=== PATIENT | male | born 1965 | race Caucasian/White ===

== ENCOUNTER 2018-06-19 13:51 | Inpatient (IN) | payer OTHER ==
[2018-06-19 14:17] VITALS: BMI 31.9
--- NOTE | 2018-06-19 16:40 | HP ---
CIWA Score Nausea/Vomitin-No Nausea/No Vomiting Muscle Tremors: 4-Moderate,w/Arms Extend Anxiety: 1-Mildly Anxious Agitation: 4-Moderately Restless Paroxysmal Sweats: 3 (Increased facial moisture) Orientation: 1-Uncertain about Date Tacttile Disturbances: 0-None Auditory Disturbances: 0-None Visual Disturbances: 0-None Headache: 0-None Present CIWA-Ar Total Score: 13 - Admission Criteria OASAS Guidelines: Admission for Medically Managed Detox: Requires at least one of the followin. CIWA greater than 12 2. Seizures within the past 24 hours 3. Delirium tremens within the past 24 hours 4. Hallucinations within the past 24 hours 5. Acute intervention needed for co occurring medical disorder 6. Acute intervention needed for co occurring psychiatric disorder 7. Severe withdrawal that cannot be handled at a lower level of care (continued vomiting, continued diarrhea, abnormal vital signs) requiring intravenous medication and/or fluids 8. Patient presents the following: CIWA greater than 12 (CORAL was 0.281 and now 0.158) Admission Criteria Met: Admission criteria met Admission [facility] Chief Complaint: Here for alcohol withdrawal. Allergies/Adverse Reactions: Allergies Allergy/AdvReac Type Severity Reaction Status Date / Time diphenhydramine AdvReac Verified 06/19/18 16:12 [From Benadryl] hydroxyzine [From Atarax] AdvReac Verified 06/19/18 16:12 History of Present Illness: States here for detox. States last drink about 1 pm today. Continuous daily drinking since 04/2019 to present. Alcohol use began at age 6. Currently in 'After Care' @ [facility]. Continues to drink about 1/2 gall vodka daily. Marijuana use began at age 12. Nicotine use began at age 12. Patient prefers nicotine patch to gum. Heroin use from 31 - 35. Suboxone prescriptions from [facility] - Eliseo Vazquez MD - On Suboxone x 4 - 5 years. Denies opiate relapse. States seizures as a child. Recently only having Alcohol related seizure - last 5 years ago. No blackouts/overdoses. Longest length of sobriety from alcohol 2000 - 2005; Hx: Asthma - last exacerbation 06/18/18. HTN - on meds; Occ. Acid reflux. Urinary Hesitancy - on meds. Hx. Depression. Denies thoughts of harming self or others. States see a provider. Patient Name: Bryon Buck Date: 1965 Address: [address] [place] [id number] Sex: Male Rx Written Rx Dispensed Drug Quantity Days Supply Prescriber Name 06/15/2018 06/15/2018 suboxone 8 mg-2 mg sl film 60 30 Eliseo Vazquez MD 05/16/2018 05/16/2018 suboxone 8 mg-2 mg sl film 60 30 Eliseo Vazquez MD 04/21/2018 04/22/2018 suboxone 8 mg-2 mg sl film 30 15 Eliseo Vazquez MD 04/14/2018 04/14/2018 suboxone 8 mg-2 mg sl film 15 8 Eliseo Vazquez MD 03/17/2018 03/17/2018 suboxone 8 mg-2 mg sl film 60 30 TaylorEliseo MD 02/16/2018 02/16/2018 suboxone 8 mg-2 mg sl film 60 30 TaylorEliseo MD 01/13/2018 01/13/2018 suboxone 8 mg-2 mg sl film 60 30 TaylorEliseo MD 12/14/2017 12/14/2017 suboxone 8 mg-2 mg sl film 60 30 TaylorEliseo MD 10/12/2017 10/12/2017 suboxone 8 mg-2 mg sl film 60 30 Eliseo Vazquez MD 09/01/2017 09/06/2017 suboxone 8 mg-2 mg sl film 30 15 Eliseo Vazquez MD 08/09/2017 08/09/2017 suboxone 8 mg-2 mg sl film 30 30 Eliseo Vazquez MD Patient Name: Bryon Buck Date: 1965 Address: [address] [facility] [place] [address] Sex: Male Rx Written Rx Dispensed Drug Quantity Days Supply Prescriber Name 12/10/2017 12/11/2017 chlordiazepoxide 25 mg capsule 8 2 Stevie Hill ( CLARISSA) Exam Limitations: No Limitations - Ebola screening Have you traveled outside of the country in the last 21 days: No Have you had contact with anyone from an Ebola affected area: No Have you been sick,other than usual withdrawal symptoms: No Do you have a fever: No - Review of Systems Constitutional: Diaphoresis EENT: reports: Blurred Vision (Wears glasses) Respiratory: reports: SOB with Exertion Cardiac: reports: No Symptoms Reported GI: reports: Indigestion (Acid reflux - on meds) : reports: Other (Hx hesitentcy - on meds) Musculoskeletal: reports: Back Pain (Chronic achy neck and lower back x 16 years. Takes ibuprofen for relief. No pain at this time.) Integumentary: reports: No Symptoms Reported Neuro: reports: Numbness ((R) leg - states takes neurontin. States when doesn't take, legs kick.) Endocrine: reports: Increased Thirst Hematology: reports: No Symptoms Reported Psychiatric: reports: Judgement Intact, Agitated, Anxious, Depressed (Hx. Depression. Denies thoughts of harming self or others.), Disorientated (Unsure of date) Patient History - Patient Medical History Hx Asthma: Yes (Pt is on MDi.) Hx Chronic Obstructive Pulmonary Disease (COPD): No Hx Cardiac Disorders: No Hx Hypertension: Yes (on meds.) Hx Seizures: Yes (etoh related seizures last in 1999) Hx Diabetes: No Hx Gastrointestinal Disorders: No Hx Genitourinary Disorders: No Hx Sexually Transmitted Disorders: No Hx Renal Disease (ESRD): Yes Hx Depression: Yes Hx Schizophrenia: No - Patient Surgical History Past Surgical History: Yes Other Surgical History: L inguinal hernia - PPD History Previous Implant?: Yes Documented Results: Negative w/o proof Implanted On Prior [facility] Admission?: No PPD to be Administered?: Yes - Smoking Cessation Smoking history: Current every day smoker Have you smoked in the past 12 months: Yes Aproximately how many cigarettes per day: 5 Hx Chewing Tobacco Use: No Initiated information on smoking cessation: Yes 'Breaking Loose' booklet given: 06/19/18 - Substance & Tx. History Hx Alcohol Use: Yes Hx Substance Use: Yes Substance Use Type: Alcohol, Heroin Hx Substance Use Treatment: Yes (detox, rehab, Suboxone Program, after Care) - Substances Abused Alcohol Route: Oral Frequency: Daily Amount used: 1/2 GALLON VODKA Age of first use: 6 Date of Last Use: 06/19/18 Marijuana/Hashish Route: Smoking Frequency: Daily Amount used: 1 JOINT Age of first use: 12 Date of Last Use: 06/19/18 Admission Physical Exam BHS - Vital Signs Vital Signs: Vital Signs - 24 hr 06/19/18 14:14 Temperature 99.1 F Pulse Rate 101 H Respiratory 18 Rate Blood Pressure 121/78 - Physical General Appearance: Yes: Appropriately Dressed, Mild Distress, Alcohol on Breath , Tremorous, Irritable, Sweating (Increased facial moisture), Anxious HEENTM: Yes: EOMI (Jerking movements of eye upon (L) and (R) lateral gaze), Hearing grossly Normal, Normal Voice, KAY (Pupils = 1 mm), Pharynx Normal Respiratory: Yes: Lungs Clear, Normal Breath Sounds, No Respiratory Distress Neck: Yes: No masses,lesions,Nodules, Supple Breast: Yes: Breast Exam Deferred Cardiology: Yes: Regular Rhythm, S1, S2, Tachycardia Abdominal: Yes: Non Tender (Increased abdominal adiposity), Increased Bowel Sounds, Protuberent Genitourinary: Yes: Hesitency Back: Yes: Normal Inspection Musculoskeletal: Yes: full range of Motion, Gait Steady (Uses cane in case of leg weakness) Extremities: Yes: Normal Capillary Refill, Normal Inspection, Normal Range of Motion, Tremors Neurological: Yes: chief nursing executive II-XII NML intact (Jerking movements of eye upon (L) and (R) lateral gaze), Alert, Motor Strength 5/5 Integumentary: Yes: Normal Color, Dry (Except for facial area), Warm, Diaphoresis (Increased facial moisture) Lymphatic: Yes: Within Normal Limits - Diagnostic (1) Nicotine dependence, uncomplicated Current Visit: Yes Status: Chronic Qualifiers: Nicotine product type: cigarettes Qualified Code(s): F17.210 - Nicotine dependence, cigarettes, uncomplicated (2) Alcohol dependence with uncomplicated withdrawal Current Visit: Yes Status: Acute (3) Opioid dependence on agonist therapy Current Visit: Yes Status: Chronic (4) Essential (primary) hypertension Current Visit: Yes Status: Chronic (5) Nystagmus Current Visit: Yes Status: Acute (6) Chronic back pain Current Visit: Yes Status: Acute Qualifiers: Back pain location: back pain in unspecified location Back pain laterality : unspecified Qualified Code(s): M54.9 - Dorsalgia, unspecified; G89.29 - Other chronic pain Comment: Neck and low back pain (7) Neuropathy Current Visit: Yes Status: Chronic Comment: (R) leg (8) History of asthma Current Visit: Yes Status: Chronic (9) Cannabis dependence, uncomplicated Current Visit: Yes Status: Chronic (10) Urinary hesitancy Current Visit: Yes Status: Chronic Comment: On Tamsulosin Cleared for Admission [facility] - Detox or Rehab [facility] Level of Care: Medically Managed Detox Regimen/Protocol: Librium [facility] Breath Alcohol Content Breath Alcohol Content: 0.281 Urine Drug Screen - Results Drug Screen Negative: No Urine Drug Screen Results: THC-Marijuana, MET-Methamphetamine, BUP-Suboxone Inpatient Rehab Admission - Rehab Decision to Admit Inpatient rehab admission?: No
[2018-06-19] MEDS ORDERED: ALBUTEROL SO4 8 GM HFA INHALER IH PRN (17:44)
[2018-06-19] MEDS ORDERED: MENTHOL/PHENOL 1 EACH UD MM PRN (18:03)
[2018-06-19] MEDS ORDERED: chlordiazePOXIDE HCL 25 MG CAPSULE PO ONE (18:03)
[2018-06-19] MEDS ORDERED: MAGNESIUM CITRATE 300 ML BOTTLE PO PRN (18:03)
[2018-06-19] MEDS ORDERED: ACETAMINOPHEN 325 MG TABLET (FP) PO PRN (18:03)
[2018-06-19] MEDS ORDERED: LOPERAMIDE HCL 2 MG CAPSULE PO PRN (18:03)
[2018-06-19] MEDS ORDERED: MAGNESIUM HYDROX 2400MG/30ML ORAL SUSPENSION 30 ML CUP PO PRN (18:03)
[2018-06-19] MEDS ORDERED: guaiFENesin 200 MG/10 ML 10 ML UNIT-DOSE CUPS PO PRN (18:05)
[2018-06-19] MEDS: THIAMINE HCL 100 MG TABLET (FP) PO SCH (22:15)
[2018-06-19] MEDS: chlordiazePOXIDE HCL 25 MG CAPSULE PO SCH (22:15)
[2018-06-19] MEDS: GABAPENTIN 300 MG CAPSULE (FP) PO SCH (22:15)
[2018-06-19] MEDS: DOCUSATE SODIUM 100 MG CAPSULE (FP) PO SCH (22:16)
[2018-06-19] MEDS: MELATONIN 5 MG TABLETS PO PRN (22:17)
[2018-06-20] MEDS: GABAPENTIN 300 MG CAPSULE (FP) PO SCH ×3 (05:25→22:12)
[2018-06-20] MEDS: chlordiazePOXIDE HCL 25 MG CAPSULE PO SCH ×4 (05:25→22:12)
--- NOTE | 2018-06-20 09:46 | PN ---
S CIWA - CIWA Score Nausea/Vomitin-Mild Nausea/No Vomiting Muscle Tremors: 3 Anxiety: 2 Agitation: 3 Paroxysmal Sweats: 1-Minimal Palms Moist Orientation: 1-Uncertain about Date Tacttile Disturbances: 0-None Auditory Disturbances: 0-None Visual Disturbances: 0-None Headache: 2-Mild CIWA-Ar Total Score: 13 BHS Progress Note (SOAP) Subjective: tremor sweating slept through the night Objective: 06/20/18 09:46 Vital Signs Temperature 97.8 F 06/20/18 09:18 Pulse Rate 94 H 06/20/18 09:18 Respiratory Rate 18 06/20/18 09:18 Blood Pressure 127/78 06/20/18 09:18 O2 Sat by Pulse Oximetry (%) lab pending Assessment: 06/20/18 09:46 alcohol withdrawal sx Plan: continue alcohol detox
[2018-06-20] MEDS ORDERED: DOCUSATE SODIUM 100 MG CAPSULE (FP) PO SCH (10:00)
[2018-06-20] MEDS: NICOTINE 7 MG/24 HOURS TOPICAL PATCH TD SCH (10:17)
[2018-06-20] MEDS: BUPRENORPHINE/NALOXONE 8 MG/2 MG FILM PACKET SL SCH (10:17)
[2018-06-20] MEDS: TAMSULOSIN HCL 0.4 MG CAP PO SCH (10:18)
[2018-06-20] MEDS: LISINOPRIL 20 MG TABLET (FP) PO SCH (10:18)
[2018-06-20] MEDS: ASPIRIN 81 MG CHEWABLE TABLETS PO SCH (10:18)
[2018-06-20] MEDS: DOCUSATE SODIUM 100 MG CAPSULE (FP) PO SCH ×2 (10:18→22:13)
[2018-06-20] MEDS: PRENATAL VITAMINS W/ FOLIC ACID TABLET (FP) PO SCH (10:18)
--- NOTE | 2018-06-20 10:18 | CONSULT ---
[facility] Psychiatric Consult - Data Date of interview: 06/20/18 Admission source: [facility] Identifying data: Case of a 53 y/o male, initially treated on [address] [place] [address] for detoxification (alcohol, heroin, cannabis), transferred to [facility] for rehabilitation to consolidate sobriety and address co-morbidities (MDD and anxiety disorder). Re-interviewed at [facility]. Currently on suboxone maintenance. Patient is single (common-law spouse), a father of six, domiciled (lives with C/ L ), unemployed by reason of physical disabilities and supported by + unemployment benefits. Substance Abuse History: Confirmed by patient in this interview. See details in current [facility] report as follows : Smoking history: Current every day smoker. Have you smoked in the past 12 months: Yes. Aproximately how many cigarettes per day: 5. Hx Chewing Tobacco Use: No. Initiated information on smoking cessation: Yes. 'Breaking Loose' booklet given: 06/19/18. - Substance & Tx. History. Hx Alcohol Use: Yes. Hx Substance Use: Yes. Substance Use Type: Alcohol, Heroin. Hx Substance Use Treatment: Yes (detox, rehab, Suboxone Program, after Care). - Substances Abused. Alcohol. Route: Oral. Frequency: Daily. Amount used: 1/2 GALLON VODKA. Age of first use: 6. Date of Last Use: 06/19/18. Marijuana/Hashish. Route: Smoking. Frequency: Daily. Amount used: 1 JOINT. Age of first use: 12. Date of Last Use: 06/19/18 Medical History: Consistent with chronic lumbar pain, GERD, benign prostatic hyperplasia (BPH), antecedent of withdrawal-related seizures, bronchial asthma, hypertension, orthopedic issues (torn meniscus in both knees) and a remote history of left inguinal herniorraphy (1988). Ambulates with a cane. Psychiatric History: No reported history of psychiatric hospitalizations. Patient is receiving active psychiatric care, under the diagnoses of MDD/ Anxiety Disorder, at the [facility] clinic in the [place]. Medicated with sertraline + mirtazapine. Doses not recalled by the patient. Mr Buck denies history of suicide attempts. Physical/Sexual Abuse/Trauma History: No history of abuse. Stressors : current status of unemployment, physical disabilities and addictions. Additional Comment: Urine Drug Screen Results: THC-Marijuana, MET- Methamphetamine, BUP-Suboxone. Noted. Mental Status Exam - Mental Status Exam Alert and Oriented to: Time, Place, Person Cognitive Function: Good Patient Appearance: Well Groomed Mood: Nervous, Anxious Affect: Appropriate, Normal Range Patient Behavior: Fatigued, Appropriate (friendly), Cooperative Speech Pattern: Clear, Appropriate Voice Loudness: Normal Thought Process: Intact, Goal Oriented Thought Disorder: Not Present Hallucinations: Denies Suicidal Ideation: Denies Homicidal Ideation: Denies Insight/Judgement: Fair Sleep: Poorly, Difficulty falling asleep Appetite: Good Muscle strength/Tone: Normal Gait/Station: Other (walks with a cane) Psychiatric Findings - Problem List (Gobles 1, 2,3) (1) Alcohol dependence with uncomplicated withdrawal Status: Acute (2) Opioid dependence on agonist therapy Status: Chronic (3) Cannabis dependence, uncomplicated Status: Chronic (4) Nicotine dependence, uncomplicated Status: Chronic Qualifiers: Nicotine product type: cigarettes Qualified Code(s): F17.210 - Nicotine dependence, cigarettes, uncomplicated (5) Substance induced mood disorder Status: Chronic (6) Depressive disorder Status: Chronic Comment: According to history. Patient is on medications. Sees psychiatrist at [facility] at [address] [place] [address]. (7) Insomnia Status: Chronic Qualifiers: Insomnia type: unspecified Qualified Code(s): G47.00 - Insomnia, unspecified - Initial Treatment Plan Initial Treatment Plan: Psychoeducation. Sleep hygiene. Detoxification. AA/NA meetings. Support. Medications resumed as follows : zoloft 50 mg po daily + remeron 7.5 mg po hs. Side effects/benefits of both drugs are discussed with the patient. Mr Buck is in agreement with this plan of care. Falls precautions. Observation.
[2018-06-20 10:57] LABS: HEMATOCRIT 38.5 % (35.4-49); HEMOGLOBIN 13.5 GM/dL (11.7-16.9); MCH 35.2 pg (25.7-33.7); MCHC 35.1 g/dl (32.0-35.9); MEAN CELL VOLUME 100.3 fl (80-96); MEAN PLT VOLUME 8.8 fl (7.5-11.1); PLATELET COUNT 230 K/MM3 (134-434); RBC 3.84 M/mm3 (4.00-5.60); RDW 13.2 % (11.9-15.9); WHITE BLOOD COUNT 5.9 K/mm3 (4.0-10.0)
[2018-06-20 11:21] LABS: ALBUMIN 3.1 g/dl (3.4-5.0); ALK PHOS 172 U/L (45-117); ANION GAP 8 MMOL/L (8-16); BILIRUBIN,TOTAL 1.7 mg/dL (0.2-1); BLOOD UREA NITROGEN 8 mg/dL (7-18); CALCIUM 8.4 mg/dL (8.5-10.1); CHLORIDE 96 mmol/L (98-107); CO2 32 mmol/L (21-32); CREATININE 0.6 mg/dL (0.55-1.3); GLUCOSE,RANDOM 89 mg/dL (74-106); POTASSIUM 3.2 mmol/L (3.5-5.1); SGOT/AST 307 U/L (15-37); SGPT/ALT 108 U/L (13-61); SODIUM 136 mmol/L (136-145)
[2018-06-20] MEDS: IBUPROFEN 400 MG TABLET (FP) PO PRN (12:26)
[2018-06-20] MEDS: MAG HYDROX/AL HYDROX/SIMETH 30 ML UNIT-DOSE CUP PO PRN (21:11)
[2018-06-20] MEDS: MIRTAZAPINE 15 MG TABLET (FP) PO SCH (22:13)
[2018-06-20] MEDS: THIAMINE HCL 100 MG TABLET (FP) PO SCH (22:14)
[2018-06-21] MEDS: chlordiazePOXIDE HCL 25 MG CAPSULE PO PRN ×2 (00:36→07:20)
[2018-06-21] MEDS: MELATONIN 5 MG TABLETS PO PRN ×2 (00:38→22:12)
[2018-06-21] MEDS: GABAPENTIN 300 MG CAPSULE (FP) PO SCH ×3 (05:12→22:10)
[2018-06-21] MEDS: chlordiazePOXIDE HCL 25 MG CAPSULE PO SCH ×3 (05:12→18:02)
--- NOTE | 2018-06-21 10:24 | PN ---
[facility] CIWA - CIWA Score Nausea/Vomitin-No Nausea/No Vomiting Muscle Tremors: 2 Anxiety: 3 Agitation: 3 Paroxysmal Sweats: 1-Minimal Palms Moist Orientation: 1-Uncertain about Date Tacttile Disturbances: 0-None Auditory Disturbances: 0-None Visual Disturbances: 0-None Headache: 1-Very Mild CIWA-Ar Total Score: 11 S Progress Note (SOAP) Subjective: swelling ankles ankle edematous +1 no shortness of breath HCTZ 12.5 mg x 1 elevation of both legs as much as possible tremor sweating restlessness Objective: 06/21/18 10:25 Vital Signs Temperature 96.8 F L 06/21/18 09:36 Pulse Rate 109 H 06/21/18 09:36 Respiratory Rate 20 06/21/18 09:36 Blood Pressure 109/72 06/21/18 09:36 O2 Sat by Pulse Oximetry (%) Laboratory Last Values WBC 5.9 K/mm3 (4.0-10.0) 06/20/18 08:10 RBC 3.84 M/mm3 (4.00-5.60) L 06/20/18 08:10 Hgb 13.5 GM/dL (11.7-16.9) 06/20/18 08:10 Hct 38.5 % (35.4-49) 06/20/18 08:10 MCV 100.3 fl (80-96) H 06/20/18 08:10 MCH 35.2 pg (25.7-33.7) H 06/20/18 08:10 MCHC 35.1 g/dl (32.0-35.9) 06/20/18 08:10 RDW 13.2 % (11.9-15.9) 06/20/18 08:10 Plt Count 230 K/MM3 (134-434) 06/20/18 08:10 MPV 8.8 fl (7.5-11.1) 06/20/18 08:10 Sodium 136 mmol/L (136-145) 06/20/18 08:10 Potassium 3.2 mmol/L (3.5-5.1) L 06/20/18 08:10 Chloride 96 mmol/L (98-107) L 06/20/18 08:10 Carbon Dioxide 32 mmol/L (21-32) 06/20/18 08:10 Anion Gap 8 MMOL/L (8-16) 06/20/18 08:10 BUN 8 mg/dL (7-18) 06/20/18 08:10 Creatinine 0.6 mg/dL (0.55-1.3) 06/20/18 08:10 Creat Clearance w eGFR > 60 (>60) 06/20/18 08:10 Random Glucose 89 mg/dL (74-106) 06/20/18 08:10 Calcium 8.4 mg/dL (8.5-10.1) L 06/20/18 08:10 Total Bilirubin 1.7 mg/dL (0.2-1) H 06/20/18 08:10 AST 307 U/L (15-37) H 06/20/18 08:10 ALT 108 U/L (13-61) H 06/20/18 08:10 Alkaline Phosphatase 172 U/L (45-117) H 06/20/18 08:10 Total Protein 6.0 g/dl (6.4-8.2) L 06/20/18 08:10 Albumin 3.1 g/dl (3.4-5.0) L 06/20/18 08:10 RPR Titer Nonreactive (NONREACTIVE) 06/20/18 08:10 lab noted K+ low Assessment: 06/21/18 10:25 withdrawal sx Plan: continue detox potassium supplement repeat K+
[2018-06-21] MEDS: BUPRENORPHINE/NALOXONE 8 MG/2 MG FILM PACKET SL SCH (10:25)
[2018-06-21] MEDS: PRENATAL VITAMINS W/ FOLIC ACID TABLET (FP) PO SCH (10:26)
[2018-06-21] MEDS: SERTRALINE HCL 50 MG TABLET (FP) PO SCH (10:26)
[2018-06-21] MEDS: TAMSULOSIN HCL 0.4 MG CAP PO SCH (10:26)
[2018-06-21] MEDS: ASPIRIN 81 MG CHEWABLE TABLETS PO SCH (10:26)
[2018-06-21] MEDS: LISINOPRIL 20 MG TABLET (FP) PO SCH (10:26)
[2018-06-21] MEDS: DOCUSATE SODIUM 100 MG CAPSULE (FP) PO SCH ×2 (10:26→22:10)
[2018-06-21] MEDS: NICOTINE 7 MG/24 HOURS TOPICAL PATCH TD SCH (10:27)
[2018-06-21] MEDS ORDERED: HYDROCHLOROTHIAZIDE 12.5 MG CAPSULE (FP) PO ONE (10:45)
[2018-06-21] MEDS: POTASSIUM CHLORIDE TABS 20 MEQ TABLET.ER (FP) PO SCH ×2 (12:40→22:10)
[2018-06-21] MEDS: IBUPROFEN 400 MG TABLET (FP) PO PRN (12:40)
[2018-06-21] MEDS: chlordiazePOXIDE 5 MG CAPSULE PO SCH (22:10)
[2018-06-21] MEDS: THIAMINE HCL 100 MG TABLET (FP) PO SCH (22:10)
[2018-06-21] MEDS: MIRTAZAPINE 15 MG TABLET (FP) PO SCH (22:11)
[2018-06-21] MEDS ORDERED: BACLOFEN 10 MG TABLET (FP) PO ONE (22:22)
[2018-06-21] MEDS: NICOTINE POLACRILEX 2 MG GUM BUC PRN (22:47)
[2018-06-22] MEDS: chlordiazePOXIDE 5 MG CAPSULE PO SCH ×3 (05:07→17:54)
[2018-06-22] MEDS: GABAPENTIN 300 MG CAPSULE (FP) PO SCH ×3 (05:07→22:06)
[2018-06-22] MEDS: chlordiazePOXIDE HCL 25 MG CAPSULE PO PRN (07:03)
--- NOTE | 2018-06-22 09:24 | PN ---
S CIWA - CIWA Score Nausea/Vomitin-No Nausea/No Vomiting Muscle Tremors: 2 Anxiety: 1-Mildly Anxious Agitation: 1-Slight > Activity Paroxysmal Sweats: 1-Minimal Palms Moist Orientation: 0-Oriented Tacttile Disturbances: 0-None Auditory Disturbances: 0-None Visual Disturbances: 0-None Headache: 1-Very Mild CIWA-Ar Total Score: 6 BHS Progress Note (SOAP) Subjective: feeling better less tremor mild sweating patient received 30 days medication from primary care on 06/15/18 Objective: 06/22/18 09:26 Vital Signs Temperature 97.7 F 06/22/18 05:54 Pulse Rate 60 06/22/18 05:54 Respiratory Rate 18 06/22/18 05:54 Blood Pressure 103/67 06/22/18 05:54 O2 Sat by Pulse Oximetry (%) Laboratory Last Values WBC 5.9 K/mm3 (4.0-10.0) 06/20/18 08:10 RBC 3.84 M/mm3 (4.00-5.60) L 06/20/18 08:10 Hgb 13.5 GM/dL (11.7-16.9) 06/20/18 08:10 Hct 38.5 % (35.4-49) 06/20/18 08:10 MCV 100.3 fl (80-96) H 06/20/18 08:10 MCH 35.2 pg (25.7-33.7) H 06/20/18 08:10 MCHC 35.1 g/dl (32.0-35.9) 06/20/18 08:10 RDW 13.2 % (11.9-15.9) 06/20/18 08:10 Plt Count 230 K/MM3 (134-434) 06/20/18 08:10 MPV 8.8 fl (7.5-11.1) 06/20/18 08:10 Sodium 136 mmol/L (136-145) 06/20/18 08:10 Potassium 3.2 mmol/L (3.5-5.1) L 06/20/18 08:10 Chloride 96 mmol/L (98-107) L 06/20/18 08:10 Carbon Dioxide 32 mmol/L (21-32) 06/20/18 08:10 Anion Gap 8 MMOL/L (8-16) 06/20/18 08:10 BUN 8 mg/dL (7-18) 06/20/18 08:10 Creatinine 0.6 mg/dL (0.55-1.3) 06/20/18 08:10 Creat Clearance w eGFR > 60 (>60) 06/20/18 08:10 Random Glucose 89 mg/dL (74-106) 06/20/18 08:10 Calcium 8.4 mg/dL (8.5-10.1) L 06/20/18 08:10 Total Bilirubin 1.7 mg/dL (0.2-1) H 06/20/18 08:10 AST 307 U/L (15-37) H 06/20/18 08:10 ALT 108 U/L (13-61) H 06/20/18 08:10 Alkaline Phosphatase 172 U/L (45-117) H 06/20/18 08:10 Total Protein 6.0 g/dl (6.4-8.2) L 06/20/18 08:10 Albumin 3.1 g/dl (3.4-5.0) L 06/20/18 08:10 RPR Titer Nonreactive (NONREACTIVE) 06/20/18 08:10 lab noted repeat ast 06/22/18 09:29K+ repeat pending Assessment: 06/22/18 09:29 mild alcohol withdrawal sx Plan: continue detox
[2018-06-22] MEDS: LISINOPRIL 20 MG TABLET (FP) PO SCH (10:10)
[2018-06-22] MEDS: ASPIRIN 81 MG CHEWABLE TABLETS PO SCH (10:10)
[2018-06-22] MEDS: BUPRENORPHINE/NALOXONE 8 MG/2 MG FILM PACKET SL SCH (10:10)
[2018-06-22] MEDS: TAMSULOSIN HCL 0.4 MG CAP PO SCH (10:10)
[2018-06-22] MEDS: DOCUSATE SODIUM 100 MG CAPSULE (FP) PO SCH ×2 (10:10→22:06)
[2018-06-22] MEDS: SERTRALINE HCL 50 MG TABLET (FP) PO SCH (10:10)
[2018-06-22] MEDS: PRENATAL VITAMINS W/ FOLIC ACID TABLET (FP) PO SCH (10:10)
[2018-06-22] MEDS: POTASSIUM CHLORIDE TABS 20 MEQ TABLET.ER (FP) PO SCH (10:10)
[2018-06-22] MEDS: NICOTINE 7 MG/24 HOURS TOPICAL PATCH TD SCH (10:13)
[2018-06-22 10:46] LABS: POTASSIUM 3.9 mmol/L (3.5-5.1)
[2018-06-22] MEDS: IBUPROFEN 400 MG TABLET (FP) PO PRN (16:08)
[2018-06-22] MEDS: NICOTINE POLACRILEX 2 MG GUM BUC PRN (18:28)
[2018-06-22] MEDS: chlordiazePOXIDE HCL 10 MG CAPSULE PO SCH (22:06)
[2018-06-22] MEDS: MIRTAZAPINE 15 MG TABLET (FP) PO SCH (22:06)
[2018-06-22] MEDS: THIAMINE HCL 100 MG TABLET (FP) PO SCH (22:06)
[2018-06-22] MEDS: MELATONIN 5 MG TABLETS PO PRN (22:07)
[2018-06-23] MEDS: chlordiazePOXIDE HCL 10 MG CAPSULE PO SCH ×3 (05:37→17:45)
[2018-06-23] MEDS: GABAPENTIN 300 MG CAPSULE (FP) PO SCH ×2 (05:37→14:57)
[2018-06-23] MEDS: PRENATAL VITAMINS W/ FOLIC ACID TABLET (FP) PO SCH (10:33)
[2018-06-23] MEDS: SERTRALINE HCL 50 MG TABLET (FP) PO SCH (10:34)
[2018-06-23] MEDS: DOCUSATE SODIUM 100 MG CAPSULE (FP) PO SCH (10:34)
[2018-06-23] MEDS: LISINOPRIL 20 MG TABLET (FP) PO SCH (10:34)
[2018-06-23] MEDS: TAMSULOSIN HCL 0.4 MG CAP PO SCH (10:34)
[2018-06-23] MEDS: BUPRENORPHINE/NALOXONE 8 MG/2 MG FILM PACKET SL SCH (10:34)
[2018-06-23] MEDS: ASPIRIN 81 MG CHEWABLE TABLETS PO SCH (10:34)
[2018-06-23] MEDS: MAG HYDROX/AL HYDROX/SIMETH 30 ML UNIT-DOSE CUP PO PRN (10:37)
[2018-06-23] MEDS: NICOTINE 7 MG/24 HOURS TOPICAL PATCH TD SCH (10:40)
[2018-06-23] MEDS ORDERED: HYDROCHLOROTHIAZIDE 25 MG TABLET (FP) PO ONE (11:45)
--- NOTE | 2018-06-23 15:17 | DS ---
[facility] Detox Discharge Summary Admission Date: 06/19/18 Discharge Date: 06/23/18 - History Present History: Alcohol Dependence, Cannabis Dependence Additional Comments: PATIENT GOING ON TO [facility] ([place], [place]) FOR AFTERCARE. PATIENT TO BE GIVEN HCTZ, 12.5 MG PO DAILY X FIRST THREE DAYS WHILE ADMITTED FOR REHAB FOR RECENT DEVELOPMENT OF SWELLING IN BILATERAL ANKLES AND FEET. PATIENT WILL THEN BE RE-EVALUATED FOR SWELLING BY REHAB MEDICAL PROVIDER AT THAT TIME. PATIENT ADVISED TO FOLLOW-UP WITH [facility] DR[facility] JAVIER ([place], [place]) AFTER DISCHARGE FROM REHAB FOR GENERAL MEDICAL EVALUATION AND FOR HISTORY OF SWELLING IN BILATERAL ANKLES AND FEET, FOR HISTORY OF LIVER DISEASE (PATIENT UNCERTAIN ABOUT SPECIFIC TYPE), AND FOR ELEVATED LIVER ENZYMES VALUES NOTED WHILE ADMITTED FOR DETOX. PATIENT VERBALIZED UNDERSTANDING OF RECOMMENDATIONS. RESULT OF REPEAT AST NOTED. MODERATE REDUCTION IN LEVEL NOTED. COPIES OF ALL LABS DRAWN WHILE ADMITTED FOR DETOX WILL BE GIVEN TO PATIENT A TIME OF DISCHARGE FROM REHAB UNIT. PATIENT WAS DISCHARGE FROM DETOX UNIT IN STABLE MEDICAL CONDITION. Pertinent Past History: Asthma, Depression, HTN, Suboxone Maintenance Therapy, History of Seizures (ETOH -Related), History of Renal Disease, History of Urinary Hesitancy, Nystagmus, Nicotine Dependence, Chronic Back Pain, History of Neuropathy, Insomnia. - Physical Exam Results Vital Signs: Vital Signs Temperature 99.9 F H 06/23/18 13:33 Pulse Rate 93 H 06/23/18 13:33 Respiratory Rate 18 06/23/18 13:33 Blood Pressure 127/81 06/23/18 13:33 O2 Sat by Pulse Oximetry (%) Pertinent Admission Physical Exam Findings: WITHDRAWAL SYMPTOMS. Laboratory Tests 06/20/18 06/20/18 06/20/18 08:10 08:10 08:10 WBC 5.9 RBC 3.84 L Hgb 13.5 Hct 38.5 MCV 100.3 H MCH 35.2 H MCHC 35.1 RDW 13.2 Plt Count 230 MPV 8.8 Sodium 136 Potassium 3.2 L Chloride 96 L Carbon Dioxide 32 Anion Gap 8 BUN 8 Creatinine 0.6 Creat Clearance w eGFR > 60 Random Glucose 89 Calcium 8.4 L Total Bilirubin 1.7 H AST 307 H ALT 108 H Alkaline Phosphatase 172 H Total Protein 6.0 L Albumin 3.1 L RPR Titer Nonreactive 06/22/18 06/23/18 08:00 07:00 WBC RBC Hgb Hct MCV MCH MCHC RDW Plt Count MPV Sodium Potassium 3.9 Chloride Carbon Dioxide Anion Gap BUN Creatinine Creat Clearance w eGFR Random Glucose Calcium Total Bilirubin AST 231 H 181 H ALT Alkaline Phosphatase Total Protein Albumin RPR Titer LABS NOTED. - Treatment Hospital Course: Detox Protocol Followed, Detoxed Safely, Responded well, Discharged Condition Good, Rehab Referral Accepted Patient has Accepted a Rehab Referral to: [facility] ([place], [place]). - Medication Discharge Medications: Ambulatory Orders Albuterol Sulfate Inhaler - [Ventolin HFA Inhaler -] 2 inh PO Q4H PRN 06/19/18 Aspirin [ASA -] 81 mg PO DAILY 06/19/18 Buprenorphine/Naloxone [Suboxone 8Mg/2Mg Sl Film -] 2 each SL DAILY 06/19/18 Docusate Sodium [Dok] 100 mg PO BID 06/19/18 Folic Acid - 1 mg PO DAILY 06/19/18 Gabapentin [Neurontin] 600 mg PO TID 06/19/18 Ibuprofen 800 mg PO BID 06/19/18 Lisinopril 20 mg PO DAILY 06/19/18 Sertraline HCl [Zoloft -] 50 mg PO DAILY 06/19/18 Tamsulosin HCl [Flomax -] 0.4 mg PO DAILY 06/19/18 - Diagnosis (1) Alcohol dependence with uncomplicated withdrawal Current Visit: Yes Status: Acute (2) Chronic back pain Current Visit: Yes Status: Chronic Qualifiers: Back pain location: back pain in unspecified location Back pain laterality : unspecified Qualified Code(s): M54.9 - Dorsalgia, unspecified; G89.29 - Other chronic pain (3) Nystagmus Current Visit: Yes Status: Acute (4) Cannabis dependence, uncomplicated Current Visit: Yes Status: Chronic (5) Depressive disorder Current Visit: Yes Status: Chronic (6) Essential (primary) hypertension Current Visit: Yes Status: Chronic (7) History of asthma Current Visit: Yes Status: Chronic (8) Insomnia Current Visit: Yes Status: Chronic Qualifiers: Insomnia type: unspecified Qualified Code(s): G47.00 - Insomnia, unspecified (9) Neuropathy Current Visit: Yes Status: Chronic (10) Nicotine dependence, uncomplicated Current Visit: Yes Status: Chronic Qualifiers: Nicotine product type: cigarettes Qualified Code(s): F17.210 - Nicotine dependence, cigarettes, uncomplicated (11) Opioid dependence on agonist therapy Current Visit: Yes Status: Chronic (12) Substance induced mood disorder Current Visit: Yes Status: Chronic (13) Urinary hesitancy Current Visit: Yes Status: Chronic - AMA Did Patient Leave Against Medical Advice: No
[2018-06-23 17:19] VITALS: BP 100/65; PULSE 95; TEMP 97.1
--- NOTE | 2018-06-25 12:40 | EKG ---
Test Reason : Blood Pressure : / mmHG Vent. Rate : 080 BPM Atrial Rate : 080 BPM P-R Int : 120 ms QRS Dur : 074 ms QT Int : 384 ms P-R-T Axes : 020 006 018 degrees QTc Int : 442 ms NORMAL SINUS RHYTHM NORMAL ECG NO PREVIOUS ECGS AVAILABLE Confirmed by MELISSA GRECO MD ([id number]) on 06/25/2018 12:40:07 PM Referred By: Confirmed By:MELISSA GRECO MD
== END 2018-06-23 18:00 | disposition other institution (70) | DRG 773 ==
LOC: YASAS 13:51 → Y3N 18:09
PROVIDERS: ADMIT Surgery; ATTEND Surgery
PROC: HZ2ZZZZ Detoxification Services for Substance Abuse Treatment (ICD-10-PCS; principal; 2018-06-19)
DX: F10.230 Alcohol dependence with withdrawal, uncomplicated (principal); F11.20 Opioid dependence, uncomplicated; F12.20 Cannabis dependence, uncomplicated; F17.210 Nicotine dependence, cigarettes, uncomplicated; F19.24 Other psychoactive substance dependence with psychoactive substance-induced mood disorder; F32.9 Major depressive disorder, single episode, unspecified; G62.9 Polyneuropathy, unspecified; G47.00 Insomnia, unspecified; I10 Essential (primary) hypertension; M54.9 Dorsalgia, unspecified; G89.29 Other chronic pain; H55.00 Unspecified nystagmus; R39.11 Hesitancy of micturition; Z87.09 Personal history of other diseases of the respiratory system
CPT/HCPCS: 36415; 80053; 84132; 84450; 85027; 86593; 93005; 93010; J0475

== ENCOUNTER 2018-06-23 18:09 | Inpatient (IN) | payer OTHER ==
--- NOTE | 2018-06-23 15:31 | HP ---
LEATHA SIMON Rehab Assess/Revision - Admission History Admitted to Rehab from: [facility] Date of Admission to Rehab: 06/23/2018 - Vital signs Vital Signs: NOTED; STABLE. - Findings Detox History & Physical reviewed: Yes Concur with findings: Yes Comments/Additional Findings: PATIENT'S MEDICAL / MEDICATION HISTORY REVIEWED PRIOR TO DISCHARGE FROM DETOX UNIT. PATIENT TO BE GIVEN HCTZ, 12.5 MG PO DAILY X FIRST THREE DAYS WHILE ADMITTED FOR REHAB FOR RECENT DEVELOPMENT OF SWELLING IN BILATERAL ANKLES AND FEET. PATIENT WILL THEN BE RE-EVALUATED FOR SWELLING BY REHAB MEDICAL PROVIDER AT THAT TIME. PATIENT ADVISED TO FOLLOW-UP WITH [facility] DR. JAVIER ([place], [place]) AFTER DISCHARGE FROM REHAB FOR GENERAL MEDICAL EVALUATION AND FOR HISTORY OF SWELLING IN BILATERAL ANKLES AND FEET, FOR HISTORY OF LIVER DISEASE (PATIENT UNCERTAIN ABOUT SPECIFIC TYPE), AND FOR ELEVATED LIVER ENZYMES VALUES NOTED WHILE ADMITTED FOR DETOX. PATIENT VERBALIZED UNDERSTANDING OF RECOMMENDATIONS. RESULT OF REPEAT AST NOTED. MODERATE REDUCTION IN LEVEL NOTED. COPIES OF ALL LABS DRAWN WHILE ADMITTED FOR DETOX WILL BE GIVEN TO PATIENT A TIME OF DISCHARGE FROM REHAB UNIT. PATIENT WAS DISCHARGED FROM DETOX UNIT TO BE TAKEN OVER TO REHAB UNIT IN STABLE MEDICAL CONDITION. Inpatient Rehab Admission - Rehab Decision to Admit Inpatient rehab admission?: Yes - Initial Determination Are CD services needed?: Yes Free of communicable disease: Yes Not in need of hospitalization: Yes - Rehab Admission Criteria Previous failed treatment: Yes Poor recovery environment: Yes Comorbidities: Yes Lacks judgement: No Patient is meeting Inpatient Rehab admission criteria:: Yes
[~2018-06-23 18:09] MED LIST: ALBUTEROL SO4 8 GM HFA INHALER IH PRN; IBUPROFEN 400 MG TABLET (FP) PO PRN; LOPERAMIDE HCL 2 MG CAPSULE PO PRN; MENTHOL/PHENOL 1 EACH UD MM PRN; P-EPHED 60MG/TRIPROLIDI 2.5MG TABLET PO PRN
[2018-06-23] MEDS ORDERED: MAGNESIUM CITRATE 300 ML BOTTLE PO PRN (18:17)
[2018-06-23] MEDS ORDERED: MAGNESIUM HYDROX 2400MG/30ML ORAL SUSPENSION 30 ML CUP PO PRN (18:17)
[2018-06-23 18:44] VITALS: BMI 31.9
[2018-06-23] MEDS ORDERED: PNEUMOC 13-VAL CONJ-DIP CRM/PF 0.5 ML DISP.SYRIN IM ONE (18:44)
[2018-06-23] MEDS: MAG HYDROX/AL HYDROX/SIMETH 30 ML UNIT-DOSE CUP PO PRN (20:19)
[2018-06-23] MEDS: DOCUSATE SODIUM 100 MG CAPSULE (FP) PO SCH (21:23)
[2018-06-23] MEDS: GABAPENTIN 300 MG CAPSULE (FP) PO SCH (21:23)
[2018-06-23] MEDS: ACETAMINOPHEN 325 MG TABLET (FP) PO PRN (21:23)
[2018-06-23] MEDS: THIAMINE HCL 100 MG TABLET (FP) PO SCH (21:23)
[2018-06-23] MEDS: MELATONIN 5 MG TABLETS PO PRN (21:23)
[2018-06-23 23:27] LABS: URINE APPEARANCE CLEAR; URINE BILIRUBIN NEGATIVE (<2.0 mg/dL); URINE COLOR YELLOW; URINE GLUCOSE (UA) NEGATIVE (NEGATIVE); URINE KETONE NEGATIVE (NEGATIVE); URINE LEUK ESTERASE NEGATIVE (NEGATIVE); URINE NITRITE NEGATIVE (NEGATIVE); URINE PROTEIN NEGATIVE (NEGATIVE)
[2018-06-24] MEDS: GABAPENTIN 300 MG CAPSULE (FP) PO SCH ×3 (06:03→21:49)
[2018-06-24] MEDS: PRENATAL VITAMINS W/ FOLIC ACID TABLET (FP) PO SCH (10:30)
[2018-06-24] MEDS: DOCUSATE SODIUM 100 MG CAPSULE (FP) PO SCH ×2 (10:30→21:57)
[2018-06-24] MEDS: ASPIRIN 81 MG CHEWABLE TABLETS PO SCH (10:30)
[2018-06-24] MEDS: TAMSULOSIN HCL 0.4 MG CAP PO SCH (10:30)
[2018-06-24] MEDS: LISINOPRIL 20 MG TABLET (FP) PO SCH (10:30)
[2018-06-24] MEDS: HYDROCHLOROTHIAZIDE 12.5 MG CAPSULE (FP) PO SCH (10:30)
[2018-06-24] MEDS: NICOTINE 7 MG/24 HOURS TOPICAL PATCH TD SCH (10:30)
[2018-06-24] MEDS: NICOTINE POLACRILEX 2 MG GUM BUC PRN (10:31)
[2018-06-24] MEDS: BUPRENORPHINE/NALOXONE 8 MG/2 MG FILM PACKET SL SCH (10:31)
[2018-06-24] MEDS: guaiFENesin/D-METHORPHAN HB 10 ML UNIT-DOSE CUPS PO PRN (10:31)
[2018-06-24] MEDS ORDERED: PNEUMOCOCCAL 23 VACCINE 0.5 ML VIAL IM ONE (12:00)
--- NOTE | 2018-06-24 13:46 | CONSULT ---
[facility] Psychiatric Consult - Data Date of interview: 06/24/18 Admission source: Transfer from [address] [place] [address]. Identifying data: First admission to [facility] for this 53 y/o male self-referred for detoxification (alcohol, heroin, cannabis). Currently on suboxone maintenance. Examined at [address] [place] [address]. Patient is single (common-law spouse) , a father of six, domiciled (lives with C/L ), unemployed by reason of physical disabilities and supported by + unemployment benefits. Substance Abuse History: Patient admits to an extensive history of substance abuse. Consumes 1/2 gallon of vodka daily + smokes one joint of marihuana daily since age 12. Started drinking alcohol around 7-6 years of age. Details in current [facility] repport as follows : Medical History: Consistent with chronic lumbar pain, GERD, benign prostatic hyperplasia (BPH), antecedent of withdrawal-related seizures, bronchial asthma, hypertension, orthopedic issues (torn meniscus in both knees) and a remote history of left inguinal herniorraphy (1988). Ambulates with a cane. Psychiatric History: Patient denies history of psychiatric hospitalizations. Diagnosed with MDD/Anxiety Disorder. Currently followed at the [facility] in the [place]. Medicated with sertraline + mirtazapine. Mr Buck denies history of suicide attempts. Physical/Sexual Abuse/Trauma History: No reported history of abuse. Additional Comment: Urine Drug Screen Results: THC-Marijuana, MET- Methamphetamine, BUP-Suboxone. Noted. Mental Status Exam - Mental Status Exam Alert and Oriented to: Time, Place, Person Cognitive Function: Good Patient Appearance: Well Groomed (walking with a cane) Mood: Hopeful, Euthymic Affect: Appropriate, Normal Range Patient Behavior: Appropriate, Cooperative Speech Pattern: Clear Voice Loudness: Normal Thought Process: Intact, Goal Oriented Thought Disorder: Not Present Hallucinations: Denies Suicidal Ideation: Denies Homicidal Ideation: Denies Insight/Judgement: Good Sleep: Well Appetite: Good Muscle strength/Tone: Normal Gait/Station: Other (uses cane for ambulation) Psychiatric Findings - Problem List ([place] 1, 2,3) (1) Opioid dependence on agonist therapy Current Visit: Yes Status: Chronic (2) Alcohol dependence Current Visit: Yes Status: Chronic (3) Cannabis dependence, uncomplicated Current Visit: Yes Status: Chronic (4) Nicotine dependence, uncomplicated Current Visit: Yes Status: Chronic Qualifiers: Nicotine product type: cigarettes Qualified Code(s): F17.210 - Nicotine dependence, cigarettes, uncomplicated (5) Depressive disorder Current Visit: Yes Status: Chronic Comment: According to history. Patient is on medications. Sees psychiatrist at [facility] at [address] [place] [address]. (6) Substance induced mood disorder Current Visit: Yes Status: Chronic (7) Insomnia Current Visit: Yes Status: Chronic Qualifiers: Insomnia type: unspecified Qualified Code(s): G47.00 - Insomnia, unspecified - Initial Treatment Plan Initial Treatment Plan: Psychoeducation. Sleep hygiene. Support. AA meetings. Resume zoloft 50 mg po daily + remeron 7/5 mg po hs. Side effects/benefits of both drugs are discussed with the patient. Mr Buck is in agreement with this plan of care. Observation.
[2018-06-24] MEDS: SERTRALINE HCL 50 MG TABLET (FP) PO SCH (14:31)
[2018-06-24] MEDS ORDERED: PATIENT'S OWN MEDICATION (NON-FORMULARY) (Ibuprofen [Ibuprofen] 800 MG) PO PRN (17:57)
[2018-06-24] MEDS: THIAMINE HCL 100 MG TABLET (FP) PO SCH (21:47)
[2018-06-24] MEDS: IBUPROFEN 400 MG TABLET (FP) PO PRN (21:47)
[2018-06-24] MEDS: MIRTAZAPINE 15 MG TABLET (FP) PO SCH (21:48)
[2018-06-24] MEDS: MELATONIN 5 MG TABLETS PO PRN (21:50)
[2018-06-25] MEDS: GABAPENTIN 300 MG CAPSULE (FP) PO SCH ×3 (06:07→21:21)
[2018-06-25] MEDS: TAMSULOSIN HCL 0.4 MG CAP PO SCH (09:46)
[2018-06-25] MEDS: HYDROCHLOROTHIAZIDE 12.5 MG CAPSULE (FP) PO SCH (09:46)
[2018-06-25] MEDS: LISINOPRIL 20 MG TABLET (FP) PO SCH (09:46)
[2018-06-25] MEDS: SERTRALINE HCL 50 MG TABLET (FP) PO SCH (09:46)
[2018-06-25] MEDS: PRENATAL VITAMINS W/ FOLIC ACID TABLET (FP) PO SCH (09:46)
[2018-06-25] MEDS: DOCUSATE SODIUM 100 MG CAPSULE (FP) PO SCH ×2 (09:46→21:22)
[2018-06-25] MEDS: ASPIRIN 81 MG CHEWABLE TABLETS PO SCH (09:46)
[2018-06-25] MEDS: NICOTINE 7 MG/24 HOURS TOPICAL PATCH TD SCH (09:47)
[2018-06-25] MEDS: BUPRENORPHINE/NALOXONE 8 MG/2 MG FILM PACKET SL SCH (09:47)
[2018-06-25] MEDS: IBUPROFEN 400 MG TABLET (FP) PO PRN (09:48)
[2018-06-25] MEDS: MAG HYDROX/AL HYDROX/SIMETH 30 ML UNIT-DOSE CUP PO PRN ×2 (09:48→23:51)
[2018-06-25] MEDS: THIAMINE HCL 100 MG TABLET (FP) PO SCH (21:20)
[2018-06-25] MEDS: MIRTAZAPINE 15 MG TABLET (FP) PO SCH (21:21)
[2018-06-25] MEDS: MELATONIN 5 MG TABLETS PO PRN (21:22)
[2018-06-26] MEDS: GABAPENTIN 300 MG CAPSULE (FP) PO SCH ×3 (05:54→21:48)
[2018-06-26] MEDS: PRENATAL VITAMINS W/ FOLIC ACID TABLET (FP) PO SCH (09:51)
[2018-06-26] MEDS: ASPIRIN 81 MG CHEWABLE TABLETS PO SCH (09:51)
[2018-06-26] MEDS: DOCUSATE SODIUM 100 MG CAPSULE (FP) PO SCH ×2 (09:52→21:49)
[2018-06-26] MEDS: LISINOPRIL 20 MG TABLET (FP) PO SCH (09:52)
[2018-06-26] MEDS: TAMSULOSIN HCL 0.4 MG CAP PO SCH (09:52)
[2018-06-26] MEDS: NICOTINE 7 MG/24 HOURS TOPICAL PATCH TD SCH (09:52)
[2018-06-26] MEDS: BUPRENORPHINE/NALOXONE 8 MG/2 MG FILM PACKET SL SCH (09:52)
[2018-06-26] MEDS: SERTRALINE HCL 50 MG TABLET (FP) PO SCH (09:52)
[2018-06-26] MEDS: HYDROCHLOROTHIAZIDE 12.5 MG CAPSULE (FP) PO SCH (09:52)
[2018-06-26] MEDS: IBUPROFEN 400 MG TABLET (FP) PO PRN ×2 (09:53→21:49)
[2018-06-26] MEDS: guaiFENesin/D-METHORPHAN HB 10 ML UNIT-DOSE CUPS PO PRN (09:55)
[2018-06-26] MEDS: NICOTINE POLACRILEX 2 MG GUM BUC PRN (09:55)
--- NOTE | 2018-06-26 10:24 | PN ---
[facility] Progress Note (SOAP) Subjective: pt here for f/u leg edema- pt is on diuretics, is elevating feet, and with compression socks pt states redness better and swelling a bit better Vital Signs - 24 hr 06/26/18 06/26/18 06/26/18 03:30 06:39 09:30 Temperature 97.3 F L Pulse Rate 85 94 H Respiratory 20 20 18 Rate Blood Pressure 122/66 119/70 elevated liver enzymes at admission a/p: Wilfredo leg edema- improved, follow up as needed
[2018-06-26 11:18] LABS: HEMATOCRIT 39.1 % (35.4-49); HEMOGLOBIN 13.8 GM/dL (11.7-16.9); MCH 35.8 pg (25.7-33.7); MCHC 35.3 g/dl (32.0-35.9); MEAN CELL VOLUME 101.5 fl (80-96); MEAN PLT VOLUME 9.1 fl (7.5-11.1); PLATELET COUNT 261 K/MM3 (134-434); RBC 3.85 M/mm3 (4.00-5.60); RDW 13.4 % (11.9-15.9); WHITE BLOOD COUNT 7.7 K/mm3 (4.0-10.0)
[2018-06-26] MEDS: MIRTAZAPINE 15 MG TABLET (FP) PO SCH (21:48)
[2018-06-26] MEDS: THIAMINE HCL 100 MG TABLET (FP) PO SCH (21:48)
[2018-06-26] MEDS: MELATONIN 5 MG TABLETS PO PRN (21:49)
[2018-06-27] MEDS: GABAPENTIN 300 MG CAPSULE (FP) PO SCH ×3 (06:09→21:47)
[2018-06-27] MEDS: SERTRALINE HCL 50 MG TABLET (FP) PO SCH (10:22)
[2018-06-27] MEDS: TAMSULOSIN HCL 0.4 MG CAP PO SCH (10:22)
[2018-06-27] MEDS: DOCUSATE SODIUM 100 MG CAPSULE (FP) PO SCH ×2 (10:22→21:48)
[2018-06-27] MEDS: ASPIRIN 81 MG CHEWABLE TABLETS PO SCH (10:22)
[2018-06-27] MEDS: PRENATAL VITAMINS W/ FOLIC ACID TABLET (FP) PO SCH (10:22)
[2018-06-27] MEDS: BUPRENORPHINE/NALOXONE 8 MG/2 MG FILM PACKET SL SCH (10:22)
[2018-06-27] MEDS: NICOTINE 7 MG/24 HOURS TOPICAL PATCH TD SCH (10:22)
[2018-06-27] MEDS: LISINOPRIL 20 MG TABLET (FP) PO SCH (10:22)
[2018-06-27] MEDS: IBUPROFEN 400 MG TABLET (FP) PO PRN ×2 (10:23→23:25)
[2018-06-27] MEDS: MIRTAZAPINE 15 MG TABLET (FP) PO SCH (21:48)
[2018-06-27] MEDS: THIAMINE HCL 100 MG TABLET (FP) PO SCH (21:48)
[2018-06-27] MEDS: MELATONIN 5 MG TABLETS PO PRN (21:49)
[2018-06-27] MEDS: MAG HYDROX/AL HYDROX/SIMETH 30 ML UNIT-DOSE CUP PO PRN (23:28)
[2018-06-28] MEDS: GABAPENTIN 300 MG CAPSULE (FP) PO SCH ×3 (06:00→21:39)
--- NOTE | 2018-06-28 09:58 | PN ---
[facility] Progress Note Note: PATIENT SEEN FOR C/O REDNESS, SWELLING AND TENDERNESS TO BLE X 2 DAYS. PATIENT TREATED WITH DIURETIC FOR EDEMA. PATIENT STATES REDNESS AND SWELLING HAS WORSENED IN PAST 2 DAYS. DENIES HX OF DVT. NO COMPLAINTS OF CALF TENDERNESS REPORTED. PATIENT DOES STATE HE HAS H/O ASTHMA AND MARIJUANA USE WITH INTERMITTENT SOB. + HX OF PNA. Vital Signs Temperature 97.9 F 06/28/18 06:42 Pulse Rate 76 06/28/18 06:42 Respiratory Rate 18 06/28/18 06:42 Blood Pressure 119/77 06/28/18 06:42 O2 Sat by Pulse Oximetry (%) Laboratory Tests 06/23/18 06/26/18 22:40 07:50 WBC 7.7 RBC 3.85 L Hgb 13.8 Hct 39.1 MCV 101.5 H MCH 35.8 H MCHC 35.3 RDW 13.4 Plt Count 261 MPV 9.1 Urine Color Yellow Urine Appearance Clear Urine pH 5.0 Ur Specific [place] 1.016 Urine Protein Negative Urine Glucose (UA) Negative Urine Ketones Negative Urine Blood Negative Urine Nitrite Negative Urine Bilirubin Negative Urine Urobilinogen 2.0 Ur Leukocyte Esterase Negative PE: ALERT AND ORIENTED X 3 SKIN WARM AND DRY CAR S1S2 RESP CTA BL, NO RHONCHI, CRACKLES OR WHEEZING EXT 2+ PITTING EDEMA WITH REDNESS TO BILATERAL LOWER LEGS, AMB WITHOUT DIFFICULTY A/P: CELLULITIS BLE INTERMITTENT SOB/LEI WILL START KEFLEX 500MG QID X 7 DAYS CXR ORDERED VENOUS DOPPLER BLE IN AM LEG ELEVATION PRN CONTINUE TO MONITOR CLINICALLY
[2018-06-28] MEDS ORDERED: PANTOPRAZOLE 40 MG TABLET (FP) PO SCH (10:00)
[2018-06-28] MEDS: PRENATAL VITAMINS W/ FOLIC ACID TABLET (FP) PO SCH (10:05)
[2018-06-28] MEDS: SERTRALINE HCL 50 MG TABLET (FP) PO SCH (10:05)
[2018-06-28] MEDS: TAMSULOSIN HCL 0.4 MG CAP PO SCH (10:05)
[2018-06-28] MEDS: ASPIRIN 81 MG CHEWABLE TABLETS PO SCH (10:05)
[2018-06-28] MEDS: BUPRENORPHINE/NALOXONE 8 MG/2 MG FILM PACKET SL SCH (10:05)
[2018-06-28] MEDS: NICOTINE 7 MG/24 HOURS TOPICAL PATCH TD SCH (10:05)
[2018-06-28] MEDS: DOCUSATE SODIUM 100 MG CAPSULE (FP) PO SCH ×2 (10:05→21:39)
[2018-06-28] MEDS: LISINOPRIL 20 MG TABLET (FP) PO SCH (10:05)
[2018-06-28] MEDS: CEPHALEXIN MONOHYDRATE 500 MG CAPSULE (UD) PO SCH ×3 (12:06→19:00)
[2018-06-28] MEDS: MOMETASONE FUROATE 110 MCG/IH INHALER IH SCH ×2 (12:12→21:39)
[2018-06-28] MEDS: THIAMINE HCL 100 MG TABLET (FP) PO SCH (21:39)
[2018-06-28] MEDS: MELATONIN 5 MG TABLETS PO PRN (21:39)
[2018-06-28] MEDS: MIRTAZAPINE 15 MG TABLET (FP) PO SCH (21:39)
[2018-06-28] MEDS: ACETAMINOPHEN 325 MG TABLET (FP) PO PRN (21:40)
[2018-06-29] MEDS: GABAPENTIN 300 MG CAPSULE (FP) PO SCH ×3 (06:02→21:24)
[2018-06-29] MEDS: CEPHALEXIN MONOHYDRATE 500 MG CAPSULE (UD) PO SCH ×4 (06:02→23:07)
[2018-06-29] MEDS: PRENATAL VITAMINS W/ FOLIC ACID TABLET (FP) PO SCH (10:31)
[2018-06-29] MEDS: LISINOPRIL 20 MG TABLET (FP) PO SCH (10:31)
[2018-06-29] MEDS: BUPRENORPHINE/NALOXONE 8 MG/2 MG FILM PACKET SL SCH (10:31)
[2018-06-29] MEDS: DOCUSATE SODIUM 100 MG CAPSULE (FP) PO SCH ×2 (10:32→21:24)
[2018-06-29] MEDS: SERTRALINE HCL 50 MG TABLET (FP) PO SCH (10:32)
[2018-06-29] MEDS: TAMSULOSIN HCL 0.4 MG CAP PO SCH (10:32)
[2018-06-29] MEDS: guaiFENesin/D-METHORPHAN HB 10 ML UNIT-DOSE CUPS PO PRN (10:33)
[2018-06-29] MEDS: ACETAMINOPHEN 325 MG TABLET (FP) PO PRN (10:35)
[2018-06-29] MEDS: ASPIRIN 81 MG CHEWABLE TABLETS PO SCH (10:35)
[2018-06-29] MEDS: MOMETASONE FUROATE 110 MCG/IH INHALER IH SCH ×2 (10:38→21:26)
[2018-06-29] MEDS: NICOTINE 7 MG/24 HOURS TOPICAL PATCH TD SCH (10:38)
--- NOTE | 2018-06-29 11:20 | PN ---
[facility] Progress Note Note: CXR REPORT APPRECIATED AND RESULTS NEGATIVE FOR ABNORMALITIES. VASCULAR DOPPLER STUDY OF BLE NEGATIVE FOR DVT. CONTINUE CURRENT TREATMENT WITH KEFLEX FOR ANTIBIOTICS. Vital Signs Temperature 97.3 F L 06/29/18 06:41 Pulse Rate 95 H 06/29/18 09:30 Respiratory Rate 18 06/29/18 09:30 Blood Pressure 129/66 06/29/18 09:30 O2 Sat by Pulse Oximetry (%)
[2018-06-29] MEDS ORDERED: PANTOPRAZOLE 40 MG TABLET (FP) PO SCH (18:00)
[2018-06-29] MEDS: THIAMINE HCL 100 MG TABLET (FP) PO SCH (21:24)
[2018-06-29] MEDS: MELATONIN 5 MG TABLETS PO PRN (21:25)
[2018-06-29] MEDS: MONTELUKAST NA 10 MG TABLET PO SCH (21:25)
[2018-06-29] MEDS: MIRTAZAPINE 15 MG TABLET (FP) PO SCH (21:25)
[2018-06-30] MEDS: PANTOPRAZOLE 40 MG TABLET (FP) PO SCH (06:02)
[2018-06-30] MEDS: CEPHALEXIN MONOHYDRATE 500 MG CAPSULE (UD) PO SCH ×4 (06:02→23:28)
[2018-06-30] MEDS: GABAPENTIN 300 MG CAPSULE (FP) PO SCH ×3 (06:02→21:32)
--- NOTE | 2018-06-30 09:24 | PN ---
[facility] Progress Note Note: PATIENT SEEN FOR FOLLOW UP CELLULITIS. PATEINT STATES REDNESS MILDLY IMPROVED BUT SWELLING CONTINUES. PATIENT DENIES FEVER, CHEST PAIN, CALF PAIN AND SOB. Vital Signs Temperature 97.9 F 06/30/18 06:38 Pulse Rate 78 06/30/18 06:38 Respiratory Rate 06/30/18 06:38 Blood Pressure 133/90 06/30/18 06:38 O2 Sat by Pulse Oximetry (%) Laboratory Tests 06/23/18 06/26/18 22:40 07:50 WBC 7.7 RBC 3.85 L Hgb 13.8 Hct 39.1 MCV 101.5 H MCH 35.8 H MCHC 35.3 RDW 13.4 Plt Count 261 MPV 9.1 Urine Color Yellow Urine Appearance Clear Urine pH 5.0 Ur Specific [place] 1.016 Urine Protein Negative Urine Glucose (UA) Negative Urine Ketones Negative Urine Blood Negative Urine Nitrite Negative Urine Bilirubin Negative Urine Urobilinogen 2.0 Ur Leukocyte Esterase Negative PE: ALERT AND ORIENTED X 3 SKIN WARM AND DRY EXT BILATERAL LOWER LEGS REDDENED WITH 2+ EDEMA, REDNESS DOES NOT EXTEND TO CALVES, LOCALIZED TO LOWER LEG/ANKLE AREA AMB AD VELMA A/P: BLE CELLULITIS VENOUS DOPPLER NEGATIVE CXR NEGATIVE CONTINUE KEFLEX ADD CLINDAMYCIN 150MG EVERY 6 HR X 7 DAYS HCTZ 25MG DAILY FOR EDEMA REPEAT CMP ON 07/03/18
[2018-06-30] MEDS: PRENATAL VITAMINS W/ FOLIC ACID TABLET (FP) PO SCH (10:05)
[2018-06-30] MEDS: DOCUSATE SODIUM 100 MG CAPSULE (FP) PO SCH ×2 (10:05→21:32)
[2018-06-30] MEDS: LISINOPRIL 20 MG TABLET (FP) PO SCH (10:05)
[2018-06-30] MEDS: SERTRALINE HCL 50 MG TABLET (FP) PO SCH (10:05)
[2018-06-30] MEDS: ACETAMINOPHEN 325 MG TABLET (FP) PO PRN (10:06)
[2018-06-30] MEDS: ASPIRIN 81 MG CHEWABLE TABLETS PO SCH (10:06)
[2018-06-30] MEDS: TAMSULOSIN HCL 0.4 MG CAP PO SCH (10:06)
[2018-06-30] MEDS: NICOTINE 7 MG/24 HOURS TOPICAL PATCH TD SCH (10:07)
[2018-06-30] MEDS: BUPRENORPHINE/NALOXONE 8 MG/2 MG FILM PACKET SL SCH (10:07)
[2018-06-30] MEDS: HYDROCHLOROTHIAZIDE 25 MG TABLET (FP) PO SCH (10:09)
[2018-06-30] MEDS: MOMETASONE FUROATE 110 MCG/IH INHALER IH SCH ×2 (10:16→21:32)
[2018-06-30] MEDS: CLINDAMYCIN HCL 150 MG CAPSULE (FP) PO SCH ×3 (13:19→23:28)
[2018-06-30] MEDS: THIAMINE HCL 100 MG TABLET (FP) PO SCH (21:31)
[2018-06-30] MEDS: MONTELUKAST NA 10 MG TABLET PO SCH (21:32)
[2018-06-30] MEDS: MIRTAZAPINE 15 MG TABLET (FP) PO SCH (21:32)
[2018-07-01] MEDS: CEPHALEXIN MONOHYDRATE 500 MG CAPSULE (UD) PO SCH ×4 (06:14→23:12)
[2018-07-01] MEDS: PANTOPRAZOLE 40 MG TABLET (FP) PO SCH (06:14)
[2018-07-01] MEDS: CLINDAMYCIN HCL 150 MG CAPSULE (FP) PO SCH ×4 (06:14→23:12)
[2018-07-01] MEDS: GABAPENTIN 300 MG CAPSULE (FP) PO SCH ×3 (06:14→21:43)
[2018-07-01] MEDS: LISINOPRIL 20 MG TABLET (FP) PO SCH (10:19)
[2018-07-01] MEDS: ACETAMINOPHEN 325 MG TABLET (FP) PO PRN ×2 (10:19→17:43)
[2018-07-01] MEDS: MOMETASONE FUROATE 110 MCG/IH INHALER IH SCH ×2 (10:19→21:42)
[2018-07-01] MEDS: HYDROCHLOROTHIAZIDE 25 MG TABLET (FP) PO SCH (10:19)
[2018-07-01] MEDS: PRENATAL VITAMINS W/ FOLIC ACID TABLET (FP) PO SCH (10:19)
[2018-07-01] MEDS: ASPIRIN 81 MG CHEWABLE TABLETS PO SCH (10:19)
[2018-07-01] MEDS: NICOTINE 7 MG/24 HOURS TOPICAL PATCH TD SCH (10:19)
[2018-07-01] MEDS: BUPRENORPHINE/NALOXONE 8 MG/2 MG FILM PACKET SL SCH (10:19)
[2018-07-01] MEDS: SERTRALINE HCL 50 MG TABLET (FP) PO SCH (10:19)
[2018-07-01] MEDS: DOCUSATE SODIUM 100 MG CAPSULE (FP) PO SCH ×2 (10:19→21:43)
[2018-07-01] MEDS: TAMSULOSIN HCL 0.4 MG CAP PO SCH (10:22)
[2018-07-01] MEDS: LIDOCAINE 5% TOPICAL PATCH TP SCH (21:42)
[2018-07-01] MEDS: THIAMINE HCL 100 MG TABLET (FP) PO SCH (21:43)
[2018-07-01] MEDS: MIRTAZAPINE 15 MG TABLET (FP) PO SCH (21:43)
[2018-07-01] MEDS: LIDOCAINE PATCH REMOVAL MC SCH (21:43)
[2018-07-01] MEDS: MONTELUKAST NA 10 MG TABLET PO SCH (21:43)
[2018-07-01] MEDS: MELATONIN 5 MG TABLETS PO PRN (21:45)
[2018-07-02] MEDS: CLINDAMYCIN HCL 150 MG CAPSULE (FP) PO SCH ×4 (06:19→23:08)
[2018-07-02] MEDS: PANTOPRAZOLE 40 MG TABLET (FP) PO SCH (06:19)
[2018-07-02] MEDS: CEPHALEXIN MONOHYDRATE 500 MG CAPSULE (UD) PO SCH ×4 (06:19→23:08)
[2018-07-02] MEDS: GABAPENTIN 300 MG CAPSULE (FP) PO SCH ×3 (06:19→21:41)
[2018-07-02] MEDS: MOMETASONE FUROATE 110 MCG/IH INHALER IH SCH ×2 (09:30→21:41)
[2018-07-02] MEDS: SERTRALINE HCL 50 MG TABLET (FP) PO SCH (09:31)
[2018-07-02] MEDS: PRENATAL VITAMINS W/ FOLIC ACID TABLET (FP) PO SCH (09:31)
[2018-07-02] MEDS: TAMSULOSIN HCL 0.4 MG CAP PO SCH (09:31)
[2018-07-02] MEDS: BUPRENORPHINE/NALOXONE 8 MG/2 MG FILM PACKET SL SCH (09:31)
[2018-07-02] MEDS: LIDOCAINE 5% TOPICAL PATCH TP SCH (09:31)
[2018-07-02] MEDS: NICOTINE 7 MG/24 HOURS TOPICAL PATCH TD SCH (09:31)
[2018-07-02] MEDS: DOCUSATE SODIUM 100 MG CAPSULE (FP) PO SCH ×2 (09:31→21:41)
[2018-07-02] MEDS: LISINOPRIL 20 MG TABLET (FP) PO SCH (09:31)
[2018-07-02] MEDS: ASPIRIN 81 MG CHEWABLE TABLETS PO SCH (09:31)
[2018-07-02] MEDS: HYDROCHLOROTHIAZIDE 25 MG TABLET (FP) PO SCH (09:31)
[2018-07-02] MEDS: THIAMINE HCL 100 MG TABLET (FP) PO SCH (21:41)
[2018-07-02] MEDS: LIDOCAINE PATCH REMOVAL MC SCH (21:42)
[2018-07-02] MEDS: MONTELUKAST NA 10 MG TABLET PO SCH (21:42)
[2018-07-02] MEDS: MIRTAZAPINE 15 MG TABLET (FP) PO SCH (21:42)
[2018-07-02] MEDS: MELATONIN 5 MG TABLETS PO PRN (21:43)
[2018-07-03] MEDS: ACETAMINOPHEN 325 MG TABLET (FP) PO PRN ×2 (04:10→23:11)
[2018-07-03] MEDS: CEPHALEXIN MONOHYDRATE 500 MG CAPSULE (UD) PO SCH ×4 (06:04→23:12)
[2018-07-03] MEDS: CLINDAMYCIN HCL 150 MG CAPSULE (FP) PO SCH ×4 (06:04→23:12)
[2018-07-03] MEDS: PANTOPRAZOLE 40 MG TABLET (FP) PO SCH (06:04)
[2018-07-03] MEDS: GABAPENTIN 300 MG CAPSULE (FP) PO SCH ×3 (06:04→21:33)
[2018-07-03] MEDS: guaiFENesin/D-METHORPHAN HB 10 ML UNIT-DOSE CUPS PO PRN (06:06)
[2018-07-03] MEDS: NICOTINE 7 MG/24 HOURS TOPICAL PATCH TD SCH (09:55)
[2018-07-03] MEDS: MOMETASONE FUROATE 110 MCG/IH INHALER IH SCH ×2 (09:55→22:31)
[2018-07-03] MEDS: LIDOCAINE 5% TOPICAL PATCH TP SCH (09:55)
[2018-07-03] MEDS: DOCUSATE SODIUM 100 MG CAPSULE (FP) PO SCH ×2 (09:56→21:33)
[2018-07-03] MEDS: BUPRENORPHINE/NALOXONE 8 MG/2 MG FILM PACKET SL SCH (09:56)
[2018-07-03] MEDS: TAMSULOSIN HCL 0.4 MG CAP PO SCH (09:56)
[2018-07-03] MEDS: PRENATAL VITAMINS W/ FOLIC ACID TABLET (FP) PO SCH (09:56)
[2018-07-03] MEDS: LISINOPRIL 20 MG TABLET (FP) PO SCH (09:57)
[2018-07-03] MEDS: SERTRALINE HCL 50 MG TABLET (FP) PO SCH (09:57)
[2018-07-03] MEDS: ASPIRIN 81 MG CHEWABLE TABLETS PO SCH (09:57)
[2018-07-03] MEDS: HYDROCHLOROTHIAZIDE 25 MG TABLET (FP) PO SCH (09:57)
[2018-07-03 10:53] LABS: ALBUMIN 3.3 g/dl (3.4-5.0); ALK PHOS 137 U/L (45-117); ANION GAP 9 MMOL/L (8-16); BILIRUBIN,TOTAL 0.9 mg/dL (0.2-1); BLOOD UREA NITROGEN 11 mg/dL (7-18); CALCIUM 8.9 mg/dL (8.5-10.1); CHLORIDE 100 mmol/L (98-107); CO2 26 mmol/L (21-32); CREATININE 0.6 mg/dL (0.55-1.3); GLUCOSE,RANDOM 90 mg/dL (74-106); POTASSIUM 4.1 mmol/L (3.5-5.1); SGOT/AST 92 U/L (15-37); SGPT/ALT 45 U/L (13-61); SODIUM 135 mmol/L (136-145); TOT PROT 6.2 g/dl (6.4-8.2)
[2018-07-03] MEDS ORDERED: PT OWN MED DRAWER 7, Y5N ONE ×2 (11:07→20:15)
[2018-07-03] MEDS: MELATONIN 5 MG TABLETS PO PRN (21:33)
[2018-07-03] MEDS: MONTELUKAST NA 10 MG TABLET PO SCH (21:33)
[2018-07-03] MEDS: THIAMINE HCL 100 MG TABLET (FP) PO SCH (21:33)
[2018-07-03] MEDS: MIRTAZAPINE 15 MG TABLET (FP) PO SCH (21:34)
[2018-07-03] MEDS: LIDOCAINE PATCH REMOVAL MC SCH (21:34)
[2018-07-04] MEDS: GABAPENTIN 300 MG CAPSULE (FP) PO SCH ×3 (05:57→21:16)
[2018-07-04] MEDS: CLINDAMYCIN HCL 150 MG CAPSULE (FP) PO SCH ×4 (05:57→23:12)
[2018-07-04] MEDS: CEPHALEXIN MONOHYDRATE 500 MG CAPSULE (UD) PO SCH ×4 (05:57→23:12)
[2018-07-04] MEDS: PANTOPRAZOLE 40 MG TABLET (FP) PO SCH (05:57)
[2018-07-04] MEDS ORDERED: PT OWN MED DRAWER 7, Y5N ONE ×2 (08:50→13:10)
[2018-07-04] MEDS: ASPIRIN 81 MG CHEWABLE TABLETS PO SCH (10:05)
[2018-07-04] MEDS: NICOTINE 7 MG/24 HOURS TOPICAL PATCH TD SCH (10:05)
[2018-07-04] MEDS: BUPRENORPHINE/NALOXONE 8 MG/2 MG FILM PACKET SL SCH (10:05)
[2018-07-04] MEDS: TAMSULOSIN HCL 0.4 MG CAP PO SCH (10:06)
[2018-07-04] MEDS: LIDOCAINE 5% TOPICAL PATCH TP SCH (10:06)
[2018-07-04] MEDS: SERTRALINE HCL 50 MG TABLET (FP) PO SCH (10:06)
[2018-07-04] MEDS: PRENATAL VITAMINS W/ FOLIC ACID TABLET (FP) PO SCH (10:06)
[2018-07-04] MEDS: DOCUSATE SODIUM 100 MG CAPSULE (FP) PO SCH ×2 (10:06→21:17)
[2018-07-04] MEDS: HYDROCHLOROTHIAZIDE 25 MG TABLET (FP) PO SCH (10:06)
[2018-07-04] MEDS: LISINOPRIL 20 MG TABLET (FP) PO SCH (10:08)
[2018-07-04] MEDS: MOMETASONE FUROATE 110 MCG/IH INHALER IH SCH ×2 (10:10→21:17)
[2018-07-04] MEDS: THIAMINE HCL 100 MG TABLET (FP) PO SCH (21:15)
[2018-07-04] MEDS: MIRTAZAPINE 15 MG TABLET (FP) PO SCH (21:16)
[2018-07-04] MEDS: LIDOCAINE PATCH REMOVAL MC SCH (21:17)
[2018-07-04] MEDS: MONTELUKAST NA 10 MG TABLET PO SCH (21:17)
[2018-07-04] MEDS: MELATONIN 5 MG TABLETS PO PRN (21:17)
[2018-07-04] MEDS: ACETAMINOPHEN 325 MG TABLET (FP) PO PRN (23:12)
[2018-07-05] MEDS: CLINDAMYCIN HCL 150 MG CAPSULE (FP) PO SCH ×4 (05:57→23:12)
[2018-07-05] MEDS: PANTOPRAZOLE 40 MG TABLET (FP) PO SCH (05:57)
[2018-07-05] MEDS: GABAPENTIN 300 MG CAPSULE (FP) PO SCH ×3 (05:57→21:38)
[2018-07-05] MEDS: CEPHALEXIN MONOHYDRATE 500 MG CAPSULE (UD) PO SCH ×3 (05:57→23:12)
[2018-07-05] MEDS ORDERED: PT OWN MED DRAWER 7, Y5N ONE ×2 (08:43→12:20)
--- NOTE | 2018-07-05 10:13 | PN ---
[facility] Progress Note Note: PATIENT SEEN FOR REVIEW OF LABS/ FOLLOW UP CELLULITIS AND ARTHRITIS OF KNEES. Vital Signs Temperature 97.7 F 07/05/18 06:41 Pulse Rate 62 07/05/18 06:41 Respiratory Rate 18 07/05/18 06:41 Blood Pressure 123/71 07/05/18 06:41 O2 Sat by Pulse Oximetry (%) Laboratory Tests 06/23/18 06/26/18 07/03/18 22:40 07:50 07:40 WBC 7.7 RBC 3.85 L Hgb 13.8 Hct 39.1 MCV 101.5 H MCH 35.8 H MCHC 35.3 RDW 13.4 Plt Count 261 MPV 9.1 Sodium 135 L Potassium 4.1 Chloride 100 Carbon Dioxide 26 Anion Gap 9 BUN 11 Creatinine 0.6 Creat Clearance w eGFR > 60 Random Glucose 90 Calcium 8.9 Total Bilirubin 0.9 AST 92 H ALT 45 Alkaline Phosphatase 137 H Total Protein 6.2 L Albumin 3.3 L Urine Color Yellow Urine Appearance Clear Urine pH 5.0 Ur Specific [place] 1.016 Urine Protein Negative Urine Glucose (UA) Negative Urine Ketones Negative Urine Blood Negative Urine Nitrite Negative Urine Bilirubin Negative Urine Urobilinogen 2.0 Ur Leukocyte Esterase Negative PE: ALERT AND ORIENTED X 3 SKIN WARM AND DRY EXT B/L KNEES MILD TENDERNESS, NO REDNESS OR SWELLING. BLE WITH +1 EDEMA, REDNESS RESOLVING AMB AD EVLMA A/P: OA ELEVATED LFTS (IMPROVING) CELLULITIS ADD LIDOCAINE PATCH TO KNEES CONTINUE KEFLEX X 3 MORE DAYS LEG ELEVATION PRN ENCOURAGE ORAL FLUIDS CONTINUE TO MONITOR
[2018-07-05] MEDS: PRENATAL VITAMINS W/ FOLIC ACID TABLET (FP) PO SCH (10:47)
[2018-07-05] MEDS: SERTRALINE HCL 50 MG TABLET (FP) PO SCH (10:47)
[2018-07-05] MEDS: DOCUSATE SODIUM 100 MG CAPSULE (FP) PO SCH ×2 (10:47→21:37)
[2018-07-05] MEDS: MOMETASONE FUROATE 110 MCG/IH INHALER IH SCH ×2 (10:47→21:38)
[2018-07-05] MEDS: BUPRENORPHINE/NALOXONE 8 MG/2 MG FILM PACKET SL SCH (10:47)
[2018-07-05] MEDS: ASPIRIN 81 MG CHEWABLE TABLETS PO SCH (10:47)
[2018-07-05] MEDS: HYDROCHLOROTHIAZIDE 25 MG TABLET (FP) PO SCH (10:47)
[2018-07-05] MEDS: LISINOPRIL 20 MG TABLET (FP) PO SCH (10:48)
[2018-07-05] MEDS: LIDOCAINE 5% TOPICAL PATCH TP SCH ×2 (10:48)
[2018-07-05] MEDS: NICOTINE 7 MG/24 HOURS TOPICAL PATCH TD SCH (10:48)
[2018-07-05] MEDS: TAMSULOSIN HCL 0.4 MG CAP PO SCH (11:37)
[2018-07-05] MEDS: THIAMINE HCL 100 MG TABLET (FP) PO SCH (21:37)
[2018-07-05] MEDS: MIRTAZAPINE 15 MG TABLET (FP) PO SCH (21:37)
[2018-07-05] MEDS: LIDOCAINE PATCH REMOVAL MC SCH ×2 (21:38)
[2018-07-05] MEDS: MONTELUKAST NA 10 MG TABLET PO SCH (21:38)
[2018-07-06] MEDS: PANTOPRAZOLE 40 MG TABLET (FP) PO SCH (06:08)
[2018-07-06] MEDS: GABAPENTIN 300 MG CAPSULE (FP) PO SCH ×3 (06:08→21:44)
[2018-07-06] MEDS: CEPHALEXIN MONOHYDRATE 500 MG CAPSULE (UD) PO SCH ×4 (06:08→23:27)
[2018-07-06] MEDS: CLINDAMYCIN HCL 150 MG CAPSULE (FP) PO SCH ×4 (06:08→23:26)
[2018-07-06] MEDS: HYDROCHLOROTHIAZIDE 25 MG TABLET (FP) PO SCH (10:39)
[2018-07-06] MEDS: PRENATAL VITAMINS W/ FOLIC ACID TABLET (FP) PO SCH (10:39)
[2018-07-06] MEDS: TAMSULOSIN HCL 0.4 MG CAP PO SCH (10:39)
[2018-07-06] MEDS: DOCUSATE SODIUM 100 MG CAPSULE (FP) PO SCH ×2 (10:39→21:44)
[2018-07-06] MEDS: ASPIRIN 81 MG CHEWABLE TABLETS PO SCH (10:39)
[2018-07-06] MEDS: NICOTINE 7 MG/24 HOURS TOPICAL PATCH TD SCH (10:39)
[2018-07-06] MEDS: BUPRENORPHINE/NALOXONE 8 MG/2 MG FILM PACKET SL SCH (10:40)
[2018-07-06] MEDS: LISINOPRIL 20 MG TABLET (FP) PO SCH (10:40)
[2018-07-06] MEDS: MOMETASONE FUROATE 110 MCG/IH INHALER IH SCH ×2 (10:40→21:45)
[2018-07-06] MEDS: SERTRALINE HCL 50 MG TABLET (FP) PO SCH (10:40)
[2018-07-06] MEDS: LIDOCAINE 5% TOPICAL PATCH TP SCH ×2 (10:40)
--- NOTE | 2018-07-06 15:56 | PN ---
[facility] Progress Note Note: Rehab Discharge note: Patient is scheduled for discharge from rehab tomorrow, 07/07/18. Patient states he accomplished all rehab goals and was pleased with rehab program. Patient is medically stable and this time and denies suicidal and homicidal ideation. Patient [facility] and has medication at home. Patient also to attend group meetings at and encouraged compliance to prevent relapse. Patient also to follow up with PCP within one week of discharge. Patient's medications (medical) sent to preferred pharmacy. Vital Signs Temperature 97 F L 07/06/18 06:41 Pulse Rate 87 07/06/18 10:00 Respiratory Rate 18 07/06/18 06:41 Blood Pressure 132/80 07/06/18 10:00 O2 Sat by Pulse Oximetry (%)
[2018-07-06] MEDS: MIRTAZAPINE 15 MG TABLET (FP) PO SCH (21:43)
[2018-07-06] MEDS: THIAMINE HCL 100 MG TABLET (FP) PO SCH (21:43)
[2018-07-06] MEDS: MONTELUKAST NA 10 MG TABLET PO SCH (21:44)
[2018-07-06] MEDS: MELATONIN 5 MG TABLETS PO PRN (21:44)
[2018-07-06] MEDS: LIDOCAINE PATCH REMOVAL MC SCH ×2 (21:45)
[2018-07-07] MEDS: CEPHALEXIN MONOHYDRATE 500 MG CAPSULE (UD) PO SCH (06:16)
[2018-07-07] MEDS: GABAPENTIN 300 MG CAPSULE (FP) PO SCH (06:16)
[2018-07-07] MEDS: CLINDAMYCIN HCL 150 MG CAPSULE (FP) PO SCH (06:16)
[2018-07-07] MEDS: PANTOPRAZOLE 40 MG TABLET (FP) PO SCH (06:16)
[2018-07-07 07:00] VITALS: BP 112/68; PULSE 62; TEMP 97.9
[2018-07-07] MEDS: LISINOPRIL 20 MG TABLET (FP) PO SCH (10:01)
[2018-07-07] MEDS: DOCUSATE SODIUM 100 MG CAPSULE (FP) PO SCH (10:01)
[2018-07-07] MEDS: BUPRENORPHINE/NALOXONE 8 MG/2 MG FILM PACKET SL SCH (10:01)
[2018-07-07] MEDS: ASPIRIN 81 MG CHEWABLE TABLETS PO SCH (10:01)
[2018-07-07] MEDS: PRENATAL VITAMINS W/ FOLIC ACID TABLET (FP) PO SCH (10:01)
[2018-07-07] MEDS: SERTRALINE HCL 50 MG TABLET (FP) PO SCH (10:01)
[2018-07-07] MEDS: LIDOCAINE 5% TOPICAL PATCH TP SCH ×2 (10:01→10:02)
[2018-07-07] MEDS: MOMETASONE FUROATE 110 MCG/IH INHALER IH SCH (10:01)
[2018-07-07] MEDS: HYDROCHLOROTHIAZIDE 25 MG TABLET (FP) PO SCH (10:01)
[2018-07-07] MEDS: TAMSULOSIN HCL 0.4 MG CAP PO SCH (10:01)
[2018-07-07] MEDS: NICOTINE 7 MG/24 HOURS TOPICAL PATCH TD SCH (10:02)
== END 2018-07-07 10:15 | disposition home or self-care (01) | DRG 772 ==
LOC: YASAS 18:09 → Y3W 18:10
PROVIDERS: ADMIT Neuromusculoskeletal Medicine & OMM; ATTEND Neuromusculoskeletal Medicine & OMM
PROC: HZ42ZZZ Group Counseling for Substance Abuse Treatment, Cognitive-Behavioral (ICD-10-PCS; principal; 2018-06-23)
DX: F10.20 Alcohol dependence, uncomplicated (principal); F11.20 Opioid dependence, uncomplicated; F12.20 Cannabis dependence, uncomplicated; F17.210 Nicotine dependence, cigarettes, uncomplicated; F19.24 Other psychoactive substance dependence with psychoactive substance-induced mood disorder; F32.9 Major depressive disorder, single episode, unspecified; G47.00 Insomnia, unspecified; I10 Essential (primary) hypertension; K21.9 Gastro-esophageal reflux disease without esophagitis; R60.0 Localized edema; L03.115 Cellulitis of right lower limb; L03.116 Cellulitis of left lower limb; R26.89 Other abnormalities of gait and mobility; Z99.89 Dependence on other enabling machines and devices
CPT/HCPCS: 36415; 71046-TC-FY; 80053; 81003; 85027; 93970-TC

== ENCOUNTER 2018-10-10 15:05 | Inpatient (IN) | payer OTHER ==
[2018-10-10 18:28] VITALS: BMI 30.5
--- NOTE | 2018-10-10 18:52 | HP ---
CIWA Score Nausea/Vomitin Muscle Tremors: 3 Anxiety: 3 Agitation: 2 Paroxysmal Sweats: 2 Orientation: 0-Oriented Tacttile Disturbances: 0-None Auditory Disturbances: 0-None Visual Disturbances: 0-None Headache: 2-Mild CIWA-Ar Total Score: 17 - Admission Criteria OASAS Guidelines: Admission for Medically Managed Detox: Requires at least one of the followin. CIWA greater than 12 2. Seizures within the past 24 hours 3. Delirium tremens within the past 24 hours 4. Hallucinations within the past 24 hours 5. Acute intervention needed for co occurring medical disorder 6. Acute intervention needed for co occurring psychiatric disorder 7. Severe withdrawal that cannot be handled at a lower level of care (continued vomiting, continued diarrhea, abnormal vital signs) requiring intravenous medication and/or fluids 8. Patient presents the following: CIWA greater than 12 Admission Criteria Met: Admission criteria met Admission ROS [facility] Chief Complaint: withdrawal symptoms Allergies/Adverse Reactions: Allergies Allergy/AdvReac Type Severity Reaction Status Date / Time diphenhydramine Allergy Mild Verified 10/10/18 18:02 [From Benadryl] hydroxyzine [From Atarax] AdvReac Mild Verified 10/10/18 18:02 History of Present Illness: Patient is a 53 yo male with hx of alcohol dependence is here seeking inpatient detox d/t withdrawal symptoms. Patient on Suboxone maintenance x 4 - 5 years. Denies opiate relapse. Hx of seizure as child, one episode of alcohol related seizure five years ago No blackouts/overdoses. Longest length of sobriety from alcohol 2000 - 2005 PMHx: Asthma, HTN, GERD Psych: depression, anxiety No SI/HI Others' Prescriptions Patient Name: Bryon Buck Date: 1965 Address: [address] [place] [address] Sex: Male Rx Written Rx Dispensed Drug Quantity Days Supply Prescriber Name 09/25/2018 09/25/2018 suboxone 8 mg-2 mg sl film 60 30 Eliseo Vazquez MD 08/15/2018 08/24/2018 suboxone 8 mg-2 mg sl film 60 30 Eliseo Vazquez MD 07/27/2018 07/27/2018 suboxone 8 mg-2 mg sl film 60 30 Eliseo Vazquez MD 07/13/2018 07/13/2018 buprenorphine-naloxone 8-2 mg sl film 30 15 Eliseo Vazquez MD 06/15/2018 06/15/2018 suboxone 8 mg-2 mg sl film 60 30 Eliseo Vazquez MD 05/16/2018 05/16/2018 suboxone 8 mg-2 mg sl film 60 30 Eliseo Vazquez MD 04/21/2018 04/22/2018 suboxone 8 mg-2 mg sl film 30 15 Eliseo Vazquez MD 04/14/2018 04/14/2018 suboxone 8 mg-2 mg sl film 15 8 Eliseo Vazquez MD 03/17/2018 03/17/2018 suboxone 8 mg-2 mg sl film 60 30 Eliseo Vazquez MD 02/16/2018 02/16/2018 suboxone 8 mg-2 mg sl film 60 30 Eliseo Vazquez MD 01/13/2018 01/13/2018 suboxone 8 mg-2 mg sl film 60 30 Eliseo Vazquez MD 12/14/2017 12/14/2017 suboxone 8 mg-2 mg sl film 60 30 Eliseo Vazquez MD 10/12/2017 10/12/2017 suboxone 8 mg-2 mg sl film 60 30 Eliseo Vazquez MD Exam Limitations: No Limitations - Ebola screening Have you traveled outside of the country in the last 21 days: No (N) Have you had contact with anyone from an Ebola affected area: No Do you have a fever: No - Review of Systems Constitutional: Chills, Diaphoresis, Loss of Appetite (n food x 6 days), Changes in sleep, Weakness EENT: reports: No Symptoms Reported Respiratory: reports: No Symptoms reported Cardiac: reports: No Symptoms Reported GI: reports: Nausea, Poor Appetite, Poor Fluid Intake, Vomiting, Abdominal cramping : reports: No Symptoms Reported Musculoskeletal: reports: Back Pain, Joint Pain Integumentary: reports: No Symptoms Reported Neuro: reports: Headache, Tremors Endocrine: reports: Increased Thirst Hematology: reports: No Symptoms Reported Psychiatric: reports: Orientated x3, Anxious Other Systems: Reviewed and Negative Patient History - Patient Medical History Hx Anemia: No Hx Asthma: Yes Hx Chronic Obstructive Pulmonary Disease (COPD): No Hx Cancer: No Hx Cardiac Disorders: No Hx Congestive Heart Failure: No Hx Hypertension: Yes Hx Hypercholesterolemia: No Hx Pacemaker: No HX Cerebrovascular Accident: No Hx Seizures: Yes (withdrawal five years ago) Hx Dementia: No Hx Diabetes: No Hx Gastrointestinal Disorders: Yes (CHRONIC ACID REFLUX) Hx Liver Disease: No Hx Genitourinary Disorders: No Hx Sexually Transmitted Disorders: No Hx Renal Disease (ESRD): No Hx Thyroid Disease: No Hx Human Immunodeficiency Virus (HIV): No Hx Hepatitis C: No Hx Depression: Yes Hx Suicide Attempt: No Hx Bipolar Disorder: No Hx Schizophrenia: No - Patient Surgical History Past Surgical History: Yes Hx Neurologic Surgery: No Hx Cataract Extraction: No Hx Cardiac Surgery: No Hx Lung Surgery: No Hx Breast Surgery: No Hx Breast Biopsy: No Hx Abdominal Surgery: Yes (HERNIAL REPAIR) Hx Appendectomy: No Hx Cholecystectomy: No Hx Genitourinary Surgery: No Hx Section: No Hx Orthopedic Surgery: No Other Surgical History: L inguinal hernia - PPD History Date: 06/21/18 Results: 0MM - Smoking Cessation Smoking history: Current every day smoker Have you smoked in the past 12 months: Yes Aproximately how many cigarettes per day: 5 Hx Chewing Tobacco Use: No Initiated information on smoking cessation: Yes 'Breaking Loose' booklet given: 10/10/18 - Substance & Tx. History Hx Alcohol Use: Yes Hx Substance Use: Yes Substance Use Type: Alcohol Hx Substance Use Treatment: Yes ([facility] Jun 2018) - Substances abused Alcohol Substance route: Oral Frequency: Daily Amount used: 1 gallon of vodka Age of first use: 14 Date of last use: 10/10/18 Other Other (specify): wine Substance route: Oral Frequency: No use in 30 days Amount used: 2 to 3 cups Age of first use: 6 Date of last use: 09/24/70 Marijuana/Hashish Substance route: Smoking Frequency: Daily Amount used: 4 joints Age of first use: 14 Date of last use: 10/07/18 Family Disease History - Family Disease History Family History: Denies Admission Physical Exam S - Vital Signs Vital Signs: Vital Signs - 24 hr 10/10/18 18:19 Temperature 97.9 F Pulse Rate 91 H Respiratory 20 Rate Blood Pressure 149/87 - Physical General Appearance: Yes: Nourished, Moderate Distress, Sweating, Anxious, Other (vomitting x2 during assessment) HEENTM: Yes: EOMI, Hearing grossly Normal, Normal ENT Inspection, Normocephalic , Normal Voice, KAY, Pharynx Normal, Tm's normal, Other (cheilitis) Respiratory: Yes: Chest Non-Tender, Lungs Clear, Normal Breath Sounds, No Respiratory Distress, No Accessory Muscle Use Neck: Yes: Within Normal Limits Breast: Yes: Breast Exam Deferred Cardiology: Yes: Regular Rhythm, Regular Rate Abdominal: Yes: Normal Bowel Sounds, Non Tender, Soft, Protuberent Genitourinary: Yes: Within Normal Limits Back: Yes: Normal Inspection Musculoskeletal: Yes: full range of Motion, Gait Steady, Pelvis Stable, Other ( cane for ambulation) Extremities: Yes: Normal Capillary Refill, Normal Inspection, Normal Range of Motion, Non-Tender Neurological: Yes: canoe maker II-XII NML intact, Fully Oriented, Alert, Motor Strength 5/5, Depressed Affect Integumentary: Yes: Normal Color, Warm, Diaphoresis Lymphatic: Yes: Within Normal Limits - Diagnostic (1) GERD (gastroesophageal reflux disease) Current Visit: Yes Status: Chronic (2) Alcohol dependence with uncomplicated withdrawal Current Visit: Yes Status: Acute (3) Essential (primary) hypertension Current Visit: Yes Status: Chronic (4) Nicotine dependence, uncomplicated Current Visit: Yes Status: Chronic Qualifiers: Nicotine product type: cigarettes Qualified Code(s): F17.210 - Nicotine dependence, cigarettes, uncomplicated (5) Opioid dependence on agonist therapy Current Visit: Yes Status: Chronic (6) Nausea & vomiting Current Visit: Yes Status: Acute Qualifiers: Vomiting Intractability: unspecified Cleared for Admission S - Detox or Rehab [facility] Level of Care: Medically Managed Detox Regimen/Protocol: Librium Inpatient Rehab Admission - Rehab Decision to Admit Inpatient rehab admission?: No
[2018-10-10] MEDS ORDERED: IBUPROFEN 400 MG TABLET (FP) PO PRN (18:55)
[2018-10-10] MEDS ORDERED: MENTHOL/PHENOL 1 EACH UD MM PRN (18:55)
[2018-10-10] MEDS ORDERED: chlordiazePOXIDE HCL 25 MG CAPSULE PO ONE (18:55)
[2018-10-10] MEDS ORDERED: MAG HYDROX/AL HYDROX/SIMETH 30 ML UNIT-DOSE CUP PO PRN (18:55)
[2018-10-10] MEDS ORDERED: MAGNESIUM CITRATE 300 ML BOTTLE PO PRN (18:55)
[2018-10-10] MEDS ORDERED: NICOTINE POLACRILEX 2 MG GUM BUC PRN (18:55)
[2018-10-10] MEDS ORDERED: BISMUTH SUBSALICYLATE 524 MG/30 ML UD PO PRN (18:55)
[2018-10-10] MEDS ORDERED: ACETAMINOPHEN 325 MG TABLET (FP) PO PRN ×2 (18:55)
[2018-10-10] MEDS ORDERED: MAGNESIUM HYDROX 2400MG/30ML ORAL SUSPENSION 30 ML CUP PO PRN (18:55)
[2018-10-10] MEDS ORDERED: ALBUTEROL SO4 8 GM HFA INHALER IH PRN (19:25)
[2018-10-10] MEDS: ONDANSETRON *ODT* 4 MG TABLET SL PRN (19:51)
[2018-10-10] MEDS: THIAMINE HCL 100 MG TABLET (FP) PO SCH (21:47)
[2018-10-10] MEDS: DOCUSATE SODIUM 100 MG CAPSULE (FP) PO SCH (21:48)
[2018-10-10] MEDS: MELATONIN 5 MG TABLETS PO PRN (21:48)
[2018-10-10] MEDS ORDERED: MIRTAZAPINE 15 MG TABLET (FP) PO ONE (22:00)
[2018-10-10] MEDS: chlordiazePOXIDE HCL 25 MG CAPSULE PO SCH (22:01)
[2018-10-10] MEDS: MOMETASONE FUROATE 110 MCG/IH INHALER IH SCH (22:02)
[2018-10-11] MEDS: METHOCARBAMOL 500 MG TABLET PO PRN ×2 (02:40→13:44)
[2018-10-11] MEDS: chlordiazePOXIDE HCL 25 MG CAPSULE PO PRN (02:40)
[2018-10-11] MEDS: chlordiazePOXIDE HCL 25 MG CAPSULE PO SCH ×4 (05:23→22:05)
[2018-10-11] MEDS: MOMETASONE FUROATE 110 MCG/IH INHALER IH SCH ×2 (10:11→21:39)
[2018-10-11] MEDS: ASPIRIN 81 MG CHEWABLE TABLETS PO SCH (10:11)
[2018-10-11] MEDS: PRENATAL VITAMINS W/ FOLIC ACID TABLET (FP) PO SCH (10:11)
[2018-10-11] MEDS: LISINOPRIL 20 MG TABLET (FP) PO SCH (10:11)
[2018-10-11] MEDS: NICOTINE 14 MG/24 HOURS TOPICAL PATCH TD SCH (10:11)
[2018-10-11] MEDS: TAMSULOSIN HCL 0.4 MG CAP PO SCH (10:11)
[2018-10-11] MEDS: BUPRENORPHINE/NALOXONE 8 MG/2 MG FILM PACKET SL SCH (10:11)
[2018-10-11] MEDS: PANTOPRAZOLE 40 MG TABLET (FP) PO SCH (10:11)
[2018-10-11] MEDS: DOCUSATE SODIUM 100 MG CAPSULE (FP) PO SCH ×2 (10:11→21:38)
[2018-10-11 10:59] LABS: HEMATOCRIT 45.1 % (35.4-49); HEMOGLOBIN 15.3 GM/dL (11.7-16.9); MCH 33.5 pg (25.7-33.7); MCHC 33.9 g/dl (32.0-35.9); MEAN CELL VOLUME 98.6 fl (80-96); MEAN PLT VOLUME 8.8 fl (7.5-11.1); PLATELET COUNT 245 K/MM3 (134-434); RBC 4.58 M/mm3 (4.00-5.60); RDW 13.7 % (11.9-15.9); WHITE BLOOD COUNT 11.6 K/mm3 (4.0-10.0)
[2018-10-11 11:08] LABS: ALBUMIN 4.4 g/dl (3.4-5.0); CALCIUM 9.9 mg/dL (8.5-10.1); CREATININE 1.5 mg/dL (0.55-1.3); POTASSIUM 3.6 mmol/L (3.5-5.1); TOT PROT 8.1 g/dl (6.4-8.2)
--- NOTE | 2018-10-11 11:28 | PN ---
[facility] CIWA - CIWA Score Nausea/Vomitin-Mild Nausea/No Vomiting Muscle Tremors: 2 Anxiety: 3 Agitation: 2 Paroxysmal Sweats: 1-Minimal Palms Moist Orientation: 0-Oriented Tacttile Disturbances: 1-Very Mild Itch/Numbness Auditory Disturbances: 0-None Visual Disturbances: 0-None Headache: 2-Mild CIWA-Ar Total Score: 12 S Progress Note (SOAP) Subjective: had librium and suboxone today feeling better ambulating on hallway tolerate food and fluid well Objective: 10/11/18 11:26 Vital Signs Temperature 97.1 F L 10/11/18 09:41 Pulse Rate 95 H 10/11/18 09:41 Respiratory Rate 20 10/11/18 09:41 Blood Pressure 114/75 10/11/18 09:41 O2 Sat by Pulse Oximetry (%) Laboratory Last Values WBC 11.6 K/mm3 (4.0-10.0) H 10/11/18 07:00 RBC 4.58 M/mm3 (4.00-5.60) 10/11/18 07:00 Hgb 15.3 GM/dL (11.7-16.9) 10/11/18 07:00 Hct 45.1 % (35.4-49) D 10/11/18 07:00 MCV 98.6 fl (80-96) H 10/11/18 07:00 MCH 33.5 pg (25.7-33.7) 10/11/18 07:00 MCHC 33.9 g/dl (32.0-35.9) 10/11/18 07:00 RDW 13.7 % (11.9-15.9) 10/11/18 07:00 Plt Count 245 K/MM3 (134-434) 10/11/18 07:00 MPV 8.8 fl (7.5-11.1) 10/11/18 07:00 Sodium 129 mmol/L (136-145) L 10/11/18 07:00 Potassium 3.6 mmol/L (3.5-5.1) 10/11/18 07:00 Chloride 88 mmol/L (98-107) L 10/11/18 07:00 Carbon Dioxide 29 mmol/L (21-32) 10/11/18 07:00 Anion Gap 11 MMOL/L (8-16) 10/11/18 07:00 BUN 22 mg/dL (7-18) H 10/11/18 07:00 Creatinine 1.5 mg/dL (0.55-1.3) H 10/11/18 07:00 Est GFR (CKD-EPI)AfAm 59.88 10/11/18 07:00 Est GFR (CKD-EPI)NonAf 51.67 10/11/18 07:00 Random Glucose 89 mg/dL (74-106) 10/11/18 07:00 Calcium 9.9 mg/dL (8.5-10.1) 10/11/18 07:00 Total Bilirubin 3.0 mg/dL (0.2-1) H 10/11/18 07:00 AST 238 U/L (15-37) H 10/11/18 07:00 ALT 120 U/L (13-61) H 10/11/18 07:00 Alkaline Phosphatase 163 U/L (45-117) H 10/11/18 07:00 Total Protein 8.1 g/dl (6.4-8.2) 10/11/18 07:00 Albumin 4.4 g/dl (3.4-5.0) 10/11/18 07:00 lab noted Assessment: 10/11/18 11:51 alcohol withdrawal sx Plan: continue detox
--- NOTE | 2018-10-11 12:14 | CONSULT ---
[facility] Psychiatric Consult - Data Date of interview: 10/11/18 Admission source: [facility] Identifying data: Readmission to [facility] for this 53 y/o male self- referred for detoxification (alcohol, heroin, cannabis). Currently on suboxone maintenance. Examined at [address] [place] [address]. Patient is single (common-law spouse), a father of six, domiciled (lives with C/L ), unemployed by reason of physical disabilities and supported by + unemployment benefits. Substance Abuse History: Confirmed by the patient in this interview. Details in current [facility] report : Smoking history: Current every day smoker. Have you smoked in the past 12 months: Yes. Aproximately how many cigarettes per day: 5. Hx Chewing Tobacco Use: No. Initiated information on smoking cessation: Yes. 'Breaking Loose' booklet given: 10/10/18. - Substance & Tx. History. Hx Alcohol Use: Yes. Hx Substance Use: Yes. Substance Use Type: Alcohol. Hx Substance Use Treatment: Yes ([facility] Jun 2018). - Substances abused. Alcohol. Substance route: Oral. Frequency: Daily. Amount used: 1 gallon of vodka. Age of first use: 14. Date of last use: 10/10/18. Other. Other ( specify): wine. Substance route: Oral. Frequency: No use in 30 days. Amount used: 2 to 3 cups. Age of first use: 6. Date of last use: 09/24/70. Marijuana/Hashish. Substance route: Smoking. Frequency: Daily. Amount used: 4 joints. Age of first use: 14. Date of last use: 10/07/18 Medical History: Consistent with chronic lumbar pain, GERD, benign prostatic hyperplasia (BPH), antecedent of withdrawal-related seizures, bronchial asthma, hypertension, orthopedic issues (torn meniscus in both knees) and a remote history of left inguinal herniorraphy (1988). Psychiatric History: Patient denies history of psychiatric hospitalizations. Diagnosed with MDD/Anxiety Disorder. Currently followed at the [facility] clinic in the [place]. Medicated with sertraline + mirtazapine + buspirone. Mr Buck denies history of suicide attempts. Physical/Sexual Abuse/Trauma History: Trauma history : distressed by memories of wars (served in conflict zones such as the [place] + invasion of [place]). Served eight years in the [employer]. Honorably discharged. Additional Comment: Toxicology not available. Mental Status Exam - Mental Status Exam Alert and Oriented to: Time, Place, Person Cognitive Function: Good Patient Appearance: Well Groomed Mood: Hopeful Affect: Appropriate, Normal Range Patient Behavior: Fatigued, Appropriate, Cooperative Speech Pattern: Clear, Appropriate Voice Loudness: Normal Thought Process: Intact, Goal Oriented Thought Disorder: Not Present Hallucinations: Denies Suicidal Ideation: Denies Homicidal Ideation: Denies Insight/Judgement: Fair Sleep: Poorly, Difficulty falling asleep (wants a low dose of seroquel) Appetite: Good Muscle strength/Tone: Normal Gait/Station: Other (walks with a limp) Psychiatric Findings - Problem List (Salol 1, 2,3) (1) Opioid dependence on agonist therapy Current Visit: Yes Status: Chronic (2) Alcohol dependence with uncomplicated withdrawal Current Visit: Yes Status: Acute (3) Cannabis dependence, uncomplicated Current Visit: Yes Status: Chronic (4) Nicotine dependence, uncomplicated Current Visit: Yes Status: Chronic Qualifiers: Nicotine product type: cigarettes Qualified Code(s): F17.210 - Nicotine dependence, cigarettes, uncomplicated (5) Depressive disorder Current Visit: Yes Status: Chronic Comment: According to history. Patient is on medications. Sees psychiatrist at [facility] at [address] [place] [address]. (6) Substance induced mood disorder Current Visit: Yes Status: Chronic (7) Insomnia Current Visit: Yes Status: Chronic Qualifiers: Insomnia type: unspecified Qualified Code(s): G47.00 - Insomnia, unspecified - Initial Treatment Plan Initial Treatment Plan: Psychoeducation. Sleep hygiene. Detoxification. Medications : zoloft 100 mg po daily + buspar is raised to 10 mg po tid (patient 's request) + seroquel 50 mg po hs (patient's request). Side effects/benefits of each drug are discussed with patient. Mr Heber expresses his agreement with this plan of care. Observation.
[2018-10-11] MEDS: busPIRone HCL 10 MG TABLET (FP) PO SCH ×2 (13:44→21:38)
[2018-10-11] MEDS: GABAPENTIN 300 MG CAPSULE (FP) PO SCH ×2 (14:53→21:38)
[2018-10-11] MEDS: BENZOCAINE 28 GM HEMORRHOIDAL OINTMENT PR SCH ×2 (14:54→21:38)
[2018-10-11] MEDS: THIAMINE HCL 100 MG TABLET (FP) PO SCH (21:38)
[2018-10-11] MEDS: QUEtiapine FUMARATE 50 MG TABLET PO SCH (21:38)
[2018-10-12] MEDS: chlordiazePOXIDE HCL 25 MG CAPSULE PO SCH (05:04)
[2018-10-12] MEDS: busPIRone HCL 10 MG TABLET (FP) PO SCH ×3 (05:04→22:25)
[2018-10-12] MEDS: GABAPENTIN 300 MG CAPSULE (FP) PO SCH ×3 (05:05→22:25)
[2018-10-12] MEDS: IBUPROFEN 400 MG TABLET (FP) PO PRN ×3 (05:06→13:33)
[2018-10-12 10:31] LABS: SGOT/AST 158 U/L (15-37); SGPT/ALT 93 U/L (13-61)
[2018-10-12] MEDS: ASPIRIN 81 MG CHEWABLE TABLETS PO SCH (10:47)
[2018-10-12] MEDS: SERTRALINE HCL 50 MG TABLET (FP) PO SCH (10:48)
[2018-10-12] MEDS: DOCUSATE SODIUM 100 MG CAPSULE (FP) PO SCH ×2 (10:49→22:25)
[2018-10-12] MEDS: TAMSULOSIN HCL 0.4 MG CAP PO SCH (10:49)
[2018-10-12] MEDS: PRENATAL VITAMINS W/ FOLIC ACID TABLET (FP) PO SCH (10:49)
[2018-10-12] MEDS: BUPRENORPHINE/NALOXONE 8 MG/2 MG FILM PACKET SL SCH (10:50)
[2018-10-12] MEDS: LISINOPRIL 20 MG TABLET (FP) PO SCH (10:50)
[2018-10-12] MEDS: BENZOCAINE 28 GM HEMORRHOIDAL OINTMENT PR SCH ×2 (10:51→22:26)
[2018-10-12] MEDS: MOMETASONE FUROATE 110 MCG/IH INHALER IH SCH ×2 (10:52→22:25)
[2018-10-12] MEDS: LIDOCAINE 5% TOPICAL PATCH TP SCH (10:53)
[2018-10-12] MEDS ORDERED: ALBUTEROL SO4 2.5/IPRATROPIUM 0.5 INH SOL 3 ML VIAL.NEB. NEB PRN (10:58)
[2018-10-12] MEDS ORDERED: guaiFENesin 200 MG/10 ML 10 ML UNIT-DOSE CUPS PO PRN (10:58)
[2018-10-12] MEDS: PANTOPRAZOLE 40 MG TABLET (FP) PO SCH (10:59)
[2018-10-12] MEDS: NICOTINE 14 MG/24 HOURS TOPICAL PATCH TD SCH (13:24)
[2018-10-12] MEDS: METHYL SALICYLATE/MENTHOL OINT 30 GM TUBE TP SCH ×2 (13:26→22:26)
[2018-10-12] MEDS ORDERED: ONDANSETRON *ODT* 4 MG TABLET SL PRN (13:50)
--- NOTE | 2018-10-12 14:32 | PN ---
[facility] CIWA - CIWA Score Nausea/Vomitin-No Nausea/No Vomiting Muscle Tremors: None Anxiety: 4-Mod. Anxious/Guarded Agitation: 3 Paroxysmal Sweats: No Perspiration Orientation: 0-Oriented Tacttile Disturbances: 2-Mild Itch/Numbness/Burn Auditory Disturbances: 0-None Visual Disturbances: 2-Mild Sensitivity Headache: 0-None Present CIWA-Ar Total Score: 11 S Progress Note (SOAP) Subjective: Body Aches, Anxious, Fatigue. Objective: PATIENT A & O X 3, OBSERVED AMBULATING ON UNIT UNASSISTED. IN NO ACUTE DISTRESS. PATIENT IS AFEBRILE. 10/12/18 14:29 Vital Signs Temperature 96.1 F L 10/12/18 14:04 Pulse Rate 91 H 10/12/18 14:04 Respiratory Rate 18 10/12/18 14:04 Blood Pressure 98/57 L 10/12/18 14:04 O2 Sat by Pulse Oximetry (%) Laboratory Tests 10/11/18 10/11/18 10/11/18 07:00 07:00 07:00 WBC 11.6 H RBC 4.58 Hgb 15.3 Hct 45.1 D MCV 98.6 H MCH 33.5 MCHC 33.9 RDW 13.7 Plt Count 245 MPV 8.8 Sodium 129 L Potassium 3.6 Chloride 88 L Carbon Dioxide 29 Anion Gap 11 BUN 22 H Creatinine 1.5 H Est GFR (CKD-EPI)AfAm 59.88 Est GFR (CKD-EPI)NonAf 51.67 Random Glucose 89 Calcium 9.9 Total Bilirubin 3.0 H AST 238 H ALT 120 H Alkaline Phosphatase 163 H Total Protein 8.1 Albumin 4.4 RPR Titer Nonreactive 10/12/18 07:30 WBC RBC Hgb Hct MCV MCH MCHC RDW Plt Count MPV Sodium Potassium Chloride Carbon Dioxide Anion Gap BUN Creatinine Est GFR (CKD-EPI)AfAm Est GFR (CKD-EPI)NonAf Random Glucose Calcium Total Bilirubin AST 158 H ALT 93 H Alkaline Phosphatase Total Protein Albumin RPR Titer LABS NOTED. RESULTS OF REPEAT AST AND ALT NOTED. MODERATE REDUCTION IN BOTH LEVELS NOTED. PATIENT REPORTS THAT HE PREFERS LIBRIUM OVER ATIVAN DETOX MEDICATION; WILL MAINTAIN LIBRIUM DETOX REGIMEN. 10/12/18 14:32 Assessment: 10/12/18 14:31 WITHDRAWAL SYMPTOMS. ELEVATED LIVER ENZYMES (AST, ALT). LEUKOCYTOSIS. HYPERBILIRUBINEMIA. HYPOTENSION. 10/12/18 14:33 Plan: CONTINUE DETOX. INCREASE DAILY PO FLUID INTAKE. REPEAT CBC FOR TOMORROW AM FOR ELEVATED WBC LEVEL NOTED ON DETOX ADMISSION LABORATORY ASSESSMENT. LIDODERM PATCH FOR LOWER BACK PAIN. PATIENT REPORTS THAT HE HAS FELT SOMEWHAT "LIGHTHEADED" TODAY. PATIENT NOTED TO HAVE LOW BP ON LAST SEVERAL READINGS PATIENT DENEIS KNOWN HISTORY OF LOW BP. PATIENT DENIES HISTORY OF HEAD TRAUMA. AFTERNOON BP NOTED TO DESIRAE SLIGHTLY HIGHER THAN AM BP'S. LATE AM DOSE OF LIBRIUM HELD DUE TO LOW BP. SUBSEQUENT LIBRIUM DOSES FOR REMAINDER OF DAY TODAY MODIFIED TO SLIGHTLY LOWER DOSES. PATIENT ADVISED TO INCREASE PO WATER INTAKE AND TO GET UP OUT OF BED SLOWLY AND GET UP FROM LYING DOWN / SITTING POSITIONS SLOWLY ADN CAUTIOUSLY FOR TIME BEING. PATIENT ALSO ADVISED TO IMMEDIATELY NOTIFY NURSING / MEDICAL STAFF SHOULD SENSATION OF LIGHTHEADEDNESS BECOME MORE SEVERE AT ANY TIME. PATIENT VERBALIZED UNDERSTANDING OF ALL RECOMMENDATIONS. WILL CONTINUE TO MONITOR BP.
[2018-10-12] MEDS: ONDANSETRON *ODT* 4 MG TABLET SL PRN (15:13)
[2018-10-12] MEDS: chlordiazePOXIDE HCL 10 MG CAPSULE PO SCH ×2 (18:20→22:31)
[2018-10-12] MEDS: chlordiazePOXIDE HCL 25 MG CAPSULE PO PRN (18:24)
[2018-10-12] MEDS ORDERED: LIDOCAINE PATCH REMOVAL MC SCH (22:00)
[2018-10-12] MEDS: ONDANSETRON *ODT* 4 MG TABLET SL SCH (22:25)
[2018-10-12] MEDS: THIAMINE HCL 100 MG TABLET (FP) PO SCH (22:25)
[2018-10-12] MEDS: QUEtiapine FUMARATE 50 MG TABLET PO SCH (22:25)
[2018-10-12] MEDS: MELATONIN 5 MG TABLETS PO PRN (22:28)
[2018-10-12] MEDS ORDERED: chlordiazePOXIDE HCL 10 MG CAPSULE PO SCH (23:00)
[2018-10-12] MEDS ORDERED: chlordiazePOXIDE HCL 10 MG CAPSULE PO PRN (23:00)
[2018-10-13 04:32] VITALS: PULSE 88; TEMP 96.9
--- NOTE | 2018-10-13 04:36 | PN ---
[facility] Progress Note Note: Called to see patient who fell out of bed at approx 4:15 am. Patient w/ a hx alcohol use disorder- here for detox. Opiate use disorder - on Suboxone maintenance Cannabis use disorder. PMHx: GERD, Asthma, HTN, MHHx: Depression, anxiety, insomnia: On meds Patient states rolled leo and fell onto floor. Denies headache/pain. O/A: Patient is alert and oriented. Superficial laceration (R) eyebrow area. Lungs CTA. Diaphoretic/pale. O2 Sat =95% BGM: 151 Vital Signs - 24 hr 10/12/18 10/12/18 10/12/18 06:09 09:13 14:04 Temperature 97.1 F L 98.1 F 96.1 F L Pulse Rate 89 95 H 91 H Respiratory 18 18 18 Rate Blood Pressure 92/55 L 87/56 L 98/57 L 10/12/18 10/12/18 10/13/18 17:37 22:32 04:15 Temperature 97 F L 97.7 F 96.9 F L Pulse Rate 97 H 108 H 88 Respiratory 17 16 20 Rate Blood Pressure 94/60 87/53 L 94/57 L Lab Results WBC 11.6 K/mm3 (4.0-10.0) H 10/11/18 07:00 RBC 4.58 M/mm3 (4.00-5.60) 10/11/18 07:00 Hgb 15.3 GM/dL (11.7-16.9) 10/11/18 07:00 Hct 45.1 % (35.4-49) D 10/11/18 07:00 MCV 98.6 fl (80-96) H 10/11/18 07:00 MCHC 33.9 g/dl (32.0-35.9) 10/11/18 07:00 RDW 13.7 % (11.9-15.9) 10/11/18 07:00 Plt Count 245 K/MM3 (134-434) 10/11/18 07:00 Sodium 129 mmol/L (136-145) L 10/11/18 07:00 Potassium 3.6 mmol/L (3.5-5.1) 10/11/18 07:00 Chloride 88 mmol/L (98-107) L 10/11/18 07:00 Carbon Dioxide 29 mmol/L (21-32) 10/11/18 07:00 Anion Gap 11 MMOL/L (8-16) 10/11/18 07:00 BUN 22 mg/dL (7-18) H 10/11/18 07:00 Creatinine 1.5 mg/dL (0.55-1.3) H 10/11/18 07:00 Random Glucose 89 mg/dL (74-106) 10/11/18 07:00 Calcium 9.9 mg/dL (8.5-10.1) 10/11/18 07:00 Labs reviewed. Plan: Fall Protocol 1 Elevate side rails Report given to Dr. Shepherd at [facility] ED. Patient to be transported via ambulance.
[2018-10-13 04:47] VITALS: BP 94/57
[2018-10-13] MEDS ORDERED: PANTOPRAZOLE 40 MG TABLET (FP) PO SCH (06:00)
[2018-10-13] MEDS: chlordiazePOXIDE HCL 10 MG CAPSULE PO SCH ×2 (07:08→11:20)
[2018-10-13] MEDS: busPIRone HCL 10 MG TABLET (FP) PO SCH (07:08)
[2018-10-13] MEDS: GABAPENTIN 300 MG CAPSULE (FP) PO SCH (07:08)
[2018-10-13] MEDS: TAMSULOSIN HCL 0.4 MG CAP PO SCH (09:06)
[2018-10-13] MEDS: DOCUSATE SODIUM 100 MG CAPSULE (FP) PO SCH (11:18)
[2018-10-13] MEDS: BENZOCAINE 28 GM HEMORRHOIDAL OINTMENT PR SCH (11:18)
[2018-10-13] MEDS: MOMETASONE FUROATE 110 MCG/IH INHALER IH SCH (11:18)
[2018-10-13] MEDS: ASPIRIN 81 MG CHEWABLE TABLETS PO SCH (11:18)
[2018-10-13] MEDS: METHYL SALICYLATE/MENTHOL OINT 30 GM TUBE TP SCH (11:18)
[2018-10-13] MEDS: LIDOCAINE 5% TOPICAL PATCH TP SCH (11:19)
[2018-10-13] MEDS: NICOTINE 14 MG/24 HOURS TOPICAL PATCH TD SCH (11:19)
[2018-10-13] MEDS: ONDANSETRON *ODT* 4 MG TABLET SL SCH (11:20)
[2018-10-13] MEDS: SERTRALINE HCL 50 MG TABLET (FP) PO SCH (11:20)
[2018-10-13] MEDS: PRENATAL VITAMINS W/ FOLIC ACID TABLET (FP) PO SCH (11:20)
[2018-10-13] MEDS: BUPRENORPHINE/NALOXONE 8 MG/2 MG FILM PACKET SL SCH (11:20)
[2018-10-13] MEDS: LISINOPRIL 20 MG TABLET (FP) PO SCH (11:20)
[2018-10-13] MEDS ORDERED: chlordiazePOXIDE HCL 10 MG CAPSULE PO SCH (23:00)
== END 2018-10-13 08:30 | disposition short-term general hospital (02) | DRG 773 ==
LOC: YASAS 15:05 → Y3N 18:57
PROVIDERS: ADMIT Surgery; ATTEND Surgery
PROC: HZ2ZZZZ Detoxification Services for Substance Abuse Treatment (ICD-10-PCS; principal; 2018-10-10)
DX: F10.230 Alcohol dependence with withdrawal, uncomplicated (principal); F11.20 Opioid dependence, uncomplicated; F12.20 Cannabis dependence, uncomplicated; F17.210 Nicotine dependence, cigarettes, uncomplicated; F19.24 Other psychoactive substance dependence with psychoactive substance-induced mood disorder; F41.9 Anxiety disorder, unspecified; F32.9 Major depressive disorder, single episode, unspecified; G47.00 Insomnia, unspecified; I10 Essential (primary) hypertension; K21.9 Gastro-esophageal reflux disease without esophagitis; R11.2 Nausea with vomiting, unspecified; J45.909 Unspecified asthma, uncomplicated; I95.9 Hypotension, unspecified; E80.6 Other disorders of bilirubin metabolism; D72.829 Elevated white blood cell count, unspecified; R94.5 Abnormal results of liver function studies
CPT/HCPCS: 36415; 80053; 82962; 84450; 84460; 85027; 86593; Q0162

== ENCOUNTER 2018-10-13 05:53 | Inpatient (IN) | payer OTHER ==
[2018-10-13] MEDS ORDERED: SODIUM CHLORIDE 1,000 ML IV STA ×2 (06:16→10:06)
--- NOTE | 2018-10-13 06:21 | PDOC ---
History of Present Illness - General Chief Complaint: Injury Stated Complaint: FALL Time Seen by Provider: 10/13/18 06:00 History Source: Patient - History of Present Illness Initial Comments: 10/13/18 06:15 53m with pmh of etoh and opiate addiction on his second day of detox at [facility] on subopxone maintenance sent to our ED after falling out of bed. Subsequently found to have small laceration above right eyebrow. Denies loss of consciousness, headache or any other pain. He was found to be hypotensive and hyponatremic all day for the past couple days , dose of librium was held. Past History - Past Medical History Allergies/Adverse Reactions: Allergies Allergy/AdvReac Type Severity Reaction Status Date / Time diphenhydramine Allergy Mild Verified 10/13/18 05:57 [From Benadryl] hydroxyzine [From Atarax] AdvReac Mild Verified 10/13/18 05:57 Home Medications: Ambulatory Orders Albuterol Sulfate Inhaler - [Ventolin HFA Inhaler -] 2 inh PO Q4H PRN 06/19/18 Aspirin [ASA -] 81 mg PO DAILY 06/19/18 Buprenorphine/Naloxone [Suboxone 8Mg/2Mg Sl Film -] 2 each SL DAILY 06/19/18 Docusate Sodium [Dok] 100 mg PO BID 06/19/18 Folic Acid - 1 mg PO DAILY 06/19/18 Gabapentin [Neurontin] 600 mg PO TID 06/19/18 Ibuprofen 800 mg PO BID 06/19/18 Lisinopril 20 mg PO DAILY 06/19/18 Sertraline HCl [Zoloft -] 50 mg PO TID 06/19/18 Tamsulosin HCl [Flomax -] 0.4 mg PO DAILY 06/19/18 Meloxicam 15 mg PO DAILY 06/28/18 Pantoprazole Sodium [Protonix -] 40 mg PO DAILY 06/28/18 Lidocaine 5% Patch [Lidoderm -] 2 patch TP DAILY 14 Days #30 patch 07/06/18 Mometasone Furoate [Asmanex 110Mcg -] 1 puff IH BID 30 Days #1 inhaler 07/06/18 Buspirone HCl [Buspar -] 7.5 mg PO BID 10/10/18 Hydrochlorothiazide [Hctz -] 25 mg PO DAILY #30 tablet 10/10/18 Mirtazapine [Remeron -] 7.5 mg PO HS 10/10/18 Buspirone HCl [Buspar -] 10 mg PO BID #60 tablet 10/11/18 Sertraline HCl [Zoloft] 100 mg PO DAILY #30 tablet 10/11/18 Anemia: No Asthma: Yes Cancer: No Cardiac Disorders: No CVA: No COPD: No CHF: No Dementia: No Diabetes: No GI Disorders: Yes (CHRONIC ACID REFLUX) Disorders: No HTN: Yes Hypercholesterolemia: No Kidney Stones: No Liver Disease: No Seizures: Yes (withdrawal five years ago) Thyroid Disease: No - Surgical History Abdominal Surgery: Yes (HERNIAL REPAIR) Appendectomy: No Cardiac Surgery: No Cholecystectomy: No Lung Surgery: No Neurologic Surgery: No Orthopedic Surgery: No - Reproductive History Testicular Surgery: No - Suicide/Smoking/Psychosocial Hx Smoking History: Unknown if ever smoked Have you smoked in the past 12 months: No Number of Cigarettes Smoked Daily: 5 Information on smoking cessation initiated: No 'Breaking Loose' booklet given: 10/10/18 Hx Alcohol Use: Yes Drug/Substance Use Hx: No Substance Use Type: Alcohol Hx Substance Use Treatment: Yes ([facility] Jun 2018) Trauma Specific PMHX - Complaint Specific PMHX Arthritis: No Review of Systems - Review of Systems Able to Perform ROS?: Yes Is the patient limited Sri [place]ankan proficient: No Constitutional: No: Symptoms Reported HEENTM: Yes: See HPI Respiratory: No: Symptoms reported Cardiac (ROS): No: Symptoms Reported ABD/GI: No: Symptoms Reported : No: Symptoms Reported Musculoskeletal: No: Symptoms Reported Integumentary: No: Symptoms Reported Neurological: No: Symptoms reported *Physical Exam - Vital Signs Last Vital Signs Temp Pulse Resp BP Pulse Ox 97.2 F L 78 18 99/61 100 10/13/18 05:57 10/13/18 05:57 10/13/18 05:57 10/13/18 05:57 10/13/18 05:57 - Physical Exam General Appearance: Yes: Disheveled HEENT: positive: Other (2cm closed lac over right eyebrow. ) Respiratory/Chest: positive: Lungs Clear, Normal Breath Sounds. negative: Chest Tender, Respiratory Distress Cardiovascular: positive: Regular Rhythm, Regular Rate, S1, S2 Gastrointestinal/Abdominal: positive: Normal Bowel Sounds, Tender (mildly generalized. ), Flat, Soft Musculoskeletal: positive: Normal Inspection. negative: CVA Tenderness Extremity: positive: Normal Capillary Refill, Normal Inspection, Normal Range of Motion Integumentary: positive: Normal Color, Dry, Warm Neurologic: positive: Fully Oriented, Alert, Normal Mood/Affect, Normal Response , Motor Strength /5 ED Treatment Course - LABORATORY CBC & Chemistry Diagram: 10/13/18 06:17 10/13/18 06:17 - RADIOLOGY Radiology Studies Ordered: Category Date Time Status HEAD CT WITHOUT CONTRAST [CT] Stat CT Scan 10/13/18 06:00 Ordered CXRPORT [CHEST X-RAY PORTABLE*] [RAD] Stat Radiology 10/13/18 06:05 Ordered Medical Decision Making - Medical Decision Making 10/13/18 07:19 53m with repeated falls today while in detox at [facility]. Will check basic labs and ct head. Patient severely hyponatremic, apparently due to renal failure. Creatinine at 4 from 1.5 over 2 dyas. Will order hypertonic saline and infuse 100mL over 10min. Consulting ICU who will come down to see the patient. As patient is also tender over the abdomen we will get Ct abd/pelv. Elevated white from unknown source of infection at this time. Possible aspiration vs UTi. Will get Ct chest as well. EKG: Normal sinus rhythm, Normal EKG. . CXR: Atelectasis over both lung bases. Laceration of the forehead closed, no need to for sutures. 10/13/18 07:57 Patient signed out to Dr. Branham 10/13/18 07:57 *DC/Admit/Observation/Transfer Diagnosis at time of Disposition: Hyponatremia - Discharge Dispostion Decision to Admit order: Yes - Referrals - Patient Instructions - Post Discharge Activity
[2018-10-13 06:24] LABS: BASO % 0.3 % (0-2.0); EOS % 0.5 % (0-4.5); HEMATOCRIT 34.8 % (35.4-49); HEMOGLOBIN 12.3 GM/dL (11.7-16.9); LYMPH % 10.6 % (8-40); MCH 34.3 pg (25.7-33.7); MCHC 35.3 g/dl (32.0-35.9); MEAN CELL VOLUME 97.1 fl (80-96); MEAN PLT VOLUME 10.4 fl (7.5-11.1); NEUT % 85.6 % (42.8-82.8); PLATELET COUNT 124 K/MM3 (134-434); RBC 3.58 M/mm3 (4.00-5.60); WHITE BLOOD COUNT 16.1 K/mm3 (4.0-10.0)
--- NOTE | 2018-10-13 06:35 | PDOC ---
Attending Attestation - Resident Resident Name: Andrews Durham - ED Attending Attestation I have performed the following: I have examined & evaluated the patient, The case was reviewed & discussed with the resident, I agree w/resident's findings & plan, Exceptions are as noted - HPI HPI: 10/13/18 07:29 53M PMH etoh/opioid abuse sent from [facility] for evaluation of head trauma 2/2 falling out of his bed. It is day 2 of detox care. Per paperwork that came with patient he has exhibited persistent hypotension and progressive hyponatremia, worsening kidney function. - Physicial Exam PE: 10/13/18 07:33 Agree with exam as documented by resident Somnolent but easily rousable, oriented to person, place, time No jaundice No tongue fasciculation, no asterixsis Wound over R eyelid, no open wound Normal wob - Medical Decision Making 10/13/18 07:36 53m sent from [facility] for fall with visible head trauma found to be severely hyponatremic and with cr 4.0 from normal 2 days ago ICU eval hypertonic saline CT b, cap Admit for treatment and further evaluation
[2018-10-13 06:51] LABS: ALBUMIN 3.4 g/dl (3.4-5.0); BILIRUBIN,TOTAL 1.3 mg/dL (0.2-1); CALCIUM 8.2 mg/dL (8.5-10.1); TOT PROT 6.4 g/dl (6.4-8.2)
[2018-10-13] MEDS ORDERED: SODIUM CHLORIDE 3% 500 ML/500 ML INFUS.BAG IV SCH (07:15)
--- NOTE | 2018-10-13 07:32 | PDOC ---
*Physical Exam - Vital Signs Last Vital Signs Temp Pulse Resp BP Pulse Ox 97.2 F L 73 20 98/52 L 98 10/13/18 05:57 10/13/18 06:43 10/13/18 06:43 10/13/18 06:43 10/13/18 06:43 ED Treatment Course - LABORATORY CBC & Chemistry Diagram: 10/13/18 06:17 10/13/18 16:15 - ADDITIONAL ORDERS Additional order review: Laboratory Results 10/13/18 06:17 Sodium 121 L Potassium 4.0 Chloride 86 L Carbon Dioxide 23 Anion Gap 12 BUN 47 H Creatinine 4.0 H Est GFR (CKD-EPI)AfAm 18.29 Est GFR (CKD-EPI)NonAf 15.78 Random Glucose 123 H Calcium 8.2 L Total Bilirubin 1.3 H AST 161 H ALT 83 H Alkaline Phosphatase 127 H Total Protein 6.4 Albumin 3.4 10/13/18 06:17 RBC 3.58 L MCV 97.1 H MCHC 35.3 RDW 13.0 MPV 10.4 D Neutrophils % 85.6 H Lymphocytes % 10.6 Monocytes % 3.0 L Eosinophils % 0.5 Basophils % 0.3 - Medications Given in the ED: ED Medications Discontinued Medications Generic Name Dose Route Start Last Admin Trade Name Freq PRN Reason Stop Dose Admin Sodium Chloride 1,000 mls @ 1,000 mls/hr 10/13/18 06:16 10/13/18 06:33 Normal Saline - IV 10/13/18 07:15 1,000 mls/hr ASDIR STA Administration Medical Decision Making - Medical Decision Making 10/13/18 07:27 Sign out received from Dr Durham. Bryon Buck is a 53yo man with a PMH of polysubstance abuse (alcohol, opiates on suboxone, marijuana), childhood and 1x alcohol withdrawal seizures, asthma, HTN, GERD, depression/anxiety who presented from [facility] detox following a fall. ED course so far notable for: - Significant hyponatremia to 121 from 129 on 10/11. 100mL hypertonic saline 3% ordered - BUN/Cr now 47/4.0 from 22/1.5 - Ca decreased to 8.2 from 99 - New leukocytosis to 16.1 from 11.6 - Had fall, small lac that does not require repair. CT pending - Diffuse abd pain on exam. CT chest/abd/pelvis pending - UA, UCx, urine lytes ordered - ICU called for evaluation, spoke to Dr Durham 10/13/18 08:20 - Spoke to Dr Lunsford. Recommending additional NS with repeat labs following, renal US. Hypertonic saline cancelled. - CT notes fatty infiltrate in liver, b/l atelectasis. No acute pathology - CT head negative - To be admitted to ICU Discussed with Dr Zofia Branham PGY1 *DC/Admit/Observation/Transfer Diagnosis at time of Disposition: Hyponatremia, TOO (acute kidney injury) Hypotension Qualifiers: Hypotension type: unspecified hypotension type Qualified Code(s): I95.9 - Hypotension, unspecified Leukocytosis Qualifiers: Leukocytosis type: unspecified Qualified Code(s): D72.829 - Elevated white blood cell count, unspecified - Discharge Dispostion Decision to Admit order: Yes - Referrals - Patient Instructions - Post Discharge Activity
[2018-10-13] MEDS ORDERED: SODIUM CHLORIDE 3% 100 ML IV ONE (08:15)
[2018-10-13] MEDS ORDERED: SODIUM CHLORIDE 0.9% 500 ML INFUS.BAG IV ONE (08:18)
--- NOTE | 2018-10-13 08:39 | HP ---
CHIEF COMPLAINT: fall , hyponatremia PCP:[facility] HISTORY OF PRESENT ILLNESS: 53 year old male alcohol/heroin/nicotine dependence presented from [facility] after he fall down from bed was found to have hyponatremia 121 admitted to ICU for further evaluation. pt is asymptomatic denies any headache light headedness , sob , denies any chest pain , abdominal apin , he feels hungry asking for food no leg swelling , no orthopena or dyspnea on exertion he drink vodka daily last use 3 days ago. reports some nausea today , had sever vomiting last 3 days but not today reports constipation ER course was notable for: (1)cbc, cmp NA 121 , BUN /Cr 47 /4 (2)CT head no acute pathology (3)cxr Bibasilar atelectasis Recent Travel: denies PAST MEDICAL HISTORY: Asthma , HTN , Seizure from alcoholic withdrawal, GERD, Depression /Anxiety , BPH, Back pain , Meniscal mutear B/L ,insomnia , mood disorder PAST SURGICAL HISTORY: Left hernia repair Social History: Smokin/2-1 ppd since age of 13 Alcohol:heavy drink Vodka , gallon Drugs: Hashish marijuana , last use 5 days ago Family History:non contributory Allergies diphenhydramine [From Benadryl] Allergy (Mild, Verified 10/13/18 05:57) hydroxyzine [From Atarax] Adverse Reaction (Mild, Verified 10/13/18 05:57) HOME MEDICATIONS: Home Medications Medication Instructions Recorded Albuterol Sulfate Inhaler - 2 inh PO Q4H PRN 06/19/18 [Ventolin HFA Inhaler -] Aspirin [ASA -] 81 mg PO DAILY 06/19/18 Buprenorphine/Naloxone [Suboxone 2 each SL DAILY 06/19/18 8Mg/2Mg Sl Film -] Docusate Sodium [Dok] 100 mg PO BID 06/19/18 Folic Acid - 1 mg PO DAILY 06/19/18 Gabapentin [Neurontin] 600 mg PO TID 06/19/18 Ibuprofen 800 mg PO BID 06/19/18 Lisinopril 20 mg PO DAILY 06/19/18 Sertraline HCl [Zoloft -] 50 mg PO TID 06/19/18 Tamsulosin HCl [Flomax -] 0.4 mg PO DAILY 06/19/18 Meloxicam 15 mg PO DAILY 06/28/18 Pantoprazole Sodium [Protonix -] 40 mg PO DAILY 06/28/18 Lidocaine 5% Patch [Lidoderm -] 2 patch TP DAILY 14 Days #30 patch 07/06/18 Mometasone Furoate [Asmanex 110Mcg 1 puff IH BID 30 Days #1 inhaler 07/06/18 -] Buspirone HCl [Buspar -] 7.5 mg PO BID 10/10/18 Hydrochlorothiazide [Hctz -] 25 mg PO DAILY #30 tablet 10/10/18 Mirtazapine [Remeron -] 7.5 mg PO HS 10/10/18 Buspirone HCl [Buspar -] 10 mg PO BID #60 tablet 10/11/18 Sertraline HCl [Zoloft] 100 mg PO DAILY #30 tablet 10/11/18 REVIEW OF SYSTEMS CONSTITUTIONAL: Absent: fever, chills, diaphoresis, generalized weakness, malaise, loss of appetite, weight change HEENT: Absent: rhinorrhea, nasal congestion, throat pain, throat swelling, difficulty swallowing, mouth swelling, ear pain, eye pain, visual changes CARDIOVASCULAR: Absent: chest pain, syncope, palpitations, irregular heart rate, lightheadedness , peripheral edema RESPIRATORY: Absent: cough, shortness of breath, dyspnea with exertion, orthopnea, wheezing, stridor, hemoptysis GASTROINTESTINAL: Absent: abdominal pain, abdominal distension, nausea, vomiting, diarrhea, constipation, melena, hematochezia GENITOURINARY: Absent: dysuria, frequency, urgency, hesitancy, hematuria, flank pain, genital pain MUSCULOSKELETAL: Absent: myalgia, arthralgia, joint swelling, back pain, neck pain SKIN: Absent: rash, itching, pallor HEMATOLOGIC/IMMUNOLOGIC: Absent: easy bleeding, easy bruising, lymphadenopathy, frequent infections ENDOCRINE: Absent: unexplained weight gain, unexplained weight loss, heat intolerance, cold intolerance NEUROLOGIC: Absent: headache, focal weakness or paresthesias, dizziness, unsteady gait, seizure, mental status changes, bladder or bowel incontinence PSYCHIATRIC: Absent: anxiety, depression, suicidal or homicidal ideation, hallucinations. PHYSICAL EXAMINATION Vital Signs - 24 hr 10/13/18 10/13/18 05:57 06:43 Temperature 97.2 F L Pulse Rate 78 Pulse Rate [ 73 Apical] Respiratory 18 20 Rate Blood Pressure 99/61 Blood Pressure 98/52 L [Left Arm] O2 Sat by Pulse 100 98 Oximetry (%) GENERAL: Awake, alert, and fully oriented, in no acute distress. HEAD: left eye brow laceration EYES: Pupils equal, round and reactive to light, extraocular movements intact, nystagmus ENT: Ears normal, nares patent, oropharynx clear without exudates. dry mucous membranes. NECK: Normal range of motion, supple , tender to palpation LUNGS: diffuse rhonchi HEART: Regular rate and rhythm, normal S1 and S2 without murmur, rub or gallop. ABDOMEN: Obese, Soft, nontender, not distended, normoactive bowel sounds, no guarding, no rebound, UPPER EXTREMITIES: 2+ pulses, warm, well-perfused. No cyanosis. No clubbing. No peripheral edema.finger tremor on extension LOWER EXTREMITIES: 2+ pulses, warm, well-perfused. No calf tenderness. No peripheral edema. NEUROLOGICAL: no focal deficit . Normal speech. nystagmus , no dysmetria , strenth 5/5 upper and lower ext , sensation intact PSYCHIATRIC: Cooperative. SKIN: Warm, dry, normal turgor, Laboratory Results - last 24 hr 10/13/18 10/13/18 06:17 06:17 WBC 16.1 H RBC 3.58 L Hgb 12.3 Hct 34.8 L D MCV 97.1 H MCH 34.3 H MCHC 35.3 RDW 13.0 Plt Count 124 L D MPV 10.4 D Absolute Neuts (auto) 13.8 H Neutrophils % 85.6 H Lymphocytes % 10.6 Monocytes % 3.0 L Eosinophils % 0.5 Basophils % 0.3 Nucleated RBC % 0 Sodium 121 L Potassium 4.0 Chloride 86 L Carbon Dioxide 23 Anion Gap 12 BUN 47 H Creatinine 4.0 H Est GFR (CKD-EPI)AfAm 18.29 Est GFR (CKD-EPI)NonAf 15.78 Random Glucose 123 H Calcium 8.2 L Total Bilirubin 1.3 H AST 161 H ALT 83 H Alkaline Phosphatase 127 H Total Protein 6.4 Albumin 3.4 CBC, BMP 10/13/18 06:17 10/13/18 06:17 EKG normal Sinus rhythm , no ST, T wave changes ASSESSMENT/PLAN: 53 year old male alcohol/heroin/nicotine dependence presented from [facility] after he fall dowwn from bed was found to have hyponatremia 121 admitted to ICU for further evaluation. # Acute hypovolemic Hyponatremia likely pre renal R.O SIADH R.O sepsis * NA 121 withn 48 hours was 129 on October 11 , repat NA 120 , * 2 L NS Bolus started in ED , cont with NS @ 100 CC/hr and one mor L bolus of NS * monitor Na hourly * BMP Q 4 hr * no more than 6-8 NA correction in first 24 hours * Avoids meds that can cause hyponatremia * osmolality serum and urine * FENA 0.3 % pre renal * started on seraquel at [facility] yesterday will dc for now * decrease zoloft to 75 daily # Leuckocytosis R.O sepsis , r.p PNA * wbc 16 , hypothermia , hypotension * IV fluids * CXR with bibasilar atelectasis * UA , Urine cx , sputum cx * urine legionella ag * start abx ceftriaxone and azithromycin #TOO * BUN/Cr 47/4 was cr 1.5 on October 11 * pre renal from dehydration vs obstruction post renal * Repeat lab after hydration * kidney/bladder scan * avoid nephrotoxic agents * nephrology consult Dr Lunsford * Urine NA 18 and FENA 0.3 more likely pre renal # S/P fall * fell down from bed while was sleeping * CT head no acute pathology * wound care for left eye brow * Neck Xray pending # HTN # Hypotension today due to dehydration vs sepsis * hold meds in term of hypotension * monitor BP in ICU * IV fluids NS 1 L bolus and 100 CC/hr maintenance # Transaminities AST > ALt 2: 1 goes with alcohol abuse * monitor lab * CT A/P with fatty liver * encourage weight loss * alcohol cessation # Macrocytic anemia jorge due to alcohol * send b12 , folci acid , ferritin and iron studies * stable no active bleeding # GERD * PPI 40 IV daily # ASthma , stable no exacerbation * Duoneb as needed # H/O seizure * due to alcohol withdrawal 5 years ago , no active seizure currently , * Neuro check for any withdrawal symptoms or seizure activity # Depression/Anxiety /mood disorder * reports seeing college talking to him , no homicidal or suicidal ideation * resume home meds * no QTC prolonation so far * # Meniscal tear B/L * follow up out pt # alcohol dependence/withdrawal * gallon of Vodka last use 3 days ago * still shaking and nystagmus * Librium protocol * ciwa protocol * thiamin and folic acid and multivitamins # Nicotine dependence * 1/2- 1 PPD since age of 13 * nocotine patch * educated about cessation # Marijuana use last use was Tuesday 5 days ago , educated about cessation # FEN * NS@ 100 CC/hr * Monitor lytes * Regular diet # Proph * GI: PPI 40 IV daily * DVTS: SCDS, Lovenox 40 sq daily # Dispo * ICU # Full code Visit type - Emergency Visit Emergency Visit: Yes ED Registration Date: 10/13/18 Care time: The patient presented to the Emergency Department on the above date and was hospitalized for further evaluation of their emergent condition. - New Patient This patient is new to me today: Yes Date on this admission: 10/13/18 - Critical Care Critical Care patient: Yes Total Critical Care Time (in minutes): 45 Critical Care Statement: The care of this patient involved high complexity decision making to prevent further life threatening deterioration of the patient 's condition and/or to evaluate & treat vital organ system(s) failure or risk of failure.
[2018-10-13] MEDS ORDERED: SODIUM CHLORIDE 1,000 ML IV SCH ×2 (08:45→13:21)
--- NOTE | 2018-10-13 08:48 | PN ---
Teaching Attending Note Name of Resident: Bhavin Chong ATTENDING PHYSICIAN STATEMENT I saw and evaluated the patient. I reviewed the resident's note and discussed the case with the resident. I agree with the resident's findings and plan as documented. SUBJECTIVE: Patient is a 53 year old male with PMHx of alcohol/heroin/nicotine dependency, Asthma , HTN , Seizure from alcoholic withdrawal, GERD, Depression /Anxiety , BPH, Back pain , Meniscal tear B/L ,insomnia , mood disorder presented from [facility] after he fell down from his bed and was send to ED. and was found to have hyponatremia of 121 and Acute renal injury , admitted to ICU for further evaluation. As per patient, he drinks around a gallon per day of Vodka, since has a chronic back and knee pain. OBJECTIVE: Vital Signs Temperature 97.2 F L 10/13/18 05:57 Pulse Rate 73 10/13/18 06:43 Respiratory Rate 20 10/13/18 06:43 Blood Pressure 98/52 L 10/13/18 06:43 O2 Sat by Pulse Oximetry (%) 98 10/13/18 06:43 Initial Vital Signs Temp Pulse Resp BP Pulse Ox 97.2 F L 78 18 99/61 100 10/13/18 05:57 10/13/18 05:57 10/13/18 05:57 10/13/18 05:57 10/13/18 05:57 GENERAL: The patient is awake, alert, and oriented, in no acute distress. HEAD: Normal with no signs of trauma. EYES: PERRL, extraocular movements intact, sclera anicteric, conjunctiva clear. nyastagmus positive ENT: Ears normal, oropharynx clear without exudates, moist mucous membranes. NECK: Trachea midline, full range of motion, supple. LUNGS: Breath sounds equal, clear to auscultation bilaterally, no wheezes, no crackles, no accessory muscle use. HEART: Regular rate and rhythm, S1, S2 positive, No murmur, rub or gallop. ABDOMEN: Soft, NT, large abdomen , normoactive bowel sounds, no guarding, no rebound, no hepatosplenomegaly, no masses. EXTREMITIES: 2+ pulses, warm, well-perfused, NEUROLOGICAL: Cranial nerves II through XII grossly intact. Normal speech, gait not observed. PSYCH: Normal mood, normal affect. SKIN: Warm, dry, normal turgor, no rashes or lesions noted CBCD WBC 16.1 K/mm3 (4.0-10.0) H 10/13/18 06:17 RBC 3.58 M/mm3 (4.00-5.60) L 10/13/18 06:17 Hgb 12.3 GM/dL (11.7-16.9) 10/13/18 06:17 Hct 34.8 % (35.4-49) L D 10/13/18 06:17 MCV 97.1 fl (80-96) H 10/13/18 06:17 MCHC 35.3 g/dl (32.0-35.9) 10/13/18 06:17 RDW 13.0 % (11.9-15.9) 10/13/18 06:17 Plt Count 124 K/MM3 (134-434) L D 10/13/18 06:17 MPV 10.4 fl (7.5-11.1) D 10/13/18 06:17 CMP Sodium 121 mmol/L (136-145) L 10/13/18 06:17 Potassium 4.0 mmol/L (3.5-5.1) 10/13/18 06:17 Chloride 86 mmol/L (98-107) L 10/13/18 06:17 Carbon Dioxide 23 mmol/L (21-32) 10/13/18 06:17 Anion Gap 12 MMOL/L (8-16) 10/13/18 06:17 BUN 47 mg/dL (7-18) H 10/13/18 06:17 Creatinine 4.0 mg/dL (0.55-1.3) H 10/13/18 06:17 Random Glucose 123 mg/dL (74-106) H 10/13/18 06:17 Calcium 8.2 mg/dL (8.5-10.1) L 10/13/18 06:17 Total Bilirubin 1.3 mg/dL (0.2-1) H 10/13/18 06:17 AST 161 U/L (15-37) H 10/13/18 06:17 ALT 83 U/L (13-61) H 10/13/18 06:17 Alkaline Phosphatase 127 U/L (45-117) H 10/13/18 06:17 Total Protein 6.4 g/dl (6.4-8.2) 10/13/18 06:17 Albumin 3.4 g/dl (3.4-5.0) 10/13/18 06:17 Home Medications Medication Instructions Recorded Albuterol Sulfate Inhaler - 2 inh PO Q4H PRN 06/19/18 [Ventolin HFA Inhaler -] Aspirin [ASA -] 81 mg PO DAILY 06/19/18 Buprenorphine/Naloxone [Suboxone 2 each SL DAILY 06/19/18 8Mg/2Mg Sl Film -] Docusate Sodium [Dok] 100 mg PO BID 06/19/18 Folic Acid - 1 mg PO DAILY 06/19/18 Gabapentin [Neurontin] 600 mg PO TID 06/19/18 Ibuprofen 800 mg PO BID 06/19/18 Lisinopril 20 mg PO DAILY 06/19/18 Sertraline HCl [Zoloft -] 50 mg PO TID 06/19/18 Tamsulosin HCl [Flomax -] 0.4 mg PO DAILY 06/19/18 Meloxicam 15 mg PO DAILY 06/28/18 Pantoprazole Sodium [Protonix -] 40 mg PO DAILY 06/28/18 Lidocaine 5% Patch [Lidoderm -] 2 patch TP DAILY 14 Days #30 patch 07/06/18 Mometasone Furoate [Asmanex 110Mcg 1 puff IH BID 30 Days #1 inhaler 07/06/18 -] Buspirone HCl [Buspar -] 7.5 mg PO BID 10/10/18 Hydrochlorothiazide [Hctz -] 25 mg PO DAILY #30 tablet 10/10/18 Mirtazapine [Remeron -] 7.5 mg PO HS 10/10/18 Buspirone HCl [Buspar -] 10 mg PO BID #60 tablet 10/11/18 Sertraline HCl [Zoloft] 100 mg PO DAILY #30 tablet 10/11/18 ASSESSMENT AND PLAN: Patient is a 53 year old male with PMHx of alcohol/heroin/nicotine dependency, Asthma , HTN , Seizure from alcoholic withdrawal, GERD, Depression /Anxiety , BPH, Back pain , Meniscal tear B/L ,insomnia , mood disorder presented from [facility] after he fell down from his bed and was send to ED. and was found to have hyponatremia of 121 and Acute renal injury , admitted to ICU for further evaluation. As per patient, he drinks around a gallon per day of Vodka, since has a chronic back and knee pain. # Acute hyponatremia s/p fall x2 cannot r/o SIADH/ alcohol intoxication, hold zoloft or reduce the dose now, urine sodium and urine and serum osmolality ordered. Bmp q4h, will discontinue Hctz since can cause low sodium. # ARF most likely due to urinary obstruction,alcohol intoxication , patient has a hx of BPH on Flomax at home, bladder scan. urinary sodium .urine and plasma osm. # Alcohol intoxication with withdrawel hx of seizure; drinks a gallon of Vodka per day , librium protocol to continue # Acute chest congestion cannot r/o pneumonia with leukocytosis r/o legionella , urine antigen for legionella and strept pneumo, echo ordered, ce x2 , ekg. septic w/u ordered DVT Px: SCds
[2018-10-13] MEDS ORDERED: chlordiazePOXIDE HCL 10 MG CAPSULE PO PRN (08:51)
[2018-10-13 08:58] LABS: PLATELET ESTIMATE DECREASED
[2018-10-13 09:00] LABS: EPI CELLS 0.5 /HPF (0-5/HPF); HYALINE CASTS 11 /lpf (0-8); URINE APPEARANCE CLEAR; URINE BACTERIA 0.3 /hpf (NEGATIVE); URINE BILIRUBIN NEGATIVE (NEGATIVE); URINE COLOR DK YELLOW; URINE GLUCOSE (UA) NEGATIVE (NEGATIVE); URINE KETONE NEGATIVE (NEGATIVE); URINE LEUK ESTERASE TRACE (NEGATIVE); URINE NITRITE NEGATIVE (NEGATIVE); URINE PROTEIN TRACE (NEGATIVE); URINE RBC 3 /hpf (0-4); URINE WBC 2 /hpf (0-5)
[2018-10-13] MEDS ORDERED: chlordiazePOXIDE 5 MG CAPSULE PO PRN (09:03)
[2018-10-13 09:39] VITALS: BMI 12.2
[2018-10-13] MEDS ORDERED: PNEUMOC 13-VAL CONJ-DIP CRM/PF 0.5 ML DISP.SYRIN IM ONE (09:39)
[2018-10-13 09:45] LABS: CALCIUM 8.4 mg/dL (8.5-10.1); CREATININE 3.6 mg/dL (0.55-1.3); POTASSIUM 3.8 mmol/L (3.5-5.1)
[2018-10-13] MEDS ORDERED: SODIUM CHLORIDE 3% 500 ML/500 ML INFUS.BAG IV ONE ×3 (09:50→10:03)
[2018-10-13] MEDS ORDERED: PANTOPRAZOLE 40 MG TABLET (FP) PO SCH (10:00)
[2018-10-13] MEDS ORDERED: BUPRENORPHINE/NALOXONE 8 MG/2 MG FILM PACKET SL SCH (10:00)
[2018-10-13] MEDS ORDERED: ALBUTEROL SO4 8 GM HFA INHALER IH PRN (10:28)
[2018-10-13] MEDS ORDERED: guaiFENesin 200 MG/10 ML 10 ML UNIT-DOSE CUPS PO PRN (10:33)
[2018-10-13] MEDS ORDERED: DEXTROSE 5%-WATER 100 ML IVPB ONE (10:35)
[2018-10-13] MEDS ORDERED: cefTRIAXone SODIUM 1 GM VIAL ONE (10:35)
[2018-10-13] MEDS: AZITHROMYCIN IVPB 500 MG/250 ML BAG IVPB SCH (10:58)
[2018-10-13] MEDS: ENOXAPARIN NA (PORCINE) 40 MG/0.4 ML DISP.SYRIN SQ SCH (10:58)
[2018-10-13] MEDS: CEFTRIAXONE 1 GM in DEXTROSE 5%-WATER 100 ML IVPB SCH (10:58)
[2018-10-13] MEDS: FOLIC ACID 1 MG TABLET (FP) PO SCH (11:04)
[2018-10-13] MEDS: chlordiazePOXIDE HCL 25 MG CAPSULE PO SCH ×2 (11:04→17:46)
[2018-10-13] MEDS: MUPIROCIN 2% TOPICAL OINTMENT FOR DECOLONIZATION NS SCH ×2 (11:04→22:10)
--- NOTE | 2018-10-13 11:23 | PN ---
Teaching Attending Note Name of Resident: Antonio Hwang ATTENDING PHYSICIAN STATEMENT I saw and evaluated the patient. I reviewed the resident's note and discussed the case with the resident. I agree with the resident's findings and plan as documented. SUBJECTIVE: Patient seen and examined in the ICU. Awake and alert. Exam is non-focal. Slightly tremulous. Repeat Na: 120. Intake & Output 10/10/18 10/11/18 10/12/18 10/13/18 23:59 23:59 23:59 23:59 Intake Total 1000 Output Total 1000 Balance 0 Weight 90 lb 11.2 oz Last Vital Signs Temp Pulse Resp BP Pulse Ox 98.3 F 83 18 103/66 99 10/13/18 09:17 10/13/18 09:17 10/13/18 09:17 10/13/18 09:17 10/13/18 08:00 Active Medications Albuterol Sulfate (Ventolin Hfa Inhaler -) 2 puff IH Q4H PRN PRN Reason: ASTHMA Aspirin (Ecotrin -) 81 mg PO DAILY [facility] Buprenorphine/Naloxone (Suboxone 8mg/2mg Sl Film -) 2 each SL DAILY [facility] Chlordiazepoxide HCl (Librium -) 10 mg PO Q12H PRN PRN Reason: Signs/symptoms of Withdrawal Stop: 10/16/18 05:00 Chlordiazepoxide HCl (Librium -) 25 mg PO Q8H [facility] Stop: 10/14/18 01:16 Last Admin: 10/13/18 11:04 Dose: 25 mg Chlordiazepoxide HCl (Librium -) 15 mg PO Q8H [facility] Stop: 10/15/18 01:01 Chlordiazepoxide HCl (Librium -) 10 mg PO Q8H [facility] Stop: 10/16/18 09:01 Chlordiazepoxide HCl (Librium -) 10 mg PO Q8H PRN PRN Reason: Signs/symptoms of Withdrawal Stop: 10/15/18 05:00 Chlorhexidine Gluconate (Hibiclens For Decolonization -) 1 applic TP HS [facility] Docusate Sodium (Colace -) 100 mg PO BID [facility] Enoxaparin Sodium (Lovenox -) 40 mg SQ DAILY [facility] Last Admin: 10/13/18 10:58 Dose: 40 mg Folic Acid (Folic Acid -) 1 mg PO DAILY [facility] Last Admin: 10/13/18 11:04 Dose: 1 mg Gabapentin (Neurontin -) 600 mg PO TID [facility] Guaifenesin (Robitussin -) 10 ml PO Q6H PRN PRN Reason: COUGH Sodium Chloride (Normal Saline -) 1,000 mls @ 100 mls/hr IV Q10H [facility] Last Admin: 10/13/18 10:58 Dose: 100 mls/hr Ceftriaxone Sodium 1 gm/ (Dextrose) 100 mls @ 200 mls/hr IVPB DAILY [facility]; Protocol Last Admin: 10/13/18 10:58 Dose: 200 mls/hr Azithromycin (Zithromax 500mg Ivpb (Pre-Docked)) 500 mg in 250 mls @ 250 mls/ hr IVPB DAILY [facility] Last Admin: 10/13/18 10:58 Dose: 250 mls/hr Lidocaine (Lidoderm Patch -) 2 patch TP DAILY [facility] Mometasone Furoate (Asmanex 110mcg -) 1 puff IH BID [facility] Mupirocin (Bactroban Ointment (For Decolonization) -) 1 applic NS BID [facility] Stop: 10/18/18 09:59 Last Admin: 10/13/18 11:04 Dose: 1 applic Non-Formulary Medication (Sertraline Hcl [Zoloft]) 100 mg PO DAILY [facility] Pneumococcal Polyvalent Vaccine (Pneumovax -) 0.5 ml IM .ONCE ONE Stop: 10/13/18 12:01 Quetiapine Fumarate (Seroquel -) 50 mg PO HS [facility] Thiamine HCl (Vitamin B1 Injection -) 200 mg IVPB DAILY [facility] GENERAL: The patient is awake, alert, and fully oriented, in no acute distress. HEAD: Normal with no signs of trauma. EYES: PERRL, sclera anicteric, conjunctiva clear. ENT: Dry mucous membranes NECK: Trachea midline, full range of motion, supple. LUNGS: Breath sounds equal, clear to auscultation bilaterally, no wheezes, no crackles, no accessory muscle use. HEART: Regular rate and rhythm, S1, S2 without murmur, rub or gallop. ABDOMEN: Soft, nontender, nondistended, normoactive bowel sounds, no guarding, no rebound, no hepatosplenomegaly, no masses. EXTREMITIES: 2+ pulses, warm, well-perfused, no edema. NEUROLOGICAL: Non-focal, slightly tremulous PSYCH: Normal mood, normal affect. SKIN: dry, poor turgor, no rashes or lesions noted CBCD WBC 16.1 K/mm3 (4.0-10.0) H 10/13/18 06:17 RBC 3.58 M/mm3 (4.00-5.60) L 10/13/18 06:17 Hgb 12.3 GM/dL (11.7-16.9) 10/13/18 06:17 Hct 34.8 % (35.4-49) L D 10/13/18 06:17 MCV 97.1 fl (80-96) H 10/13/18 06:17 MCHC 35.3 g/dl (32.0-35.9) 10/13/18 06:17 RDW 13.0 % (11.9-15.9) 10/13/18 06:17 Plt Count 124 K/MM3 (134-434) L D 10/13/18 06:17 MPV 10.4 fl (7.5-11.1) D 10/13/18 06:17 CMP Sodium 121 mmol/L (136-145) L 10/13/18 06:17 Potassium 4.0 mmol/L (3.5-5.1) 10/13/18 06:17 Chloride 86 mmol/L (98-107) L 10/13/18 06:17 Carbon Dioxide 23 mmol/L (21-32) 10/13/18 06:17 Anion Gap 12 MMOL/L (8-16) 10/13/18 06:17 BUN 47 mg/dL (7-18) H 10/13/18 06:17 Creatinine 4.0 mg/dL (0.55-1.3) H 10/13/18 06:17 Random Glucose 123 mg/dL (74-106) H 10/13/18 06:17 Calcium 8.2 mg/dL (8.5-10.1) L 10/13/18 06:17 Total Bilirubin 1.3 mg/dL (0.2-1) H 10/13/18 06:17 AST 161 U/L (15-37) H 10/13/18 06:17 ALT 83 U/L (13-61) H 10/13/18 06:17 Alkaline Phosphatase 127 U/L (45-117) H 10/13/18 06:17 Total Protein 6.4 g/dl (6.4-8.2) 10/13/18 06:17 Albumin 3.4 g/dl (3.4-5.0) 10/13/18 06:17 ASSESSMENT AND PLAN: Acute hyponatremia History of recent initiation of ETOH detoxification R/O acute detox symptoms ARF S/P mechanical fall Apparent history of withdrawal seizure ETOH abuse Do not suspect acute PNA Atelectasis Leukocytosis IVF: Trial of NS, appears clinically dry, ARF, and low urinary Na Strict I & O Perez-culture O2 as needed Noted ID and Renal evaluation has been called Monitor for withdrawal symptoms Dr Meier Critical care time spent in reviewing chart, evaluating patient and formulating plan - 36 minutes.
--- NOTE | 2018-10-13 11:59 | CONSULT ---
Consult Consult Specialty:: Nephrology Reason for Consultation:: hyponatremia - History of Present Illness Chief Complaint: s/p fall History of Present Illness: Pt is a 53 year old male with pmhx of depression and etoh abuse who was sent in from [facility] after a fall. He was found to be in too and hyponatremic. I was called to evaluate him. He says he was drinking about a gallon of alcohol per day before going to [facility]. He has not eaten solid food in about a week and says he does drink water. He denies shortness of breath. He denies headache. He was found to be hypotensive as well in the ER. He denies dysuria or hematura. He was taking nsaids. - History Source History Provided By: Patient, Medical Record - Past Medical History Cardio/Vascular: Yes: HTN Psych: Yes: Depression - Alcohol/Substance Use Hx Alcohol Use: Yes - Smoking History Smoking history: Unknown if ever smoked Have you smoked in the past 12 months: No Aproximately how many cigarettes per day: 5 Home Medications - Allergies Allergies/Adverse Reactions: Allergies Allergy/AdvReac Type Severity Reaction Status Date / Time diphenhydramine Allergy Mild Verified 10/13/18 05:57 [From Benadryl] hydroxyzine [From Atarax] AdvReac Mild Verified 10/13/18 05:57 - Home Medications Home Medications: Ambulatory Orders Albuterol Sulfate Inhaler - [Ventolin HFA Inhaler -] 2 inh PO Q4H PRN 06/19/18 Aspirin [ASA -] 81 mg PO DAILY 06/19/18 Buprenorphine/Naloxone [Suboxone 8Mg/2Mg Sl Film -] 2 each SL DAILY 06/19/18 Docusate Sodium [Dok] 100 mg PO BID 06/19/18 Folic Acid - 1 mg PO DAILY 06/19/18 Gabapentin [Neurontin] 600 mg PO TID 06/19/18 Ibuprofen 800 mg PO BID 06/19/18 Lisinopril 20 mg PO DAILY 06/19/18 Tamsulosin HCl [Flomax -] 0.4 mg PO DAILY 06/19/18 Meloxicam 15 mg PO DAILY 06/28/18 Pantoprazole Sodium [Protonix -] 40 mg PO DAILY 06/28/18 Lidocaine 5% Patch [Lidoderm -] 2 patch TP DAILY 14 Days #30 patch 07/06/18 Mometasone Furoate [Asmanex 110Mcg -] 1 puff IH BID 30 Days #1 inhaler 07/06/18 Mirtazapine [Remeron -] 7.5 mg PO HS 10/10/18 Buspirone HCl [Buspar -] 10 mg PO BID #60 tablet 10/11/18 Sertraline HCl [Zoloft] 100 mg PO DAILY #30 tablet 10/11/18 Family Disease History - Family Disease History Family History: Denies Review of Systems - Review of Systems Constitutional: reports: Malaise Eyes: reports: No Symptoms HENT: reports: No Symptoms Neck: reports: No Symptoms Cardiovascular: reports: No Symptoms Respiratory: reports: No Symptoms Gastrointestinal: reports: No Symptoms Genitourinary: reports: No Symptoms Musculoskeletal: reports: Joint Pain Integumentary: reports: No Symptoms Neurological: reports: No Symptoms Endocrine: reports: No Symptoms Hematology/Lymphatic: reports: No Symptoms Psychiatric: reports: No Symptoms Physical Exam Vital Signs: Vital Signs Temperature 98.3 F 10/13/18 09:17 Pulse Rate 83 10/13/18 09:17 Respiratory Rate 18 10/13/18 09:17 Blood Pressure 103/66 10/13/18 09:17 O2 Sat by Pulse Oximetry (%) 99 10/13/18 08:00 Constitutional: Yes: Calm Eyes: Yes: Conjunctiva Clear Neck: Yes: Supple Cardiovascular: Yes: S1, S2 Respiratory: Yes: CTA Bilaterally Gastrointestinal: Yes: Soft ...Rectal Exam: Yes: Deferred Musculoskeletal: Yes: WNL Edema: No Neurological: Yes: Oriented Psychiatric: Yes: Oriented Labs: CBC, BMP 10/13/18 06:17 10/13/18 08:39 Imaging - Results Cat Scan: Report Reviewed Problem List - Problems (1) TOO (acute kidney injury) Code(s): N17.9 - ACUTE KIDNEY FAILURE, UNSPECIFIED (2) TOO (acute kidney injury) Code(s): N17.9 - ACUTE KIDNEY FAILURE, UNSPECIFIED (3) Alcohol dependence with uncomplicated withdrawal Code(s): F10.230 - ALCOHOL DEPENDENCE WITH WITHDRAWAL, UNCOMPLICATED (4) Elevated liver enzymes Code(s): R74.8 - ABNORMAL LEVELS OF OTHER SERUM ENZYMES (5) Hyponatremia Code(s): E87.1 - HYPO-OSMOLALITY AND HYPONATREMIA (6) Cannabis dependence, uncomplicated Code(s): F12.20 - CANNABIS DEPENDENCE, UNCOMPLICATED (7) Depressive disorder Code(s): F32.9 - MAJOR DEPRESSIVE DISORDER, SINGLE EPISODE, UNSPECIFIED (8) Essential (primary) hypertension Code(s): I10 - ESSENTIAL (PRIMARY) HYPERTENSION (9) GERD (gastroesophageal reflux disease) Code(s): K21.9 - GASTRO-ESOPHAGEAL REFLUX DISEASE WITHOUT ESOPHAGITIS Assessment/Plan Current Medications Generic Name Dose Route Start Last Admin Trade Name Freq PRN Reason Stop Dose Admin Albuterol Sulfate 2 puff 10/13/18 10:28 Ventolin Hfa Inhaler - IH Q4H PRN ASTHMA Aspirin 81 mg 10/14/18 10:00 Ecotrin - PO DAILY LEFTY Buprenorphine/Naloxone 2 each 10/13/18 10:30 Suboxone 8mg/2mg Sl Film - SL DAILY LEFTY Buspirone HCl 10 mg 10/13/18 22:00 Buspar - PO BID LEFTY Chlordiazepoxide HCl 10 mg 10/15/18 05:00 Librium - PO 10/16/18 05:00 Q12H PRN Signs/symptoms of Withdrawal Chlordiazepoxide HCl 25 mg 10/13/18 09:15 10/13/18 11:04 Librium - PO 10/14/18 01:16 25 mg Q8H LEFTY Administration Chlordiazepoxide HCl 15 mg 10/14/18 09:00 Librium - PO 10/15/18 01:01 Q8H LEFTY Chlordiazepoxide HCl 10 mg 10/15/18 09:00 Librium - PO 10/16/18 09:01 Q8H LEFTY Chlordiazepoxide HCl 10 mg 10/13/18 09:03 Librium - PO 10/15/18 05:00 Q8H PRN Signs/symptoms of Withdrawal Chlorhexidine Gluconate 1 applic 10/13/18 22:00 Hibiclens For Decolonization - TP HS LEFTY Docusate Sodium 100 mg 10/13/18 22:00 Colace - PO BID LEFTY Enoxaparin Sodium 40 mg 10/13/18 10:00 10/13/18 10:58 Lovenox - SQ 40 mg DAILY LEFTY Administration Folic Acid 1 mg 10/13/18 10:00 10/13/18 11:04 Folic Acid - PO 1 mg DAILY LEFTY Administration Gabapentin 600 mg 10/13/18 14:00 Neurontin - PO TID LEFTY Guaifenesin 10 ml 10/13/18 10:33 Robitussin - PO Q6H PRN COUGH Sodium Chloride 1,000 mls @ 100 mls/hr 10/13/18 08:45 10/13/18 10:58 Normal Saline - IV 100 mls/hr Q10H LEFTY Administration Ceftriaxone Sodium 1 gm/ 100 mls @ 200 mls/hr 10/13/18 10:15 10/13/18 10:58 Dextrose IVPB 200 mls/hr DAILY LEFTY Administration Protocol Azithromycin 500 mg in 250 mls @ 250 mls/hr 10/13/18 10:15 10/13/18 10:58 Zithromax 500mg Ivpb (Pre-Docked) IVPB 250 mls/hr DAILY LEFTY Administration Lidocaine 2 patch 10/14/18 10:00 Lidoderm Patch - TP DAILY [facility] Mometasone Furoate 1 puff 10/13/18 22:00 Asmanex 110mcg - IH BID [facility] Mupirocin 1 applic 10/13/18 10:00 10/13/18 11:04 Bactroban Ointment (For Decolonization) - NS 10/18/18 09:59 1 applic BID [facility] Administration Pneumococcal Polyvalent Vaccine 0.5 ml 10/13/18 12:00 Pneumovax - IM 10/13/18 12:01 .ONCE ONE Quetiapine Fumarate 50 mg 10/13/18 22:00 Seroquel - PO HS LEFTY Sertraline HCl 100 mg 10/14/18 10:00 Zoloft - PO DAILY [facility] Thiamine HCl 200 mg 10/13/18 10:00 Vitamin B1 Injection - IVPB DAILY [facility] Laboratory Tests 10/13/18 10/13/18 08:29 08:39 Serum Osmolality 267 L Ur Random Sodium < 18 L Impression 1. TOO 2. hyponatremia 3. etoh abuse 4. s/p fall 5. depression 6. htn Plan - cont with saline - monitor bp - renal function starting to improve - admit to ICU - serial bmp - urine sodium is low which is consistent with prerenal disease - check renal ultrasound - restrict free water intake - discussed with ICU team - discussed with ER team - monitor bp - hold lisinoprol - hold zoloft for now - consider psych eval to adjust meds in light of hyponatremia
[2018-10-13] MEDS ORDERED: PNEUMOCOCCAL 23 VACCINE 0.5 ML VIAL IM ONE (12:00)
--- NOTE | 2018-10-13 12:02 | CON.ID ---
Consult Consult Specialty:: infectious disease Referred by:: hospitalist Reason for Consultation:: leukocytosis - History of Present Illness Chief Complaint: sent from detox s/p fall History of Present Illness: 53 yo man with longstanding history of ETOH use, recent admission for detox in June- 06/19 to 06/23 foolwed by rehad- discharged 07/07. He relapsed and was readmitted 10/10 to detox with leukocytosis 11.9 and hyponatremia 129- he has been noted to be weak with low bp in detox on librium detox- sent from 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- has bad knees - History Source History Provided By: Patient, Medical Record Limitations to Obtaining History: Clinical Condition - Past Medical History Cardio/Vascular: Yes: HTN Pulmonary: Yes: Asthma Psych: Yes: Depression - Past Surgical History Past Surgical History: Yes: Hernia Repair (left inguinalhernia repair) - Alcohol/Substance Use Hx Alcohol Use: Yes - Smoking History Smoking history: Unknown if ever smoked Have you smoked in the past 12 months: No Aproximately how many cigarettes per day: 5 - Social History Usual Living Arrangement: With Spouse ADL: Independent Occupation: unemployed Place of : Other ([facility]) Home Medications - Allergies Allergies/Adverse Reactions: Allergies Allergy/AdvReac Type Severity Reaction Status Date / Time diphenhydramine Allergy Mild Verified 10/13/18 05:57 [From Benadryl] hydroxyzine [From Atarax] AdvReac Mild Verified 10/13/18 05:57 - Home Medications Home Medications: Ambulatory Orders Albuterol Sulfate Inhaler - [Ventolin HFA Inhaler -] 2 inh PO Q4H PRN 06/19/18 Aspirin [ASA -] 81 mg PO DAILY 06/19/18 Buprenorphine/Naloxone [Suboxone 8Mg/2Mg Sl Film -] 2 each SL DAILY 06/19/18 Docusate Sodium [Dok] 100 mg PO BID 06/19/18 Folic Acid - 1 mg PO DAILY 06/19/18 Gabapentin [Neurontin] 600 mg PO TID 06/19/18 Ibuprofen 800 mg PO BID 06/19/18 Lisinopril 20 mg PO DAILY 06/19/18 Tamsulosin HCl [Flomax -] 0.4 mg PO DAILY 06/19/18 Meloxicam 15 mg PO DAILY 06/28/18 Pantoprazole Sodium [Protonix -] 40 mg PO DAILY 06/28/18 Lidocaine 5% Patch [Lidoderm -] 2 patch TP DAILY 14 Days #30 patch 07/06/18 Mometasone Furoate [Asmanex 110Mcg -] 1 puff IH BID 30 Days #1 inhaler 07/06/18 Mirtazapine [Remeron -] 7.5 mg PO HS 10/10/18 Buspirone HCl [Buspar -] 10 mg PO BID #60 tablet 10/11/18 Sertraline HCl [Zoloft] 100 mg PO DAILY #30 tablet 10/11/18 Family Disease History - Family Disease History Family History: Unable to Obtain Review of Systems - Review of Systems Constitutional: denies: Chills, Fever Eyes: reports: No Symptoms HENT: reports: No Symptoms Neck: reports: No Symptoms Cardiovascular: reports: No Symptoms Respiratory: reports: No Symptoms Gastrointestinal: reports: Abdominal Pain Genitourinary: reports: No Symptoms Neurological: reports: Other (sleepy, just got librium) Physical Exam Vital Signs: Vital Signs Temperature 98.3 F 10/13/18 09:17 Pulse Rate 83 10/13/18 09:17 Respiratory Rate 18 10/13/18 09:17 Blood Pressure 103/66 10/13/18 09:17 O2 Sat by Pulse Oximetry (%) 99 10/13/18 08:00 Constitutional: Yes: Well Nourished, No Distress, Calm Eyes: Yes: Conjunctiva Clear HENT: Yes: Atraumatic, Normocephalic, Other (sutures right eyebrow) Neck: Yes: Supple, Trachea Midline Cardiovascular: Yes: Regular Rate and Rhythm Respiratory: Yes: Regular, CTA Bilaterally Gastrointestinal: Yes: Normal Bowel Sounds, Soft, Abdomen, Obese, Tenderness. No: Tenderness, Rebound ...Rectal Exam: Yes: Deferred Extremities: Yes: WNL Edema: No Neurological: Yes: Lethargy Labs: CBC, BMP 10/13/18 06:17 10/13/18 08:39 Imaging - Results Chest X-ray: Report Reviewed, Image Reviewed Cat Scan: Report Reviewed Problem List - Problems (1) Leukocytosis Code(s): D72.829 - ELEVATED WHITE BLOOD CELL COUNT, UNSPECIFIED Qualifiers: Leukocytosis type: unspecified Qualified Code(s): D72.829 - Elevated white blood cell count, unspecified (2) Hyponatremia Code(s): E87.1 - HYPO-OSMOLALITY AND HYPONATREMIA (3) TOO (acute kidney injury) Code(s): N17.9 - ACUTE KIDNEY FAILURE, UNSPECIFIED (4) Elevated liver enzymes Code(s): R74.8 - ABNORMAL LEVELS OF OTHER SERUM ENZYMES (5) Alcohol dependence Code(s): F10.20 - ALCOHOL DEPENDENCE, UNCOMPLICATED Assessment/Plan unclear source of leukocytosis-increasing imaging not helpful urinalysis benign for infection would get blood cultures continue ceftriaxone for now f/u cultures results check HIV- he is agreeable lfts improving off etoh, denies history of hepatitis can check hep serology if not previously done
--- NOTE | 2018-10-13 12:28 | EKG ---
Test Reason : Blood Pressure : / mmHG Vent. Rate : 071 BPM Atrial Rate : 071 BPM P-R Int : 128 ms QRS Dur : 088 ms QT Int : 404 ms P-R-T Axes : 018 007 007 degrees QTc Int : 439 ms NORMAL SINUS RHYTHM NORMAL ECG WHEN COMPARED WITH ECG OF 22-JUN-2018 19:01, NO SIGNIFICANT CHANGE WAS FOUND Confirmed by MELISSA GRECO MD ([id number]) on 10/13/2018 12:28:27 PM Referred By: Confirmed By:MELISSA GRECO MD
[2018-10-13] MEDS: BUPRENORPHINE/NALOXONE 8 MG/2 MG FILM PACKET SL SCH (12:34)
[2018-10-13 13:11] LABS: CALCIUM 7.7 mg/dL (8.5-10.1); CREATININE 2.8 mg/dL (0.55-1.3)
[2018-10-13] MEDS: GABAPENTIN 300 MG CAPSULE (FP) PO SCH ×2 (13:45→22:11)
--- NOTE | 2018-10-13 13:48 | PN ---
Physical Exam: SUBJECTIVE: Patient seen and examined at bedside. Patient endorses nonproductive cough. He denies subjective fevers, chills, shortness of breath, chest pain, palpitations, abdominal pain, nausea, vomiting. OBJECTIVE: Vital Signs Period Temp Pulse Resp BP Sys/Vega Pulse Ox Last 24 Hr 97.2 F-98.3 F 73-84 18-20 98-110/46-68 98-100 GENERAL: The patient is awake, alert, and fully oriented, in no acute distress. HEAD: Normocephalic, atraumatic. EYES: PERRL, extraocular movements intact, sclera anicteric, conjunctiva clear. ENT: Oropharynx clear without exudates, moist mucous membranes. NECK: Supple, without lymphadenopathy LUNGS: Good inspiratory effort. Breath sounds equal, clear to auscultation bilaterally, no wheezes, no crackles, no accessory muscle use. HEART: Regular rate and rhythm, S1, S2 without murmur, rub or gallop. ABDOMEN: Soft, nontender, nondistended, normoactive bowel sounds, no guarding, no rebound, no hepatosplenomegaly, no masses. EXTREMITIES: 2+ radial, dorsalis pedis pulses, warm, well-perfused, no edema. NEUROLOGICAL: Cranial nerves II through XII grossly intact. Normal speech. PSYCH: Normal mood, normal affect upon my encounter. SKIN: Warm, dry. Laboratory Results - last 24 hr 10/13/18 10/13/18 10/13/18 06:17 06:17 08:29 WBC 16.1 H RBC 3.58 L Hgb 12.3 Hct 34.8 L D MCV 97.1 H MCH 34.3 H MCHC 35.3 RDW 13.0 Plt Count 124 L D MPV 10.4 D Absolute Neuts (auto) 13.8 H Neutrophils % 85.6 H Lymphocytes % 10.6 Monocytes % 3.0 L Eosinophils % 0.5 Basophils % 0.3 Nucleated RBC % 0 Platelet Estimate Decreased Platelet Comment Present Sodium 121 L Potassium 4.0 Chloride 86 L Carbon Dioxide 23 Anion Gap 12 BUN 47 H Creatinine 4.0 H Est GFR (CKD-EPI)AfAm 18.29 Est GFR (CKD-EPI)NonAf 15.78 Random Glucose 123 H Serum Osmolality Lactic Acid Calcium 8.2 L Ferritin 1076.3 H Total Bilirubin 1.3 H AST 161 H ALT 83 H Alkaline Phosphatase 127 H Total Protein 6.4 Albumin 3.4 Vitamin B12 958 Serum Folate 21 H Urine Color Dk yellow Urine Appearance Clear Urine pH 5.0 Ur Specific [place] 1.013 Urine Protein Trace Urine Glucose (UA) Negative Urine Ketones Negative Urine Blood 1+ H Urine Nitrite Negative Urine Bilirubin Negative Urine Urobilinogen 1.0 Ur Leukocyte Esterase Trace Urine WBC (Auto) 2 Urine RBC (Auto) 3 Urine Casts (Auto) 11 U Epithel Cells (Auto) 0.5 Urine Bacteria (Auto) 0.3 Ur Random Creatinine U Random Total Protein Ur Random Sodium 10/13/18 10/13/18 10/13/18 08:29 08:39 10:40 WBC RBC Hgb Hct MCV MCH MCHC RDW Plt Count MPV Absolute Neuts (auto) Neutrophils % Lymphocytes % Monocytes % Eosinophils % Basophils % Nucleated RBC % Platelet Estimate Platelet Comment Sodium 120 L Potassium 3.8 Chloride 90 L Carbon Dioxide 23 Anion Gap 7 L BUN 44 H Creatinine 3.6 H Est GFR (CKD-EPI)AfAm 20.78 Est GFR (CKD-EPI)NonAf 17.93 Random Glucose 101 Serum Osmolality 267 L Lactic Acid 1.0 Calcium 8.4 L Ferritin Total Bilirubin AST ALT Alkaline Phosphatase Total Protein Albumin Vitamin B12 Serum Folate Urine Color Urine Appearance Urine pH Ur Specific [place] Urine Protein Urine Glucose (UA) Urine Ketones Urine Blood Urine Nitrite Urine Bilirubin Urine Urobilinogen Ur Leukocyte Esterase Urine WBC (Auto) Urine RBC (Auto) Urine Casts (Auto) U Epithel Cells (Auto) Urine Bacteria (Auto) Ur Random Creatinine 173.0 H U Random Total Protein 47.1 H Ur Random Sodium < 18 L 10/13/18 12:25 WBC RBC Hgb Hct MCV MCH MCHC RDW Plt Count MPV Absolute Neuts (auto) Neutrophils % Lymphocytes % Monocytes % Eosinophils % Basophils % Nucleated RBC % Platelet Estimate Platelet Comment Sodium 125 L Potassium 3.0 L Chloride 92 L Carbon Dioxide 21 Anion Gap 12 BUN 42 H Creatinine 2.8 H Est GFR (CKD-EPI)AfAm 28.16 Est GFR (CKD-EPI)NonAf 24.29 Random Glucose 164 H Serum Osmolality Lactic Acid Calcium 7.7 L Ferritin Total Bilirubin AST ALT Alkaline Phosphatase Total Protein Albumin Vitamin B12 Serum Folate Urine Color Urine Appearance Urine pH Ur Specific [place] Urine Protein Urine Glucose (UA) Urine Ketones Urine Blood Urine Nitrite Urine Bilirubin Urine Urobilinogen Ur Leukocyte Esterase Urine WBC (Auto) Urine RBC (Auto) Urine Casts (Auto) U Epithel Cells (Auto) Urine Bacteria (Auto) Ur Random Creatinine U Random Total Protein Ur Random Sodium Active Medications Generic Name Dose Route Start Last Admin Trade Name Freq PRN Reason Stop Dose Admin Albuterol Sulfate 2 puff 10/13/18 10:28 Ventolin Hfa Inhaler - IH Q4H PRN ASTHMA Aspirin 81 mg 10/14/18 10:00 Ecotrin - PO DAILY [facility] Buprenorphine/Naloxone 2 each 10/13/18 10:30 10/13/18 12:34 Suboxone 8mg/2mg Sl Film - SL Not Given DAILY [facility] Buspirone HCl 10 mg 10/13/18 22:00 Buspar - PO BID [facility] Chlordiazepoxide HCl 10 mg 10/15/18 05:00 Librium - PO 10/16/18 05:00 Q12H PRN Signs/symptoms of Withdrawal Chlordiazepoxide HCl 25 mg 10/13/18 09:15 10/13/18 11:04 Librium - PO 10/14/18 01:16 25 mg Q8H [facility] Administration Chlordiazepoxide HCl 15 mg 10/14/18 09:00 Librium - PO 10/15/18 01:01 Q8H LEFTY Chlordiazepoxide HCl 10 mg 10/15/18 09:00 Librium - PO 10/16/18 09:01 Q8H LEFTY Chlordiazepoxide HCl 10 mg 10/13/18 09:03 Librium - PO 10/15/18 05:00 Q8H PRN Signs/symptoms of Withdrawal Chlorhexidine Gluconate 1 applic 10/13/18 22:00 Hibiclens For Decolonization - TP HS [facility] Docusate Sodium 100 mg 10/13/18 22:00 Colace - PO BID [facility] Enoxaparin Sodium 40 mg 10/13/18 10:00 10/13/18 10:58 Lovenox - SQ 40 mg DAILY [facility] Administration Folic Acid 1 mg 10/13/18 10:00 10/13/18 11:04 Folic Acid - PO 1 mg DAILY [facility] Administration Gabapentin 600 mg 10/13/18 14:00 Neurontin - PO TID [facility] Ceftriaxone Sodium 1 gm/ 100 mls @ 200 mls/hr 10/13/18 10:15 10/13/18 10:58 Dextrose IVPB 200 mls/hr DAILY [facility] Administration Protocol Azithromycin 500 mg in 250 mls @ 250 mls/hr 10/13/18 10:15 10/13/18 10:58 Zithromax 500mg Ivpb (Pre-Docked) IVPB 250 mls/hr DAILY [facility] Administration Potassium Chloride 10 meq in 100 mls @ 100 mls/hr 10/13/18 13:30 Potassium Chloride 10 Meq Premix Ivpb - IVPB 10/13/18 15:29 Q60M LEFTY Sodium Chloride 1,000 mls @ 50 mls/hr 10/13/18 13:21 Normal Saline - IV Q10H [facility] Lidocaine 2 patch 10/14/18 10:00 Lidoderm Patch - TP DAILY [facility] Mometasone Furoate 1 puff 10/13/18 22:00 Asmanex 110mcg - IH BID [facility] Mupirocin 1 applic 10/13/18 10:00 10/13/18 11:04 Bactroban Ointment (For Decolonization) - NS 10/18/18 09:59 1 applic BID [facility] Administration Quetiapine Fumarate 50 mg 10/13/18 22:00 Seroquel - PO HS [facility] Sertraline HCl 100 mg 10/14/18 10:00 Zoloft - PO DAILY [facility] Thiamine HCl 200 mg 10/13/18 10:00 Vitamin B1 Injection - IVPB DAILY [facility] ASSESSMENT/PLAN: Patient is a 53 year old male with history of hypertension, alcohol use disorder , GERD, benign prostatic prostatic hyperplasia presents from [facility] after a fall. Admitted to ICU for hyponatremia. Neurologic Alcohol use disorder Anxiety, depression S/P fall -CT head shows no acute intracranial hemorrhage, or pathology. -Follow neck radiograph -Librium protocol. CIWA currently 8 upon my encounter. -Thiamine -Folate -Sertaline 75mg Po daily -Holding Seroquel due to hyponatremia Pulmonary -Patient is saturating well on room air -Chest radiograph shows bilateral congestive changes, without clear infiltration -Maintain oxygen saturation greater than 90%. Cardiac Hypotension -Patient recieving IV fluid bolus for hypotension and hyponatremia -Cardiac monitoring -Maintain MAP greater than 65 Gastrointestinal Transaminitis -trending down -AST 161, Alt 183, Alkaline phosphatase 127. Total bilirubin 1.3 -Transaminases likely secondary to excessive alcohol consumption. -Follow transaminases -Protonix 40mg IV daily Nephrologic Hyponatremia TOO -IV normal saline bolus -Follow BMP Q4 hours -FeNa 0.3m likely pre-renal etiology -Follow renal US -Nephrology recommendations (Dr. Lunsford) appreciated. Infectious disease -Follow blood cultures, urine cultures. -Sputum cultures -Urine for legionella antibodies -Ceftriaxone -Rocephin Genitourinary Benign prostatic hyperplasia -Tamsulosin 0.4mg PO daily FEN -IV normal saline bolus -Hyponatremia. Follow BMP -Regular diet Prophylaxis -Lovenox 40mg subq daily -Protonix 40mg IV daily Disposition -We will continue to follow this patient. Thank you for this consultive opportunity.
[2018-10-13] MEDS ORDERED: PATIENT'S OWN MEDICATION (NON-FORMULARY) (Gabapentin [Neurontin] 600 MG) PO SCH (14:00)
[2018-10-13] MEDS: KCL 10 MEQ IVPB 10 MEQ/100 ML INFUS.BAG IVPB SCH ×2 (14:46→17:06)
--- NOTE | 2018-10-13 15:33 | ECHO ---
Name: MAULIK ADAMSON Exam:Adult Echocardiogram Study Date: 10/13/2018 01:58 PM Age: 53 yrs Reason For Study: r/o LV dysfunction Height: 72 in Weight: 200 lb BSA: 2.1 m2 MMode/2D Measurements & Calculations IVSd: 0.97 cm Ao root diam: 3.9 cm LVIDd: 4.6 cm LA dimension: 3.5 cm LVIDs: 3.1 cm ACS: 2.2 cm LVPWd: 0.92 cm IVSs: 1.3 cm LVPWs: 1.2 cm EDV(Teich): 97.4 ml ESV(Teich): 39.0 ml Doppler Measurements & Calculations MV E max antonio: 42.2 cm/sec Ao V2 max: 84.7 cm/sec MV A max antonio: 49.9 cm/sec Ao max P.9 mmHg MV E/A: 0.85 Ao V2 mean: 63.1 cm/sec Ao mean P.8 mmHg Ao V2 VTI: 18.7 cm TR max antonio: 227.1 cm/sec Med Peak E' Antonio: 5.7 cm/sec TR max P.7 mmHg Med E/e': 7.5 Lat Peak E' Antonio: 8.7 cm/sec Lat E/e': 4.9 Left Ventricle Left ventricular systolic function is normal. Ejection Fraction = 55-60%. The transmitral spectral Do ppler flow pattern is suggestive of impaired LV relaxation. Right Ventricle The right ventricle is grossly normal size. A moderator band is seen in the right ventricle. The righ t ventricular systolic function is grossly normal. Atria Normal left and right atrial size and function. A prominent eustachian valve is noted. Mitral Valve The mitral valve is normal in structure and function. There is no mitral valve stenosis. There is no mitral regurgitation noted. Tricuspid Valve The tricuspid valve is normal in structure and function. There is mild tricuspid regurgitation. Right ventricular systolic pressure is normal. Aortic Valve The aortic valve opens well. No hemodynamically significant valvular aortic stenosis. No aortic regur gitation is present. Pulmonic Valve The pulmonic valve is not well seen, but is grossly normal. There is no pulmonic valvular stenosis. T here is no pulmonic valvular regurgitation. Great Vessels Mild aortic root dilatation. Interpretation Summary Left ventricular systolic function is normal. Ejection Fraction = 55-60%. The transmitral spectral Doppler flow pattern is suggestive of impaired LV relaxation. There is mild tricuspid regurgitation. Right ventricular systolic pressure is normal. Mild aortic root dilatation. MD Clay *Ahsan 10/13/2018 03:33 PM
--- NOTE | 2018-10-13 16:26 | CONSULT ---
Consultation: REQUESTING PROVIDER: CONSULT REQUEST: We have been asked to medically evaluate this patient for hyponatremia. HISTORY OF PRESENT ILLNESS: Patient is a 53 year old male with history of hypertension, alcohol use disorder , GERD, benign prostatic prostatic hyperplasia presents from [facility] after a fall (day#2 of detox program). Patient endorses he was drinking a gallon of Vodka daily prior to detox. He admits to poor diet, however unable to endorse what he eats. He was noted to be hypotensive, with acute kidney injury, and hyponatremia. Currently, patient endorses non-productive cough, headache, and upper extremity tremors. He denies subjective fevers, chills, shortness of breath, chest pain, palpitations, abdominal pain, nausea, vomiting. REVIEW OF SYSTEMS: CONSTITUTIONAL: Admits: generalized weakness, malasie. Absent: fever, chills, diaphoresis, loss of appetite, weight change HEENT: Absent: rhinorrhea, nasal congestion, throat pain, throat swelling, difficulty swallowing, mouth swelling, ear pain, eye pain, visual changes CARDIOVASCULAR: Absent: chest pain, syncope, palpitations, irregular heart rate, lightheadedness , peripheral edema RESPIRATORY: Admits: cough. Absent: shortness of breath, dyspnea with exertion, orthopnea, wheezing, stridor, hemoptysis GASTROINTESTINAL: Absent: abdominal pain, abdominal distension, nausea, vomiting, diarrhea, constipation, melena, hematochezia GENITOURINARY: Absent: dysuria, frequency, urgency, hesitancy, hematuria, flank pain, genital pain MUSCULOSKELETAL: Absent: myalgia, arthralgia, joint swelling, back pain, neck pain SKIN: Absent: rash, itching, pallor HEMATOLOGIC/IMMUNOLOGIC: Absent: easy bleeding, easy bruising, lymphadenopathy, frequent infections ENDOCRINE: Absent: unexplained weight gain, unexplained weight loss, heat intolerance, cold intolerance NEUROLOGIC: Admits: tremors, headache. Absent: focal weakness or paresthesias, dizziness, unsteady gait, seizure, bladder or bowel incontinence PSYCHIATRIC: Admits: anxiety, depression. Denies suicidal or homicidal ideation, hallucinations. PHYSICAL EXAMINATION Vital Signs - 24 hr 10/13/18 10/13/18 10/13/18 05:57 06:43 08:00 Temperature 97.2 F L Pulse Rate 78 Pulse Rate [ 73 76 Apical] Respiratory 18 20 18 Rate Blood Pressure 99/61 Blood Pressure 98/52 L 110/68 [Left Arm] O2 Sat by Pulse 100 98 99 Oximetry (%) 10/13/18 10/13/18 10/13/18 09:17 11:10 12:41 Temperature 98.3 F Pulse Rate 83 84 84 Pulse Rate [ Apical] Respiratory 18 18 18 Rate Blood Pressure 103/66 104/46 L Blood Pressure [Left Arm] O2 Sat by Pulse 99 Oximetry (%) GENERAL: The patient is awake, alert, and fully oriented, in no acute distress. HEAD: Normocephalic, atraumatic. EYES: PERRL, extraocular movements intact, sclera anicteric, conjunctiva clear. ENT: Oropharynx clear without exudates, moist mucous membranes. NECK: Supple, without lymphadenopathy LUNGS: Good inspiratory effort. Breath sounds equal, clear to auscultation bilaterally, no wheezes, no crackles, no accessory muscle use. HEART: Regular rate and rhythm, S1, S2 without murmur, rub or gallop. ABDOMEN: Soft, nontender, nondistended, normoactive bowel sounds, no guarding, no rebound, no hepatosplenomegaly, no masses. MUSCULOSKELETAL: Strength 4/5 bilateral upper and lower extremities. Sensation grossly intact bilateral upper and lower extremities. EXTREMITIES: 2+ radial, dorsalis pedis pulses, warm, well-perfused, no edema. Tremulous outstretched upper extremities. NEUROLOGICAL: Cranial nerves II through XII grossly intact. Normal speech. PSYCH: Normal mood, normal affect upon my encounter. SKIN: Warm, dry. 3cm laceration over right sided eyebrow. Laboratory Results - last 24 hr 10/13/18 10/13/18 10/13/18 06:17 06:17 08:29 WBC 16.1 H RBC 3.58 L Hgb 12.3 Hct 34.8 L D MCV 97.1 H MCH 34.3 H MCHC 35.3 RDW 13.0 Plt Count 124 L D MPV 10.4 D Absolute Neuts (auto) 13.8 H Neutrophils % 85.6 H Lymphocytes % 10.6 Monocytes % 3.0 L Eosinophils % 0.5 Basophils % 0.3 Nucleated RBC % 0 Platelet Estimate Decreased Platelet Comment Present Sodium 121 L Potassium 4.0 Chloride 86 L Carbon Dioxide 23 Anion Gap 12 BUN 47 H Creatinine 4.0 H Est GFR (CKD-EPI)AfAm 18.29 Est GFR (CKD-EPI)NonAf 15.78 Random Glucose 123 H Serum Osmolality Lactic Acid Calcium 8.2 L Ferritin 1076.3 H Total Bilirubin 1.3 H AST 161 H ALT 83 H Alkaline Phosphatase 127 H Total Protein 6.4 Albumin 3.4 Vitamin B12 958 Serum Folate 21 H Urine Color Dk yellow Urine Appearance Clear Urine pH 5.0 Ur Specific Veteran 1.013 Urine Protein Trace Urine Glucose (UA) Negative Urine Ketones Negative Urine Blood 1+ H Urine Nitrite Negative Urine Bilirubin Negative Urine Urobilinogen 1.0 Ur Leukocyte Esterase Trace Urine WBC (Auto) 2 Urine RBC (Auto) 3 Urine Casts (Auto) 11 U Epithel Cells (Auto) 0.5 Urine Bacteria (Auto) 0.3 Ur Random Creatinine U Random Total Protein Ur Random Sodium 10/13/18 10/13/18 10/13/18 08:29 08:39 10:40 WBC RBC Hgb Hct MCV MCH MCHC RDW Plt Count MPV Absolute Neuts (auto) Neutrophils % Lymphocytes % Monocytes % Eosinophils % Basophils % Nucleated RBC % Platelet Estimate Platelet Comment Sodium 120 L Potassium 3.8 Chloride 90 L Carbon Dioxide 23 Anion Gap 7 L BUN 44 H Creatinine 3.6 H Est GFR (CKD-EPI)AfAm 20.78 Est GFR (CKD-EPI)NonAf 17.93 Random Glucose 101 Serum Osmolality 267 L Lactic Acid 1.0 Calcium 8.4 L Ferritin Total Bilirubin AST ALT Alkaline Phosphatase Total Protein Albumin Vitamin B12 Serum Folate Urine Color Urine Appearance Urine pH Ur Specific Veteran Urine Protein Urine Glucose (UA) Urine Ketones Urine Blood Urine Nitrite Urine Bilirubin Urine Urobilinogen Ur Leukocyte Esterase Urine WBC (Auto) Urine RBC (Auto) Urine Casts (Auto) U Epithel Cells (Auto) Urine Bacteria (Auto) Ur Random Creatinine 173.0 H U Random Total Protein 47.1 H Ur Random Sodium < 18 L 10/13/18 12:25 WBC RBC Hgb Hct MCV MCH MCHC RDW Plt Count MPV Absolute Neuts (auto) Neutrophils % Lymphocytes % Monocytes % Eosinophils % Basophils % Nucleated RBC % Platelet Estimate Platelet Comment Sodium 125 L Potassium 3.0 L Chloride 92 L Carbon Dioxide 21 Anion Gap 12 BUN 42 H Creatinine 2.8 H Est GFR (CKD-EPI)AfAm 28.16 Est GFR (CKD-EPI)NonAf 24.29 Random Glucose 164 H Serum Osmolality Lactic Acid Calcium 7.7 L Ferritin Total Bilirubin AST ALT Alkaline Phosphatase Total Protein Albumin Vitamin B12 Serum Folate Urine Color Urine Appearance Urine pH Ur Specific Veteran Urine Protein Urine Glucose (UA) Urine Ketones Urine Blood Urine Nitrite Urine Bilirubin Urine Urobilinogen Ur Leukocyte Esterase Urine WBC (Auto) Urine RBC (Auto) Urine Casts (Auto) U Epithel Cells (Auto) Urine Bacteria (Auto) Ur Random Creatinine U Random Total Protein Ur Random Sodium Active Medications Generic Name Dose Route Start Last Admin Trade Name Freq PRN Reason Stop Dose Admin Albuterol Sulfate 2 puff 10/13/18 10:28 Ventolin Hfa Inhaler - IH Q4H PRN ASTHMA Aspirin 81 mg 10/14/18 10:00 Ecotrin - PO DAILY [facility] Buprenorphine/Naloxone 2 each 10/13/18 10:30 10/13/18 12:34 Suboxone 8mg/2mg Sl Film - SL Not Given DAILY [facility] Buspirone HCl 10 mg 10/13/18 22:00 Buspar - PO BID [facility] Chlordiazepoxide HCl 10 mg 10/15/18 05:00 Librium - PO 10/16/18 05:00 Q12H PRN Signs/symptoms of Withdrawal Chlordiazepoxide HCl 25 mg 10/13/18 09:15 10/13/18 11:04 Librium - PO 10/14/18 01:16 25 mg Q8H [facility] Administration Chlordiazepoxide HCl 15 mg 10/14/18 09:00 Librium - PO 10/15/18 01:01 Q8H [facility] Chlordiazepoxide HCl 10 mg 10/15/18 09:00 Librium - PO 10/16/18 09:01 Q8H [facility] Chlordiazepoxide HCl 10 mg 10/13/18 09:03 Librium - PO 10/15/18 05:00 Q8H PRN Signs/symptoms of Withdrawal Chlorhexidine Gluconate 1 applic 10/13/18 22:00 Hibiclens For Decolonization - TP HS [facility] Docusate Sodium 100 mg 10/13/18 22:00 Colace - PO BID [facility] Enoxaparin Sodium 40 mg 10/13/18 10:00 10/13/18 10:58 Lovenox - SQ 40 mg DAILY [facility] Administration Folic Acid 1 mg 10/13/18 10:00 10/13/18 11:04 Folic Acid - PO 1 mg DAILY [facility] Administration Gabapentin 600 mg 10/13/18 14:00 10/13/18 13:45 Neurontin - PO 600 mg TID [facility] Administration Ceftriaxone Sodium 1 gm/ 100 mls @ 200 mls/hr 10/13/18 10:15 10/13/18 10:58 Dextrose IVPB 200 mls/hr DAILY [facility] Administration Protocol Azithromycin 500 mg in 250 mls @ 250 mls/hr 10/13/18 10:15 10/13/18 10:58 Zithromax 500mg Ivpb (Pre-Docked) IVPB 250 mls/hr DAILY [facility] Administration Sodium Chloride 1,000 mls @ 50 mls/hr 10/13/18 13:21 10/13/18 13:00 Normal Saline - IV 50 mls/hr Q10H [facility] Administration Lidocaine 2 patch 10/14/18 10:00 Lidoderm Patch - TP DAILY [facility] Mometasone Furoate 1 puff 10/13/18 22:00 Asmanex 110mcg - IH BID [facility] Mupirocin 1 applic 10/13/18 10:00 10/13/18 11:04 Bactroban Ointment (For Decolonization) - NS 10/18/18 09:59 1 applic BID [facility] Administration Quetiapine Fumarate 50 mg 10/13/18 22:00 Seroquel - PO HS [facility] Sertraline HCl 100 mg 10/14/18 10:00 Zoloft - PO DAILY [facility] Thiamine HCl 200 mg 10/13/18 10:00 Vitamin B1 Injection - IVPB DAILY [facility] ASSESSMENT/PLAN: Patient is a 53 year old male with history of hypertension, alcohol use disorder , GERD, benign prostatic prostatic hyperplasia presents from [facility] after a fall. Admitted to ICU for hyponatremia. Neurologic Alcohol use disorder Anxiety, depression S/P fall -CT head shows no acute intracranial hemorrhage, or pathology. -Follow neck radiograph -Librium protocol. CIWA currently 8 upon my encounter. -Thiamine 200mg IV daily -Folate 1mg PO daily -Holding Seroquel, Sertaline due to hyponatremia -Psychiatry consult (Dr. Garces) appreciated. Will initiate Bupropion 75mg PO daily -Fall precautions Pulmonary -Patient is saturating well on room air -Chest radiograph shows bilateral congestive changes and atelectasis, without clear infiltration -Maintain oxygen saturation greater than 90%. Cardiac Hypotension -Patient recieving IV fluid bolus for hypotension and hyponatremia -Cardiac monitoring -Maintain MAP greater than 65 Gastrointestinal Transaminitis -trending down -AST 161, Alt 183, Alkaline phosphatase 127. Total bilirubin 1.3 -Transaminases likely secondary to excessive alcohol consumption. -Follow transaminases -Protonix 40mg IV daily Nephrologic Hyponatremia TOO -IV normal saline bolus. No indication for hypertnonic saline. -Follow BMP Q4 hours. -FeNa 0.3%; TOO likely pre-renal in etiology -Follow renal, bladder US -Nephrology recommendations (Dr. Lunsford) appreciated. Infectious disease -Follow blood cultures, urine cultures. -Sputum cultures -Urine for legionella antibodies -HIV antibody and antigen screening -Hepatitis A, B, C serology -Ceftriaxone 1gram IV daily -Azithromycin 500mg IV daily Genitourinary Benign prostatic hyperplasia -Tamsulosin 0.4mg PO daily FEN -IV normal saline bolus -Hyponatremia. Follow BMP -Regular diet Prophylaxis -Lovenox 40mg subq daily -Protonix 40mg IV daily Disposition -We will continue to follow the patient. Thank you for this consultative opportunity. Visit type - Emergency Visit Emergency Visit: Yes ED Registration Date: 10/13/18 Care time: The patient presented to the Emergency Department on the above date and was hospitalized for further evaluation of their emergent condition. - New Patient This patient is new to me today: Yes Date on this admission: 10/13/18 - Critical Care Critical Care patient: Yes Total Critical Care Time (in minutes): 35 Critical Care Statement: The care of this patient involved high complexity decision making to prevent further life threatening deterioration of the patient 's condition and/or to evaluate & treat vital organ system(s) failure or risk of failure.
--- NOTE | 2018-10-13 16:49 | CON.PSY ---
Psychiatry Consult Chief Complaint: 53 mya old male admitted from [facility] , apparntly discovered to have Hyponatremia probably from ZOloft. Patient also is on BUspar , Seroquel He reports that he fell yesterday. on librium Detox. Symptoms: reports: Anxiety - Previous Psychiatric Treatment Outpatient: Less than 6 mos ago Inpatient: None - Previous Substance Abuse Treatment Outpatient: More than 6 mos ago Inpatient: Within the last 12 months - Reason for Previous Treatment Reason for Previous Treatment: Major Depression, Alcohol Abuse - Current Medications Current Medications: Active Medications Albuterol Sulfate (Ventolin Hfa Inhaler -) 2 puff IH Q4H PRN PRN Reason: ASTHMA Aspirin (Ecotrin -) 81 mg PO DAILY [facility] Buprenorphine/Naloxone (Suboxone 8mg/2mg Sl Film -) 2 each SL DAILY [facility] Last Admin: 10/13/18 12:34 Dose: Not Given Bupropion HCl (Wellbutrin -) 75 mg PO DAILY [facility] Chlordiazepoxide HCl (Librium -) 10 mg PO Q12H PRN PRN Reason: Signs/symptoms of Withdrawal Stop: 10/16/18 05:00 Chlordiazepoxide HCl (Librium -) 25 mg PO Q8H [facility] Stop: 10/14/18 01:16 Last Admin: 10/13/18 11:04 Dose: 25 mg Chlordiazepoxide HCl (Librium -) 15 mg PO Q8H [facility] Stop: 10/15/18 01:01 Chlordiazepoxide HCl (Librium -) 10 mg PO Q8H [facility] Stop: 10/16/18 09:01 Chlordiazepoxide HCl (Librium -) 10 mg PO Q8H PRN PRN Reason: Signs/symptoms of Withdrawal Stop: 10/15/18 05:00 Chlorhexidine Gluconate (Hibiclens For Decolonization -) 1 applic TP HS [facility] Docusate Sodium (Colace -) 100 mg PO BID [facility] Enoxaparin Sodium (Lovenox -) 40 mg SQ DAILY [facility] Last Admin: 10/13/18 10:58 Dose: 40 mg Folic Acid (Folic Acid -) 1 mg PO DAILY [facility] Last Admin: 10/13/18 11:04 Dose: 1 mg Gabapentin (Neurontin -) 600 mg PO TID [facility] Last Admin: 10/13/18 13:45 Dose: 600 mg Ceftriaxone Sodium 1 gm/ (Dextrose) 100 mls @ 200 mls/hr IVPB DAILY [facility]; Protocol Last Admin: 10/13/18 10:58 Dose: 200 mls/hr Azithromycin (Zithromax 500mg Ivpb (Pre-Docked)) 500 mg in 250 mls @ 250 mls/ hr IVPB DAILY [facility] Last Admin: 10/13/18 10:58 Dose: 250 mls/hr Sodium Chloride (Normal Saline -) 1,000 mls @ 50 mls/hr IV Q10H [facility] Last Admin: 10/13/18 13:00 Dose: 50 mls/hr Lidocaine (Lidoderm Patch -) 2 patch TP DAILY [facility] Mometasone Furoate (Asmanex 110mcg -) 1 puff IH BID [facility] Mupirocin (Bactroban Ointment (For Decolonization) -) 1 applic NS BID [facility] Stop: 10/18/18 09:59 Last Admin: 10/13/18 11:04 Dose: 1 applic Thiamine HCl (Vitamin B1 Injection -) 200 mg IVPB DAILY [facility] - Allergies Allergies: Allergies Allergy/AdvReac Type Severity Reaction Status Date / Time diphenhydramine Allergy Mild Verified 10/13/18 05:57 [From Benadryl] hydroxyzine [From Atarax] AdvReac Mild Verified 10/13/18 05:57 - Current Living Status Usual Living Arrangement: With Spouse - Current Mental Status Evaluation Appearance: Well Groomed Attitude: Cooperative - Affect Affect: Constrictive Appropriateness: Appropriate to Content - Mood Mood: Angry - Speech/Language Expressive: Coherent - Psychomotor Activity Psychomotor Activity: Normal - Thought Process Thought Process: Intact - Thought Content Hallucinations: Absent Delusions: Absent - Self Perception Self Perception: No Impairment - Cognition Attention: Alert Orientation: Time Memory, Immediate Recall: Intact Memory, Short Term: 3/3 Memory, Remote with Promptin/3 - Concentration Serial Sevens Intact: Yes Simple Calculations Intact: No - Abstraction Proverb Interpretation: Intact Judgement: Intact - Insight Insight: Intact - Impulse Control Impulse Control: Good Control - Suicidal Ideation Suicidal Ideation: No - Homicidal Ideation Homicidal Ideation: No Assessment/Plan 1) d/c zoloft. buspar, seroquel. 2) start Wellbutrin 75mg [po od. for depression.
[2018-10-13] MEDS ORDERED: BUPRENORPHINE/NALOXONE 8 MG/2 MG FILM PACKET SL ONE ×2 (17:06)
[2018-10-13 17:08] LABS: BLOOD UREA NITROGEN 41.2 mg/dL (7-18); CALCIUM 7.8 mg/dL (8.5-10.1); CREATININE 2.6 mg/dL (0.55-1.3); POTASSIUM 3.5 mmol/L (3.5-5.1)
[2018-10-13] MEDS ORDERED: PT OWN MED DRAWER 7, Y5N ONE ×3 (17:25→22:07)
[2018-10-13] MEDS: THIAMINE HCL 200 MG/2 ML VIAL IVPB SCH (19:40)
[2018-10-13 21:02] LABS: BLOOD UREA NITROGEN 38.2 mg/dL (7-18); CALCIUM 7.8 mg/dL (8.5-10.1); CREATININE 2.2 mg/dL (0.55-1.3); POTASSIUM 3.7 mmol/L (3.5-5.1)
[2018-10-13] MEDS ORDERED: IBUPROFEN 400 MG TABLET (FP) PO PRN (21:47)
[2018-10-13] MEDS ORDERED: busPIRone HCL 10 MG TABLET (FP) PO SCH (22:00)
[2018-10-13] MEDS ORDERED: QUEtiapine FUMARATE 50 MG TABLET PO SCH (22:00)
[2018-10-13] MEDS ORDERED: CHLORHEXIDINE GLUCONATE 4% CLEANSER FOR DECOLONIZATION TP SCH (22:00)
[2018-10-13] MEDS: DOCUSATE SODIUM 100 MG CAPSULE (FP) PO SCH (22:10)
[2018-10-13] MEDS: MOMETASONE FUROATE 110 MCG/IH INHALER IH SCH (22:10)
[2018-10-13] MEDS ORDERED: POTASSIUM CHLORIDE 10 MEQ in DEXTROSE 5%-WATER - 1,000 ML IVPB SCH (22:15)
[2018-10-13] MEDS: NICOTINE 7 MG/24 HOURS TOPICAL PATCH TD SCH (22:27)
[2018-10-14] MEDS: chlordiazePOXIDE HCL 25 MG CAPSULE PO SCH (01:05)
[2018-10-14] MEDS ORDERED: PT OWN MED DRAWER 7, Y5N ONE ×2 (01:13→09:04)
[2018-10-14 01:19] LABS: BLOOD UREA NITROGEN 36.1 mg/dL (7-18); CALCIUM 8.1 mg/dL (8.5-10.1); CREATININE 1.8 mg/dL (0.55-1.3)
[2018-10-14 04:11] LABS: SERUM IRON SATURATION 21 % (15-55); TOTAL IRON BINDING CAPACITY 161 ug/dL (250-450); UIBC 127 ug/dL (111-343)
[2018-10-14] MEDS: GABAPENTIN 300 MG CAPSULE (FP) PO SCH ×4 (05:56→22:36)
[2018-10-14 06:42] LABS: BASO % 0.4 % (0-2.0); EOS % 2.5 % (0-4.5); HEMATOCRIT 32.9 % (35.4-49); HEMOGLOBIN 11.6 GM/dL (11.7-16.9); LYMPH % 22.1 % (8-40); MCH 34.5 pg (25.7-33.7); MCHC 35.2 g/dl (32.0-35.9); MEAN PLT VOLUME 9.6 fl (7.5-11.1); RBC 3.36 M/mm3 (4.00-5.60); RDW 13.3 % (11.9-15.9); WHITE BLOOD COUNT 7.8 K/mm3 (4.0-10.0)
[2018-10-14 06:50] LABS: INR 1.02 (0.83-1.09)
[2018-10-14 07:04] LABS: ALBUMIN 3.1 g/dl (3.4-5.0); BILIRUBIN,TOTAL 0.7 mg/dL (0.2-1); BLOOD UREA NITROGEN 34.4 mg/dL (7-18); CALCIUM 8.2 mg/dL (8.5-10.1); CREATININE 1.6 mg/dL (0.55-1.3); MAGNESIUM 1.3 mg/dL (1.8-2.4); PHOSPHOROUS 2.2 mg/dL (2.5-4.9); POTASSIUM 3.8 mmol/L (3.5-5.1); TOT PROT 5.9 g/dl (6.4-8.2)
[2018-10-14] MEDS: chlordiazePOXIDE 5 MG CAPSULE PO SCH ×2 (08:03→17:32)
[2018-10-14] MEDS ORDERED: MAGNESIUM SULF 50% (8.12 MEQ/2 ML-1 GM VIAL) IVPB ONE (08:06)
[2018-10-14] MEDS ORDERED: DEXTROSE 5%-WATER 100 ML IVPB ONE (09:04)
[2018-10-14] MEDS ORDERED: cefTRIAXone SODIUM 1 GM VIAL ONE (09:04)
[2018-10-14] MEDS: ENOXAPARIN NA (PORCINE) 40 MG/0.4 ML DISP.SYRIN SQ SCH (09:08)
[2018-10-14] MEDS: CEFTRIAXONE 1 GM in DEXTROSE 5%-WATER 100 ML IVPB SCH (09:08)
[2018-10-14] MEDS: AZITHROMYCIN IVPB 500 MG/250 ML BAG IVPB SCH (09:09)
[2018-10-14] MEDS: BUPRENORPHINE/NALOXONE 8 MG/2 MG FILM PACKET SL SCH (09:14)
[2018-10-14] MEDS: DOCUSATE SODIUM 100 MG CAPSULE (FP) PO SCH ×2 (09:15→22:36)
[2018-10-14] MEDS: FOLIC ACID 1 MG TABLET (FP) PO SCH (09:15)
[2018-10-14] MEDS: MOMETASONE FUROATE 110 MCG/IH INHALER IH SCH (09:25)
[2018-10-14] MEDS: MUPIROCIN 2% TOPICAL OINTMENT FOR DECOLONIZATION NS SCH (09:25)
[2018-10-14] MEDS ORDERED: PANTOPRAZOLE 40 MG TABLET (FP) PO SCH (10:00)
[2018-10-14] MEDS ORDERED: ASPIRIN COATED 81 MG TABLET.EC PO SCH (10:00)
[2018-10-14] MEDS ORDERED: SERTRALINE HCL 50 MG TABLET (FP) PO SCH (10:00)
[2018-10-14] MEDS ORDERED: buPROPion HCL 75 MG TABLET PO SCH (10:00)
[2018-10-14] MEDS ORDERED: LIDOCAINE 5% TOPICAL PATCH TP SCH (10:00)
[2018-10-14 10:06] LABS: PLATELET COUNT 347 K/MM3 (134-434)
[2018-10-14 10:32] LABS: COCAINE, UR NEGATIVE ng/ml (CUTOFF=300); METHADONE, UR NEGATIVE ng/ml (CUTOFF=300); OPIATES, URI NEGATIVE ng/ml (CUTOFF=300); PHENCYCLIDINE,URINE NEGATIVE ng/ml (CUTOFF=25); URINE AMPHETAMINES NEGATIVE ng/ml (CUTOFF=500); URINE BARBITURATES NEGATIVE ng/ml (CUTOFF=200)
--- NOTE | 2018-10-14 10:35 | PN ---
Teaching Attending Note Name of Resident: Romulo Yusuf ATTENDING PHYSICIAN STATEMENT I saw and evaluated the patient. I reviewed the resident's note and discussed the case with the resident. I agree with the resident's findings and plan as documented. SUBJECTIVE: Pt seen and examined in the ICU. Still feels intermittently shaky. Some nausea this AM. Sodium level rising appropriately. OBJECTIVE: Vital Signs Period Temp Pulse Resp BP Sys/Vega Pulse Ox Last 24 Hr 98 F-98.3 F 76-93 12-20 95-121/46-69 99-99 Intake & Output 10/11/18 10/12/18 10/13/18 10/14/18 23:59 23:59 23:59 23:59 Intake Total 1700 850 Output Total 1700 1200 Balance 0 -350 Weight 41.141 kg 107.955 kg Gen: NAD at rest Heart: RRR Lung: decreased breath sounds at the bases Abd: soft, nontender Ext: no edema CBC, BMP 10/14/18 05:25 10/14/18 05:25 Active Medications Albuterol Sulfate (Ventolin Hfa Inhaler -) 2 puff IH Q4H PRN PRN Reason: ASTHMA Aspirin (Ecotrin -) 81 mg PO DAILY [facility] Last Admin: 10/14/18 09:15 Dose: 81 mg Buprenorphine/Naloxone (Suboxone 8mg/2mg Sl Film -) 2 each SL DAILY [facility] Last Admin: 10/14/18 09:14 Dose: 2 each Bupropion HCl (Wellbutrin -) 75 mg PO DAILY [facility] Chlordiazepoxide HCl (Librium -) 10 mg PO Q12H PRN PRN Reason: Signs/symptoms of Withdrawal Stop: 10/16/18 05:00 Chlordiazepoxide HCl (Librium -) 15 mg PO Q8H [facility] Stop: 10/15/18 01:01 Last Admin: 10/14/18 08:03 Dose: 15 mg Chlordiazepoxide HCl (Librium -) 10 mg PO Q8H [facility] Stop: 10/16/18 09:01 Chlordiazepoxide HCl (Librium -) 10 mg PO Q8H PRN PRN Reason: Signs/symptoms of Withdrawal Stop: 10/15/18 05:00 Last Admin: 10/14/18 07:46 Dose: 10 mg Chlorhexidine Gluconate (Hibiclens For Decolonization -) 1 applic TP HS [facility] Last Admin: 10/13/18 22:11 Dose: 1 applic Docusate Sodium (Colace -) 100 mg PO BID [facility] Last Admin: 10/14/18 09:15 Dose: 100 mg Enoxaparin Sodium (Lovenox -) 40 mg SQ DAILY [facility] Last Admin: 10/14/18 09:08 Dose: 40 mg Folic Acid (Folic Acid -) 1 mg PO DAILY [facility] Last Admin: 10/14/18 09:15 Dose: 1 mg Gabapentin (Neurontin -) 600 mg PO TID [facility] Last Admin: 10/14/18 07:48 Dose: 600 mg Ceftriaxone Sodium 1 gm/ (Dextrose) 100 mls @ 200 mls/hr IVPB DAILY [facility]; Protocol Last Admin: 10/14/18 09:08 Dose: 200 mls/hr Azithromycin (Zithromax 500mg Ivpb (Pre-Docked)) 500 mg in 250 mls @ 250 mls/ hr IVPB DAILY [facility] Last Admin: 10/14/18 09:09 Dose: 250 mls/hr Potassium Chloride 10 meq/ (Dextrose) 1,005 mls @ 50 mls/hr IVPB Q20H [facility] Last Admin: 10/13/18 22:52 Dose: 50 mls/hr Ibuprofen (Motrin -) 400 mg PO Q6H PRN PRN Reason: FEVER Last Admin: 10/13/18 22:10 Dose: 400 mg Lidocaine (Lidoderm Patch -) 2 patch TP DAILY [facility] Last Admin: 10/14/18 09:09 Dose: 2 patch Melatonin (Melatonin) 3 mg PO [facility] Mometasone Furoate (Asmanex 110mcg -) 1 puff IH BID [facility] Last Admin: 10/14/18 09:25 Dose: 1 puff Mupirocin (Bactroban Ointment (For Decolonization) -) 1 applic NS BID [facility] Stop: 10/18/18 09:59 Last Admin: 10/14/18 09:25 Dose: 1 applic Nicotine (Nicoderm Patch -) 7 mg TD DAILY [facility] Last Admin: 10/13/18 22:27 Dose: 7 mg Pantoprazole Sodium (Protonix -) 40 mg PO DAILY [facility] Last Admin: 10/14/18 09:11 Dose: 40 mg Thiamine HCl (Vitamin B1 Injection -) 200 mg IVPB DAILY [facility] Last Admin: 10/13/18 19:40 Dose: 200 mg ASSESSMENT AND PLAN: Hyponatremia - likely Hypovolemic Acute Kidney Injury Alcohol Abuse Atelectasis s/p Fall - IVF per renal - monitor sodium level - antiemetics - on empiric antibiotics - on librium protocol - PO as tolerated - DVT prophylaxis - can monitor on floor
--- NOTE | 2018-10-14 10:37 | PN ---
Progress Note, Physician History of Present Illness: Pt seen and examined at bedside. He is awake and alert. He is tolerating diet. - Current Medication List Current Medications: Active Medications Albuterol Sulfate (Ventolin Hfa Inhaler -) 2 puff IH Q4H PRN PRN Reason: ASTHMA Aspirin (Ecotrin -) 81 mg PO DAILY [facility] Last Admin: 10/14/18 09:15 Dose: 81 mg Buprenorphine/Naloxone (Suboxone 8mg/2mg Sl Film -) 2 each SL DAILY [facility] Last Admin: 10/14/18 09:14 Dose: 2 each Bupropion HCl (Wellbutrin -) 75 mg PO DAILY [facility] Chlordiazepoxide HCl (Librium -) 10 mg PO Q12H PRN PRN Reason: Signs/symptoms of Withdrawal Stop: 10/16/18 05:00 Chlordiazepoxide HCl (Librium -) 15 mg PO Q8H [facility] Stop: 10/15/18 01:01 Last Admin: 10/14/18 08:03 Dose: 15 mg Chlordiazepoxide HCl (Librium -) 10 mg PO Q8H [facility] Stop: 10/16/18 09:01 Chlordiazepoxide HCl (Librium -) 10 mg PO Q8H PRN PRN Reason: Signs/symptoms of Withdrawal Stop: 10/15/18 05:00 Last Admin: 10/14/18 07:46 Dose: 10 mg Chlorhexidine Gluconate (Hibiclens For Decolonization -) 1 applic TP HS [facility] Last Admin: 10/13/18 22:11 Dose: 1 applic Docusate Sodium (Colace -) 100 mg PO BID [facility] Last Admin: 10/14/18 09:15 Dose: 100 mg Enoxaparin Sodium (Lovenox -) 40 mg SQ DAILY [facility] Last Admin: 10/14/18 09:08 Dose: 40 mg Folic Acid (Folic Acid -) 1 mg PO DAILY [facility] Last Admin: 10/14/18 09:15 Dose: 1 mg Gabapentin (Neurontin -) 600 mg PO TID [facility] Last Admin: 10/14/18 07:48 Dose: 600 mg Ceftriaxone Sodium 1 gm/ (Dextrose) 100 mls @ 200 mls/hr IVPB DAILY [facility]; Protocol Last Admin: 10/14/18 09:08 Dose: 200 mls/hr Azithromycin (Zithromax 500mg Ivpb (Pre-Docked)) 500 mg in 250 mls @ 250 mls/ hr IVPB DAILY [facility] Last Admin: 10/14/18 09:09 Dose: 250 mls/hr Potassium Chloride 10 meq/ (Dextrose) 1,005 mls @ 50 mls/hr IVPB Q20H [facility] Last Admin: 10/13/18 22:52 Dose: 50 mls/hr Ibuprofen (Motrin -) 400 mg PO Q6H PRN PRN Reason: FEVER Last Admin: 10/13/18 22:10 Dose: 400 mg Lidocaine (Lidoderm Patch -) 2 patch TP DAILY [facility] Last Admin: 10/14/18 09:09 Dose: 2 patch Melatonin (Melatonin) 3 mg PO HS [facility] Mometasone Furoate (Asmanex 110mcg -) 1 puff IH BID [facility] Last Admin: 10/14/18 09:25 Dose: 1 puff Mupirocin (Bactroban Ointment (For Decolonization) -) 1 applic NS BID [facility] Stop: 10/18/18 09:59 Last Admin: 10/14/18 09:25 Dose: 1 applic Nicotine (Nicoderm Patch -) 7 mg TD DAILY [facility] Last Admin: 10/13/18 22:27 Dose: 7 mg Pantoprazole Sodium (Protonix -) 40 mg PO DAILY [facility] Last Admin: 10/14/18 09:11 Dose: 40 mg Thiamine HCl (Vitamin B1 Injection -) 200 mg IVPB DAILY [facility] Last Admin: 10/13/18 19:40 Dose: 200 mg - Objective Vital Signs: Vital Signs Temperature 98.3 F 10/14/18 06:00 Pulse Rate 86 10/14/18 10:00 Respiratory Rate 14 10/14/18 10:00 Blood Pressure 115/56 L 10/14/18 10:00 O2 Sat by Pulse Oximetry (%) 99 10/14/18 08:37 Constitutional: Yes: Calm Eyes: Yes: Conjunctiva Clear HENT: Yes: Atraumatic Neck: Yes: Supple Cardiovascular: Yes: S1, S2 Respiratory: Yes: CTA Bilaterally Gastrointestinal: Yes: Soft Genitourinary: Yes: WNL Musculoskeletal: Yes: WNL Edema: No Neurological: Yes: Oriented Psychiatric: Yes: Oriented Labs: CBC, BMP 10/14/18 05:25 10/14/18 05:25 INR, PTT INR 1.02 (0.83-1.09) 10/14/18 05:25 Problem List - Problems (1) TOO (acute kidney injury) Code(s): N17.9 - ACUTE KIDNEY FAILURE, UNSPECIFIED (2) TOO (acute kidney injury) Code(s): N17.9 - ACUTE KIDNEY FAILURE, UNSPECIFIED (3) Alcohol dependence with uncomplicated withdrawal Code(s): F10.230 - ALCOHOL DEPENDENCE WITH WITHDRAWAL, UNCOMPLICATED (4) Elevated liver enzymes Code(s): R74.8 - ABNORMAL LEVELS OF OTHER SERUM ENZYMES (5) Hyponatremia Code(s): E87.1 - HYPO-OSMOLALITY AND HYPONATREMIA (6) Cannabis dependence, uncomplicated Code(s): F12.20 - CANNABIS DEPENDENCE, UNCOMPLICATED (7) Depressive disorder Code(s): F32.9 - MAJOR DEPRESSIVE DISORDER, SINGLE EPISODE, UNSPECIFIED (8) Essential (primary) hypertension Code(s): I10 - ESSENTIAL (PRIMARY) HYPERTENSION (9) GERD (gastroesophageal reflux disease) Code(s): K21.9 - GASTRO-ESOPHAGEAL REFLUX DISEASE WITHOUT ESOPHAGITIS Assessment/Plan Current Medications Generic Name Dose Route Start Last Admin Trade Name Freq PRN Reason Stop Dose Admin Albuterol Sulfate 2 puff 10/13/18 10:28 Ventolin Hfa Inhaler - IH Q4H PRN ASTHMA Aspirin 81 mg 10/14/18 10:00 10/14/18 09:15 Ecotrin - PO 81 mg DAILY [facility] Administration Buprenorphine/Naloxone 2 each 10/13/18 10:30 10/14/18 09:14 Suboxone 8mg/2mg Sl Film - SL 2 each DAILY [facility] Administration Bupropion HCl 75 mg 10/14/18 10:00 Wellbutrin - PO DAILY [facility] Chlordiazepoxide HCl 10 mg 10/15/18 05:00 Librium - PO 10/16/18 05:00 Q12H PRN Signs/symptoms of Withdrawal Chlordiazepoxide HCl 15 mg 10/14/18 09:00 10/14/18 08:03 Librium - PO 10/15/18 01:01 15 mg Q8H [facility] Administration Chlordiazepoxide HCl 10 mg 10/15/18 09:00 Librium - PO 10/16/18 09:01 Q8H [facility] Chlordiazepoxide HCl 10 mg 10/13/18 09:03 10/14/18 07:46 Librium - PO 10/15/18 05:00 10 mg Q8H PRN Administration Signs/symptoms of Withdrawal Chlorhexidine Gluconate 1 applic 10/13/18 22:00 10/13/18 22:11 Hibiclens For Decolonization - TP 1 applic HS [facility] Administration Docusate Sodium 100 mg 10/13/18 22:00 10/14/18 09:15 Colace - PO 100 mg BID [facility] Administration Enoxaparin Sodium 40 mg 10/13/18 10:00 10/14/18 09:08 Lovenox - SQ 40 mg DAILY [facility] Administration Folic Acid 1 mg 10/13/18 10:00 10/14/18 09:15 Folic Acid - PO 1 mg DAILY [facility] Administration Gabapentin 600 mg 10/13/18 14:00 10/14/18 07:48 Neurontin - PO 600 mg TID [facility] Administration Ceftriaxone Sodium 1 gm/ 100 mls @ 200 mls/hr 10/13/18 10:15 10/14/18 09:08 Dextrose IVPB 200 mls/hr DAILY [facility] Administration Protocol Azithromycin 500 mg in 250 mls @ 250 mls/hr 10/13/18 10:15 10/14/18 09:09 Zithromax 500mg Ivpb (Pre-Docked) IVPB 250 mls/hr DAILY [facility] Administration Potassium Chloride 10 meq/ 1,005 mls @ 50 mls/hr 10/13/18 22:15 10/13/18 22: 52 Dextrose IVPB 50 mls/hr Q20H [facility] Administration Ibuprofen 400 mg 10/13/18 21:47 10/13/18 22:10 Motrin - PO 400 mg Q6H PRN Administration FEVER Lidocaine 2 patch 10/14/18 10:00 10/14/18 09:09 Lidoderm Patch - TP 2 patch DAILY [facility] Administration Melatonin 3 mg 10/14/18 22:00 Melatonin PO HS [facility] Mometasone Furoate 1 puff 10/13/18 22:00 10/14/18 09:25 Asmanex 110mcg - IH 1 puff BID [facility] Administration Mupirocin 1 applic 10/13/18 10:00 10/14/18 09:25 Bactroban Ointment (For Decolonization) - NS 10/18/18 09:59 1 applic BID [facility] Administration Nicotine 7 mg 10/13/18 22:00 10/13/18 22:27 Nicoderm Patch - TD 7 mg DAILY [facility] Administration Pantoprazole Sodium 40 mg 10/14/18 10:00 10/14/18 09:11 Protonix - PO 40 mg DAILY [facility] Administration Thiamine HCl 200 mg 10/13/18 10:00 10/13/18 19:40 Vitamin B1 Injection - IVPB 200 mg DAILY [facility] Administration Impression 1. TOO 2. hyponatremia 3. etoh abuse 4. s/p fall 5. depression 6. htn Plan - sodium improving - started d5w overnight to decrease rate of correction - change fluids to 1/2 ns - renal function is improving - check renal ultrasound
[2018-10-14] MEDS ORDERED: SODIUM CHLORIDE 0.45% 1,000 ML IV SCH ×2 (10:45→19:21)
[2018-10-14 11:32] LABS: URINE BENZODIAZEPINES POSITIVE ng/ml (CUTOFF=200)
--- NOTE | 2018-10-14 12:42 | PN ---
Physical Exam: SUBJECTIVE: Patient seen and examined at bedside. Sodium papito from 121-131 overnight and fluids were switched to D5W. Vomited once. No current complaints OBJECTIVE: Vital Signs Period Temp Pulse Resp BP Sys/Vega Pulse Ox Last 24 Hr 97.9 F-98.3 F 76-93 12-20 95-121/48-69 99-99 GENERAL: A&Ox3, no acute distress EYES: PERRLA, EOMI ENT: Dry mucus membranes NECK: No JVD LUNGS: CTA, no wheezes HEART: RRR, no murmurs ABDOMEN: Soft, mildly tender to palpation, BS present MUSCULOSKELETAL: No CVA Tenderness EXTREMITIES: 2+ pulses, no edema. NEUROLOGICAL: Cranial nerves II-XII intact. mildly tremulous on exam Laboratory Results - last 24 hr 10/13/18 10/13/18 10/13/18 07:42 12:25 12:25 WBC RBC Hgb Hct MCV MCH MCHC RDW Plt Count MPV Absolute Neuts (auto) Neutrophils % Lymphocytes % Monocytes % Eosinophils % Basophils % Nucleated RBC % PT with INR INR Sodium 125 L Potassium 3.0 L Chloride 92 L Carbon Dioxide 21 Anion Gap 12 BUN 42 H Creatinine 2.8 H Est GFR (CKD-EPI)AfAm 28.16 Est GFR (CKD-EPI)NonAf 24.29 Random Glucose 164 H Calcium 7.7 L Phosphorus Magnesium Iron 34 L TIBC 161 L Iron Saturation 21 Total Bilirubin AST ALT Alkaline Phosphatase Total Protein Albumin Total Amylase Lipase Urine Osmolality Opiates Screen Negative Methadone Screen Negative Barbiturate Screen Negative Phencyclidine Screen Negative Ur Amphetamines Screen Negative MDMA (Ecstasy) Screen Negative Benzodiazepines Screen Positive A* Cocaine Screen Negative U Marijuana (THC) Screen Positive A* HIV 1&2 Antibody Screen HIV P24 Antigen 10/13/18 10/13/18 10/14/18 16:15 20:15 01:00 WBC RBC Hgb Hct MCV MCH MCHC RDW Plt Count MPV Absolute Neuts (auto) Neutrophils % Lymphocytes % Monocytes % Eosinophils % Basophils % Nucleated RBC % PT with INR INR Sodium 127 L 129 L 131 L Potassium 3.5 3.7 4.0 Chloride 93 L 98 101 Carbon Dioxide 26 21 21 Anion Gap 9 10 9 BUN 41.2 H 38.2 H 36.1 H Creatinine 2.6 H 2.2 H 1.8 H Est GFR (CKD-EPI)AfAm 30.80 37.69 48.04 Est GFR (CKD-EPI)NonAf 26.57 32.52 41.45 Random Glucose 122 H 136 H 104 Calcium 7.8 L 7.8 L 8.1 L Phosphorus Magnesium Iron TIBC Iron Saturation Total Bilirubin AST ALT Alkaline Phosphatase Total Protein Albumin Total Amylase Lipase Urine Osmolality Opiates Screen Methadone Screen Barbiturate Screen Phencyclidine Screen Ur Amphetamines Screen MDMA (Ecstasy) Screen Benzodiazepines Screen Cocaine Screen U Marijuana (THC) Screen HIV 1&2 Antibody Screen HIV P24 Antigen 10/14/18 10/14/18 10/14/18 05:25 05:25 05:25 WBC 7.8 RBC 3.36 L Hgb 11.6 L Hct 32.9 L MCV 98.0 H MCH 34.5 H MCHC 35.2 RDW 13.3 Plt Count 347 D MPV 9.6 Absolute Neuts (auto) 5.3 Neutrophils % 68.0 D Lymphocytes % 22.1 D Monocytes % 7.0 D Eosinophils % 2.5 D Basophils % 0.4 Nucleated RBC % 0 PT with INR 12.00 INR 1.02 Sodium 131 L Potassium 3.8 Chloride 100 Carbon Dioxide 23 Anion Gap 8 BUN 34.4 H Creatinine 1.6 H Est GFR (CKD-EPI)AfAm 55.39 Est GFR (CKD-EPI)NonAf 47.79 Random Glucose 131 H Calcium 8.2 L Phosphorus 2.2 L Magnesium 1.3 L Iron TIBC Iron Saturation Total Bilirubin 0.7 AST 197 H ALT 81 H Alkaline Phosphatase 138 H Total Protein 5.9 L Albumin 3.1 L Total Amylase 65 Lipase 128 Urine Osmolality Opiates Screen Methadone Screen Barbiturate Screen Phencyclidine Screen Ur Amphetamines Screen MDMA (Ecstasy) Screen Benzodiazepines Screen Cocaine Screen U Marijuana (THC) Screen HIV 1&2 Antibody Screen HIV P24 Antigen 10/14/18 10/14/18 10/14/18 05:25 06:00 11:30 WBC RBC Hgb Hct MCV MCH MCHC RDW Plt Count MPV Absolute Neuts (auto) Neutrophils % Lymphocytes % Monocytes % Eosinophils % Basophils % Nucleated RBC % PT with INR INR Sodium 133 L Potassium Chloride Carbon Dioxide Anion Gap BUN Creatinine Est GFR (CKD-EPI)AfAm Est GFR (CKD-EPI)NonAf Random Glucose Calcium Phosphorus Magnesium Iron TIBC Iron Saturation Total Bilirubin AST ALT Alkaline Phosphatase Total Protein Albumin Total Amylase Lipase Urine Osmolality 145 L Opiates Screen Methadone Screen Barbiturate Screen Phencyclidine Screen Ur Amphetamines Screen MDMA (Ecstasy) Screen Benzodiazepines Screen Cocaine Screen U Marijuana (THC) Screen HIV 1&2 Antibody Screen Negative HIV P24 Antigen Negative Active Medications Generic Name Dose Route Start Last Admin Trade Name Freq PRN Reason Stop Dose Admin Albuterol Sulfate 2 puff 10/13/18 10:28 Ventolin Hfa Inhaler - IH Q4H PRN ASTHMA Aspirin 81 mg 10/14/18 10:00 10/14/18 09:15 Ecotrin - PO 81 mg DAILY [facility] Administration Buprenorphine/Naloxone 2 each 10/13/18 10:30 10/14/18 09:14 Suboxone 8mg/2mg Sl Film - SL 2 each DAILY [facility] Administration Bupropion HCl 75 mg 10/14/18 10:00 Wellbutrin - PO DAILY [facility] Chlordiazepoxide HCl 10 mg 10/15/18 05:00 Librium - PO 10/16/18 05:00 Q12H PRN Signs/symptoms of Withdrawal Chlordiazepoxide HCl 15 mg 10/14/18 09:00 10/14/18 08:03 Librium - PO 10/15/18 01:01 15 mg Q8H [facility] Administration Chlordiazepoxide HCl 10 mg 10/15/18 09:00 Librium - PO 10/16/18 09:01 Q8H [facility] Chlordiazepoxide HCl 10 mg 10/13/18 09:03 10/14/18 07:46 Librium - PO 10/15/18 05:00 10 mg Q8H PRN Administration Signs/symptoms of Withdrawal Chlorhexidine Gluconate 1 applic 10/13/18 22:00 10/13/18 22:11 Hibiclens For Decolonization - TP 1 applic HS [facility] Administration Docusate Sodium 100 mg 10/13/18 22:00 10/14/18 09:15 Colace - PO 100 mg BID [facility] Administration Enoxaparin Sodium 40 mg 10/13/18 10:00 10/14/18 09:08 Lovenox - SQ 40 mg DAILY [facility] Administration Folic Acid 1 mg 10/13/18 10:00 10/14/18 09:15 Folic Acid - PO 1 mg DAILY [facility] Administration Gabapentin 600 mg 10/13/18 14:00 10/14/18 07:48 Neurontin - PO 600 mg TID [facility] Administration Ceftriaxone Sodium 1 gm/ 100 mls @ 200 mls/hr 10/13/18 10:15 10/14/18 09:08 Dextrose IVPB 200 mls/hr DAILY [facility] Administration Protocol Azithromycin 500 mg in 250 mls @ 250 mls/hr 10/13/18 10:15 10/14/18 09:09 Zithromax 500mg Ivpb (Pre-Docked) IVPB 250 mls/hr DAILY [facility] Administration Sodium Chloride 1,000 mls @ 50 mls/hr 10/14/18 10:45 1/2 Normal Saline IV 10/15/18 10:37 ASDIR [facility] Ibuprofen 400 mg 10/13/18 21:47 10/13/18 22:10 Motrin - PO 400 mg Q6H PRN Administration FEVER Lidocaine 2 patch 10/14/18 10:00 10/14/18 09:09 Lidoderm Patch - TP 2 patch DAILY [facility] Administration Melatonin 3 mg 10/14/18 22:00 Melatonin PO HS [facility] Mometasone Furoate 1 puff 10/13/18 22:00 10/14/18 09:25 Asmanex 110mcg - IH 1 puff BID [facility] Administration Mupirocin 1 applic 10/13/18 10:00 10/14/18 09:25 Bactroban Ointment (For Decolonization) - NS 10/18/18 09:59 1 applic BID [facility] Administration Nicotine 7 mg 10/13/18 22:00 10/13/18 22:27 Nicoderm Patch - TD 7 mg DAILY [facility] Administration Pantoprazole Sodium 40 mg 10/14/18 10:00 10/14/18 09:11 Protonix - PO 40 mg DAILY [facility] Administration Thiamine HCl 200 mg 10/13/18 10:00 10/13/18 19:40 Vitamin B1 Injection - IVPB 200 mg DAILY [facility] Administration ASSESSMENT/PLAN: Patient is a 53 year old male with history of hypertension, alcohol use disorder , GERD, benign prostatic prostatic hyperplasia presents from [facility] after a fall. Admitted to ICU for hyponatremia. #Neuro: alcohol use and s/p fall -CT head negative -Librium protocol continue -Thiamine 200mg IV daily -Folate 1mg PO daily -Bupropion 75mg PO daily -Fall precautions Pulmonary -No acute issues Cardiac -hypotension resolved -switch fluids to 1/2 NS from D5 Gastrointestinal -transaminases trended down -Protonix 40mg IV daily Renal -TOO improving -hyponatremia improving -D5W switched to 1/2NS -F/U BMP -Follow renal, bladder US -Nephrology recommendations (Dr. Lunsford) appreciated. Infectious Disease -leukocytosis improved -continue ceftriaxone -f/u ID -f/u hepatitis panel Genitourinary Benign prostatic hyperplasia -Tamsulosin 0.4mg PO daily FEN -IV normal saline bolus -Hyponatremia. Follow BMP -Regular diet Prophylaxis -Lovenox 40mg subq daily -Protonix 40mg IV daily Disposition -We will continue to follow the patient. Thank you for this consultative opportunity. Visit type - Emergency Visit Emergency Visit: No - New Patient This patient is new to me today: No - Critical Care Critical Care patient: Yes Total Critical Care Time (in minutes): 38 Critical Care Statement: The care of this patient involved high complexity decision making to prevent further life threatening deterioration of the patient 's condition and/or to evaluate & treat vital organ system(s) failure or risk of failure.
[2018-10-14] MEDS: NICOTINE 7 MG/24 HOURS TOPICAL PATCH TD SCH (14:59)
[2018-10-14] MEDS: THIAMINE HCL 200 MG/2 ML VIAL IVPB SCH (15:00)
--- NOTE | 2018-10-14 17:50 | PN ---
Progress Note (short form) - Note Progress Note: Patient is feeling better with no acute distress, no nausea or vomiting. Vital Signs Temperature 97.9 F 10/14/18 12:00 Pulse Rate 91 H 10/14/18 14:00 Respiratory Rate 19 10/14/18 14:00 Blood Pressure 122/60 10/14/18 14:00 O2 Sat by Pulse Oximetry (%) 99 10/14/18 08:37 GENERAL: The patient is awake, alert, and oriented, in no acute distress. HEAD: Normal with no signs of trauma. EYES: PERRL, extraocular movements intact, sclera anicteric, conjunctiva clear. ENT: Ears normal, oropharynx clear without exudates, moist mucous membranes. NECK: Trachea midline, full range of motion, supple. LUNGS: Breath sounds equal, clear to auscultation bilaterally, no wheezes, no crackles, no accessory muscle use. HEART: Regular rate and rhythm, S1, S2 positive, No murmur, rub or gallop. ABDOMEN: Soft, NT, large abdomen , normoactive bowel sounds, no guarding, no rebound, no hepatosplenomegaly, no masses. EXTREMITIES: 2+ pulses, warm, well-perfused, NEUROLOGICAL: Cranial nerves II through XII grossly intact. Normal speech, gait not observed. PSYCH: Normal mood, normal affect. SKIN: Warm, dry, normal turgor, no rashes or lesions noted CBCD WBC 7.8 K/mm3 (4.0-10.0) 10/14/18 05:25 RBC 3.36 M/mm3 (4.00-5.60) L 10/14/18 05:25 Hgb 11.6 GM/dL (11.7-16.9) L 10/14/18 05:25 Hct 32.9 % (35.4-49) L 10/14/18 05:25 MCV 98.0 fl (80-96) H 10/14/18 05:25 MCHC 35.2 g/dl (32.0-35.9) 10/14/18 05:25 RDW 13.3 % (11.9-15.9) 10/14/18 05:25 Plt Count 347 K/MM3 (134-434) D 10/14/18 05:25 MPV 9.6 fl (7.5-11.1) 10/14/18 05:25 CMP Sodium 133 mmol/L (136-145) L 10/14/18 11:30 Potassium 3.8 mmol/L (3.5-5.1) 10/14/18 05:25 Chloride 100 mmol/L (98-107) 10/14/18 05:25 Carbon Dioxide 23 mmol/L (21-32) 10/14/18 05:25 Anion Gap 8 MMOL/L (8-16) 10/14/18 05:25 BUN 34.4 mg/dL (7-18) H 10/14/18 05:25 Creatinine 1.6 mg/dL (0.55-1.3) H 10/14/18 05:25 Random Glucose 131 mg/dL (74-106) H 10/14/18 05:25 Calcium 8.2 mg/dL (8.5-10.1) L 10/14/18 05:25 Total Bilirubin 0.7 mg/dL (0.2-1) 10/14/18 05:25 AST 197 U/L (15-37) H 10/14/18 05:25 ALT 81 U/L (13-61) H 10/14/18 05:25 Alkaline Phosphatase 138 U/L (45-117) H 10/14/18 05:25 Total Protein 5.9 g/dl (6.4-8.2) L 10/14/18 05:25 Albumin 3.1 g/dl (3.4-5.0) L 10/14/18 05:25 Current Medications Generic Name Dose Route Start Last Admin Trade Name Freq PRN Reason Stop Dose Admin Albuterol Sulfate 2 puff 10/13/18 10:28 Ventolin Hfa Inhaler - IH Q4H PRN ASTHMA Aspirin 81 mg 10/14/18 10:00 10/14/18 09:15 Ecotrin - PO 81 mg DAILY [facility] Administration Buprenorphine/Naloxone 2 each 10/13/18 10:30 10/14/18 09:14 Suboxone 8mg/2mg Sl Film - SL 2 each DAILY [facility] Administration Bupropion HCl 75 mg 10/14/18 10:00 10/14/18 14:59 Wellbutrin - PO 75 mg DAILY [facility] Administration Chlordiazepoxide HCl 10 mg 10/15/18 05:00 Librium - PO 10/16/18 05:00 Q12H PRN Signs/symptoms of Withdrawal Chlordiazepoxide HCl 15 mg 10/14/18 09:00 10/14/18 17:32 Librium - PO 10/15/18 01:01 15 mg Q8H [facility] Administration Chlordiazepoxide HCl 10 mg 10/15/18 09:00 Librium - PO 10/16/18 09:01 Q8H [facility] Chlordiazepoxide HCl 10 mg 10/13/18 09:03 10/14/18 07:46 Librium - PO 10/15/18 05:00 10 mg Q8H PRN Administration Signs/symptoms of Withdrawal Chlorhexidine Gluconate 1 applic 10/13/18 22:00 10/13/18 22:11 Hibiclens For Decolonization - TP 1 applic HS [facility] Administration Docusate Sodium 100 mg 10/13/18 22:00 10/14/18 09:15 Colace - PO 100 mg BID [facility] Administration Enoxaparin Sodium 40 mg 10/13/18 10:00 10/14/18 09:08 Lovenox - SQ 40 mg DAILY [facility] Administration Folic Acid 1 mg 10/13/18 10:00 10/14/18 09:15 Folic Acid - PO 1 mg DAILY [facility] Administration Gabapentin 600 mg 10/13/18 14:00 10/14/18 14:59 Neurontin - PO 600 mg TID [facility] Administration Ceftriaxone Sodium 1 gm/ 100 mls @ 200 mls/hr 10/13/18 10:15 10/14/18 09:08 Dextrose IVPB 200 mls/hr DAILY [facility] Administration Protocol Azithromycin 500 mg in 250 mls @ 250 mls/hr 10/13/18 10:15 10/14/18 09:09 Zithromax 500mg Ivpb (Pre-Docked) IVPB 250 mls/hr DAILY [facility] Administration Sodium Chloride 1,000 mls @ 50 mls/hr 10/14/18 10:45 10/14/18 15:00 1/2 Normal Saline IV 10/15/18 10:37 50 mls/hr ASDIR LEFT[facility] Administration Ibuprofen 400 mg 10/13/18 21:47 10/13/18 22:10 Motrin - PO 400 mg Q6H PRN Administration FEVER Discontinued Lidocaine 2 patch 10/14/18 10:00 10/14/18 09:09 Lidoderm Patch - TP 2 patch DAILY [facility] Administration Melatonin 3 mg 10/14/18 22:00 Melatonin PO HS [facility] Mometasone Furoate 1 puff 10/13/18 22:00 10/14/18 09:25 Asmanex 110mcg - IH 1 puff BID [facility] Administration Mupirocin 1 applic 10/13/18 10:00 10/14/18 09:25 Bactroban Ointment (For Decolonization) - NS 10/18/18 09:59 1 applic BID [facility] Administration Nicotine 7 mg 10/13/18 22:00 10/14/18 14:59 Nicoderm Patch - TD 7 mg DAILY [facility] Administration Pantoprazole Sodium 40 mg 10/14/18 10:00 10/14/18 09:11 Protonix - PO 40 mg DAILY [facility] Administration Thiamine HCl 200 mg 10/13/18 10:00 10/14/18 15:00 Vitamin B1 Injection - IVPB 200 mg DAILY [facility] Administration Home Medications Medication Instructions Recorded Albuterol Sulfate Inhaler - 2 inh PO Q4H PRN 06/19/18 [Ventolin HFA Inhaler -] Aspirin [ASA -] 81 mg PO DAILY 06/19/18 Buprenorphine/Naloxone [Suboxone 2 each SL DAILY 06/19/18 8Mg/2Mg Sl Film -] Docusate Sodium [Dok] 100 mg PO BID 06/19/18 Folic Acid - 1 mg PO DAILY 06/19/18 Gabapentin [Neurontin] 600 mg PO TID 06/19/18 Ibuprofen 800 mg PO BID 06/19/18 Lisinopril 20 mg PO DAILY 06/19/18 Tamsulosin HCl [Flomax -] 0.4 mg PO DAILY 06/19/18 Pantoprazole Sodium [Protonix -] 40 mg PO DAILY 06/28/18 Mirtazapine [Remeron -] 7.5 mg PO HS 10/10/18 Buspirone HCl [Buspar -] 10 mg PO BID #60 tablet 10/11/18 Sertraline HCl [Zoloft] 100 mg PO DAILY #30 tablet 10/11/18 Nicotine [Nicotine Patch 14mg/24 1 patch TP DAILY 10/13/18 hr] Microbiology 10/14/18 06:00 Sputum - Expectorated Gram Stain - Final 10/13/18 20:29 Urine For Antigen Detection Legionella Antigen - Final 10/13/18 20:29 Urine For Antigen Detection Streptococcus pneumoniae Antigen (M - Final 10/13/18 12:25 Blood - Peripheral Venous Blood Culture - Preliminary NO GROWTH OBTAINED AFTER 24 HOURS, INCUBATION TO CONTINUE FOR 4 DAYS. 10/13/18 12:20 Blood - Peripheral Venous Blood Culture - Preliminary NO GROWTH OBTAINED AFTER 24 HOURS, INCUBATION TO CONTINUE FOR 4 DAYS. 10/13/18 08:29 Urine - Urine Clean Catch Urine Culture - Final NO GROWTH OBTAINED Assessment and plan: Patient is a 53 year old male with PMHx of alcohol/heroin/nicotine dependency, Asthma , HTN , Seizure from alcoholic withdrawal, GERD, Depression /Anxiety , BPH, Back pain , Meniscal tear B/L ,insomnia , mood disorder presented from [facility] after he fell down from his bed and was send to ED. for evaluation and was found to have hyponatremia of 121 and Acute renal injury , admitted to ICU for further evaluation. As per patient, he drinks around a gallon per day of Vodka, since has a chronic back and knee pain. # Acute hyponatremia s/p fall ,improving the sodium post 3% saline most likely due to alcohol intoxication, hold zoloft ,Bmp q4h, discontinued Hctz since can cause low sodium, sodium improving. on s/p d5w overnight to decrease rate of fast correction of sodium. renal function is improving, check renal ultrasound # ARF improving ; 2.6-->1.6 NOW ,continue to monitor. continue flomax with hx of bph. # Alcohol intoxication with withdrawel hx of seizure; drinks a gallon of Vodka per day , librium protocol to continue # Acute chest congestion cannot r/o pneumonia with leukocytosis. negative legionella , empiric IV antibitoitc , echo ordered, ce x2 , ekg. DVT Px: SCds Visit type - Emergency Visit Emergency Visit: Yes ED Registration Date: 10/13/18 Care time: The patient presented to the Emergency Department on the above date and was hospitalized for further evaluation of their emergent condition. - New Patient This patient is new to me today: No - Critical Care Critical Care patient: No - Discharge Referral Referred to [facility] No
[2018-10-14] MEDS ORDERED: chlordiazePOXIDE 5 MG CAPSULE PO PRN (19:21)
[2018-10-14] MEDS ORDERED: ALBUTEROL SO4 8 GM HFA INHALER IH PRN (19:21)
--- NOTE | 2018-10-14 19:46 | PN ---
Progress Note, Physician History of Present Illness: AWAKE, ALERT OOB IN CHAIR AFEBRILE C/O N/V, CONSTIPATION WBC, AZOTEMIA IMPROVED - Current Medication List Current Medications: Active Medications Albuterol Sulfate (Ventolin Hfa Inhaler -) 2 puff IH Q4H PRN PRN Reason: ASTHMA Aspirin (Ecotrin -) 81 mg PO DAILY [facility] Buprenorphine/Naloxone (Suboxone 8mg/2mg Sl Film -) 2 each SL DAILY [facility] Bupropion HCl (Wellbutrin -) 75 mg PO DAILY [facility] Chlordiazepoxide HCl (Librium -) 10 mg PO Q12H PRN PRN Reason: Signs/symptoms of Withdrawal Stop: 10/16/18 05:00 Chlordiazepoxide HCl (Librium -) 10 mg PO Q8H PRN PRN Reason: Signs/symptoms of Withdrawal Stop: 10/15/18 05:00 Chlordiazepoxide HCl (Librium -) 15 mg PO Q8H [facility] Stop: 10/15/18 01:01 Chlordiazepoxide HCl (Librium -) 10 mg PO Q8H [facility] Stop: 10/16/18 09:01 Chlorhexidine Gluconate (Hibiclens For Decolonization -) 1 applic TP HS [facility] Docusate Sodium (Colace -) 100 mg PO BID [facility] Enoxaparin Sodium (Lovenox -) 40 mg SQ DAILY [facility] Folic Acid (Folic Acid -) 1 mg PO DAILY [facility] Gabapentin (Neurontin -) 600 mg PO TID [facility] Azithromycin (Zithromax 500mg Ivpb (Pre-Docked)) 500 mg in 250 mls @ 250 mls/ hr IVPB DAILY [facility] Ceftriaxone Sodium 1 gm/ (Dextrose) 100 mls @ 200 mls/hr IVPB DAILY [facility]; Protocol Sodium Chloride (1/2 Normal Saline) 1,000 mls @ 50 mls/hr IV ASDIR [facility] Stop: 10/15/18 10:37 Lidocaine (Lidoderm Patch -) 2 patch TP DAILY [facility] Melatonin (Melatonin) 3 mg PO HS [facility] Mometasone Furoate (Asmanex 110mcg -) 1 puff IH BID [facility] Mupirocin (Bactroban Ointment (For Decolonization) -) 1 applic NS BID [facility] Stop: 10/18/18 09:59 Nicotine (Nicoderm Patch -) 7 mg TD DAILY [facility] Pantoprazole Sodium (Protonix -) 40 mg PO DAILY [facility] Thiamine HCl (Vitamin B1 Injection -) 200 mg IVPB DAILY [facility] - Objective Vital Signs: Vital Signs Temperature 98.2 F 10/14/18 18:27 Pulse Rate 88 10/14/18 18:27 Respiratory Rate 14 10/14/18 18:27 Blood Pressure 128/70 10/14/18 18:27 O2 Sat by Pulse Oximetry (%) 99 10/14/18 18:27 Constitutional: Yes: No Distress Cardiovascular: Yes: Regular Rate and Rhythm, S1, S2 Respiratory: Yes: Other (+RHONCHI BILAT) Gastrointestinal: Yes: Normal Bowel Sounds, Soft Edema: Yes Edema: LLE: 1+, RLE: 1+ Labs: CBC, BMP 10/14/18 05:25 10/14/18 11:30 INR, PTT INR 1.02 (0.83-1.09) 10/14/18 05:25 Assessment/Plan LEUKOCYTOSIS- RESOLVED HYPONATREMIA CONTINUE EMPIRIC CEFTRIAXONE
[2018-10-14] MEDS ORDERED: MUPIROCIN 2% TOPICAL OINTMENT FOR DECOLONIZATION NS SCH (22:00)
[2018-10-14] MEDS ORDERED: CHLORHEXIDINE GLUCONATE 4% CLEANSER FOR DECOLONIZATION TP SCH (22:00)
[2018-10-14] MEDS ORDERED: MELATONIN 1 MG TABLET PO SCH (22:00)
[2018-10-14] MEDS: MELATONIN 1 MG TABLET PO SCH (23:32)
[2018-10-14] MEDS: LIDOCAINE PATCH REMOVAL MC SCH (23:32)
[2018-10-15] MEDS ORDERED: chlordiazePOXIDE 5 MG CAPSULE PO SCH (01:00)
[2018-10-15] MEDS ORDERED: ACETAMINOPHEN 325 MG TABLET (FP) PO ONE (04:10)
[2018-10-15] MEDS ORDERED: PT OWN MED DRAWER 7, Y5N ONE ×2 (04:44→21:31)
[2018-10-15] MEDS ORDERED: chlordiazePOXIDE HCL 10 MG CAPSULE PO PRN (05:00)
[2018-10-15] MEDS ORDERED: chlordiazePOXIDE 5 MG CAPSULE PO PRN (05:00)
[2018-10-15] MEDS: GABAPENTIN 300 MG CAPSULE (FP) PO SCH ×3 (05:12→21:58)
[2018-10-15] MEDS: MOMETASONE FUROATE 110 MCG/IH INHALER IH SCH ×3 (05:34→21:58)
--- NOTE | 2018-10-15 06:47 | PN ---
Physical Exam: SUBJECTIVE: Patient seen and examined at ebd side no acute events over night , tolerating diet , complain chronic back and kne pain , no withdrawal symptoms but still has some tremors in his hand on libirium protocol OBJECTIVE: Vital Signs Period Temp Pulse Resp BP Sys/Vega Pulse Ox Last 24 Hr 97.9 F-98.2 F 85-93 12-19 105-128/56-70 99-99 GENERAL: Awake, alert, and fully oriented, in no acute distress. HEAD: left eye brow laceration EYES: Pupils equal, round and reactive to light, extraocular movements intact, nystagmus ENT: Ears normal, nares patent, oropharynx clear without exudates. moist mucous membranes. NECK: supple , tender to palpation LUNGS: CTA B/L HEART: Regular rate and rhythm, normal S1 and S2 without murmur, rub or gallop. ABDOMEN: Obese, Soft, nontender, not distended, normoactive bowel sounds, no guarding, no rebound, UPPER EXTREMITIES: 2+ pulses, warm, well-perfused. No cyanosis. No clubbing. No peripheral edema.finger tremor on extension LOWER EXTREMITIES: 2+ pulses, warm, well-perfused. No calf tenderness. No peripheral edema. NEUROLOGICAL: no focal deficit . Normal speech. nystagmus , no dysmetria , strenth 5/5 upper and lower ext , sensation intact PSYCHIATRIC: Cooperative. SKIN: Warm, dry, normal turgor, Laboratory Results - last 24 hr 10/13/18 10/14/18 10/14/18 07:42 05:25 05:25 WBC 7.8 RBC 3.36 L Hgb 11.6 L Hct 32.9 L MCV 98.0 H MCH 34.5 H MCHC 35.2 RDW 13.3 Plt Count 347 D MPV 9.6 Absolute Neuts (auto) 5.3 Neutrophils % 68.0 D Lymphocytes % 22.1 D Monocytes % 7.0 D Eosinophils % 2.5 D Basophils % 0.4 Nucleated RBC % 0 PT with INR 12.00 INR 1.02 Sodium Potassium Chloride Carbon Dioxide Anion Gap BUN Creatinine Est GFR (CKD-EPI)AfAm Est GFR (CKD-EPI)NonAf Random Glucose Calcium Phosphorus Magnesium Total Bilirubin AST ALT Alkaline Phosphatase Total Protein Albumin Total Amylase Lipase Urine Osmolality Opiates Screen Negative Methadone Screen Negative Barbiturate Screen Negative Phencyclidine Screen Negative Ur Amphetamines Screen Negative MDMA (Ecstasy) Screen Negative Benzodiazepines Screen Positive A* Cocaine Screen Negative U Marijuana (THC) Screen Positive A* Hep C Ab Diagnostic HIV 1&2 Antibody Screen HIV P24 Antigen 10/14/18 10/14/18 10/14/18 05:25 05:25 05:25 WBC RBC Hgb Hct MCV MCH MCHC RDW Plt Count MPV Absolute Neuts (auto) Neutrophils % Lymphocytes % Monocytes % Eosinophils % Basophils % Nucleated RBC % PT with INR INR Sodium 131 L Potassium 3.8 Chloride 100 Carbon Dioxide 23 Anion Gap 8 BUN 34.4 H Creatinine 1.6 H Est GFR (CKD-EPI)AfAm 55.39 Est GFR (CKD-EPI)NonAf 47.79 Random Glucose 131 H Calcium 8.2 L Phosphorus 2.2 L Magnesium 1.3 L Total Bilirubin 0.7 AST 197 H ALT 81 H Alkaline Phosphatase 138 H Total Protein 5.9 L Albumin 3.1 L Total Amylase 65 Lipase 128 Urine Osmolality Opiates Screen Methadone Screen Barbiturate Screen Phencyclidine Screen Ur Amphetamines Screen MDMA (Ecstasy) Screen Benzodiazepines Screen Cocaine Screen U Marijuana (THC) Screen Hep C Ab Diagnostic <0.1 HIV 1&2 Antibody Screen Negative HIV P24 Antigen Negative 10/14/18 10/14/18 06:00 11:30 WBC RBC Hgb Hct MCV MCH MCHC RDW Plt Count MPV Absolute Neuts (auto) Neutrophils % Lymphocytes % Monocytes % Eosinophils % Basophils % Nucleated RBC % PT with INR INR Sodium 133 L Potassium Chloride Carbon Dioxide Anion Gap BUN Creatinine Est GFR (CKD-EPI)AfAm Est GFR (CKD-EPI)NonAf Random Glucose Calcium Phosphorus Magnesium Total Bilirubin AST ALT Alkaline Phosphatase Total Protein Albumin Total Amylase Lipase Urine Osmolality 145 L Opiates Screen Methadone Screen Barbiturate Screen Phencyclidine Screen Ur Amphetamines Screen MDMA (Ecstasy) Screen Benzodiazepines Screen Cocaine Screen U Marijuana (THC) Screen Hep C Ab Diagnostic HIV 1&2 Antibody Screen HIV P24 Antigen Active Medications Generic Name Dose Route Start Last Admin Trade Name Freq PRN Reason Stop Dose Admin Albuterol Sulfate 2 puff 10/14/18 19:21 Ventolin Hfa Inhaler - IH Q4H PRN ASTHMA Aspirin 81 mg 10/15/18 10:00 Ecotrin - PO DAILY [facility] Buprenorphine/Naloxone 2 each 10/15/18 10:00 Suboxone 8mg/2mg Sl Film - SL DAILY [facility] Bupropion HCl 75 mg 10/15/18 10:00 Wellbutrin - PO DAILY [facility] Chlordiazepoxide HCl 10 mg 10/15/18 05:00 Librium - PO 10/16/18 05:00 Q12H PRN Signs/symptoms of Withdrawal Chlordiazepoxide HCl 10 mg 10/15/18 09:00 Librium - PO 10/16/18 09:01 Q8H [facility] Docusate Sodium 100 mg 10/14/18 22:00 10/14/18 22:36 Colace - PO 100 mg BID [facility] Administration Enoxaparin Sodium 40 mg 10/15/18 10:00 Lovenox - SQ DAILY [facility] Folic Acid 1 mg 10/15/18 10:00 Folic Acid - PO DAILY [facility] Gabapentin 600 mg 10/14/18 22:00 10/15/18 05:12 Neurontin - PO 600 mg TID [facility] Administration Azithromycin 500 mg in 250 mls @ 250 mls/hr 10/15/18 10:00 Zithromax 500mg Ivpb (Pre-Docked) IVPB DAILY [facility] Ceftriaxone Sodium 1 gm/ 100 mls @ 200 mls/hr 10/15/18 10:00 Dextrose IVPB DAILY [facility] Protocol Sodium Chloride 1,000 mls @ 50 mls/hr 10/14/18 19:21 1/2 Normal Saline IV 10/15/18 10:37 ASDIR [facility] Lidocaine 2 patch 10/15/18 10:00 Lidoderm Patch - TP DAILY [facility] Melatonin 3 mg 10/14/18 22:00 10/14/18 23:32 Melatonin PO 3 mg HS [facility] Administration Miscellaneous 2 each 10/14/18 22:00 10/14/18 23:32 Lidoderm Patch Removal MC 2 each DAILY@2200 [facility] Administration Mometasone Furoate 1 puff 10/14/18 22:00 10/15/18 05:34 Asmanex 110mcg - IH 1 puff BID [facility] Administration Nicotine 7 mg 10/15/18 10:00 Nicoderm Patch - TD DAILY [facility] Pantoprazole Sodium 40 mg 10/15/18 10:00 Protonix - PO DAILY [facility] Thiamine HCl 200 mg 10/15/18 10:00 Vitamin B1 Injection - IVPB DAILY [facility] ASSESSMENT/PLAN: 53 year old male alcohol/heroin/nicotine dependence presented from [facility] after he fall dowwn from bed was found to have hyponatremia 121 admitted to ICU for further evaluation. # Acute hypovolemic Hyponatremia likely pre renal R.O SIADH R.O sepsis , resolved * NA 134 today , DC fluids , regular diet and PO intake # Leuckocytosis R.O sepsis , r.p PNA , resolved * on abx ceftriaxone and azithromycin prophylactic * UA antigen negative #TOO , resolved with IV hydration , BUN /Cr 17.5/0.8 # S/P fall * fell down from bed while was sleeping * CT head no acute pathology * wound care for left eye brow * Neck Xray pending * fall precautions # HTN # Hypotension on admission due to dehydration vs sepsis , resolved * hold meds for now resume when HTN * off fluids # Transaminities AST > ALt 2: 1 goes with alcohol abuse * trending down but still elevated , chronic fatty liver vs HC disease * CT A/P with fatty liver * encourage weight loss * alcohol cessation # Macrocytic anemia likley due to alcohol * b12 , folci acid normal , ferritin elevated , low iron and TIBC , anemia of chronic disease * stable no active bleeding * hep panel pending # GERD * PPI 40 IV daily # ASthma , stable no exacerbation * Duoneb as needed # H/O seizure * due to alcohol withdrawal 5 years ago , no active seizure currently , * Neuro check for any withdrawal symptoms or seizure activity # Depression/Anxiety /mood disorder * no QTC prolonation so far * psych consulted started him on Wellbutrin for depression * Melatonin for insomnia * DC zolofot # Meniscal tear B/L * follow up out pt # alcohol dependence/withdrawal * gallon of Vodka last use 3 days ago * still shaking and nystagmus * Librium protocol * ciwa protocol * thiamin and folic acid and multivitamins # Nicotine dependence * 1/2- 1 PPD since age of 13 * nicotine patch * educated about cessation # FEN * off fluids * Monitor lytes * Regular diet # Proph * GI: PPI 40 IV daily * DVTS: SCDS, Lovenox 40 sq daily # Dispo * M/S # Full code Visit type - Emergency Visit Emergency Visit: Yes ED Registration Date: 10/13/18 Care time: The patient presented to the Emergency Department on the above date and was hospitalized for further evaluation of their emergent condition. - New Patient This patient is new to me today: No - Critical Care Critical Care patient: No
[2018-10-15 07:20] LABS: HEMATOCRIT 31.3 % (35.4-49); MCH 34.5 pg (25.7-33.7); MEAN CELL VOLUME 98.6 fl (80-96); RBC 3.18 M/mm3 (4.00-5.60); RDW 13.6 % (11.9-15.9); WHITE BLOOD COUNT 7.6 K/mm3 (4.0-10.0)
[2018-10-15 07:47] LABS: BILIRUBIN,TOTAL 0.7 mg/dL (0.2-1); BLOOD UREA NITROGEN 17.5 mg/dL (7-18); CALCIUM 8.6 mg/dL (8.5-10.1); CREATININE 0.8 mg/dL (0.55-1.3); POTASSIUM 4.2 mmol/L (3.5-5.1); TOT PROT 5.9 g/dl (6.4-8.2)
[2018-10-15] MEDS: chlordiazePOXIDE 5 MG CAPSULE PO SCH ×2 (08:17→17:00)
[2018-10-15] MEDS ORDERED: chlordiazePOXIDE HCL 10 MG CAPSULE PO SCH (09:00)
[2018-10-15] MEDS ORDERED: cefTRIAXone SODIUM 1 GM VIAL ONE (09:16)
[2018-10-15] MEDS ORDERED: DEXTROSE 5%-WATER 100 ML IVPB ONE (09:16)
[2018-10-15] MEDS: DOCUSATE SODIUM 100 MG CAPSULE (FP) PO SCH ×2 (09:27→21:58)
[2018-10-15] MEDS: PANTOPRAZOLE 40 MG TABLET (FP) PO SCH (09:27)
[2018-10-15] MEDS: LIDOCAINE 5% TOPICAL PATCH TP SCH (09:28)
[2018-10-15] MEDS: FOLIC ACID 1 MG TABLET (FP) PO SCH (09:28)
[2018-10-15] MEDS: ASPIRIN COATED 81 MG TABLET.EC PO SCH (09:28)
[2018-10-15] MEDS: buPROPion HCL 75 MG TABLET PO SCH (09:28)
[2018-10-15] MEDS: ENOXAPARIN NA (PORCINE) 40 MG/0.4 ML DISP.SYRIN SQ SCH (09:35)
[2018-10-15] MEDS: NICOTINE 7 MG/24 HOURS TOPICAL PATCH TD SCH (09:41)
[2018-10-15] MEDS: BUPRENORPHINE/NALOXONE 8 MG/2 MG FILM PACKET SL SCH (09:46)
[2018-10-15] MEDS: CEFTRIAXONE 1 GM in DEXTROSE 5%-WATER 100 ML IVPB SCH (09:47)
[2018-10-15 10:00] LABS: URINE UREA NITROGEN 261.84 MG/DL (350-1000)
[2018-10-15] MEDS ORDERED: AZITHROMYCIN IVPB 500 MG/250 ML BAG IVPB SCH (10:00)
[2018-10-15] MEDS: THIAMINE HCL 200 MG/2 ML VIAL IVPB SCH (11:03)
[2018-10-15 13:40] LABS: PLATELET COUNT 244 K/MM3 (134-434)
--- NOTE | 2018-10-15 13:43 | PN ---
Progress Note, Physician History of Present Illness: Pt seen and examined at bedside. He is awake and alert. He is tolerating diet. - Current Medication List Current Medications: Active Medications Albuterol Sulfate (Ventolin Hfa Inhaler -) 2 puff IH Q4H PRN PRN Reason: ASTHMA Aspirin (Ecotrin -) 81 mg PO DAILY [facility] Last Admin: 10/15/18 09:28 Dose: 81 mg Buprenorphine/Naloxone (Suboxone 8mg/2mg Sl Film -) 2 each SL DAILY [facility] Last Admin: 10/15/18 09:46 Dose: 2 each Bupropion HCl (Wellbutrin -) 75 mg PO DAILY [facility] Last Admin: 10/15/18 09:28 Dose: 75 mg Chlordiazepoxide HCl (Librium -) 10 mg PO Q12H PRN PRN Reason: Signs/symptoms of Withdrawal Stop: 10/16/18 05:00 Chlordiazepoxide HCl (Librium -) 10 mg PO Q8H [facility] Stop: 10/16/18 09:01 Last Admin: 10/15/18 08:17 Dose: 10 mg Docusate Sodium (Colace -) 100 mg PO BID [facility] Last Admin: 10/15/18 09:27 Dose: 100 mg Enoxaparin Sodium (Lovenox -) 40 mg SQ DAILY [facility] Last Admin: 10/15/18 09:35 Dose: 40 mg Folic Acid (Folic Acid -) 1 mg PO DAILY [facility] Last Admin: 10/15/18 09:28 Dose: 1 mg Gabapentin (Neurontin -) 600 mg PO TID [facility] Last Admin: 10/15/18 05:12 Dose: 600 mg Azithromycin (Zithromax 500mg Ivpb (Pre-Docked)) 500 mg in 250 mls @ 250 mls/ hr IVPB DAILY [facility] Last Admin: 10/15/18 09:55 Dose: 250 mls/hr Ceftriaxone Sodium 1 gm/ (Dextrose) 100 mls @ 200 mls/hr IVPB DAILY [facility]; Protocol Last Admin: 10/15/18 09:47 Dose: 200 mls/hr Lidocaine (Lidoderm Patch -) 2 patch TP DAILY [facility] Last Admin: 10/15/18 09:28 Dose: 2 patch Melatonin (Melatonin) 3 mg PO HS [facility] Last Admin: 10/14/18 23:32 Dose: 3 mg Miscellaneous (Lidoderm Patch Removal) 2 each MC DAILY@2200 [facility] Last Admin: 10/14/18 23:32 Dose: 2 each Mometasone Furoate (Asmanex 110mcg -) 1 puff IH BID [facility] Last Admin: 10/15/18 09:53 Dose: 1 puff Nicotine (Nicoderm Patch -) 7 mg TD DAILY [facility] Last Admin: 10/15/18 09:41 Dose: 7 mg Pantoprazole Sodium (Protonix -) 40 mg PO DAILY [facility] Last Admin: 10/15/18 09:27 Dose: 40 mg Thiamine HCl (Vitamin B1 Injection -) 200 mg IVPB DAILY [facility] Last Admin: 10/15/18 11:03 Dose: 200 mg - Objective Vital Signs: Vital Signs Temperature 99.2 F 10/15/18 07:25 Pulse Rate 80 10/15/18 08:14 Respiratory Rate 20 10/15/18 08:14 Blood Pressure 121/68 10/15/18 08:14 O2 Sat by Pulse Oximetry (%) 99 10/14/18 20:55 Constitutional: Yes: Calm Eyes: Yes: Conjunctiva Clear HENT: Yes: Atraumatic Neck: Yes: Supple Cardiovascular: Yes: S1, S2 Respiratory: Yes: CTA Bilaterally Gastrointestinal: Yes: Soft Genitourinary: Yes: WNL Musculoskeletal: Yes: WNL Edema: No Neurological: Yes: Oriented Psychiatric: Yes: Oriented Labs: CBC, BMP 10/15/18 06:59 10/15/18 06:59 INR, PTT INR 1.02 (0.83-1.09) 10/14/18 05:25 Problem List - Problems (1) TOO (acute kidney injury) Code(s): N17.9 - ACUTE KIDNEY FAILURE, UNSPECIFIED (2) TOO (acute kidney injury) Code(s): N17.9 - ACUTE KIDNEY FAILURE, UNSPECIFIED (3) Alcohol dependence with uncomplicated withdrawal Code(s): F10.230 - ALCOHOL DEPENDENCE WITH WITHDRAWAL, UNCOMPLICATED (4) Elevated liver enzymes Code(s): R74.8 - ABNORMAL LEVELS OF OTHER SERUM ENZYMES (5) Hyponatremia Code(s): E87.1 - HYPO-OSMOLALITY AND HYPONATREMIA (6) Cannabis dependence, uncomplicated Code(s): F12.20 - CANNABIS DEPENDENCE, UNCOMPLICATED (7) Depressive disorder Code(s): F32.9 - MAJOR DEPRESSIVE DISORDER, SINGLE EPISODE, UNSPECIFIED (8) Essential (primary) hypertension Code(s): I10 - ESSENTIAL (PRIMARY) HYPERTENSION (9) GERD (gastroesophageal reflux disease) Code(s): K21.9 - GASTRO-ESOPHAGEAL REFLUX DISEASE WITHOUT ESOPHAGITIS Assessment/Plan Current Medications Generic Name Dose Route Start Last Admin Trade Name Freq PRN Reason Stop Dose Admin Albuterol Sulfate 2 puff 10/14/18 19:21 Ventolin Hfa Inhaler - IH Q4H PRN ASTHMA Aspirin 81 mg 10/15/18 10:00 10/15/18 09:28 Ecotrin - PO 81 mg DAILY [facility] Administration Buprenorphine/Naloxone 2 each 10/15/18 10:00 10/15/18 09:46 Suboxone 8mg/2mg Sl Film - SL 2 each DAILY [facility] Administration Bupropion HCl 75 mg 10/15/18 10:00 10/15/18 09:28 Wellbutrin - PO 75 mg DAILY [facility] Administration Chlordiazepoxide HCl 10 mg 10/15/18 05:00 Librium - PO 10/16/18 05:00 Q12H PRN Signs/symptoms of Withdrawal Chlordiazepoxide HCl 10 mg 10/15/18 09:00 10/15/18 08:17 Librium - PO 10/16/18 09:01 10 mg Q8H [facility] Administration Docusate Sodium 100 mg 10/14/18 22:00 10/15/18 09:27 Colace - PO 100 mg BID [facility] Administration Enoxaparin Sodium 40 mg 10/15/18 10:00 10/15/18 09:35 Lovenox - SQ 40 mg DAILY [facility] Administration Folic Acid 1 mg 10/15/18 10:00 10/15/18 09:28 Folic Acid - PO 1 mg DAILY [facility] Administration Gabapentin 600 mg 10/14/18 22:00 10/15/18 05:12 Neurontin - PO 600 mg TID [facility] Administration Azithromycin 500 mg in 250 mls @ 250 mls/hr 10/15/18 10:00 10/15/18 09:55 Zithromax 500mg Ivpb (Pre-Docked) IVPB 250 mls/hr DAILY [facility] Administration Ceftriaxone Sodium 1 gm/ 100 mls @ 200 mls/hr 10/15/18 10:00 10/15/18 09:47 Dextrose IVPB 200 mls/hr DAILY [facility] Administration Protocol Lidocaine 2 patch 10/15/18 10:00 10/15/18 09:28 Lidoderm Patch - TP 2 patch DAILY [facility] Administration Melatonin 3 mg 10/14/18 22:00 10/14/18 23:32 Melatonin PO 3 mg HS [facility] Administration Miscellaneous 2 each 10/14/18 22:00 10/14/18 23:32 Lidoderm Patch Removal MC 2 each DAILY@2200 [facility] Administration Mometasone Furoate 1 puff 10/14/18 22:00 10/15/18 09:53 Asmanex 110mcg - IH 1 puff BID [facility] Administration Nicotine 7 mg 10/15/18 10:00 10/15/18 09:41 Nicoderm Patch - TD 7 mg DAILY [facility] Administration Pantoprazole Sodium 40 mg 10/15/18 10:00 10/15/18 09:27 Protonix - PO 40 mg DAILY [facility] Administration Thiamine HCl 200 mg 10/15/18 10:00 10/15/18 11:03 Vitamin B1 Injection - IVPB 200 mg DAILY [facility] Administration Impression 1. TOO 2. hyponatremia 3. etoh abuse 4. s/p fall 5. depression 6. htn Plan - sodium stabilizing - can stop fluids - pt tolerating diet - renal function improved - repeat labs in am - check renal ultrasound
--- NOTE | 2018-10-15 14:27 | PN ---
Teaching Attending Note Name of Resident: Bhavin Dajered ATTENDING PHYSICIAN STATEMENT I saw and evaluated the patient. I reviewed the resident's note and discussed the case with the resident. I agree with the resident's findings and plan as documented. SUBJECTIVE: Patient is feeling better with no acute distress, no nausea or vomiting, c/o having bl knee pain and continues to have tremor OBJECTIVE: Vital Signs Temperature 99.2 F 10/15/18 07:25 Pulse Rate 80 10/15/18 08:14 Respiratory Rate 20 10/15/18 08:14 Blood Pressure 121/68 10/15/18 08:14 O2 Sat by Pulse Oximetry (%) 99 10/14/18 20:55 GENERAL: The patient is awake, alert, and oriented, in no acute distress. HEAD: Normal with no signs of trauma. EYES: PERRL, extraocular movements intact, sclera anicteric, conjunctiva clear. ENT: Ears normal, oropharynx clear without exudates, moist mucous membranes. NECK: Trachea midline, full range of motion, supple. LUNGS: Breath sounds equal, clear to auscultation bilaterally, no wheezes, no crackles, no accessory muscle use. HEART: Regular rate and rhythm, S1, S2 positive, No murmur, rub or gallop. ABDOMEN: Soft, NT, large abdomen , normoactive bowel sounds, no guarding, no rebound, no hepatosplenomegaly, no masses. EXTREMITIES: 2+ pulses, warm, well-perfused, NEUROLOGICAL: Cranial nerves II through XII grossly intact. Normal speech, b/l tremor of upper extremity. PSYCH: Normal mood, normal affect. SKIN: Warm, dry, normal turgor, no rashes or lesions noted CBCD WBC 7.6 K/mm3 (4.0-10.0) 10/15/18 06:59 RBC 3.18 M/mm3 (4.00-5.60) L 10/15/18 06:59 Hgb 11.0 GM/dL (11.7-16.9) L 10/15/18 06:59 Hct 31.3 % (35.4-49) L 10/15/18 06:59 MCV 98.6 fl (80-96) H 10/15/18 06:59 MCHC 35.0 g/dl (32.0-35.9) 10/15/18 06:59 RDW 13.6 % (11.9-15.9) 10/15/18 06:59 Plt Count 244 K/MM3 (134-434) D 10/15/18 06:59 MPV 9.0 fl (7.5-11.1) 10/15/18 06:59 CMP Sodium 134 mmol/L (136-145) L 10/15/18 06:59 Potassium 4.2 mmol/L (3.5-5.1) 10/15/18 06:59 Chloride 102 mmol/L (98-107) 10/15/18 06:59 Carbon Dioxide 26 mmol/L (21-32) 10/15/18 06:59 Anion Gap 5 MMOL/L (8-16) L 10/15/18 06:59 BUN 17.5 mg/dL (7-18) 10/15/18 06:59 Creatinine 0.8 mg/dL (0.55-1.3) 10/15/18 06:59 Random Glucose 94 mg/dL (74-106) 10/15/18 06:59 Calcium 8.6 mg/dL (8.5-10.1) 10/15/18 06:59 Total Bilirubin 0.7 mg/dL (0.2-1) 10/15/18 06:59 AST 145 U/L (15-37) H 10/15/18 06:59 ALT 74 U/L (13-61) H 10/15/18 06:59 Alkaline Phosphatase 119 U/L (45-117) H 10/15/18 06:59 Total Protein 5.9 g/dl (6.4-8.2) L 10/15/18 06:59 Albumin 3.0 g/dl (3.4-5.0) L 10/15/18 06:59 Current Medications Generic Name Dose Route Start Last Admin Trade Name Freq PRN Reason Stop Dose Admin Albuterol Sulfate 2 puff 10/14/18 19:21 Ventolin Hfa Inhaler - IH Q4H PRN ASTHMA Aspirin 81 mg 10/15/18 10:00 10/15/18 09:28 Ecotrin - PO 81 mg DAILY [facility] Administration Buprenorphine/Naloxone 2 each 10/15/18 10:00 10/15/18 09:46 Suboxone 8mg/2mg Sl Film - SL 2 each DAILY [facility] Administration Bupropion HCl 75 mg 06/09/19 10:00 10/15/18 09:28 Wellbutrin - PO 75 mg DAILY [facility] Administration Chlordiazepoxide HCl 10 mg 10/15/18 05:00 Librium - PO 10/16/18 05:00 Q12H PRN Signs/symptoms of Withdrawal Chlordiazepoxide HCl 10 mg 10/15/18 09:00 10/15/18 08:17 Librium - PO 10/16/18 09:01 10 mg Q8H [facility] Administration Docusate Sodium 100 mg 10/14/18 22:00 10/15/18 09:27 Colace - PO 100 mg BID [facility] Administration Enoxaparin Sodium 40 mg 10/15/18 10:00 10/15/18 09:35 Lovenox - SQ 40 mg DAILY [facility] Administration Folic Acid 1 mg 10/15/18 10:00 10/15/18 09:28 Folic Acid - PO 1 mg DAILY [facility] Administration Gabapentin 600 mg 10/14/18 22:00 10/15/18 05:12 Neurontin - PO 600 mg TID [facility] Administration Azithromycin 500 mg in 250 mls @ 250 mls/hr 10/15/18 10:00 10/15/18 09:55 Zithromax 500mg Ivpb (Pre-Docked) IVPB 250 mls/hr DAILY [facility] Administration Ceftriaxone Sodium 1 gm/ 100 mls @ 200 mls/hr 10/15/18 10:00 10/15/18 09:47 Dextrose IVPB 200 mls/hr DAILY [facility] Administration Protocol Lidocaine 2 patch 10/15/18 10:00 10/15/18 09:28 Lidoderm Patch - TP 2 patch DAILY [facility] Administration Melatonin 3 mg 10/14/18 22:00 10/14/18 23:32 Melatonin PO 3 mg HS [facility] Administration Miscellaneous 2 each 10/14/18 22:00 10/14/18 23:32 Lidoderm Patch Removal MC 2 each DAILY@2200 [facility] Administration Mometasone Furoate 1 puff 10/14/18 22:00 10/15/18 09:53 Asmanex 110mcg - IH 1 puff BID [facility] Administration Nicotine 7 mg 10/15/18 10:00 10/15/18 09:41 Nicoderm Patch - TD 7 mg DAILY [facility] Administration Pantoprazole Sodium 40 mg 10/15/18 10:00 10/15/18 09:27 Protonix - PO 40 mg DAILY [facility] Administration Thiamine HCl 200 mg 10/15/18 10:00 10/15/18 11:03 Vitamin B1 Injection - IVPB 200 mg DAILY [facility] Administration Home Medications Medication Instructions Recorded Albuterol Sulfate Inhaler - 2 inh PO Q4H PRN 06/19/18 [Ventolin HFA Inhaler -] Aspirin [ASA -] 81 mg PO DAILY 06/19/18 Buprenorphine/Naloxone [Suboxone 2 each SL DAILY 06/19/18 8Mg/2Mg Sl Film -] Docusate Sodium [Dok] 100 mg PO BID 06/19/18 Folic Acid - 1 mg PO DAILY 06/19/18 Gabapentin [Neurontin] 600 mg PO TID 06/19/18 Ibuprofen 800 mg PO BID 06/19/18 Lisinopril 20 mg PO DAILY 06/19/18 Tamsulosin HCl [Flomax -] 0.4 mg PO DAILY 06/19/18 Pantoprazole Sodium [Protonix -] 40 mg PO DAILY 06/28/18 Mirtazapine [Remeron -] 7.5 mg PO HS 10/10/18 Buspirone HCl [Buspar -] 10 mg PO BID #60 tablet 10/11/18 Sertraline HCl [Zoloft] 100 mg PO DAILY #30 tablet 10/11/18 Nicotine [Nicotine Patch 14mg/24 1 patch TP DAILY 10/13/18 hr] Microbiology 10/13/18 12:25 Blood - Peripheral Venous Blood Culture - Preliminary NO GROWTH OBTAINED AFTER 48 HOURS, INCUBATION TO CONTINUE FOR 3 DAYS. 10/13/18 12:20 Blood - Peripheral Venous Blood Culture - Preliminary NO GROWTH OBTAINED AFTER 48 HOURS, INCUBATION TO CONTINUE FOR 3 DAYS. 10/14/18 06:00 Sputum - Expectorated Gram Stain - Final 10/14/18 06:00 Sputum - Expectorated Sputum Culture - Preliminary NORMAL RESPIRATORY YAS 10/13/18 20:29 Urine For Antigen Detection Legionella Antigen - Final 10/13/18 20:29 Urine For Antigen Detection Streptococcus pneumoniae Antigen (M - Final 10/13/18 08:29 Urine - Urine Clean Catch Urine Culture - Final NO GROWTH OBTAINED Assessment and plan: Patient is a 53 year old male with PMHx of alcohol/heroin/nicotine dependency, Asthma , HTN , Seizure from alcoholic withdrawal, GERD, Depression /Anxiety , BPH, Back pain , Meniscal tear B/L ,insomnia , mood disorder presented from [facility] after he fell down from his bed and was send to ED. for evaluation and was found to have hyponatremia of 121 and Acute renal injury , admitted to ICU for further evaluation. As per patient, he drinks around a gallon per day of Vodka, since has a chronic back and knee pain. # Acute hyponatremia improvimg is 134 now, s/p fall , s/p 3% saline most likely due to alcohol intoxication, hold zoloft , discontinued Hctz since can cause low sodium, sodium improving. on s/p d5w overnight to decrease rate of fast correction of sodium. renal function is improving, check renal ultrasound # ARF improving ; 2.6-->1.6-->0.6 NOW , continue flomax with hx of bph. # Alcohol intoxication with withdrawel hx of seizure; drinks a gallon of Vodka per day , librium protocol to continue , continues to have tremor but improving . # CT of chest no acute pathology ; will dc zithromax , empiric rocephin IV to continue as per ID DVT Px: SCds
[2018-10-15] MEDS: MELATONIN 1 MG TABLET PO SCH (21:58)
[2018-10-15] MEDS: LIDOCAINE PATCH REMOVAL MC SCH (21:58)
[2018-10-16] MEDS: chlordiazePOXIDE 5 MG CAPSULE PO SCH ×2 (01:37→10:20)
[2018-10-16] MEDS: GABAPENTIN 300 MG CAPSULE (FP) PO SCH ×3 (06:18→21:46)
--- NOTE | 2018-10-16 06:54 | EKG ---
Test Reason : Blood Pressure : / mmHG Vent. Rate : 074 BPM Atrial Rate : 074 BPM P-R Int : 124 ms QRS Dur : 086 ms QT Int : 396 ms P-R-T Axes : 015 008 001 degrees QTc Int : 439 ms NORMAL SINUS RHYTHM NONSPECIFIC ST ABNORMALITY WHEN COMPARED WITH ECG OF 13-OCT-2018 06:16, NO SIGNIFICANT CHANGE WAS FOUND Confirmed by MELISSA GRECO MD ([id number]) on 10/13/2018 12:26:42 PM Referred By: Confirmed By:MELISSA GRECO MD
[2018-10-16 07:20] LABS: BLOOD UREA NITROGEN 10.6 mg/dL (7-18); CALCIUM 8.8 mg/dL (8.5-10.1); CREATININE 0.7 mg/dL (0.55-1.3)
[2018-10-16] MEDS ORDERED: cefTRIAXone SODIUM 1 GM VIAL ONE (10:14)
[2018-10-16] MEDS ORDERED: DEXTROSE 5%-WATER 100 ML IVPB ONE (10:14)
[2018-10-16] MEDS: buPROPion HCL 75 MG TABLET PO SCH (10:19)
[2018-10-16] MEDS: PANTOPRAZOLE 40 MG TABLET (FP) PO SCH (10:19)
[2018-10-16] MEDS: NICOTINE 7 MG/24 HOURS TOPICAL PATCH TD SCH (10:19)
[2018-10-16] MEDS: DOCUSATE SODIUM 100 MG CAPSULE (FP) PO SCH ×2 (10:19→21:45)
[2018-10-16] MEDS: CEFTRIAXONE 1 GM in DEXTROSE 5%-WATER 100 ML IVPB SCH (10:19)
[2018-10-16] MEDS: ASPIRIN COATED 81 MG TABLET.EC PO SCH (10:20)
[2018-10-16] MEDS: FOLIC ACID 1 MG TABLET (FP) PO SCH (10:20)
[2018-10-16] MEDS: ENOXAPARIN NA (PORCINE) 40 MG/0.4 ML DISP.SYRIN SQ SCH (10:20)
[2018-10-16] MEDS: LIDOCAINE 5% TOPICAL PATCH TP SCH (10:21)
[2018-10-16] MEDS: MOMETASONE FUROATE 110 MCG/IH INHALER IH SCH ×2 (10:22→21:49)
[2018-10-16] MEDS: BUPRENORPHINE/NALOXONE 8 MG/2 MG FILM PACKET SL SCH (10:22)
[2018-10-16] MEDS: THIAMINE HCL 200 MG/2 ML VIAL IVPB SCH (10:23)
[2018-10-16 11:12] LABS: HBSAG SCREEN Negative (Negative); HEP A AB, IGM Negative (Negative); HEP B CORE AB, TOT Negative (Negative)
[2018-10-16] MEDS ORDERED: ACETAMINOPHEN 325 MG TABLET (FP) PO PRN (13:35)
[2018-10-16] MEDS ORDERED: FUROSEMIDE 20 MG TABLET (FP) PO ONE (14:55)
--- NOTE | 2018-10-16 14:55 | PN ---
Progress Note, Physician History of Present Illness: Pt seen and examined at bedside. He is awake and alert. He complains of lower ext edema. - Current Medication List Current Medications: Active Medications Albuterol Sulfate (Ventolin Hfa Inhaler -) 2 puff IH Q4H PRN PRN Reason: ASTHMA Last Admin: 10/16/18 13:51 Dose: 2 puff Aspirin (Ecotrin -) 81 mg PO DAILY [facility] Last Admin: 10/16/18 10:20 Dose: 81 mg Buprenorphine/Naloxone (Suboxone 8mg/2mg Sl Film -) 2 each SL DAILY [facility] Last Admin: 10/16/18 10:22 Dose: 2 each Bupropion HCl (Wellbutrin -) 75 mg PO DAILY [facility] Last Admin: 10/16/18 10:19 Dose: 75 mg Docusate Sodium (Colace -) 100 mg PO BID [facility] Last Admin: 10/16/18 10:19 Dose: 100 mg Enoxaparin Sodium (Lovenox -) 40 mg SQ DAILY [facility] Last Admin: 10/16/18 10:20 Dose: 40 mg Folic Acid (Folic Acid -) 1 mg PO DAILY [facility] Last Admin: 10/16/18 10:20 Dose: 1 mg Gabapentin (Neurontin -) 600 mg PO TID [facility] Last Admin: 10/16/18 13:45 Dose: 600 mg Ceftriaxone Sodium 1 gm/ (Dextrose) 100 mls @ 200 mls/hr IVPB DAILY [facility]; Protocol Last Admin: 10/16/18 10:19 Dose: 200 mls/hr Lidocaine (Lidoderm Patch -) 2 patch TP DAILY [facility] Last Admin: 10/16/18 10:21 Dose: 2 patch Melatonin (Melatonin) 3 mg PO HS [facility] Last Admin: 10/15/18 21:58 Dose: 3 mg Miscellaneous (Lidoderm Patch Removal) 2 each MC DAILY@2200 [facility] Last Admin: 10/15/18 21:58 Dose: 2 each Mometasone Furoate (Asmanex 110mcg -) 1 puff IH BID [facility] Last Admin: 10/16/18 10:22 Dose: 1 puff Nicotine (Nicoderm Patch -) 7 mg TD DAILY [facility] Last Admin: 10/16/18 10:19 Dose: 7 mg Pantoprazole Sodium (Protonix -) 40 mg PO DAILY [facility] Last Admin: 10/16/18 10:19 Dose: 40 mg Thiamine HCl (Vitamin B1 Injection -) 200 mg IVPB DAILY [facility] Last Admin: 10/16/18 10:23 Dose: 200 mg - Objective Vital Signs: Vital Signs Temperature 97.8 F 10/16/18 10:00 Pulse Rate 83 10/16/18 10:00 Respiratory Rate 18 10/16/18 10:00 Blood Pressure 126/82 10/16/18 10:00 O2 Sat by Pulse Oximetry (%) 100 10/16/18 13:07 Constitutional: Yes: Calm Eyes: Yes: Conjunctiva Clear HENT: Yes: Atraumatic Cardiovascular: Yes: S1, S2 Respiratory: Yes: CTA Bilaterally Gastrointestinal: Yes: Soft Genitourinary: Yes: WNL Musculoskeletal: Yes: WNL Edema: Yes Edema: LLE: 2+, RLE: 2+ Neurological: Yes: Oriented Psychiatric: Yes: Oriented Labs: CBC, BMP 10/15/18 06:59 10/16/18 06:30 INR, PTT INR 1.02 (0.83-1.09) 10/14/18 05:25 Problem List - Problems (1) TOO (acute kidney injury) Code(s): N17.9 - ACUTE KIDNEY FAILURE, UNSPECIFIED (2) TOO (acute kidney injury) Code(s): N17.9 - ACUTE KIDNEY FAILURE, UNSPECIFIED (3) Alcohol dependence with uncomplicated withdrawal Code(s): F10.230 - ALCOHOL DEPENDENCE WITH WITHDRAWAL, UNCOMPLICATED (4) Elevated liver enzymes Code(s): R74.8 - ABNORMAL LEVELS OF OTHER SERUM ENZYMES (5) Hyponatremia Code(s): E87.1 - HYPO-OSMOLALITY AND HYPONATREMIA (6) Cannabis dependence, uncomplicated Code(s): F12.20 - CANNABIS DEPENDENCE, UNCOMPLICATED (7) Depressive disorder Code(s): F32.9 - MAJOR DEPRESSIVE DISORDER, SINGLE EPISODE, UNSPECIFIED (8) Essential (primary) hypertension Code(s): I10 - ESSENTIAL (PRIMARY) HYPERTENSION (9) GERD (gastroesophageal reflux disease) Code(s): K21.9 - GASTRO-ESOPHAGEAL REFLUX DISEASE WITHOUT ESOPHAGITIS Assessment/Plan Current Medications Generic Name Dose Route Start Last Admin Trade Name Freq PRN Reason Stop Dose Admin Albuterol Sulfate 2 puff 10/14/18 19:21 10/16/18 13:51 Ventolin Hfa Inhaler - IH 2 puff Q4H PRN Administration ASTHMA Aspirin 81 mg 10/15/18 10:00 10/16/18 10:20 Ecotrin - PO 81 mg DAILY [facility] Administration Buprenorphine/Naloxone 2 each 10/15/18 10:00 10/16/18 10:22 Suboxone 8mg/2mg Sl Film - SL 2 each DAILY [facility] Administration Bupropion HCl 75 mg 10/15/18 10:00 10/16/18 10:19 Wellbutrin - PO 75 mg DAILY [facility] Administration Docusate Sodium 100 mg 10/14/18 22:00 10/16/18 10:19 Colace - PO 100 mg BID [facility] Administration Enoxaparin Sodium 40 mg 10/15/18 10:00 10/16/18 10:20 Lovenox - SQ 40 mg DAILY [facility] Administration Folic Acid 1 mg 10/15/18 10:00 10/16/18 10:20 Folic Acid - PO 1 mg DAILY [facility] Administration Gabapentin 600 mg 10/14/18 22:00 10/16/18 13:45 Neurontin - PO 600 mg TID [facility] Administration Ceftriaxone Sodium 1 gm/ 100 mls @ 200 mls/hr 10/15/18 10:00 10/16/18 10:19 Dextrose IVPB 200 mls/hr DAILY [facility] Administration Protocol Lidocaine 2 patch 10/15/18 10:00 10/16/18 10:21 Lidoderm Patch - TP 2 patch DAILY [facility] Administration Melatonin 3 mg 10/14/18 22:00 10/15/18 21:58 Melatonin PO 3 mg HS [facility] Administration Miscellaneous 2 each 10/14/18 22:00 10/15/18 21:58 Lidoderm Patch Removal MC 2 each DAILY@2200 [facility] Administration Mometasone Furoate 1 puff 10/14/18 22:00 10/16/18 10:22 Asmanex 110mcg - IH 1 puff BID [facility] Administration Nicotine 7 mg 10/15/18 10:00 10/16/18 10:19 Nicoderm Patch - TD 7 mg DAILY [facility] Administration Pantoprazole Sodium 40 mg 10/15/18 10:00 10/16/18 10:19 Protonix - PO 40 mg DAILY [facility] Administration Thiamine HCl 200 mg 10/15/18 10:00 10/16/18 10:23 Vitamin B1 Injection - IVPB 200 mg DAILY [facility] Administration Impression 1. TOO 2. hyponatremia 3. etoh abuse 4. s/p fall 5. depression 6. htn Plan - d/c fluids - will give a dose of lasix - repeat labs in am - renal function is stable - check renal ultrasound
--- NOTE | 2018-10-16 16:03 | PN ---
Progress Note (short form) - Note Progress Note: clinicallly improved c/o lower extremity edema no cough Vital Signs Period Temp Pulse Resp BP Sys/Vega Pulse Ox Last 24 Hr 97.5 F-97.8 F 71-92 18-18 126-142/80-87 100-100 cor-rrr lungs clear abd soft,nt ext +edema CBC, BMP 10/15/18 06:59 10/16/18 06:30 Microbiology 10/13/18 12:25 Blood - Peripheral Venous Blood Culture - Preliminary NO GROWTH OBTAINED AFTER 72 HOURS, INCUBATION TO CONTINUE FOR 2 DAYS. 10/13/18 12:20 Blood - Peripheral Venous Blood Culture - Preliminary NO GROWTH OBTAINED AFTER 72 HOURS, INCUBATION TO CONTINUE FOR 2 DAYS. 10/14/18 06:00 Sputum - Expectorated Gram Stain - Final 10/14/18 06:00 Sputum - Expectorated Sputum Culture - Final NORMAL RESPIRATORY YAS 10/13/18 20:29 Urine For Antigen Detection Legionella Antigen - Final 10/13/18 20:29 Urine For Antigen Detection Streptococcus pneumoniae Antigen (M - Final 10/13/18 08:29 Urine - Urine Clean Catch Urine Culture - Final NO GROWTH OBTAINED a/p day #4 antibotics (rocephin) s/p 3 days zithromax no signs pneumonia cultures negative TOO resolved hyponatremia resolved leukocytosis resolved will d/c antibioitics please call back if needed Problem List - Problems (1) Leukocytosis Code(s): D72.829 - ELEVATED WHITE BLOOD CELL COUNT, UNSPECIFIED Qualifiers: Leukocytosis type: unspecified Qualified Code(s): D72.829 - Elevated white blood cell count, unspecified (2) Hyponatremia Code(s): E87.1 - HYPO-OSMOLALITY AND HYPONATREMIA (3) TOO (acute kidney injury) Code(s): N17.9 - ACUTE KIDNEY FAILURE, UNSPECIFIED (4) Elevated liver enzymes Code(s): R74.8 - ABNORMAL LEVELS OF OTHER SERUM ENZYMES (5) Alcohol dependence Code(s): F10.20 - ALCOHOL DEPENDENCE, UNCOMPLICATED
--- NOTE | 2018-10-16 16:04 | PN ---
Physical Exam: SUBJECTIVE: Patient seen and examined at bedside. C/o headache. Denies chest pain or shortness of breath. OBJECTIVE: Vital Signs Period Temp Pulse Resp BP Sys/Vega Pulse Ox Last 24 Hr 97.5 F-97.8 F 71-92 18-18 126-142/80-87 100-100 GENERAL: NAD HEAD: AT/NC EYES: EOMI Sclera Clear. ENT: MMM NECK: Trachea midline, full range of motion, supple. LUNGS: CTAB HEART: RRR S1S2 ABDOMEN: NDNT EXTREMITIES: 1+ pitting edema b/l observed. PSYCH: Normal mood, normal affect. SKIN: Warm, dry, normal turgor, no rashes or lesions noted Laboratory Results - last 24 hr 10/14/18 10/16/18 05:25 06:30 Sodium 137 Potassium 4.0 Chloride 104 Carbon Dioxide 27 Anion Gap 6 L BUN 10.6 Creatinine 0.7 Est GFR (CKD-EPI)AfAm 123.13 Est GFR (CKD-EPI)NonAf 106.24 Random Glucose 111 H Calcium 8.8 Hep A IgM Ab Confirm Negative Hepatitis A Ab Total Positive H Hep Bs Antigen Negative Hep Bs Antibody Non reactive Hep B Core Total Ab Negative Active Medications Generic Name Dose Route Start Last Admin Trade Name Freq PRN Reason Stop Dose Admin Albuterol Sulfate 2 puff 10/14/18 19:21 10/16/18 13:51 Ventolin Hfa Inhaler - IH 2 puff Q4H PRN Administration ASTHMA Aspirin 81 mg 10/15/18 10:00 10/16/18 10:20 Ecotrin - PO 81 mg DAILY [facility] Administration Buprenorphine/Naloxone 2 each 10/15/18 10:10/16/18 10:22 Suboxone 8mg/2mg Sl Film - SL 2 each DAILY [facility] Administration Bupropion HCl 75 mg 10/15/18 10:00 10/16/18 10:19 Wellbutrin - PO 75 mg DAILY [facility] Administration Docusate Sodium 100 mg 10/14/18 22:00 10/16/18 10:19 Colace - PO 100 mg BID [facility] Administration Enoxaparin Sodium 40 mg 10/15/18 10:00 10/16/18 10:20 Lovenox - SQ 40 mg DAILY [facility] Administration Folic Acid 1 mg 10/15/18 10:00 10/16/18 10:20 Folic Acid - PO 1 mg DAILY [facility] Administration Gabapentin 600 mg 10/14/18 22:00 10/16/18 13:45 Neurontin - PO 600 mg TID [facility] Administration Lidocaine 2 patch 10/15/18 10:00 10/16/18 10:21 Lidoderm Patch - TP 2 patch DAILY [facility] Administration Melatonin 3 mg 10/14/18 22:00 10/15/18 21:58 Melatonin PO 3 mg HS [facility] Administration Miscellaneous 2 each 10/14/18 22:00 10/15/18 21:58 Lidoderm Patch Removal MC 2 each DAILY@2200 [facility] Administration Mometasone Furoate 1 puff 10/14/18 22:00 10/16/18 10:22 Asmanex 110mcg - IH 1 puff BID [facility] Administration Nicotine 7 mg 10/15/18 10:00 10/16/18 10:19 Nicoderm Patch - TD 7 mg DAILY [facility] Administration Pantoprazole Sodium 40 mg 10/15/18 10:00 10/16/18 10:19 Protonix - PO 40 mg DAILY [facility] Administration Thiamine HCl 200 mg 10/15/18 10:00 10/16/18 10:23 Vitamin B1 Injection - IVPB 200 mg DAILY [facility] Administration ASSESSMENT/PLAN: 53 year old male alcohol/heroin/nicotine dependence presented from [facility] after he fall down from bed was found to have hyponatremia 121 admitted to ICU for further evaluation. # Acute hypovolemic Hyponatremia * NA 120 on early admission, today 137 10/16/2018 * -DC HCTZ, Renal on board---> urine sodium low which is consistent with prerenal disease #TOO , resolved with IV hydration , BUN /Cr today 10.6/0.7 10/16/2018 # Transaminities AST > ALT ~ 2:1 145/74 AST/ALT respectively 10/15/2018 * CT A/P with fatty liver * encourage weight loss * alcohol cessation # Depression/Anxiety /mood disorder * Psych on board---> started pt on Wellbutrin 75 daily for depression * Melatonin for insomnia * DC zoloft # alcohol dependence/withdrawal * gallon of Vodka last use 3 days before admission * still shaking and nystagmus * Librium protocol * ciwa protocol * thiamine and folic acid and multivitamins # FEN * off fluids * Monitor lytes * Regular diet # Proph * GI: PPI 40 IV daily * DVTS: SCDS, Lovenox 40 sq daily # Dispo Transfer to [facility] in a/m Visit type - Emergency Visit Emergency Visit: Yes ED Registration Date: 10/13/18 Care time: The patient presented to the Emergency Department on the above date and was hospitalized for further evaluation of their emergent condition. - New Patient This patient is new to me today: No - Critical Care Critical Care patient: No - Discharge Referral Referred to [facility] No
--- NOTE | 2018-10-16 16:59 | PN ---
Teaching Attending Note Name of Resident: Domo Collazo ATTENDING PHYSICIAN STATEMENT I saw and evaluated the patient. I reviewed the resident's note and discussed the case with the resident. I agree with the resident's findings and plan as documented. SUBJECTIVE: Patient is comfortable with no acute distress. OBJECTIVE: Vital Signs Temperature 97.6 F 10/16/18 14:00 Pulse Rate 89 10/16/18 14:00 Respiratory Rate 18 10/16/18 14:00 Blood Pressure 138/84 10/16/18 14:00 O2 Sat by Pulse Oximetry (%) 100 10/16/18 13:07 CBCD WBC 7.6 K/mm3 (4.0-10.0) 10/15/18 06:59 RBC 3.18 M/mm3 (4.00-5.60) L 10/15/18 06:59 Hgb 11.0 GM/dL (11.7-16.9) L 10/15/18 06:59 Hct 31.3 % (35.4-49) L 10/15/18 06:59 MCV 98.6 fl (80-96) H 10/15/18 06:59 MCHC 35.0 g/dl (32.0-35.9) 10/15/18 06:59 RDW 13.6 % (11.9-15.9) 10/15/18 06:59 Plt Count 244 K/MM3 (134-434) D 10/15/18 06:59 MPV 9.0 fl (7.5-11.1) 10/15/18 06:59 GENERAL: The patient is awake, alert, and oriented, in no acute distress. HEAD: Normal with no signs of trauma. EYES: PERRL, extraocular movements intact, sclera anicteric, conjunctiva clear. ENT: Ears normal, oropharynx clear without exudates, moist mucous membranes. NECK: Trachea midline, full range of motion, supple. LUNGS: Breath sounds equal, clear to auscultation bilaterally, no wheezes, no crackles, no accessory muscle use. HEART: Regular rate and rhythm, S1, S2 positive, No murmur, rub or gallop. ABDOMEN: Soft, NT, large abdomen , normoactive bowel sounds, no guarding, no rebound, no hepatosplenomegaly, no masses. EXTREMITIES: 2+ pulses, warm, well-perfused, NEUROLOGICAL: Cranial nerves II through XII grossly intact. Normal speech, b/l tremor of upper extremity. PSYCH: Normal mood, normal affect. SKIN: Warm, dry, normal turgor, no rashes or lesions noted CMP Sodium 137 mmol/L (136-145) 10/16/18 06:30 Potassium 4.0 mmol/L (3.5-5.1) 10/16/18 06:30 Chloride 104 mmol/L (98-107) 10/16/18 06:30 Carbon Dioxide 27 mmol/L (21-32) 10/16/18 06:30 Anion Gap 6 MMOL/L (8-16) L 10/16/18 06:30 BUN 10.6 mg/dL (7-18) 10/16/18 06:30 Creatinine 0.7 mg/dL (0.55-1.3) 10/16/18 06:30 Random Glucose 111 mg/dL (74-106) H 10/16/18 06:30 Calcium 8.8 mg/dL (8.5-10.1) 10/16/18 06:30 Total Bilirubin 0.7 mg/dL (0.2-1) 10/15/18 06:59 AST 145 U/L (15-37) H 10/15/18 06:59 ALT 74 U/L (13-61) H 10/15/18 06:59 Alkaline Phosphatase 119 U/L (45-117) H 10/15/18 06:59 Total Protein 5.9 g/dl (6.4-8.2) L 10/15/18 06:59 Albumin 3.0 g/dl (3.4-5.0) L 10/15/18 06:59 Current Medications Generic Name Dose Route Start Last Admin Trade Name Freq PRN Reason Stop Dose Admin Albuterol Sulfate 2 puff 10/14/18 19:21 10/16/18 13:51 Ventolin Hfa Inhaler - IH 2 puff Q4H PRN Administration ASTHMA Aspirin 81 mg 10/15/18 10:00 10/16/18 10:20 Ecotrin - PO 81 mg DAILY [facility] Administration Buprenorphine/Naloxone 2 each 10/15/18 10:00 10/16/18 10:22 Suboxone 8mg/2mg Sl Film - SL 2 each DAILY [facility] Administration Bupropion HCl 75 mg 10/15/18 10:00 10/16/18 10:19 Wellbutrin - PO 75 mg DAILY [facility] Administration Docusate Sodium 100 mg 10/14/18 22:00 10/16/18 10:19 Colace - PO 100 mg BID [facility] Administration Enoxaparin Sodium 40 mg 10/15/18 10:00 10/16/18 10:20 Lovenox - SQ 40 mg DAILY [facility] Administration Folic Acid 1 mg 10/15/18 10:00 10/16/18 10:20 Folic Acid - PO 1 mg DAILY [facility] Administration Gabapentin 600 mg 10/14/18 22:00 10/16/18 13:45 Neurontin - PO 600 mg TID [facility] Administration Lidocaine 2 patch 10/15/18 10:00 10/16/18 10:21 Lidoderm Patch - TP 2 patch DAILY [facility] Administration Melatonin 3 mg 10/14/18 22:00 10/15/18 21:58 Melatonin PO 3 mg HS [facility] Administration Miscellaneous 2 each 10/14/18 22:00 10/15/18 21:58 Lidoderm Patch Removal MC 2 each DAILY@2200 [facility] Administration Mometasone Furoate 1 puff 10/14/18 22:00 10/16/18 10:22 Asmanex 110mcg - IH 1 puff BID [facility] Administration Nicotine 7 mg 10/15/18 10:00 10/16/18 10:19 Nicoderm Patch - TD 7 mg DAILY [facility] Administration Pantoprazole Sodium 40 mg 10/15/18 10:00 10/16/18 10:19 Protonix - PO 40 mg DAILY [facility] Administration Thiamine HCl 200 mg 10/15/18 10:00 10/16/18 10:23 Vitamin B1 Injection - IVPB 200 mg DAILY [facility] Administration Home Medications Medication Instructions Recorded Albuterol Sulfate Inhaler - 2 inh PO Q4H PRN 06/19/18 [Ventolin HFA Inhaler -] Aspirin [ASA -] 81 mg PO DAILY 06/19/18 Buprenorphine/Naloxone [Suboxone 2 each SL DAILY 06/19/18 8Mg/2Mg Sl Film -] Docusate Sodium [Dok] 100 mg PO BID 06/19/18 Folic Acid - 1 mg PO DAILY 06/19/18 Gabapentin [Neurontin] 600 mg PO TID 06/19/18 Ibuprofen 800 mg PO BID 06/19/18 Lisinopril 20 mg PO DAILY 06/19/18 Tamsulosin HCl [Flomax -] 0.4 mg PO DAILY 06/19/18 Pantoprazole Sodium [Protonix -] 40 mg PO DAILY 06/28/18 Mirtazapine [Remeron -] 7.5 mg PO HS 10/10/18 Buspirone HCl [Buspar -] 10 mg PO BID #60 tablet 10/11/18 Sertraline HCl [Zoloft] 100 mg PO DAILY #30 tablet 10/11/18 Nicotine [Nicotine Patch 14mg/24 1 patch TP DAILY 10/13/18 hr] ASSESSMENT AND PLAN: Patient is a 53 year old male with PMHx of alcohol/heroin/nicotine dependency, Asthma , HTN , Seizure from alcoholic withdrawal, GERD, Depression /Anxiety , BPH, Back pain , Meniscal tear B/L ,insomnia , mood disorder presented from [facility] after he fell down from his bed and was send to ED. for evaluation and was found to have hyponatremia of 121 and Acute renal injury , admitted to ICU for further evaluation. As per patient, he drinks around a gallon per day of Vodka, since has a chronic back and knee pain. # Acute hyponatremia improving is 134-->137 today s/p fall , s/p 3% saline most likely due to alcohol intoxication, hold zoloft , discontinued Hctz since can cause low sodium, sodium improving. on s/p d5w overnight to decrease rate of fast correction of sodium. renal function is improving, check renal ultrasound # ARF improving ; 2.6-->1.6-->0.6 NOW , continue flomax with hx of BPH . # Alcohol intoxication with withdrawel hx of seizure; drinks a gallon of Vodka per day , librium protocol to continue , continue current care. # CT of chest no acute pathology ; s/p zithromax and rocephin waiting for detox rehab
[2018-10-16] MEDS ORDERED: PT OWN MED DRAWER 7, Y5N ONE (21:41)
[2018-10-16] MEDS: MELATONIN 1 MG TABLET PO SCH (21:47)
[2018-10-16] MEDS: LIDOCAINE PATCH REMOVAL MC SCH (21:48)
[2018-10-17] MEDS: GABAPENTIN 300 MG CAPSULE (FP) PO SCH ×2 (05:22→14:12)
[2018-10-17 07:59] LABS: BILIRUBIN,TOTAL 0.6 mg/dL (0.2-1); BLOOD UREA NITROGEN 7.7 mg/dL (7-18); CALCIUM 9.3 mg/dL (8.5-10.1); CREATININE 0.6 mg/dL (0.55-1.3); MAGNESIUM 1.5 mg/dL (1.8-2.4); PHOSPHOROUS 4.4 mg/dL (2.5-4.9); POTASSIUM 5.1 mmol/L (3.5-5.1); TOT PROT 6.1 g/dl (6.4-8.2)
[2018-10-17 08:37] LABS: HEMATOCRIT 32.8 % (35.4-49); HEMOGLOBIN 11.5 GM/dL (11.7-16.9); MCHC 34.9 g/dl (32.0-35.9); MEAN CELL VOLUME 100.3 fl (80-96); RBC 3.27 M/mm3 (4.00-5.60); WHITE BLOOD COUNT 6.7 K/mm3 (4.0-10.0)
[2018-10-17 08:38] LABS: MEAN PLT VOLUME 8.8 fl (7.5-11.1); PLATELET COUNT 302 K/MM3 (134-434); RDW 13.1 % (11.9-15.9)
[2018-10-17] MEDS ORDERED: CELECOXIB 200 MG CAPSULE PO ONE (09:15)
[2018-10-17] MEDS ORDERED: FUROSEMIDE 40 MG/4 ML INJECTABLE VIAL IVPUSH ONE (09:15)
[2018-10-17] MEDS ORDERED: MAGNESIUM SULF 50% (8.12 MEQ/2 ML-1 GM VIAL) IVPB ONE (09:15)
[2018-10-17] MEDS: PANTOPRAZOLE 40 MG TABLET (FP) PO SCH (10:09)
[2018-10-17] MEDS: buPROPion HCL 75 MG TABLET PO SCH (10:09)
[2018-10-17] MEDS: NICOTINE 7 MG/24 HOURS TOPICAL PATCH TD SCH (10:09)
[2018-10-17] MEDS: FOLIC ACID 1 MG TABLET (FP) PO SCH (10:09)
[2018-10-17] MEDS: ASPIRIN COATED 81 MG TABLET.EC PO SCH (10:09)
[2018-10-17] MEDS: DOCUSATE SODIUM 100 MG CAPSULE (FP) PO SCH (10:09)
[2018-10-17] MEDS: ENOXAPARIN NA (PORCINE) 40 MG/0.4 ML DISP.SYRIN SQ SCH (10:10)
[2018-10-17] MEDS: THIAMINE HCL 200 MG/2 ML VIAL IVPB SCH (10:11)
[2018-10-17] MEDS: MOMETASONE FUROATE 110 MCG/IH INHALER IH SCH (10:12)
[2018-10-17] MEDS: LIDOCAINE 5% TOPICAL PATCH TP SCH (10:17)
[2018-10-17] MEDS: BUPRENORPHINE/NALOXONE 8 MG/2 MG FILM PACKET SL SCH (10:21)
--- NOTE | 2018-10-17 13:55 | PN ---
Teaching Attending Note Name of Resident: Domo Collazo ATTENDING PHYSICIAN STATEMENT I saw and evaluated the patient. I reviewed the resident's note and discussed the case with the resident. I agree with the resident's findings and plan as documented. SUBJECTIVE: Patient is doing well, coherent , no further tremors. OBJECTIVE: Vital Signs Temperature 97.9 F 10/17/18 12:28 Pulse Rate 93 H 10/17/18 12:28 Respiratory Rate 20 10/17/18 12:28 Blood Pressure 142/75 10/17/18 12:28 O2 Sat by Pulse Oximetry (%) 97 10/17/18 12:28 GENERAL: The patient is awake, alert, and oriented, in no acute distress. HEAD: Normal with no signs of trauma. EYES: PERRL, extraocular movements intact, sclera anicteric, conjunctiva clear. ENT: Ears normal, oropharynx clear without exudates, moist mucous membranes. NECK: Trachea midline, full range of motion, supple. LUNGS: Breath sounds equal, clear to auscultation bilaterally, no wheezes, no crackles, no accessory muscle use. HEART: Regular rate and rhythm, S1, S2 positive, No murmur, rub or gallop. ABDOMEN: Soft, NT, large abdomen , normoactive bowel sounds, no guarding, no rebound. EXTREMITIES: 2+ pulses, warm, well-perfused, NEUROLOGICAL: Cranial nerves II through XII grossly intact. Normal speech, no tremor . PSYCH: Normal mood, normal affect. SKIN: Warm, dry, normal turgor, no rashes or lesions noted CBCD WBC 6.7 K/mm3 (4.0-10.0) 10/17/18 06:50 RBC 3.27 M/mm3 (4.00-5.60) L 10/17/18 06:50 Hgb 11.5 GM/dL (11.7-16.9) L 10/17/18 06:50 Hct 32.8 % (35.4-49) L 10/17/18 06:50 MCV 100.3 fl (80-96) H 10/17/18 06:50 MCHC 34.9 g/dl (32.0-35.9) 10/17/18 06:50 RDW 13.1 % (11.9-15.9) 10/17/18 06:50 Plt Count 302 K/MM3 (134-434) D 10/17/18 06:50 MPV 8.8 fl (7.5-11.1) 10/17/18 06:50 CMP Sodium 138 mmol/L (136-145) 10/17/18 06:50 Potassium 5.1 mmol/L (3.5-5.1) 10/17/18 06:50 Chloride 100 mmol/L (98-107) 10/17/18 06:50 Carbon Dioxide 31 mmol/L (21-32) 10/17/18 06:50 Anion Gap 6 MMOL/L (8-16) L 10/17/18 06:50 BUN 7.7 mg/dL (7-18) 10/17/18 06:50 Creatinine 0.6 mg/dL (0.55-1.3) 10/17/18 06:50 Random Glucose 89 mg/dL (74-106) 10/17/18 06:50 Calcium 9.3 mg/dL (8.5-10.1) 10/17/18 06:50 Total Bilirubin 0.6 mg/dL (0.2-1) 10/17/18 06:50 AST 118 U/L (15-37) H 10/17/18 06:50 ALT 73 U/L (13-61) H 10/17/18 06:50 Alkaline Phosphatase 116 U/L (45-117) 10/17/18 06:50 Total Protein 6.1 g/dl (6.4-8.2) L 10/17/18 06:50 Albumin 3.0 g/dl (3.4-5.0) L 10/17/18 06:50 Current Medications Generic Name Dose Route Start Last Admin Trade Name Freq PRN Reason Stop Dose Admin Albuterol Sulfate 2 puff 10/14/18 19:21 10/16/18 13:51 Ventolin Hfa Inhaler - IH 2 puff Q4H PRN Administration ASTHMA Aspirin 81 mg 10/15/18 10:00 10/17/18 10:09 Ecotrin - PO 81 mg DAILY LEFTY Administration Buprenorphine/Naloxone 2 each 10/15/18 10:00 10/17/18 10:21 Suboxone 8mg/2mg Sl Film - SL 2 each DAILY LEFTY Administration Bupropion HCl 75 mg 10/15/18 10:00 10/17/18 10:09 Wellbutrin - PO 75 mg DAILY LEFTY Administration Docusate Sodium 100 mg 10/14/18 22:00 10/17/18 10:09 Colace - PO 100 mg BID LEFTY Administration Enoxaparin Sodium 40 mg 10/15/18 10:00 10/17/18 10:10 Lovenox - SQ 40 mg DAILY LEFTY Administration Folic Acid 1 mg 10/15/18 10:00 10/17/18 10:09 Folic Acid - PO 1 mg DAILY LEFTY Administration Gabapentin 600 mg 10/14/18 22:00 10/17/18 05:22 Neurontin - PO 600 mg TID LEFTY Administration Lidocaine 2 patch 10/15/18 10:00 10/17/18 10:17 Lidoderm Patch - TP 2 patch DAILY LEFTY Administration Melatonin 3 mg 10/14/18 22:00 10/16/18 21:47 Melatonin PO 3 mg HS LEFTY Administration Miscellaneous 2 each 10/14/18 22:00 10/16/18 21:48 Lidoderm Patch Removal MC 2 each DAILY@2200 LEFTY Administration Mometasone Furoate 1 puff 10/14/18 22:00 10/17/18 10:12 Asmanex 110mcg - IH 1 puff BID LEFTY Administration Nicotine 7 mg 10/15/18 10:00 10/17/18 10:09 Nicoderm Patch - TD 7 mg DAILY LEFTY Administration Pantoprazole Sodium 40 mg 10/15/18 10:00 10/17/18 10:09 Protonix - PO 40 mg DAILY LEFTY Administration Thiamine HCl 200 mg 10/15/18 10:00 10/17/18 10:11 Vitamin B1 Injection - IVPB 200 mg DAILY LEFTY Administration Home Medications Medication Instructions Recorded RX: Albuterol Sulfate Inhaler - 2 inh PO Q4H PRN 06/19/18 [Ventolin HFA Inhaler -] RX: Aspirin [ASA -] 81 mg PO DAILY 06/19/18 RX: Buprenorphine/Naloxone 2 each SL DAILY 06/19/18 [Suboxone 8Mg/2Mg Sl Film -] RX: Docusate Sodium [Dok] 100 mg PO BID 06/19/18 RX: Folic Acid - 1 mg PO DAILY 06/19/18 RX: Gabapentin [Neurontin] 600 mg PO TID 06/19/18 RX: Ibuprofen 800 mg PO BID 06/19/18 RX: Lisinopril 20 mg PO DAILY 06/19/18 RX: Tamsulosin HCl [Flomax -] 0.4 mg PO DAILY 06/19/18 RX: Pantoprazole Sodium [Protonix 40 mg PO DAILY 06/28/18 -] RX: Nicotine [Nicotine Patch 1 patch TP DAILY 10/13/18 14mg/24 hr] RX: Bupropion HCl [Wellbutrin -] 75 mg PO DAILY tablet 10/17/18 RX: Chlordiazepoxide [Librium -] 10 mg PO Q12H PRN capsule MDD 10 10/17/18 RX: Chlordiazepoxide [Librium -] 10 mg PO Q8H capsule MDD 10 mg 10/17/18 RX: Mometasone Furoate [Asmanex 1 puff IH BID inhaler 10/17/18 110Mcg -] ASSESSMENT AND PLAN: Patient is a 53 year old male with PMHx of alcohol/heroin/nicotine dependency, Asthma , HTN , Seizure from alcoholic withdrawal, GERD, Depression /Anxiety , BPH, Back pain , Meniscal tear B/L ,insomnia , mood disorder presented from [facility] after he fell down from his bed and was send to ED. for evaluation and was found to have hyponatremia of 121 and Acute renal injury , admitted to ICU for further evaluation. As per patient, he drinks around a gallon per day of Vodka, since has a chronic back and knee pain. # Acute hyponatremia improving is 134-->137-->138 today s/p fall , s/p 3% saline most likely due to alcohol intoxication, hold zoloft , discontinued Hctz since can cause low sodium, sodium improving. on s/p d5w overnight to decrease rate of fast correction of sodium. renal function is improving, check renal ultrasound # ARF improving ; 2.6-->1.6-->0.6 s/p IVF , continue flomax with hx of BPH . # Alcohol intoxication with withdrawel , no further withdrawel with hx of seizure; drinks a gallon of Vodka per day , librium protocol completed . # CT of chest no acute pathology ; s/p zithromax and rocephin # LE swelling , will place the patient on Lasix 40mg x 1 week. NO hctz since will affect the sodium. waiting for detox rehab
--- NOTE | 2018-10-17 14:16 | DS ---
Physical Exam: SUBJECTIVE: Patient seen and examined at bedside. No acute events overnight. OBJECTIVE: Vital Signs Period Temp Pulse Resp BP Sys/Vega Pulse Ox Last 24 Hr 97.9 F-98.9 F 76-95 16-20 118-142/75-82 97-99 PHYSICAL EXAM GENERAL: No acute distress, sitting in chair at bedside HEAD: AT/NC EYES: EOMI Sclera Clear. ENT: MMM NECK: Trachea midline, full range of motion, supple. LUNGS: CTAB HEART: RRR S1S2 ABDOMEN: NDNT EXTREMITIES: 2+ bilateral pitting edema observed. PSYCH: Normal mood, normal affect. SKIN: Warm, dry, normal turgor, no rashes or lesions noted LABS Laboratory Results - last 24 hr 10/17/18 10/17/18 06:50 06:50 WBC 6.7 RBC 3.27 L Hgb 11.5 L Hct 32.8 L MCV 100.3 H MCH 35.0 H MCHC 34.9 RDW 13.1 Plt Count 302 D MPV 8.8 Sodium 138 Potassium 5.1 Chloride 100 Carbon Dioxide 31 Anion Gap 6 L BUN 7.7 Creatinine 0.6 Est GFR (CKD-EPI)AfAm 131.19 Est GFR (CKD-EPI)NonAf 113.19 Random Glucose 89 Calcium 9.3 Phosphorus 4.4 Magnesium 1.5 L Total Bilirubin 0.6 AST 118 H ALT 73 H Alkaline Phosphatase 116 Total Protein 6.1 L Albumin 3.0 L HOSPITAL COURSE: Date of Admission:10/13/18 Pt is a 53 year old male with a pmh of alcohol/heroin/nicotine dependence who presented to [facility] from [facility] s/p fall from bed. CT head revealed no acute intracranial hemorrhage, or pathology. Pt was found to have hyponatremia at 121 and admitted to ICU for further evaluation. Pt's psychiatric medications Zoloft , Seroquel, and Buspar were Dc'ed per psych as these medications could sometimes result in hyponatremia. Pt's HCTZ was also DC'ed. Urine sodium was low which was consistent with prerenal disease. Pt was placed on NS, switched to D5 and then finally placed on 1/2 NS to slow the rate of correction. Bun/Cr were 42/2.8 initially, ultimately return to normal range. Renal Ultrasound was unremarkable. Bun/Cr ultimately came down to 7.7/0.6 with IVF. Pt also had an elevated WBC at 16k and was placed on Ceftriaxone and Azithromycin empirically. Pt was also treated with Lasix as he developed lower extremity edema during his stay. Furthermore, pt was continued on Librium protocol during his stay. Pt was transferred back to [facility] to complete the remainder of his detox. Date of Discharge: 10/17/18 Minutes to complete discharge: 35 Discharge Summary Reason For Visit: ACUTE KIDNEY INJURY,LEUKOCYTOSIS,HYPOTENSION Current Active Problems TOO (acute kidney injury) (Acute) TOO (acute kidney injury) (Acute) Hyponatremia (Acute) Hypotension (Acute) Leukocytosis (Acute) Condition: Improved - Instructions Diet, Activity, Other Instructions: You presented to the hospital due to a fall . You were found to have a severely low sodium level which has been treated. During your stay, your medications have been changed by the psychiatrist. You have been taken off Zoloft,, Buspar, Mirtazapine and Seroqel. Discontinued since affects the level of sodium. PLEASE DO NOT TAKE HYDROCHLOTHIAZIDE since can lower your sodium level You have been started on Wellbutrin 75 mg daily. We are also giving you 40mg of oral furosemide daily x 1 week, please follow with your physician primary care sports medicine for further w/u. Please continue all of your other home medications as prescribed. Please return to the emergency department immediately if you begin to experience chest pain, shortness of breath, or any other abnormal symptoms. Referrals: Noni Wong DO [Staff Physician] - Disposition: NURSING HOME FACILITY - Home Medications Comprehensive Discharge Medication List: Ambulatory Orders Albuterol Sulfate Inhaler - [Ventolin HFA Inhaler -] 2 inh PO Q4H PRN 06/19/18 Aspirin [ASA -] 81 mg PO DAILY 06/19/18 Buprenorphine/Naloxone [Suboxone 8Mg/2Mg Sl Film -] 2 each SL DAILY 06/19/18 Docusate Sodium [Dok] 100 mg PO BID 06/19/18 Folic Acid - 1 mg PO DAILY 06/19/18 Gabapentin [Neurontin] 600 mg PO TID 06/19/18 Ibuprofen 800 mg PO BID 06/19/18 Lisinopril 20 mg PO DAILY 06/19/18 Tamsulosin HCl [Flomax -] 0.4 mg PO DAILY 06/19/18 Pantoprazole Sodium [Protonix -] 40 mg PO DAILY 06/28/18 Nicotine [Nicotine Patch 14mg/24 hr] 1 patch TP DAILY 10/13/18 Bupropion HCl [Wellbutrin -] 75 mg PO DAILY tablet 10/17/18 Chlordiazepoxide [Librium -] 10 mg PO Q12H PRN capsule MDD 10 10/17/18 Chlordiazepoxide [Librium -] 10 mg PO Q8H capsule MDD 10 mg 10/17/18 Mometasone Furoate [Asmanex 110Mcg -] 1 puff IH BID inhaler 10/17/18 This patient is new to me today: No Emergency Visit: Yes ED Registration Date: 10/13/18 Care time: The patient presented to the Emergency Department on the above date and was hospitalized for further evaluation of their emergent condition. Critical Care patient: No - Discharge Referral Referred to [facility] No
--- NOTE | 2018-10-17 14:39 | PN ---
Progress Note, Physician History of Present Illness: Pt seen and examined at bedside. He is awake and alert. He denies shortness of breath. He complains of lower ext edema. - Current Medication List Current Medications: Active Medications Albuterol Sulfate (Ventolin Hfa Inhaler -) 2 puff IH Q4H PRN PRN Reason: ASTHMA Last Admin: 10/16/18 13:51 Dose: 2 puff Aspirin (Ecotrin -) 81 mg PO DAILY [facility] Last Admin: 10/17/18 10:09 Dose: 81 mg Buprenorphine/Naloxone (Suboxone 8mg/2mg Sl Film -) 2 each SL DAILY [facility] Last Admin: 10/17/18 10:21 Dose: 2 each Bupropion HCl (Wellbutrin -) 75 mg PO DAILY [facility] Last Admin: 10/17/18 10:09 Dose: 75 mg Docusate Sodium (Colace -) 100 mg PO BID [facility] Last Admin: 10/17/18 10:09 Dose: 100 mg Enoxaparin Sodium (Lovenox -) 40 mg SQ DAILY [facility] Last Admin: 10/17/18 10:10 Dose: 40 mg Folic Acid (Folic Acid -) 1 mg PO DAILY [facility] Last Admin: 10/17/18 10:09 Dose: 1 mg Gabapentin (Neurontin -) 600 mg PO TID [facility] Last Admin: 10/17/18 14:12 Dose: 600 mg Lidocaine (Lidoderm Patch -) 2 patch TP DAILY [facility] Last Admin: 10/17/18 10:17 Dose: 2 patch Melatonin (Melatonin) 3 mg PO HS [facility] Last Admin: 10/16/18 21:47 Dose: 3 mg Miscellaneous (Lidoderm Patch Removal) 2 each MC DAILY@2200 [facility] Last Admin: 10/16/18 21:48 Dose: 2 each Mometasone Furoate (Asmanex 110mcg -) 1 puff IH BID [facility] Last Admin: 10/17/18 10:12 Dose: 1 puff Nicotine (Nicoderm Patch -) 7 mg TD DAILY [facility] Last Admin: 10/17/18 10:09 Dose: 7 mg Pantoprazole Sodium (Protonix -) 40 mg PO DAILY [facility] Last Admin: 10/17/18 10:09 Dose: 40 mg Thiamine HCl (Vitamin B1 Injection -) 200 mg IVPB DAILY [facility] Last Admin: 10/17/18 10:11 Dose: 200 mg - Objective Vital Signs: Vital Signs Temperature 97.9 F 10/17/18 12:28 Pulse Rate 93 H 10/17/18 12:28 Respiratory Rate 20 10/17/18 12:28 Blood Pressure 142/75 10/17/18 12:28 O2 Sat by Pulse Oximetry (%) 97 10/17/18 12:28 Constitutional: Yes: Calm Eyes: Yes: Conjunctiva Clear HENT: Yes: Atraumatic Neck: Yes: Supple Cardiovascular: Yes: S1, S2 Respiratory: Yes: CTA Bilaterally Gastrointestinal: Yes: WNL Genitourinary: Yes: WNL Musculoskeletal: Yes: WNL Edema: Yes Edema: LLE: 2+, RLE: 2+ Neurological: Yes: Oriented Psychiatric: Yes: Oriented Labs: CBC, BMP 10/17/18 06:50 10/17/18 06:50 INR, PTT INR 1.02 (0.83-1.09) 10/14/18 05:25 Problem List - Problems (1) TOO (acute kidney injury) Code(s): N17.9 - ACUTE KIDNEY FAILURE, UNSPECIFIED (2) TOO (acute kidney injury) Code(s): N17.9 - ACUTE KIDNEY FAILURE, UNSPECIFIED (3) Alcohol dependence with uncomplicated withdrawal Code(s): F10.230 - ALCOHOL DEPENDENCE WITH WITHDRAWAL, UNCOMPLICATED (4) Elevated liver enzymes Code(s): R74.8 - ABNORMAL LEVELS OF OTHER SERUM ENZYMES (5) Hyponatremia Code(s): E87.1 - HYPO-OSMOLALITY AND HYPONATREMIA (6) Cannabis dependence, uncomplicated Code(s): F12.20 - CANNABIS DEPENDENCE, UNCOMPLICATED (7) Depressive disorder Code(s): F32.9 - MAJOR DEPRESSIVE DISORDER, SINGLE EPISODE, UNSPECIFIED (8) Essential (primary) hypertension Code(s): I10 - ESSENTIAL (PRIMARY) HYPERTENSION (9) GERD (gastroesophageal reflux disease) Code(s): K21.9 - GASTRO-ESOPHAGEAL REFLUX DISEASE WITHOUT ESOPHAGITIS Assessment/Plan Current Medications Generic Name Dose Route Start Last Admin Trade Name Freq PRN Reason Stop Dose Admin Albuterol Sulfate 2 puff 10/14/18 19:21 10/16/18 13:51 Ventolin Hfa Inhaler - IH 2 puff Q4H PRN Administration ASTHMA Aspirin 81 mg 10/15/18 10:00 10/17/18 10:09 Ecotrin - PO 81 mg DAILY LET[facility] Administration Buprenorphine/Naloxone 2 each 10/15/18 10:00 10/17/18 10:21 Suboxone 8mg/2mg Sl Film - SL 2 each DAILY LEFTY Administration Bupropion HCl 75 mg 10/15/18 10:00 10/17/18 10:09 Wellbutrin - PO 75 mg DAILY LEFTY Administration Docusate Sodium 100 mg 10/14/18 22:00 10/17/18 10:09 Colace - PO 100 mg BID LEFTY Administration Enoxaparin Sodium 40 mg 10/15/18 10:00 10/17/18 10:10 Lovenox - SQ 40 mg DAILY LEFTY Administration Folic Acid 1 mg 10/15/18 10:00 10/17/18 10:09 Folic Acid - PO 1 mg DAILY LEFTY Administration Furosemide 40 mg 10/17/18 14:36 Lasix - PO 10/17/18 14:37 ONCE ONE Gabapentin 600 mg 10/14/18 22:00 10/17/18 14:12 Neurontin - PO 600 mg TID LEFTY Administration Lidocaine 2 patch 10/15/18 10:00 10/17/18 10:17 Lidoderm Patch - TP 2 patch DAILY LEFTY Administration Melatonin 3 mg 10/14/18 22:00 10/16/18 21:47 Melatonin PO 3 mg HS LEFTY Administration Miscellaneous 2 each 10/14/18 22:00 10/16/18 21:48 Lidoderm Patch Removal MC 2 each DAILY@2200 LEFTY Administration Mometasone Furoate 1 puff 10/14/18 22:00 10/17/18 10:12 Asmanex 110mcg - IH 1 puff BID LEFTY Administration Nicotine 7 mg 10/15/18 10:00 10/17/18 10:09 Nicoderm Patch - TD 7 mg DAILY LEFTY Administration Pantoprazole Sodium 40 mg 10/15/18 10:00 10/17/18 10:09 Protonix - PO 40 mg DAILY LEFTY Administration Thiamine HCl 200 mg 10/15/18 10:00 10/17/18 10:11 Vitamin B1 Injection - IVPB 200 mg DAILY LEFTY Administration Impression 1. TOO 2. hyponatremia 3. etoh abuse 4. s/p fall 5. depression 6. htn Plan - will give another dose of lasix - will likely needs a few more days of lasix - monitor sodium levels - avoid thiazides - renal function is stable
[2018-10-17] MEDS ORDERED: FUROSEMIDE 40 MG TABLET (FP) PO ONE (15:00)
[2018-10-17 16:38] VITALS: BP 128/82; PULSE 88; TEMP 98
== END 2018-10-17 16:42 | DRG 469 ==
LOC: JER 05:53 → JERBED 07:58 → JICU 09:11 → J6S 10-14 18:15
PROVIDERS: ADMIT Internal Medicine; ATTEND Internal Medicine
DX: N17.9 Acute kidney failure, unspecified (principal); E87.1 Hypo-osmolality and hyponatremia; S01.111A Laceration without foreign body of right eyelid and periocular area, initial encounter; S01.81XA Laceration without foreign body of other part of head, initial encounter; F12.20 Cannabis dependence, uncomplicated; F10.230 Alcohol dependence with withdrawal, uncomplicated; D64.9 Anemia, unspecified; K76.0 Fatty (change of) liver, not elsewhere classified; J45.909 Unspecified asthma, uncomplicated; I10 Essential (primary) hypertension; D72.829 Elevated white blood cell count, unspecified; K21.9 Gastro-esophageal reflux disease without esophagitis; J98.11 Atelectasis; F41.8 Other specified anxiety disorders; F17.210 Nicotine dependence, cigarettes, uncomplicated; E86.1 Hypovolemia; N40.0 Benign prostatic hyperplasia without lower urinary tract symptoms; M54.9 Dorsalgia, unspecified; G47.00 Insomnia, unspecified; F39 Unspecified mood [affective] disorder; M25.569 Pain in unspecified knee; E86.0 Dehydration; R74.8 Abnormal levels of other serum enzymes; W06.XXXA Fall from bed, initial encounter; Y92.238 Other place in hospital as the place of occurrence of the external cause
CPT/HCPCS: 36415; 70360-TC-FY; 70450-TC; 71045-TC-FY; 71250-TC; 72040-TC; 74176-TC; 76775-TC; 80048; 80053; 80307; 81003; 82150; 82565; 82607; 82728; 82746; 83540; 83550; 83605; 83690; 83735; 83930; 83935; 84100; 84156; 84295; 84300; 84540; 85025; 85027; 85610; 86704; 86706; 86708; 86803; 87040; 87070; 87086; 87205; 87340; 87389; 87899; 90732; 93005; 93010; 93306-TC; 99283-25; G0009; J7030

== ENCOUNTER 2019-11-07 19:23 | Inpatient (IN) | payer OTHER ==
[2019-11-07] MEDS ORDERED: guaiFENesin 200 MG/10 ML 10 ML UNIT-DOSE CUPS PO PRN (21:46)
[2019-11-07] MEDS ORDERED: MAGNESIUM CITRATE 300 ML BOTTLE PO PRN (21:46)
[2019-11-07] MEDS ORDERED: ACETAMINOPHEN 325 MG TABLET (FP) PO PRN (21:46)
[2019-11-07] MEDS ORDERED: P-EPHED 60MG/TRIPROLIDI 2.5MG TABLET PO PRN (21:46)
[2019-11-07] MEDS ORDERED: MAG HYDROX/AL HYDROX/SIMETH 30 ML UNIT-DOSE CUP PO PRN (21:46)
[2019-11-07] MEDS ORDERED: IBUPROFEN 400 MG TABLET (FP) PO PRN (21:46)
[2019-11-07] MEDS ORDERED: LOPERAMIDE HCL 2 MG CAPSULE PO PRN (21:46)
--- NOTE | 2019-11-07 21:57 | HP ---
CIWA Score - Admission Criteria [facility] Guidelines: Admission for Medically Managed Detox: Requires at least one of the followin. CIWA greater than 12 2. Seizures within the past 24 hours 3. Delirium tremens within the past 24 hours 4. Hallucinations within the past 24 hours 5. Acute intervention needed for co occurring medical disorder 6. Acute intervention needed for co occurring psychiatric disorder 7. Severe withdrawal that cannot be handled at a lower level of care (continued vomiting, continued diarrhea, abnormal vital signs) requiring intravenous medication and/or fluids 8. Admitting History and Physical - Past Medical History Cardiovascular: Yes: HTN Pulmonary: Yes: Asthma Psych: Yes: Depression - Past Surgical History Past Surgical History: Yes: Hernia Repair (left inguinalhernia repair) - Smoking History Smoking history: Current every day smoker Have you smoked in the past 12 months: No Aproximately how many cigarettes per day: 4 - Alcohol/Substance Use Hx Alcohol Use: Yes - Social History ADL: Independent Occupation: unemployed Admission ROS S - HPI Chief Complaint: REHAB FOR ALCOHOL AND CANNABIS Allergies/Adverse Reactions: Allergies Allergy/AdvReac Type Severity Reaction Status Date / Time No Known Allergies Allergy Verified 09/25/19 14:08 History of Present Illness: HERE FOR ALCOHOL ,CANNABIS REHAB. CLIENT IS A TRANSFER FROM [facility] AFTER BEING HOSPITALIZED FROM 10/24/19 TO 11/07/19 C.P., SOB, DEPRESSION, ETOH WOTHDRAWAL SX'S. COVID TEST ON 10/24/19 NEGATIVE. SEE SCANNED DOCUMENT. CLIENT IS KNOWN TO THIS PROGRAM. LAST HERE 6 WEEKS AGO. REPORTS RELAPSE 10/11/2019 AFTER HIS FRO M COVID. DRINKING DAILY, + EYE COOKING SHOW HOST. REPORTS HX/O WITHDRAWAL SEIZURES. LAST BEING 05/02/2019. DENIES BLACKOUTS. DENIES ANY SIGNIFICANT PERIOD OF CLEAN TIME IN THE PAST 12 MONTHS EXCEPT WHEN IN TXMENT. LIVES ALONE, UNEMPLOYED, DENIES LEGALS. Exam Limitations: Physical Impairment ([place]BUALTES WITH CANE) - Ebola screening Have you traveled outside of the country in the last 21 days: No Have you had contact with anyone from an Ebola affected area: No Have you been sick,other than usual withdrawal symptoms: No Do you have a fever: No - Review of Systems Constitutional: No Symptoms Reported EENT: reports: Hearing Loss (LEFT EAR), Dental Problems (MISSING TEETH) Respiratory: reports: Shortness of Breath (INTERMITTENT 2/2 HX/O ASTHMA) Cardiac: reports: No Symptoms Reported GI: reports: No Symptoms Reported, Other (GERD) : reports: Other (HESITANCY) Musculoskeletal: reports: Other ([place]ALTES W/ CANE) Integumentary: reports: Other (R HAND REDNESS TO IV INSERTION SITE.) Neuro: reports: Seizure (LAST 05/2019), Unsteady Gait Endocrine: reports: No Symptoms Reported Hematology: reports: No Symptoms Reported Psychiatric: reports: Orientated x3 Other Systems: Reviewed and Negative Patient History - Patient Medical History Hx Anemia: No Hx Asthma: Yes (ON PUMPS) Hx Chronic Obstructive Pulmonary Disease (COPD): No Hx Cancer: No Hx Cardiac Disorders: No Hx Congestive Heart Failure: No Hx Hypertension: Yes (ON MEDS) Hx Hypercholesterolemia: No Hx Pacemaker: No HX Cerebrovascular Accident: No Hx Seizures: Yes (05/2019) Hx Dementia: No Hx Diabetes: No Hx Gastrointestinal Disorders: Yes (CHRONIC ACID REFLUX) Hx Liver Disease: No Hx Genitourinary Disorders: No Hx Sexually Transmitted Disorders: Yes (SYPHILLIS) Hx Renal Disease (ESRD): No Hx Thyroid Disease: No Hx Human Immunodeficiency Virus (HIV): No Hx Hepatitis C: No Hx Depression: Yes Hx Suicide Attempt: No Hx Bipolar Disorder: No Hx Schizophrenia: No - Patient Surgical History Past Surgical History: Yes Hx Neurologic Surgery: No Hx Cataract Extraction: No Hx Cardiac Surgery: No Hx Lung Surgery: No Hx Breast Surgery: No Hx Breast Biopsy: No Hx Abdominal Surgery: Yes (HERNIAL REPAIR) Hx Appendectomy: No Hx Cholecystectomy: No Hx Genitourinary Surgery: No Hx Section: No Hx Orthopedic Surgery: No Other Surgical History: L inguinal hernia Anesthesia Reaction: No - PPD History Previous Implant?: Yes Documented Results: Negative w/proof Implanted On Prior [facility] Admission?: Yes Date: 09/27/19 Results: 0mm PPD to be Administered?: No - Smoking Cessation Smoking history: Current every day smoker Have you smoked in the past 12 months: No Aproximately how many cigarettes per day: 4 Cigars Per Day: 0 Hx Chewing Tobacco Use: No Initiated information on smoking cessation: Yes 'Breaking Loose' booklet given: 11/07/19 - Substance & Tx. History Hx Alcohol Use: Yes Hx Substance Use: Yes Substance Use Type: Alcohol, Marijuana Hx Substance Use Treatment: Yes ([facility]) - Substances abused Alcohol Other (specify): VODKA/ BEER Substance route: Oral Frequency: Daily Amount used: 1LITER AND 1 PINT Age of first use: 19 Date of last use: 10/24/19 Marijuana/Hashish Substance route: Smoking Frequency: Daily Amount used: 3 JOINTS Age of first use: 13 Date of last use: 10/24/19 Admission Physical Exam [facility] - Physical General Appearance: Yes: No Apparent Distress HEENTM: Yes: EOMI, Normocephalic, KAY, Pharynx Normal, Other ([place] LEFT EAR CORRECTIVE LENSES) Respiratory: Yes: Chest Non-Tender, Lungs Clear, Normal Breath Sounds, No Respiratory Distress, No Accessory Muscle Use Neck: Yes: No masses,lesions,Nodules, Supple, Trachea in good position Breast: Yes: Breasts Symetrical Cardiology: Yes: Regular Rhythm, Regular Rate, S1, S2 Abdominal: Yes: Normal Bowel Sounds, Non Tender, Soft, Protuberent, Other (BRUISING AROUND UMBILICUS FROM AC TXMENT) Genitourinary: Yes: Hesitency (REPORTED) Back: Yes: Normal Inspection Musculoskeletal: Yes: Other (AMBULATES WITH CANE 2/2 KNEE PAIN) Extremities: Yes: Normal Range of Motion, Non-Tender, Tremors Neurological: Yes: Fully Oriented, Alert, Motor Strength 5/5 Integumentary: Yes: Dry, Warm, Pitting Edema (TRACE EDEMA TO BLE WITH BLANCHING REDNESS + PEDAL PULSES), Other (REDNESS TO RIGHT HAND AT IV SITE) Lymphatic: Yes: Within Normal Limits - Diagnostic (1) Alcohol dependence, uncomplicated Current Visit: Yes Status: Chronic (2) Bereavement, uncomplicated Current Visit: Yes Status: Acute (3) GERD (gastroesophageal reflux disease) Current Visit: Yes Status: Chronic Qualifiers: Esophagitis presence: esophagitis presence not specified Qualified Code(s): K21.9 - Gastro-esophageal reflux disease without esophagitis (4) HTN (hypertension) Current Visit: Yes Status: Chronic Qualifiers: Hypertension type: unspecified Qualified Code(s): I10 - Essential (primary) hypertension (5) Nicotine dependence Current Visit: Yes Status: Chronic Qualifiers: Nicotine product type: cigarettes Substance use status: uncomplicated Qualified Code(s): F17.210 - Nicotine dependence, cigarettes, uncomplicated (6) Opioid dependence on agonist therapy Current Visit: Yes Status: Chronic (7) Urinary hesitancy Current Visit: Yes Status: Chronic Comment: On Tamsulosin (8) Alcohol related seizure Current Visit: Yes Status: Resolved (9) Redness and swelling of hand Current Visit: Yes Status: Acute Comment: IV PORT OF ENTRY ON R HAND. NO S/SX OF INFECTION Cleared for Admission [facility] - Detox or Rehab Detox Regimen/Protocol: Not Applicable Claeared for Rehab Admission: Yes Breathalyzer - Breathalyzer Breathalyzer: 0.236 Vital Signs - Vital Signs Vital signs refused: Yes Temperature: 96.7 F Temperature source: Oral Pulse Rate: 80 Respiratory Rate: 20 Blood Pressure: 107/70 BP Location: Right Arm Blood Pressure position: Sitting - Height Height: 5 ft 11 in - Weight Weight: 97.522 kg Weight measurement method: Standing scale - BMI Body Mass Index (BMI): 29.9 - Bowel Function Bowel Movement: No Urine Drug Screen - Control Is test valid?: Yes - Results Drug screen NEGATIVE: No Urine drug screen results: THC-Marijuana, BZO-Benzodiazepines, BUP-Suboxone Inpatient Rehab Admission - Rehab Decision to Admit Inpatient rehab admission?: Yes - Initial Determination Are CD services needed?: Yes Free of communicable disease: Yes Not in need of hospitalization: Yes - Rehab Admission Criteria Previous failed treatment: Yes Poor recovery environment: Yes Comorbidities: Yes Lacks judgement: No Patient is meeting Inpatient Rehab admission criteria:: Yes
[2019-11-07 22:17] VITALS: BMI 29.9
[2019-11-07] MEDS: MELATONIN 5 MG TABLETS PO SCH (23:13)
[2019-11-07] MEDS: THIAMINE HCL 100 MG TABLET (FP) PO SCH (23:13)
[2019-11-07] MEDS ORDERED: TUBERCULIN PPD 5 TU/0.1ML VIAL ID ONE (23:14)
[2019-11-07] MEDS: hydrOXYzine PAMOATE 25 MG CAPSULE (FP) PO PRN (23:15)
[2019-11-08] MEDS ORDERED: PATIENT'S OWN MEDICATION (NON-FORMULARY) (Fluticasone Propion/Salmeterol [Wixela 500-50 In IH SCH (10:00)
[2019-11-08] MEDS: ASPIRIN 81 MG CHEWABLE TABLETS PO SCH (10:30)
[2019-11-08] MEDS: LISINOPRIL 20 MG TABLET (FP) PO SCH (10:30)
[2019-11-08] MEDS: PANTOPRAZOLE 40 MG TABLET PO SCH (10:30)
[2019-11-08] MEDS: TAMSULOSIN HCL 0.4 MG CAP PO SCH (10:30)
[2019-11-08] MEDS: hydrOXYzine PAMOATE 25 MG CAPSULE (FP) PO PRN (10:30)
[2019-11-08] MEDS: NICOTINE 14 MG/24 HOURS TOPICAL PATCH TD SCH (10:30)
[2019-11-08] MEDS: PRENATAL VITAMINS W/ FOLIC ACID TABLET (FP) PO SCH (10:30)
[2019-11-08 10:31] LABS: HEMATOCRIT 36.3 % (35.4-49); HEMOGLOBIN 11.9 GM/dL (11.7-16.9); MCH 33.2 pg (25.7-33.7); MCHC 32.9 g/dl (32.0-35.9); MEAN CELL VOLUME 100.9 fl (80-96); PLATELET COUNT 274 K/MM3 (134-434); RDW 14.3 % (11.9-15.9); WHITE BLOOD COUNT 7.6 K/mm3 (4.0-10.0)
[2019-11-08] MEDS: BACITRACIN 0.9 GM PACKET TP SCH (10:31)
[2019-11-08] MEDS: BUPRENORPHINE/NALOXONE 8 MG/2 MG FILM PACKET SL SCH ×2 (10:31→18:16)
[2019-11-08] MEDS: BUDESONIDE/FORMETEROL FUMARATE 160/4.5 mcg INHALER IH SCH ×2 (10:32→21:15)
[2019-11-08 10:37] LABS: PH,URINE 8.5 (5.0-8.0); URINE APPEARANCE CLEAR; URINE BILIRUBIN NEGATIVE (NEGATIVE); URINE COLOR YELLOW; URINE GLUCOSE (UA) NEGATIVE (NEGATIVE); URINE KETONE NEGATIVE (NEGATIVE); URINE LEUK ESTERASE NEGATIVE (NEGATIVE); URINE NITRITE NEGATIVE (NEGATIVE); URINE PROTEIN NEGATIVE (NEGATIVE); URINE UROBILINOGEN 0.2 mg/dL (0.2-1.0)
[2019-11-08 10:53] LABS: BILIRUBIN,TOTAL 1.2 mg/dL (0.2-1); BLOOD UREA NITROGEN 10.4 mg/dL (7-18); CALCIUM 8.7 mg/dL (8.5-10.1); CREATININE 0.7 mg/dL (0.55-1.3); POTASSIUM 4.1 mmol/L (3.5-5.1); TOT PROT 6.6 g/dl (6.4-8.2)
[2019-11-08 10:58] LABS: SICKLE CELL SCREEN NEGATIVE (NEGATIVE)
[2019-11-08] MEDS: LIDOCAINE 5% TOPICAL PATCH TP SCH (11:41)
--- NOTE | 2019-11-08 14:08 | EKG ---
Test Reason : Blood Pressure : / mmHG Vent. Rate : 071 BPM Atrial Rate : 071 BPM P-R Int : 146 ms QRS Dur : 080 ms QT Int : 430 ms P-R-T Axes : 009 013 006 degrees QTc Int : 467 ms NORMAL SINUS RHYTHM WITH SINUS ARRHYTHMIA NORMAL ECG WHEN COMPARED WITH ECG OF 13-OCT-2018 08:51, NO SIGNIFICANT CHANGE WAS FOUND Confirmed by MARE SHAH MD ([id number]) on 11/08/2019 2:08:05 PM Referred By: Confirmed By:MARE SHAH MD
--- NOTE | 2019-11-08 16:59 | CONSULT ---
[facility] Psychiatric Consult - Data Date of interview: 11/08/19 Admission source: [facility] Identifying data: Patient is a 54 year old [place]ian male, , father of six, domiciled, and is supported with [facility]. This is one of multiple admissions for patient. Patient admitted to for treatment of alcohol and cocaine dependence. Substance Abuse History: Smoking Cessation. Smoking history: Current every day smoker. Have you smoked in the past 12 months: No. Aproximately how many cigarettes per day: 4. Cigars Per Day: 0. Hx Chewing Tobacco Use: No. Initiated information on smoking cessation: Yes. 'Breaking Loose' booklet given: 11/07/19. - Substance & Tx. History. Hx Alcohol Use: Yes. Hx Substance Use: Yes. Substance Use Type: Alcohol, Marijuana. Hx Substance Use Treatment: Yes ([facility]). - Substances abused. Alcohol. Other (specify): VODKA/ BEER. Substance route: Oral. Frequency: Daily. Amount used: 1LITER AND 1 PINT. Age of first use: 19. Date of last use: 10/24/19. Marijuana/Hashish. Substance route: Smoking. Frequency: Daily. Amount used: 3 JOINTS. Age of first use: 13. Date of last use: 10/24/19 Medical History: Significant for bronchial asthma, hypertension, chronic lumbar pain, GERD, neuropathy, benign prostatic hyperplasia (BPH), cirrhosis of the liver, history of withdrawal-related seizures, orthosurgery for torn meniscus in both knees and left inguinal hernia repair in 1988. Psychiatric History: Mr. Buck's first psychiatric contact occured while incarcerated in [facility] in 1998. He was diagnosed with MDD/Anxiety and started on psychotropic medications. From [facility], he went to skilled nursing [facility] where he continued to receive psychiatric treatment. He was release in 2001 [facility] Patient was sent back to skilled nursing for two additional years and continued receiving psychiatric treatment. After his release he retured to [facility] for approximately four months and then seeked psychiatric care at [facility]. Mr. Buck was scheduled to see a psychiatrist at [facility] in July of 2019 but due to COVID -19 he was unable to keep his appointment. Patient last saw a psychiatrist while hospitalized at [facility] from 10/24/2019- 11/07/2019 due to medical reasons. As per discharge papers he was prescribed Zoloft 100mg daily + Seroquel 50mg HS + Vistaril 50mg Q8h. At present patient reports feeling sad secondary to the of his partner on October 10 whom due to COVID- 19. Patient denies thoughts or urges to hurt self or others. Physical/Sexual Abuse/Trauma History: Trauma history : distressed by memories of wars (served in conflict zones such as the [facility] + invasion of [place]). Served eight years in the [employer]. Honorably discharged. Mental Status Exam - Mental Status Exam Alert and Oriented to: Time, Place, Person Cognitive Function: Good Patient Appearance: Well Groomed Mood: Sad, Hopeful Affect: Appropriate Patient Behavior: Appropriate, Cooperative Speech Pattern: Clear, Appropriate Voice Loudness: Normal Thought Process: Intact, Goal Oriented Thought Disorder: Not Present Hallucinations: Denies Suicidal Ideation: Denies Homicidal Ideation: Denies Insight/Judgement: Poor Sleep: Poorly Appetite: Fair Muscle strength/Tone: Normal Gait/Station: Normal Psychiatric Findings - Problem List (Bernice 1, 2,3) (1) Depressive disorder Current Visit: Yes Status: Acute (2) Bereavement, uncomplicated Current Visit: Yes Status: Acute (3) Alcohol dependence, uncomplicated Current Visit: Yes Status: Acute (4) Nicotine dependence Current Visit: Yes Status: Chronic Qualifiers: Nicotine product type: cigarettes Substance use status: uncomplicated Qualified Code(s): F17.210 - Nicotine dependence, cigarettes, uncomplicated (5) Opioid dependence on agonist therapy Current Visit: Yes Status: Chronic (6) Substance-induced sleep disorder Current Visit: Yes Status: Acute - Initial Treatment Plan Initial Treatment Plan: Psychoeducation provided. Rehab in progress. Will order Zoloft 100mg daily + Seroquel 50mg HS + Vistaril 50mg Q8H for anxiety. Benefits and side effects discussed. Verbal consent given.
[2019-11-08] MEDS: MELATONIN 5 MG TABLETS PO SCH (21:13)
[2019-11-08] MEDS: LIDOCAINE PATCH REMOVAL MC SCH (21:13)
[2019-11-08] MEDS: THIAMINE HCL 100 MG TABLET (FP) PO SCH (21:13)
[2019-11-08] MEDS: QUEtiapine FUMARATE 50 MG TABLET PO SCH (21:14)
[2019-11-08] MEDS: hydrOXYzine PAMOATE 50 MG CAPSULE (FP) PO PRN (21:14)
[2019-11-09] MEDS: hydrOXYzine PAMOATE 50 MG CAPSULE (FP) PO PRN ×3 (05:00→21:39)
[2019-11-09] MEDS: BUPRENORPHINE/NALOXONE 8 MG/2 MG FILM PACKET SL SCH ×2 (10:20→16:55)
[2019-11-09] MEDS: NICOTINE 14 MG/24 HOURS TOPICAL PATCH TD SCH (10:21)
[2019-11-09] MEDS: PANTOPRAZOLE 40 MG TABLET PO SCH (10:21)
[2019-11-09] MEDS: SERTRALINE HCL 50 MG TABLET (FP) PO SCH (10:21)
[2019-11-09] MEDS: LIDOCAINE 5% TOPICAL PATCH TP SCH (10:21)
[2019-11-09] MEDS: BACITRACIN 0.9 GM PACKET TP SCH (10:21)
[2019-11-09] MEDS: TAMSULOSIN HCL 0.4 MG CAP PO SCH (10:21)
[2019-11-09] MEDS: ASPIRIN 81 MG CHEWABLE TABLETS PO SCH (10:21)
[2019-11-09] MEDS: PRENATAL VITAMINS W/ FOLIC ACID TABLET (FP) PO SCH (10:21)
[2019-11-09] MEDS: LISINOPRIL 20 MG TABLET (FP) PO SCH (10:22)
[2019-11-09] MEDS: BUDESONIDE/FORMETEROL FUMARATE 160/4.5 mcg INHALER IH SCH ×2 (10:22→21:40)
[2019-11-09] MEDS: QUEtiapine FUMARATE 50 MG TABLET PO SCH (21:38)
[2019-11-09] MEDS: MELATONIN 5 MG TABLETS PO SCH (21:38)
[2019-11-09] MEDS: THIAMINE HCL 100 MG TABLET (FP) PO SCH (21:38)
[2019-11-09] MEDS: LIDOCAINE PATCH REMOVAL MC SCH (21:38)
[2019-11-10] MEDS: BUPRENORPHINE/NALOXONE 8 MG/2 MG FILM PACKET SL SCH ×2 (09:13→17:33)
[2019-11-10] MEDS: PANTOPRAZOLE 40 MG TABLET PO SCH (10:13)
[2019-11-10] MEDS: SERTRALINE HCL 50 MG TABLET (FP) PO SCH (10:13)
[2019-11-10] MEDS: PRENATAL VITAMINS W/ FOLIC ACID TABLET (FP) PO SCH (10:13)
[2019-11-10] MEDS: LISINOPRIL 20 MG TABLET (FP) PO SCH (10:13)
[2019-11-10] MEDS: LIDOCAINE 5% TOPICAL PATCH TP SCH (10:13)
[2019-11-10] MEDS: hydrOXYzine PAMOATE 50 MG CAPSULE (FP) PO PRN ×2 (10:13→19:27)
[2019-11-10] MEDS: TAMSULOSIN HCL 0.4 MG CAP PO SCH (10:13)
[2019-11-10] MEDS: ASPIRIN 81 MG CHEWABLE TABLETS PO SCH (10:13)
[2019-11-10] MEDS: NICOTINE 14 MG/24 HOURS TOPICAL PATCH TD SCH (10:13)
[2019-11-10] MEDS: BACITRACIN 0.9 GM PACKET TP SCH (10:15)
[2019-11-10] MEDS: BUDESONIDE/FORMETEROL FUMARATE 160/4.5 mcg INHALER IH SCH ×2 (10:17→21:37)
[2019-11-10] MEDS: MELATONIN 5 MG TABLETS PO SCH (21:33)
[2019-11-10] MEDS: THIAMINE HCL 100 MG TABLET (FP) PO SCH (21:33)
[2019-11-10] MEDS: QUEtiapine FUMARATE 50 MG TABLET PO SCH (22:32)
[2019-11-10] MEDS: LIDOCAINE PATCH REMOVAL MC SCH (23:04)
[2019-11-11] MEDS: hydrOXYzine PAMOATE 50 MG CAPSULE (FP) PO PRN ×3 (06:25→22:33)
[2019-11-11] MEDS: NICOTINE 14 MG/24 HOURS TOPICAL PATCH TD SCH (09:55)
[2019-11-11] MEDS: LISINOPRIL 20 MG TABLET (FP) PO SCH (09:55)
[2019-11-11] MEDS: BACITRACIN 0.9 GM PACKET TP SCH (09:55)
[2019-11-11] MEDS: LIDOCAINE 5% TOPICAL PATCH TP SCH (09:55)
[2019-11-11] MEDS: ASPIRIN 81 MG CHEWABLE TABLETS PO SCH (09:56)
[2019-11-11] MEDS: SERTRALINE HCL 50 MG TABLET (FP) PO SCH (09:56)
[2019-11-11] MEDS: PRENATAL VITAMINS W/ FOLIC ACID TABLET (FP) PO SCH (09:56)
[2019-11-11] MEDS: PANTOPRAZOLE 40 MG TABLET PO SCH (09:56)
[2019-11-11] MEDS: TAMSULOSIN HCL 0.4 MG CAP PO SCH (09:56)
[2019-11-11] MEDS: BUPRENORPHINE/NALOXONE 8 MG/2 MG FILM PACKET SL SCH ×2 (09:56→17:26)
[2019-11-11] MEDS: BUDESONIDE/FORMETEROL FUMARATE 160/4.5 mcg INHALER IH SCH ×2 (09:56→22:33)
[2019-11-11] MEDS: MELATONIN 5 MG TABLETS PO SCH (22:32)
[2019-11-11] MEDS: LIDOCAINE PATCH REMOVAL MC SCH (22:32)
[2019-11-11] MEDS: THIAMINE HCL 100 MG TABLET (FP) PO SCH (22:33)
[2019-11-11] MEDS: QUEtiapine FUMARATE 50 MG TABLET PO SCH (22:34)
[2019-11-12] MEDS: LISINOPRIL 20 MG TABLET (FP) PO SCH (09:14)
[2019-11-12] MEDS: SERTRALINE HCL 50 MG TABLET (FP) PO SCH (09:14)
[2019-11-12] MEDS: hydrOXYzine PAMOATE 50 MG CAPSULE (FP) PO PRN ×2 (09:14→21:16)
[2019-11-12] MEDS: PRENATAL VITAMINS W/ FOLIC ACID TABLET (FP) PO SCH (09:14)
[2019-11-12] MEDS: BUDESONIDE/FORMETEROL FUMARATE 160/4.5 mcg INHALER IH SCH ×2 (09:14→21:16)
[2019-11-12] MEDS: TAMSULOSIN HCL 0.4 MG CAP PO SCH (09:15)
[2019-11-12] MEDS: PANTOPRAZOLE 40 MG TABLET PO SCH (09:15)
[2019-11-12] MEDS: BUPRENORPHINE/NALOXONE 8 MG/2 MG FILM PACKET SL SCH ×2 (09:15→16:48)
[2019-11-12] MEDS: ASPIRIN 81 MG CHEWABLE TABLETS PO SCH (09:15)
[2019-11-12] MEDS: BACITRACIN 0.9 GM PACKET TP SCH (09:15)
[2019-11-12] MEDS: NICOTINE 14 MG/24 HOURS TOPICAL PATCH TD SCH (09:16)
[2019-11-12] MEDS: LIDOCAINE 5% TOPICAL PATCH TP SCH (09:16)
[2019-11-12] MEDS: LIDOCAINE PATCH REMOVAL MC SCH (21:15)
[2019-11-12] MEDS: THIAMINE HCL 100 MG TABLET (FP) PO SCH (21:15)
[2019-11-12] MEDS: QUEtiapine FUMARATE 50 MG TABLET PO SCH (21:15)
[2019-11-12] MEDS: MELATONIN 5 MG TABLETS PO SCH (21:15)
[2019-11-13] MEDS: BUPRENORPHINE/NALOXONE 8 MG/2 MG FILM PACKET SL SCH ×2 (09:34→16:32)
[2019-11-13] MEDS: NICOTINE 14 MG/24 HOURS TOPICAL PATCH TD SCH (10:33)
[2019-11-13] MEDS: LIDOCAINE 5% TOPICAL PATCH TP SCH (10:33)
[2019-11-13] MEDS: TAMSULOSIN HCL 0.4 MG CAP PO SCH (10:33)
[2019-11-13] MEDS: LISINOPRIL 20 MG TABLET (FP) PO SCH (10:34)
[2019-11-13] MEDS: BUDESONIDE/FORMETEROL FUMARATE 160/4.5 mcg INHALER IH SCH ×2 (10:34→21:10)
[2019-11-13] MEDS: ASPIRIN 81 MG CHEWABLE TABLETS PO SCH (10:34)
[2019-11-13] MEDS: SERTRALINE HCL 50 MG TABLET (FP) PO SCH (10:34)
[2019-11-13] MEDS: PANTOPRAZOLE 40 MG TABLET PO SCH (10:34)
[2019-11-13] MEDS: hydrOXYzine PAMOATE 50 MG CAPSULE (FP) PO PRN ×2 (10:34→21:10)
[2019-11-13] MEDS: PRENATAL VITAMINS W/ FOLIC ACID TABLET (FP) PO SCH (10:37)
[2019-11-13] MEDS: MELATONIN 5 MG TABLETS PO SCH (21:08)
[2019-11-13] MEDS: THIAMINE HCL 100 MG TABLET (FP) PO SCH (21:08)
[2019-11-13] MEDS: QUEtiapine FUMARATE 50 MG TABLET PO SCH (21:09)
[2019-11-13] MEDS: LIDOCAINE PATCH REMOVAL MC SCH (21:09)
[2019-11-14] MEDS: hydrOXYzine PAMOATE 50 MG CAPSULE (FP) PO PRN ×2 (08:56→21:26)
[2019-11-14] MEDS ORDERED: BUPRENORPHINE/NALOXONE 8 MG/2 MG FILM PACKET SL SCH (09:00)
--- NOTE | 2019-11-14 09:03 | PN ---
Psychiatric Progress Note Vital Signs: Vital Signs Period Temp Pulse Resp BP Sys/Vega Pulse Ox Last 24 Hr 97.1 F-98.2 F 63 18-18 103/68 96-97 Date of Session: 11/14/19 Chief Complaint:: " i have anxiety and i'm not sleeping through the night." HPI: Patient admitted to [facility] for treatment of alcohol and cocaine dependence. Consultation ordered due to complaints of anxiety and difficulty sleeping. ROS: Patient is ambulatory, alert +oriented X3. Current Medications: Active Medications Generic Name Dose Route Start Last Admin Trade Name Freq PRN Reason Stop Dose Admin Acetaminophen 650 mg 11/07/19 21:46 11/13/19 23:19 Tylenol - PO 650 mg Q4H PRN Administration FEVER Al Hydroxide/Mg Hydroxide 30 ml 11/07/19 21:46 Mylanta Oral Suspension - PO Q6H PRN DYSPEPSIA Albuterol Sulfate 2 puff 11/07/19 21:59 Ventolin Hfa Inhaler - IH Q4H PRN ASTHMA Aspirin 81 mg 11/08/19 10:00 11/13/19 10:34 Asa - PO 81 mg DAILY LEFTY Administration Budesonide/Formoterol Fumarate 2 puff 11/08/19 10:00 11/13/19 21:10 Symbicort 160/4.5mcg - IH Not Given BID LEFTY Buprenorphine/Naloxone 1 each 11/13/19 17:00 11/13/19 16:32 Suboxone 8 Mg/2 Mg Film Packet SL 11/20/19 16:59 1 each BID@0900,1700 LEFTY Administration Guaifenesin 10 ml 11/07/19 21:46 Robitussin - PO Q6H PRN COUGH Hydroxyzine Pamoate 50 mg 11/08/19 16:37 11/14/19 08:56 Vistaril - PO 50 mg Q8H PRN Administration FOR ITCHING Ibuprofen 400 mg 11/07/19 21:46 Motrin - PO Q6H PRN Pain level 4-6 Lidocaine 1 patch 11/08/19 10:45 11/13/19 10:33 Lidoderm Patch - TP 1 patch DAILY LEFTY Administration Lisinopril 20 mg 11/08/19 10:00 11/13/19 10:34 Prinivil PO 20 mg DAILY LEFTY Administration Loperamide HCl 4 mg 11/07/19 21:46 Imodium - PO Q6H PRN DIARRHEA Magnesium Citrate 300 ml 11/07/19 21:46 Citroma - PO Q48H PRN CONSTIPATION Magnesium Hydroxide 30 ml 11/07/19 21:46 Milk Of Magnesia - PO DAILY PRN CONSTIPATION Melatonin 5 mg 11/07/19 22:00 11/13/19 21:08 Melatonin PO 5 mg HS LEFTY Administration Miscellaneous 1 each 11/08/19 22:00 11/13/19 21:09 Lidoderm Patch Removal MC 1 each DAILY@2200 LEFTY Administration Nicotine 14 mg 11/08/19 10:00 11/13/19 10:33 Nicoderm Patch - TD 14 mg DAILY LEFTY Administration Nicotine Polacrilex 2 mg 11/07/19 21:46 Nicorette Gum - BC Q2H PRN NICOTINE REPLACEMENT RX Pantoprazole Sodium 40 mg 11/08/19 10:00 11/13/19 10:34 Protonix - PO 40 mg DAILY LEFTY Administration Multivit/Folic Acid/Iron 1 tab 11/08/19 10:00 11/13/19 10:37 Vitamins ([facility]) - PO 1 tab DAILY LEFTY Administration Pseudoephedrine/Triprolidine 1 combo 11/07/19 21:46 Actifed - PO TID PRN NASAL CONGESTION Quetiapine Fumarate 50 mg 11/08/19 22:00 11/13/19 21:09 Seroquel - PO 50 mg HS LEFTY Administration Sertraline HCl 100 mg 11/09/19 10:00 11/13/19 10:34 Zoloft - PO 100 mg DAILY LEFTY Administration Tamsulosin HCl 0.4 mg 11/08/19 10:00 11/13/19 10:33 Flomax - PO 0.4 mg DAILY LEFTY Administration Thiamine HCl 100 mg 11/07/19 22:00 11/13/19 21:08 Vitamin B1 - PO 100 mg HS LEFTY Administration Medication(s) Change(s): Yes. 1) Will D/C zoloft 100mg + seroquel 50mg + Vistaril 50mg q8h 2) Will order Zoloft 150mg daily + Seroquel 75mg HS + Vistaril 50mg q6H Current Side Effect: No Lab tests ordered: No Lab tests reviewed: Yes Provider note:: Patient reports anxiety ,difficulty sleeping and continues to grieve the of his whom from COVID last month. Mr. Buck states that the vistaril is effective for approximately 5-6 hours and reports sleeping intermittently through the night. Medications reviewed. Will adjust medications (please review section of medication changes). General Lithographic Worker able to successfully review the stages of grieving with patient. Patient satisifed and receptive to feedback. Patient denies thoughts or urges to hurt self or others. Total face to face time:: 25 Mental Status Exam - Mental Status Exam Alert and Oriented to: Time, Place, Person Cognitive Function: Good Patient Appearance: Well Groomed Mood: Hopeful Affect: Appropriate Patient Behavior: Cooperative Speech Pattern: Appropriate Voice Loudness: Normal Thought Process: Intact, Goal Oriented Hallucinations: Denies Suicidal Ideation: Denies Homicidal Ideation: Denies Insight/Judgement: Poor Sleep: Poorly Appetite: Fair Muscle strength/Tone: Normal Gait/Station: Other (Ambulates with a cane.) Psychiatric Treatment Plan - Problem List (1) Depressive disorder Current Visit: Yes (2) Bereavement, uncomplicated Current Visit: Yes (3) Alcohol dependence, uncomplicated Current Visit: Yes (4) Nicotine dependence Current Visit: Yes Qualifiers: Nicotine product type: cigarettes Substance use status: uncomplicated Qualified Code(s): F17.210 - Nicotine dependence, cigarettes, uncomplicated (5) Opioid dependence on agonist therapy Current Visit: Yes (6) Substance-induced sleep disorder Current Visit: Yes
[2019-11-14] MEDS: BUDESONIDE/FORMETEROL FUMARATE 160/4.5 mcg INHALER IH SCH ×2 (09:41→21:28)
[2019-11-14] MEDS: BUPRENORPHINE/NALOXONE 8 MG/2 MG FILM PACKET SL SCH ×2 (09:41→17:41)
[2019-11-14] MEDS: PRENATAL VITAMINS W/ FOLIC ACID TABLET (FP) PO SCH (09:42)
[2019-11-14] MEDS: SERTRALINE HCL 50 MG TABLET (FP) PO SCH (09:42)
[2019-11-14] MEDS: PANTOPRAZOLE 40 MG TABLET PO SCH (09:42)
[2019-11-14] MEDS: NICOTINE 14 MG/24 HOURS TOPICAL PATCH TD SCH (09:43)
[2019-11-14] MEDS: LIDOCAINE 5% TOPICAL PATCH TP SCH (09:43)
[2019-11-14] MEDS: ASPIRIN 81 MG CHEWABLE TABLETS PO SCH (09:43)
[2019-11-14] MEDS: TAMSULOSIN HCL 0.4 MG CAP PO SCH (09:43)
[2019-11-14] MEDS: LISINOPRIL 20 MG TABLET (FP) PO SCH (09:44)
[2019-11-14] MEDS: TRIAMCINOLONE ACET 0.1% OINT 15 GM TUBE TP SCH ×2 (12:11→21:28)
[2019-11-14] MEDS: MELATONIN 5 MG TABLETS PO SCH (21:26)
[2019-11-14] MEDS: THIAMINE HCL 100 MG TABLET (FP) PO SCH (21:26)
[2019-11-14] MEDS: LIDOCAINE PATCH REMOVAL MC SCH (21:27)
[2019-11-14] MEDS: QUEtiapine FUMARATE 25 MG TABLET PO SCH (21:27)
[2019-11-15] MEDS: hydrOXYzine PAMOATE 50 MG CAPSULE (FP) PO PRN ×2 (08:02→21:17)
[2019-11-15] MEDS: NICOTINE 14 MG/24 HOURS TOPICAL PATCH TD SCH (09:58)
[2019-11-15] MEDS: BUDESONIDE/FORMETEROL FUMARATE 160/4.5 mcg INHALER IH SCH ×2 (09:58→21:14)
[2019-11-15] MEDS: SERTRALINE HCL 50 MG TABLET (FP) PO SCH (09:59)
[2019-11-15] MEDS: PRENATAL VITAMINS W/ FOLIC ACID TABLET (FP) PO SCH (09:59)
[2019-11-15] MEDS: LISINOPRIL 20 MG TABLET (FP) PO SCH (09:59)
[2019-11-15] MEDS: PANTOPRAZOLE 40 MG TABLET PO SCH (10:00)
[2019-11-15] MEDS: LIDOCAINE 5% TOPICAL PATCH TP SCH (10:00)
[2019-11-15] MEDS: ASPIRIN 81 MG CHEWABLE TABLETS PO SCH (10:00)
[2019-11-15] MEDS: TRIAMCINOLONE ACET 0.1% OINT 15 GM TUBE TP SCH ×2 (10:00→21:14)
[2019-11-15] MEDS: TAMSULOSIN HCL 0.4 MG CAP PO SCH (10:00)
[2019-11-15] MEDS: BUPRENORPHINE/NALOXONE 8 MG/2 MG FILM PACKET SL SCH ×2 (10:00→16:34)
[2019-11-15] MEDS ORDERED: PT OWN MED DRAWER 7, Y5N ONE (20:08)
[2019-11-15] MEDS: THIAMINE HCL 100 MG TABLET (FP) PO SCH (21:14)
[2019-11-15] MEDS: QUEtiapine FUMARATE 25 MG TABLET PO SCH (21:15)
[2019-11-15] MEDS: LIDOCAINE PATCH REMOVAL MC SCH (21:15)
[2019-11-15] MEDS: MELATONIN 5 MG TABLETS PO SCH (21:16)
[2019-11-16] MEDS ORDERED: MASKS NR ONE (06:43)
[2019-11-16] MEDS: hydrOXYzine PAMOATE 50 MG CAPSULE (FP) PO PRN ×2 (06:44→21:25)
[2019-11-16] MEDS: PRENATAL VITAMINS W/ FOLIC ACID TABLET (FP) PO SCH (09:50)
[2019-11-16] MEDS: LISINOPRIL 20 MG TABLET (FP) PO SCH (09:50)
[2019-11-16] MEDS: ASPIRIN 81 MG CHEWABLE TABLETS PO SCH (09:50)
[2019-11-16] MEDS: PANTOPRAZOLE 40 MG TABLET PO SCH (09:51)
[2019-11-16] MEDS: BUPRENORPHINE/NALOXONE 8 MG/2 MG FILM PACKET SL SCH ×2 (09:51→17:36)
[2019-11-16] MEDS: SERTRALINE HCL 50 MG TABLET (FP) PO SCH (09:51)
[2019-11-16] MEDS: TAMSULOSIN HCL 0.4 MG CAP PO SCH (09:51)
[2019-11-16] MEDS: NICOTINE 14 MG/24 HOURS TOPICAL PATCH TD SCH (09:52)
[2019-11-16] MEDS: LIDOCAINE 5% TOPICAL PATCH TP SCH (09:52)
[2019-11-16] MEDS: TRIAMCINOLONE ACET 0.1% OINT 15 GM TUBE TP SCH ×2 (09:52→21:25)
[2019-11-16] MEDS: BUDESONIDE/FORMETEROL FUMARATE 160/4.5 mcg INHALER IH SCH ×2 (09:55→21:26)
[2019-11-16] MEDS: QUEtiapine FUMARATE 25 MG TABLET PO SCH (21:25)
[2019-11-16] MEDS: MELATONIN 5 MG TABLETS PO SCH (21:25)
[2019-11-16] MEDS: THIAMINE HCL 100 MG TABLET (FP) PO SCH (21:25)
[2019-11-16] MEDS: LIDOCAINE PATCH REMOVAL MC SCH (21:25)
[2019-11-17] MEDS: hydrOXYzine PAMOATE 50 MG CAPSULE (FP) PO PRN ×2 (08:01→21:07)
[2019-11-17] MEDS: BUPRENORPHINE/NALOXONE 8 MG/2 MG FILM PACKET SL SCH ×2 (09:59→16:41)
[2019-11-17] MEDS: TRIAMCINOLONE ACET 0.1% OINT 15 GM TUBE TP SCH ×2 (09:59→21:08)
[2019-11-17] MEDS: TAMSULOSIN HCL 0.4 MG CAP PO SCH (10:00)
[2019-11-17] MEDS: ASPIRIN 81 MG CHEWABLE TABLETS PO SCH (10:00)
[2019-11-17] MEDS: NICOTINE 14 MG/24 HOURS TOPICAL PATCH TD SCH (10:01)
[2019-11-17] MEDS: LIDOCAINE 5% TOPICAL PATCH TP SCH (10:01)
[2019-11-17] MEDS: PRENATAL VITAMINS W/ FOLIC ACID TABLET (FP) PO SCH (10:02)
[2019-11-17] MEDS: BUDESONIDE/FORMETEROL FUMARATE 160/4.5 mcg INHALER IH SCH ×2 (10:03→21:08)
[2019-11-17] MEDS: LISINOPRIL 20 MG TABLET (FP) PO SCH (10:03)
[2019-11-17] MEDS: SERTRALINE HCL 50 MG TABLET (FP) PO SCH (10:03)
[2019-11-17] MEDS: PANTOPRAZOLE 40 MG TABLET PO SCH (10:03)
[2019-11-17] MEDS: THIAMINE HCL 100 MG TABLET (FP) PO SCH (21:06)
[2019-11-17] MEDS: MELATONIN 5 MG TABLETS PO SCH (21:06)
[2019-11-17] MEDS: QUEtiapine FUMARATE 25 MG TABLET PO SCH (21:06)
[2019-11-17] MEDS: LIDOCAINE PATCH REMOVAL MC SCH (21:07)
[2019-11-18] MEDS: hydrOXYzine PAMOATE 50 MG CAPSULE (FP) PO PRN ×2 (07:55→16:40)
[2019-11-18] MEDS: TAMSULOSIN HCL 0.4 MG CAP PO SCH (10:20)
[2019-11-18] MEDS: LISINOPRIL 20 MG TABLET (FP) PO SCH (10:20)
[2019-11-18] MEDS: PRENATAL VITAMINS W/ FOLIC ACID TABLET (FP) PO SCH (10:20)
[2019-11-18] MEDS: PANTOPRAZOLE 40 MG TABLET PO SCH (10:20)
[2019-11-18] MEDS: SERTRALINE HCL 50 MG TABLET (FP) PO SCH (10:20)
[2019-11-18] MEDS: ASPIRIN 81 MG CHEWABLE TABLETS PO SCH (10:20)
[2019-11-18] MEDS: BUDESONIDE/FORMETEROL FUMARATE 160/4.5 mcg INHALER IH SCH ×2 (10:20→21:35)
[2019-11-18] MEDS: LIDOCAINE 5% TOPICAL PATCH TP SCH (10:21)
[2019-11-18] MEDS: NICOTINE 14 MG/24 HOURS TOPICAL PATCH TD SCH (10:23)
[2019-11-18] MEDS: BUPRENORPHINE/NALOXONE 8 MG/2 MG FILM PACKET SL SCH ×2 (10:23→16:40)
[2019-11-18] MEDS: TRIAMCINOLONE ACET 0.1% OINT 15 GM TUBE TP SCH ×2 (11:30→21:35)
[2019-11-18] MEDS: QUEtiapine FUMARATE 25 MG TABLET PO SCH (21:34)
[2019-11-18] MEDS: THIAMINE HCL 100 MG TABLET (FP) PO SCH (21:34)
[2019-11-18] MEDS: LIDOCAINE PATCH REMOVAL MC SCH (21:34)
[2019-11-18] MEDS: MELATONIN 5 MG TABLETS PO SCH (21:34)
[2019-11-19] MEDS: hydrOXYzine PAMOATE 50 MG CAPSULE (FP) PO PRN ×2 (06:32→21:15)
[2019-11-19] MEDS: ALBUTEROL SO4 HFA INHALER IH PRN (08:48)
[2019-11-19] MEDS: BUPRENORPHINE/NALOXONE 8 MG/2 MG FILM PACKET SL SCH ×2 (09:45→16:42)
[2019-11-19] MEDS: BUDESONIDE/FORMETEROL FUMARATE 160/4.5 mcg INHALER IH SCH ×2 (10:03→21:14)
[2019-11-19] MEDS: ASPIRIN 81 MG CHEWABLE TABLETS PO SCH (10:09)
[2019-11-19] MEDS: PANTOPRAZOLE 40 MG TABLET PO SCH (10:09)
[2019-11-19] MEDS: PRENATAL VITAMINS W/ FOLIC ACID TABLET (FP) PO SCH (10:09)
[2019-11-19] MEDS: TAMSULOSIN HCL 0.4 MG CAP PO SCH (10:09)
[2019-11-19] MEDS: SERTRALINE HCL 50 MG TABLET (FP) PO SCH (10:10)
[2019-11-19] MEDS: LIDOCAINE 5% TOPICAL PATCH TP SCH (10:11)
[2019-11-19] MEDS: NICOTINE 14 MG/24 HOURS TOPICAL PATCH TD SCH (10:11)
[2019-11-19] MEDS: TRIAMCINOLONE ACET 0.1% OINT 15 GM TUBE TP SCH ×2 (10:13→21:09)
[2019-11-19] MEDS: LISINOPRIL 20 MG TABLET (FP) PO SCH (10:13)
--- NOTE | 2019-11-19 15:12 | PN ---
S Progress Note Note: c/o intermittent sleep, anxiety,tremors and hx knee pains. Requesting to see the psych . Vital Signs - 24 hr 11/18/19 11/19/19 11/19/19 20:40 07:22 08:42 Temperature 97.7 F 97.3 F L 96.8 F L Pulse Rate 61 69 Respiratory 18 18 Rate Blood Pressure 104/53 L 88/53 L O2 Sat by Pulse 95 98 Oximetry (%) 11/19/19 11/19/19 12:42 14:40 Temperature Pulse Rate 62 Respiratory 16 Rate Blood Pressure 103/62 O2 Sat by Pulse 96 Oximetry (%) Laboratory Tests 11/07/19 11/08/19 11/08/19 22:50 08:30 08:30 WBC 7.6 RBC 3.60 L Hgb 11.9 Hct 36.3 D MCV 100.9 H MCH 33.2 MCHC 32.9 RDW 14.3 Plt Count 274 D MPV 9.0 Sickle Cell Screen Negative Sodium 135 L Potassium 4.1 Chloride 100 Carbon Dioxide 31 Anion Gap 5 L BUN 10.4 Creatinine 0.7 Est GFR (CKD-EPI)AfAm 122.27 Est GFR (CKD-EPI)NonAf 105.50 POC Glucometer Random Glucose 124 H Calcium 8.7 Total Bilirubin 1.2 H AST 77 H ALT 23 Alkaline Phosphatase 176 H Total Protein 6.6 Albumin 3.0 L Urine Color Urine Appearance Urine pH Ur Specific Walton Urine Protein Urine Glucose (UA) Urine Ketones Urine Blood Urine Nitrite Urine Bilirubin Urine Urobilinogen Ur Leukocyte Esterase Syphilis Serology RPR Titer COVID-19 (ANDREAS) Not detected 11/08/19 11/08/19 11/08/19 08:30 08:30 08:30 WBC RBC Hgb Hct MCV MCH MCHC RDW Plt Count MPV Sickle Cell Screen Sodium Potassium Chloride Carbon Dioxide Anion Gap BUN Creatinine Est GFR (CKD-EPI)AfAm Est GFR (CKD-EPI)NonAf POC Glucometer Random Glucose Calcium Total Bilirubin AST ALT Alkaline Phosphatase Total Protein Albumin Urine Color Yellow Urine Appearance Clear Urine pH 8.5 H D Ur Specific [place] 1.011 Urine Protein Negative Urine Glucose (UA) Negative Urine Ketones Negative Urine Blood Negative Urine Nitrite Negative Urine Bilirubin Negative Urine Urobilinogen 0.2 Ur Leukocyte Esterase Negative Syphilis Serology Reactive A* RPR Titer Reactive 1:1 H COVID-19 (ANDREAS) 11/13/19 06:32 WBC RBC Hgb Hct MCV MCH MCHC RDW Plt Count MPV Sickle Cell Screen Sodium Potassium Chloride Carbon Dioxide Anion Gap BUN Creatinine Est GFR (CKD-EPI)AfAm Est GFR (CKD-EPI)NonAf POC Glucometer 86 Random Glucose Calcium Total Bilirubin AST ALT Alkaline Phosphatase Total Protein Albumin Urine Color Urine Appearance Urine pH Ur Specific [place] Urine Protein Urine Glucose (UA) Urine Ketones Urine Blood Urine Nitrite Urine Bilirubin Urine Urobilinogen Ur Leukocyte Esterase Syphilis Serology RPR Titer COVID-19 (ANDREAS) Alert o x 3 nad oob ambulating with steady gait A:Insomnia Hx knee pain/Back pain psych consult d/w pt will order Analgesic balm apply to both knees pt agreeable to poc.
[2019-11-19] MEDS: METHYL SALICYLATE/MENTHOL OINT 30 GM TUBE TP SCH (21:10)
[2019-11-19] MEDS: THIAMINE HCL 100 MG TABLET (FP) PO SCH (21:11)
[2019-11-19] MEDS: QUEtiapine FUMARATE 25 MG TABLET PO SCH (21:11)
[2019-11-19] MEDS: LIDOCAINE PATCH REMOVAL MC SCH (21:12)
[2019-11-19] MEDS: MELATONIN 5 MG TABLETS PO SCH (21:12)
[2019-11-20] MEDS: hydrOXYzine PAMOATE 50 MG CAPSULE (FP) PO PRN ×2 (07:09→18:58)
[2019-11-20] MEDS: PRENATAL VITAMINS W/ FOLIC ACID TABLET (FP) PO SCH (09:56)
[2019-11-20] MEDS: LIDOCAINE 5% TOPICAL PATCH TP SCH (09:57)
[2019-11-20] MEDS: PANTOPRAZOLE 40 MG TABLET PO SCH (09:57)
[2019-11-20] MEDS: SERTRALINE HCL 50 MG TABLET (FP) PO SCH (09:57)
[2019-11-20] MEDS: TAMSULOSIN HCL 0.4 MG CAP PO SCH (09:57)
[2019-11-20] MEDS: LISINOPRIL 20 MG TABLET (FP) PO SCH (09:57)
[2019-11-20] MEDS: ASPIRIN 81 MG CHEWABLE TABLETS PO SCH (09:57)
[2019-11-20] MEDS: NICOTINE 14 MG/24 HOURS TOPICAL PATCH TD SCH (09:59)
[2019-11-20] MEDS: BUDESONIDE/FORMETEROL FUMARATE 160/4.5 mcg INHALER IH SCH ×2 (10:01→21:56)
[2019-11-20] MEDS: ALBUTEROL SO4 HFA INHALER IH PRN (10:01)
[2019-11-20] MEDS ORDERED: PT OWN MED DRAWER 7, Y5N ONE ×2 (10:04→21:55)
[2019-11-20] MEDS: METHYL SALICYLATE/MENTHOL OINT 30 GM TUBE TP SCH ×2 (10:04→21:58)
[2019-11-20] MEDS: TRIAMCINOLONE ACET 0.1% OINT 15 GM TUBE TP SCH ×2 (10:05→21:58)
--- NOTE | 2019-11-20 10:28 | PN ---
[facility] Progress Note Note: Patient reports feeling anxious and sleeping poorly despite taking Seroquel 75 mg/hs, Melatonin 5 mg/h and Vistaril 50 mg po Q 6hrs prn. Will increase Seroquel dose to 100 mg/hs, Melatonin to 10 mg/hs prn and Vistaril to 50 mg po Q 4hrs prn
[2019-11-20] MEDS ORDERED: BUPRENORPHINE/NALOXONE 8 MG/2 MG FILM PACKET SL ONE (12:00)
[2019-11-20] MEDS: BUPRENORPHINE/NALOXONE 8 MG/2 MG FILM PACKET SL SCH (16:49)
[2019-11-20] MEDS: THIAMINE HCL 100 MG TABLET (FP) PO SCH (21:53)
[2019-11-20] MEDS: MELATONIN 5 MG TABLETS PO PRN (21:53)
[2019-11-20] MEDS: LIDOCAINE PATCH REMOVAL MC SCH (21:54)
[2019-11-20] MEDS: QUEtiapine FUMARATE 100 MG TABLET (FP) PO SCH (21:55)
[2019-11-21] MEDS: TAMSULOSIN HCL 0.4 MG CAP PO SCH (10:11)
[2019-11-21] MEDS: SERTRALINE HCL 50 MG TABLET (FP) PO SCH (10:11)
[2019-11-21] MEDS: PANTOPRAZOLE 40 MG TABLET PO SCH (10:11)
[2019-11-21] MEDS: PRENATAL VITAMINS W/ FOLIC ACID TABLET (FP) PO SCH (10:11)
[2019-11-21] MEDS: ASPIRIN 81 MG CHEWABLE TABLETS PO SCH (10:12)
[2019-11-21] MEDS: BUPRENORPHINE/NALOXONE 8 MG/2 MG FILM PACKET SL SCH ×2 (10:12→16:57)
[2019-11-21] MEDS: hydrOXYzine PAMOATE 50 MG CAPSULE (FP) PO PRN ×3 (10:12→17:53)
[2019-11-21] MEDS: NICOTINE 14 MG/24 HOURS TOPICAL PATCH TD SCH (10:12)
[2019-11-21] MEDS: LIDOCAINE 5% TOPICAL PATCH TP SCH (10:12)
[2019-11-21] MEDS: TRIAMCINOLONE ACET 0.1% OINT 15 GM TUBE TP SCH ×2 (10:13→21:04)
[2019-11-21] MEDS: METHYL SALICYLATE/MENTHOL OINT 30 GM TUBE TP SCH ×2 (10:13→21:04)
[2019-11-21] MEDS ORDERED: PT OWN MED DRAWER 7, Y5N ONE (10:16)
[2019-11-21] MEDS: LISINOPRIL 20 MG TABLET (FP) PO SCH (10:17)
[2019-11-21] MEDS: BUDESONIDE/FORMETEROL FUMARATE 160/4.5 mcg INHALER IH SCH ×2 (10:17→21:05)
[2019-11-21] MEDS: NICOTINE POLACRILEX 2 MG GUM BC PRN (13:08)
[2019-11-21] MEDS: THIAMINE HCL 100 MG TABLET (FP) PO SCH (21:03)
[2019-11-21] MEDS: MELATONIN 5 MG TABLETS PO PRN (21:03)
[2019-11-21] MEDS: QUEtiapine FUMARATE 100 MG TABLET (FP) PO SCH (21:03)
[2019-11-21] MEDS: LIDOCAINE PATCH REMOVAL MC SCH (21:04)
[2019-11-22] MEDS: hydrOXYzine PAMOATE 50 MG CAPSULE (FP) PO PRN ×2 (06:51→21:53)
[2019-11-22] MEDS ORDERED: PT OWN MED DRAWER 7, Y5N ONE (08:57)
[2019-11-22] MEDS: BUPRENORPHINE/NALOXONE 8 MG/2 MG FILM PACKET SL SCH ×2 (10:00→17:54)
[2019-11-22] MEDS: ASPIRIN 81 MG CHEWABLE TABLETS PO SCH (10:22)
[2019-11-22] MEDS: TRIAMCINOLONE ACET 0.1% OINT 15 GM TUBE TP SCH ×2 (10:22→21:52)
[2019-11-22] MEDS: NICOTINE 14 MG/24 HOURS TOPICAL PATCH TD SCH (10:23)
[2019-11-22] MEDS: LIDOCAINE 5% TOPICAL PATCH TP SCH (10:23)
[2019-11-22] MEDS: TAMSULOSIN HCL 0.4 MG CAP PO SCH (10:23)
[2019-11-22] MEDS: METHYL SALICYLATE/MENTHOL OINT 30 GM TUBE TP SCH ×2 (10:23→21:52)
[2019-11-22] MEDS: PRENATAL VITAMINS W/ FOLIC ACID TABLET (FP) PO SCH (10:24)
[2019-11-22] MEDS: LISINOPRIL 20 MG TABLET (FP) PO SCH (10:24)
[2019-11-22] MEDS: SERTRALINE HCL 50 MG TABLET (FP) PO SCH (10:25)
[2019-11-22] MEDS: PANTOPRAZOLE 40 MG TABLET PO SCH (10:25)
[2019-11-22] MEDS: BUDESONIDE/FORMETEROL FUMARATE 160/4.5 mcg INHALER IH SCH ×2 (10:25→21:52)
[2019-11-22] MEDS: NICOTINE POLACRILEX 2 MG GUM BC PRN (10:26)
[2019-11-22] MEDS: THIAMINE HCL 100 MG TABLET (FP) PO SCH (21:52)
[2019-11-22] MEDS: LIDOCAINE PATCH REMOVAL MC SCH (21:52)
[2019-11-22] MEDS: QUEtiapine FUMARATE 100 MG TABLET (FP) PO SCH (21:52)
[2019-11-23] MEDS ORDERED: PT OWN MED DRAWER 7, Y5N ONE (09:24)
[2019-11-23] MEDS: NICOTINE 14 MG/24 HOURS TOPICAL PATCH TD SCH (10:00)
[2019-11-23] MEDS: METHYL SALICYLATE/MENTHOL OINT 30 GM TUBE TP SCH ×2 (10:00→21:02)
[2019-11-23] MEDS: SERTRALINE HCL 50 MG TABLET (FP) PO SCH (10:01)
[2019-11-23] MEDS: TAMSULOSIN HCL 0.4 MG CAP PO SCH (10:01)
[2019-11-23] MEDS: LIDOCAINE 5% TOPICAL PATCH TP SCH (10:01)
[2019-11-23] MEDS: LISINOPRIL 20 MG TABLET (FP) PO SCH (10:01)
[2019-11-23] MEDS: ASPIRIN 81 MG CHEWABLE TABLETS PO SCH (10:01)
[2019-11-23] MEDS: PANTOPRAZOLE 40 MG TABLET PO SCH (10:02)
[2019-11-23] MEDS: BUPRENORPHINE/NALOXONE 8 MG/2 MG FILM PACKET SL SCH ×2 (10:02→16:39)
[2019-11-23] MEDS: PRENATAL VITAMINS W/ FOLIC ACID TABLET (FP) PO SCH (10:02)
[2019-11-23] MEDS: BUDESONIDE/FORMETEROL FUMARATE 160/4.5 mcg INHALER IH SCH ×2 (10:03→21:03)
[2019-11-23] MEDS: TRIAMCINOLONE ACET 0.1% OINT 15 GM TUBE TP SCH ×2 (10:55→21:02)
[2019-11-23] MEDS: hydrOXYzine PAMOATE 50 MG CAPSULE (FP) PO PRN ×2 (16:39→21:01)
[2019-11-23] MEDS: THIAMINE HCL 100 MG TABLET (FP) PO SCH (21:01)
[2019-11-23] MEDS: MELATONIN 5 MG TABLETS PO PRN (21:01)
[2019-11-23] MEDS: QUEtiapine FUMARATE 100 MG TABLET (FP) PO SCH (21:01)
[2019-11-23] MEDS: NICOTINE POLACRILEX 2 MG GUM BC PRN (21:02)
[2019-11-23] MEDS: LIDOCAINE PATCH REMOVAL MC SCH (21:03)
[2019-11-24] MEDS: ASPIRIN 81 MG CHEWABLE TABLETS PO SCH (09:41)
[2019-11-24] MEDS: TAMSULOSIN HCL 0.4 MG CAP PO SCH (09:41)
[2019-11-24] MEDS: PANTOPRAZOLE 40 MG TABLET PO SCH (09:41)
[2019-11-24] MEDS: hydrOXYzine PAMOATE 50 MG CAPSULE (FP) PO PRN ×3 (09:41→21:55)
[2019-11-24] MEDS: LISINOPRIL 20 MG TABLET (FP) PO SCH (09:41)
[2019-11-24] MEDS: PRENATAL VITAMINS W/ FOLIC ACID TABLET (FP) PO SCH (09:41)
[2019-11-24] MEDS: BUDESONIDE/FORMETEROL FUMARATE 160/4.5 mcg INHALER IH SCH ×2 (09:42→21:55)
[2019-11-24] MEDS: BUPRENORPHINE/NALOXONE 8 MG/2 MG FILM PACKET SL SCH ×2 (09:42→16:49)
[2019-11-24] MEDS: TRIAMCINOLONE ACET 0.1% OINT 15 GM TUBE TP SCH ×2 (09:42→21:55)
[2019-11-24] MEDS: LIDOCAINE 5% TOPICAL PATCH TP SCH (09:42)
[2019-11-24] MEDS: NICOTINE 14 MG/24 HOURS TOPICAL PATCH TD SCH (09:42)
[2019-11-24] MEDS: METHYL SALICYLATE/MENTHOL OINT 30 GM TUBE TP SCH ×2 (09:42→21:55)
[2019-11-24] MEDS: SERTRALINE HCL 50 MG TABLET (FP) PO SCH (09:43)
[2019-11-24] MEDS: MELATONIN 5 MG TABLETS PO PRN (21:54)
[2019-11-24] MEDS: LIDOCAINE PATCH REMOVAL MC SCH (21:55)
[2019-11-24] MEDS: QUEtiapine FUMARATE 100 MG TABLET (FP) PO SCH (21:55)
[2019-11-24] MEDS: THIAMINE HCL 100 MG TABLET (FP) PO SCH (21:55)
[2019-11-25] MEDS: PRENATAL VITAMINS W/ FOLIC ACID TABLET (FP) PO SCH (10:02)
[2019-11-25] MEDS: ASPIRIN 81 MG CHEWABLE TABLETS PO SCH (10:02)
[2019-11-25] MEDS: SERTRALINE HCL 50 MG TABLET (FP) PO SCH (10:02)
[2019-11-25] MEDS: LISINOPRIL 20 MG TABLET (FP) PO SCH (10:03)
[2019-11-25] MEDS: hydrOXYzine PAMOATE 50 MG CAPSULE (FP) PO PRN ×3 (10:03→21:04)
[2019-11-25] MEDS: TAMSULOSIN HCL 0.4 MG CAP PO SCH (10:03)
[2019-11-25] MEDS: LIDOCAINE 5% TOPICAL PATCH TP SCH (10:03)
[2019-11-25] MEDS: PANTOPRAZOLE 40 MG TABLET PO SCH (10:03)
[2019-11-25] MEDS: NICOTINE 14 MG/24 HOURS TOPICAL PATCH TD SCH (10:03)
[2019-11-25] MEDS: BUPRENORPHINE/NALOXONE 8 MG/2 MG FILM PACKET SL SCH ×2 (10:03→17:24)
[2019-11-25] MEDS: METHYL SALICYLATE/MENTHOL OINT 30 GM TUBE TP SCH ×2 (10:03→21:05)
[2019-11-25] MEDS: TRIAMCINOLONE ACET 0.1% OINT 15 GM TUBE TP SCH ×2 (10:03→21:05)
[2019-11-25] MEDS: NICOTINE POLACRILEX 2 MG GUM BC PRN (10:04)
[2019-11-25] MEDS: BUDESONIDE/FORMETEROL FUMARATE 160/4.5 mcg INHALER IH SCH ×2 (10:06→21:05)
[2019-11-25] MEDS: ALBUTEROL SO4 HFA INHALER IH PRN (10:07)
[2019-11-25] MEDS: QUEtiapine FUMARATE 100 MG TABLET (FP) PO SCH (21:04)
[2019-11-25] MEDS: MELATONIN 5 MG TABLETS PO PRN (21:04)
[2019-11-25] MEDS: LIDOCAINE PATCH REMOVAL MC SCH (21:05)
[2019-11-25] MEDS: THIAMINE HCL 100 MG TABLET (FP) PO SCH (21:05)
[2019-11-26] MEDS: PRENATAL VITAMINS W/ FOLIC ACID TABLET (FP) PO SCH (10:05)
[2019-11-26] MEDS: NICOTINE 14 MG/24 HOURS TOPICAL PATCH TD SCH (10:06)
[2019-11-26] MEDS: BUPRENORPHINE/NALOXONE 8 MG/2 MG FILM PACKET SL SCH (10:06)
[2019-11-26] MEDS: hydrOXYzine PAMOATE 50 MG CAPSULE (FP) PO PRN ×2 (10:06→18:03)
[2019-11-26] MEDS: ASPIRIN 81 MG CHEWABLE TABLETS PO SCH (10:06)
[2019-11-26] MEDS: LISINOPRIL 20 MG TABLET (FP) PO SCH (10:06)
[2019-11-26] MEDS: TRIAMCINOLONE ACET 0.1% OINT 15 GM TUBE TP SCH ×2 (10:06→21:31)
[2019-11-26] MEDS: TAMSULOSIN HCL 0.4 MG CAP PO SCH (10:06)
[2019-11-26] MEDS: LIDOCAINE 5% TOPICAL PATCH TP SCH (10:06)
[2019-11-26] MEDS: METHYL SALICYLATE/MENTHOL OINT 30 GM TUBE TP SCH ×2 (10:06→21:31)
[2019-11-26] MEDS: PANTOPRAZOLE 40 MG TABLET PO SCH (10:07)
[2019-11-26] MEDS: BUDESONIDE/FORMETEROL FUMARATE 160/4.5 mcg INHALER IH SCH ×2 (10:08→21:30)
[2019-11-26] MEDS: NICOTINE POLACRILEX 2 MG GUM BC PRN (10:11)
[2019-11-26] MEDS: SERTRALINE HCL 50 MG TABLET (FP) PO SCH (10:55)
[2019-11-26] MEDS: THIAMINE HCL 100 MG TABLET (FP) PO SCH (21:30)
[2019-11-26] MEDS: QUEtiapine FUMARATE 100 MG TABLET (FP) PO SCH (21:30)
[2019-11-26] MEDS: MELATONIN 5 MG TABLETS PO PRN (21:30)
[2019-11-26] MEDS: LIDOCAINE PATCH REMOVAL MC SCH (21:31)
[2019-11-27] MEDS: TRIAMCINOLONE ACET 0.1% OINT 15 GM TUBE TP SCH ×2 (10:21→21:03)
[2019-11-27] MEDS: PANTOPRAZOLE 40 MG TABLET PO SCH (10:21)
[2019-11-27] MEDS: BUPRENORPHINE/NALOXONE 8 MG/2 MG FILM PACKET SL SCH ×2 (10:21→18:00)
[2019-11-27] MEDS: PRENATAL VITAMINS W/ FOLIC ACID TABLET (FP) PO SCH (10:21)
[2019-11-27] MEDS: LISINOPRIL 20 MG TABLET (FP) PO SCH (10:22)
[2019-11-27] MEDS: SERTRALINE HCL 50 MG TABLET (FP) PO SCH (10:22)
[2019-11-27] MEDS: NICOTINE 14 MG/24 HOURS TOPICAL PATCH TD SCH (10:22)
[2019-11-27] MEDS: LIDOCAINE 5% TOPICAL PATCH TP SCH (10:22)
[2019-11-27] MEDS: hydrOXYzine PAMOATE 50 MG CAPSULE (FP) PO PRN ×2 (10:22→18:00)
[2019-11-27] MEDS: TAMSULOSIN HCL 0.4 MG CAP PO SCH (10:22)
[2019-11-27] MEDS: BUDESONIDE/FORMETEROL FUMARATE 160/4.5 mcg INHALER IH SCH ×2 (10:23→21:04)
[2019-11-27] MEDS: METHYL SALICYLATE/MENTHOL OINT 30 GM TUBE TP SCH ×2 (10:23→21:03)
[2019-11-27] MEDS: NICOTINE POLACRILEX 2 MG GUM BC PRN ×2 (10:25→21:03)
[2019-11-27] MEDS: ASPIRIN 81 MG CHEWABLE TABLETS PO SCH (10:46)
[2019-11-27] MEDS: QUEtiapine FUMARATE 100 MG TABLET (FP) PO SCH (21:02)
[2019-11-27] MEDS: MELATONIN 5 MG TABLETS PO PRN (21:02)
[2019-11-27] MEDS: LIDOCAINE PATCH REMOVAL MC SCH (21:03)
[2019-11-27] MEDS: THIAMINE HCL 100 MG TABLET (FP) PO SCH (21:03)
[2019-11-28] MEDS ORDERED: PT OWN MED DRAWER 7, Y5N ONE (09:24)
[2019-11-28] MEDS: BUDESONIDE/FORMETEROL FUMARATE 160/4.5 mcg INHALER IH SCH ×2 (10:16→21:43)
[2019-11-28] MEDS: LISINOPRIL 20 MG TABLET (FP) PO SCH (10:16)
[2019-11-28] MEDS: PANTOPRAZOLE 40 MG TABLET PO SCH (10:16)
[2019-11-28] MEDS: PRENATAL VITAMINS W/ FOLIC ACID TABLET (FP) PO SCH (10:16)
[2019-11-28] MEDS: BUPRENORPHINE/NALOXONE 8 MG/2 MG FILM PACKET SL SCH ×2 (10:16→17:35)
[2019-11-28] MEDS: TAMSULOSIN HCL 0.4 MG CAP PO SCH (10:16)
[2019-11-28] MEDS: hydrOXYzine PAMOATE 50 MG CAPSULE (FP) PO PRN ×3 (10:16→21:42)
[2019-11-28] MEDS: TRIAMCINOLONE ACET 0.1% OINT 15 GM TUBE TP SCH ×2 (10:16→21:43)
[2019-11-28] MEDS: NICOTINE 14 MG/24 HOURS TOPICAL PATCH TD SCH (10:17)
[2019-11-28] MEDS: NICOTINE POLACRILEX 2 MG GUM BC PRN ×3 (10:17→19:08)
[2019-11-28] MEDS: METHYL SALICYLATE/MENTHOL OINT 30 GM TUBE TP SCH ×2 (10:17→21:43)
[2019-11-28] MEDS: LIDOCAINE 5% TOPICAL PATCH TP SCH (10:17)
[2019-11-28] MEDS: ASPIRIN 81 MG CHEWABLE TABLETS PO SCH (10:17)
[2019-11-28] MEDS: SERTRALINE HCL 50 MG TABLET (FP) PO SCH (10:17)
[2019-11-28] MEDS: MELATONIN 5 MG TABLETS PO PRN (21:42)
[2019-11-28] MEDS: THIAMINE HCL 100 MG TABLET (FP) PO SCH (21:42)
[2019-11-28] MEDS: QUEtiapine FUMARATE 100 MG TABLET (FP) PO SCH (21:42)
[2019-11-28] MEDS: LIDOCAINE PATCH REMOVAL MC SCH (21:43)
[2019-11-29] MEDS: PRENATAL VITAMINS W/ FOLIC ACID TABLET (FP) PO SCH (10:23)
[2019-11-29] MEDS: LISINOPRIL 20 MG TABLET (FP) PO SCH (10:23)
[2019-11-29] MEDS: ASPIRIN 81 MG CHEWABLE TABLETS PO SCH (10:23)
[2019-11-29] MEDS: LIDOCAINE 5% TOPICAL PATCH TP SCH (10:24)
[2019-11-29] MEDS: SERTRALINE HCL 50 MG TABLET (FP) PO SCH (10:24)
[2019-11-29] MEDS: hydrOXYzine PAMOATE 50 MG CAPSULE (FP) PO PRN ×4 (10:24→21:48)
[2019-11-29] MEDS: TAMSULOSIN HCL 0.4 MG CAP PO SCH (10:24)
[2019-11-29] MEDS: NICOTINE 14 MG/24 HOURS TOPICAL PATCH TD SCH (10:24)
[2019-11-29] MEDS: PANTOPRAZOLE 40 MG TABLET PO SCH (10:24)
[2019-11-29] MEDS: METHYL SALICYLATE/MENTHOL OINT 30 GM TUBE TP SCH ×2 (10:25→21:49)
[2019-11-29] MEDS: BUDESONIDE/FORMETEROL FUMARATE 160/4.5 mcg INHALER IH SCH ×2 (10:26→21:49)
[2019-11-29] MEDS: NICOTINE POLACRILEX 2 MG GUM BC PRN ×3 (10:27→21:51)
[2019-11-29] MEDS: ALBUTEROL SO4 HFA INHALER IH PRN (10:27)
[2019-11-29] MEDS: BUPRENORPHINE/NALOXONE 8 MG/2 MG FILM PACKET SL SCH ×2 (10:29→17:40)
[2019-11-29] MEDS: TRIAMCINOLONE ACET 0.1% OINT 15 GM TUBE TP SCH ×2 (10:29→21:49)
[2019-11-29] MEDS: MAGNESIUM HYDROX 2400MG/30ML ORAL SUSPENSION 30 ML CUP PO PRN (17:45)
[2019-11-29] MEDS: MELATONIN 5 MG TABLETS PO PRN (21:48)
[2019-11-29] MEDS: THIAMINE HCL 100 MG TABLET (FP) PO SCH (21:49)
[2019-11-29] MEDS: LIDOCAINE PATCH REMOVAL MC SCH (21:49)
[2019-11-29] MEDS: QUEtiapine FUMARATE 100 MG TABLET (FP) PO SCH (21:49)
[2019-11-30] MEDS: hydrOXYzine PAMOATE 50 MG CAPSULE (FP) PO PRN ×3 (10:10→21:02)
[2019-11-30] MEDS: PANTOPRAZOLE 40 MG TABLET PO SCH (10:10)
[2019-11-30] MEDS: TAMSULOSIN HCL 0.4 MG CAP PO SCH (10:10)
[2019-11-30] MEDS: BUPRENORPHINE/NALOXONE 8 MG/2 MG FILM PACKET SL SCH ×2 (10:10→17:52)
[2019-11-30] MEDS: NICOTINE 14 MG/24 HOURS TOPICAL PATCH TD SCH (10:11)
[2019-11-30] MEDS: METHYL SALICYLATE/MENTHOL OINT 30 GM TUBE TP SCH ×2 (10:11→21:02)
[2019-11-30] MEDS: PRENATAL VITAMINS W/ FOLIC ACID TABLET (FP) PO SCH (10:11)
[2019-11-30] MEDS: LISINOPRIL 20 MG TABLET (FP) PO SCH (10:11)
[2019-11-30] MEDS: LIDOCAINE 5% TOPICAL PATCH TP SCH (10:11)
[2019-11-30] MEDS: ASPIRIN 81 MG CHEWABLE TABLETS PO SCH (10:11)
[2019-11-30] MEDS: SERTRALINE HCL 50 MG TABLET (FP) PO SCH (10:12)
[2019-11-30] MEDS: TRIAMCINOLONE ACET 0.1% OINT 15 GM TUBE TP SCH ×3 (10:12→21:04)
[2019-11-30] MEDS: BUDESONIDE/FORMETEROL FUMARATE 160/4.5 mcg INHALER IH SCH ×2 (10:13→21:02)
[2019-11-30] MEDS: NICOTINE POLACRILEX 2 MG GUM BC PRN ×2 (10:15→17:53)
[2019-11-30] MEDS: THIAMINE HCL 100 MG TABLET (FP) PO SCH (21:02)
[2019-11-30] MEDS: LIDOCAINE PATCH REMOVAL MC SCH (21:02)
[2019-11-30] MEDS: MELATONIN 5 MG TABLETS PO PRN (21:02)
[2019-11-30] MEDS: QUEtiapine FUMARATE 100 MG TABLET (FP) PO SCH (21:02)
[2019-11-30] MEDS ORDERED: PT OWN MED DRAWER 7, Y5N ONE (21:05)
[2019-12-01] MEDS: BUDESONIDE/FORMETEROL FUMARATE 160/4.5 mcg INHALER IH SCH ×2 (09:11→21:50)
[2019-12-01] MEDS: NICOTINE 14 MG/24 HOURS TOPICAL PATCH TD SCH (09:12)
[2019-12-01] MEDS: PRENATAL VITAMINS W/ FOLIC ACID TABLET (FP) PO SCH (09:12)
[2019-12-01] MEDS: SERTRALINE HCL 50 MG TABLET (FP) PO SCH (09:12)
[2019-12-01] MEDS: LISINOPRIL 20 MG TABLET (FP) PO SCH (09:12)
[2019-12-01] MEDS: BUPRENORPHINE/NALOXONE 8 MG/2 MG FILM PACKET SL SCH ×2 (09:12→17:55)
[2019-12-01] MEDS: TAMSULOSIN HCL 0.4 MG CAP PO SCH (09:13)
[2019-12-01] MEDS: ASPIRIN 81 MG CHEWABLE TABLETS PO SCH (09:13)
[2019-12-01] MEDS: LIDOCAINE 5% TOPICAL PATCH TP SCH (09:13)
[2019-12-01] MEDS: PANTOPRAZOLE 40 MG TABLET PO SCH (09:13)
[2019-12-01] MEDS ORDERED: PT OWN MED DRAWER 7, Y5N ONE (09:14)
[2019-12-01] MEDS: TRIAMCINOLONE ACET 0.1% OINT 15 GM TUBE TP SCH ×2 (09:14→21:51)
[2019-12-01] MEDS: hydrOXYzine PAMOATE 50 MG CAPSULE (FP) PO PRN ×3 (09:16→21:53)
[2019-12-01] MEDS: METHYL SALICYLATE/MENTHOL OINT 30 GM TUBE TP SCH ×2 (09:16→21:51)
[2019-12-01] MEDS: LIDOCAINE PATCH REMOVAL MC SCH (21:50)
[2019-12-01] MEDS: QUEtiapine FUMARATE 100 MG TABLET (FP) PO SCH (21:51)
[2019-12-01] MEDS: THIAMINE HCL 100 MG TABLET (FP) PO SCH (21:51)
[2019-12-01] MEDS: NICOTINE POLACRILEX 2 MG GUM BC PRN (21:54)
[2019-12-01] MEDS: MAGNESIUM HYDROX 2400MG/30ML ORAL SUSPENSION 30 ML CUP PO PRN (21:55)
[2019-12-02] MEDS: hydrOXYzine PAMOATE 50 MG CAPSULE (FP) PO PRN ×3 (09:33→21:06)
[2019-12-02] MEDS: ASPIRIN 81 MG CHEWABLE TABLETS PO SCH (09:33)
[2019-12-02] MEDS: PANTOPRAZOLE 40 MG TABLET PO SCH (09:33)
[2019-12-02] MEDS: BUPRENORPHINE/NALOXONE 8 MG/2 MG FILM PACKET SL SCH ×2 (09:33→16:45)
[2019-12-02] MEDS: BUDESONIDE/FORMETEROL FUMARATE 160/4.5 mcg INHALER IH SCH ×2 (09:33→21:05)
[2019-12-02] MEDS: NICOTINE 14 MG/24 HOURS TOPICAL PATCH TD SCH (09:33)
[2019-12-02] MEDS: TAMSULOSIN HCL 0.4 MG CAP PO SCH (09:33)
[2019-12-02] MEDS: SERTRALINE HCL 50 MG TABLET (FP) PO SCH (09:33)
[2019-12-02] MEDS: TRIAMCINOLONE ACET 0.1% OINT 15 GM TUBE TP SCH ×2 (09:34→21:05)
[2019-12-02] MEDS: LISINOPRIL 20 MG TABLET (FP) PO SCH (09:34)
[2019-12-02] MEDS: PRENATAL VITAMINS W/ FOLIC ACID TABLET (FP) PO SCH (09:34)
[2019-12-02] MEDS: LIDOCAINE 5% TOPICAL PATCH TP SCH (09:34)
[2019-12-02] MEDS: METHYL SALICYLATE/MENTHOL OINT 30 GM TUBE TP SCH ×2 (09:34→21:05)
[2019-12-02] MEDS: MAGNESIUM HYDROX 2400MG/30ML ORAL SUSPENSION 30 ML CUP PO PRN (18:14)
[2019-12-02] MEDS: LIDOCAINE PATCH REMOVAL MC SCH (21:05)
[2019-12-02] MEDS: QUEtiapine FUMARATE 100 MG TABLET (FP) PO SCH (21:05)
[2019-12-02] MEDS: THIAMINE HCL 100 MG TABLET (FP) PO SCH (21:05)
[2019-12-02] MEDS: MELATONIN 5 MG TABLETS PO PRN (21:07)
[2019-12-03] MEDS: BUPRENORPHINE/NALOXONE 8 MG/2 MG FILM PACKET SL SCH ×2 (11:22→17:14)
[2019-12-03] MEDS: LIDOCAINE 5% TOPICAL PATCH TP SCH (11:23)
[2019-12-03] MEDS: SERTRALINE HCL 50 MG TABLET (FP) PO SCH (11:23)
[2019-12-03] MEDS: NICOTINE 14 MG/24 HOURS TOPICAL PATCH TD SCH (11:23)
[2019-12-03] MEDS: PRENATAL VITAMINS W/ FOLIC ACID TABLET (FP) PO SCH (11:23)
[2019-12-03] MEDS: LISINOPRIL 20 MG TABLET (FP) PO SCH (11:24)
[2019-12-03] MEDS: METHYL SALICYLATE/MENTHOL OINT 30 GM TUBE TP SCH ×2 (11:25→22:12)
[2019-12-03] MEDS: TAMSULOSIN HCL 0.4 MG CAP PO SCH (11:25)
[2019-12-03] MEDS: PANTOPRAZOLE 40 MG TABLET PO SCH (11:25)
[2019-12-03] MEDS: TRIAMCINOLONE ACET 0.1% OINT 15 GM TUBE TP SCH ×2 (11:25→22:12)
[2019-12-03] MEDS: ASPIRIN 81 MG CHEWABLE TABLETS PO SCH (11:25)
[2019-12-03] MEDS: BUDESONIDE/FORMETEROL FUMARATE 160/4.5 mcg INHALER IH SCH ×2 (11:25→22:17)
[2019-12-03] MEDS: hydrOXYzine PAMOATE 50 MG CAPSULE (FP) PO PRN ×3 (11:27→22:09)
[2019-12-03] MEDS: NICOTINE POLACRILEX 2 MG GUM BC PRN ×2 (11:27→22:10)
[2019-12-03] MEDS: LIDOCAINE PATCH REMOVAL MC SCH (22:09)
[2019-12-03] MEDS: QUEtiapine FUMARATE 100 MG TABLET (FP) PO SCH (22:09)
[2019-12-03] MEDS: MELATONIN 5 MG TABLETS PO PRN (22:10)
[2019-12-03] MEDS ORDERED: PT OWN MED DRAWER 7, Y5N ONE (22:12)
[2019-12-03] MEDS: MAGNESIUM HYDROX 2400MG/30ML ORAL SUSPENSION 30 ML CUP PO PRN (22:15)
[2019-12-03] MEDS: THIAMINE HCL 100 MG TABLET (FP) PO SCH (22:16)
[2019-12-04] MEDS ORDERED: BUPRENORPHINE/NALOXONE 8 MG/2 MG FILM PACKET SL ONE (10:07)
[2019-12-04] MEDS: ASPIRIN 81 MG CHEWABLE TABLETS PO SCH (10:10)
[2019-12-04] MEDS: SERTRALINE HCL 50 MG TABLET (FP) PO SCH (10:10)
[2019-12-04] MEDS: PANTOPRAZOLE 40 MG TABLET PO SCH (10:10)
[2019-12-04] MEDS: LIDOCAINE 5% TOPICAL PATCH TP SCH (10:10)
[2019-12-04] MEDS: TAMSULOSIN HCL 0.4 MG CAP PO SCH (10:10)
[2019-12-04] MEDS: NICOTINE 14 MG/24 HOURS TOPICAL PATCH TD SCH (10:10)
[2019-12-04] MEDS: METHYL SALICYLATE/MENTHOL OINT 30 GM TUBE TP SCH ×2 (10:12→21:01)
[2019-12-04] MEDS: TRIAMCINOLONE ACET 0.1% OINT 15 GM TUBE TP SCH ×2 (10:12→21:01)
[2019-12-04] MEDS: PRENATAL VITAMINS W/ FOLIC ACID TABLET (FP) PO SCH (10:12)
[2019-12-04] MEDS: BUDESONIDE/FORMETEROL FUMARATE 160/4.5 mcg INHALER IH SCH ×2 (10:13→21:01)
[2019-12-04] MEDS: ALBUTEROL SO4 HFA INHALER IH PRN (10:13)
[2019-12-04] MEDS: LISINOPRIL 20 MG TABLET (FP) PO SCH (10:14)
--- NOTE | 2019-12-04 11:52 | PN ---
[facility] Progress Note Note: Patient is scheduled for discharge tomorrow. Scripts for 30 days supply of medications(Zoloft 15 mg/day, Seroquel 100 mg/hs) will be electronically transmitted to [facility], [facility] [place] [address]
[2019-12-04] MEDS: hydrOXYzine PAMOATE 50 MG CAPSULE (FP) PO PRN ×2 (14:08→21:00)
[2019-12-04] MEDS: BUPRENORPHINE/NALOXONE 8 MG/2 MG FILM PACKET SL SCH (16:33)
[2019-12-04] MEDS: QUEtiapine FUMARATE 100 MG TABLET (FP) PO SCH (21:00)
[2019-12-04] MEDS: THIAMINE HCL 100 MG TABLET (FP) PO SCH (21:00)
[2019-12-04] MEDS: MELATONIN 5 MG TABLETS PO PRN (21:00)
[2019-12-04] MEDS: LIDOCAINE PATCH REMOVAL MC SCH (21:00)
--- NOTE | 2019-12-05 09:03 | DS ---
[facility] Rehab Discharge Summary - [facility] Rehab Discharge Summary Admission Date: 11/07/19 Discharge Date: 12/05/19 - History Present History: Alcohol dependence, Opioid dependence Pertinent Past History: HERE FOR ALCOHOL ,[facility]. CLIENT WAS A TRANSFER FROM [facility] AFTER BEING HOSPITALIZED FROM 10/24/19 TO 11/07/19 C.P., SOB, DEPRESSION, ETOH WITHDRAWAL SX'S. COVID TEST ON 10/24/19 NEGATIVE. CLIENT IS KNOWN TO THIS PROGRAM. LAST HERE 6 WEEKS AGO. REPORTS RELAPSE 10/11/2019 AFTER HIS FROM COVID. DRINKING DAILY, + [employer]. REPORTS HX/O WITHDRAWAL SEIZURES. LAST BEING 05/02/2019. DENIES BLACKOUTS. DENIES ANY SIGNIFICANT PERIOD OF CLEAN TIME IN THE PAST 12 MONTHS EXCEPT WHEN IN TXMENT. LIVES ALONE, UNEMPLOYED, DENIES LEGALS. - Discharge Physical Exam Vital Signs: Vital Signs Temperature 97.5 F L 12/05/19 07:19 Pulse Rate 60 12/05/19 07:19 Respiratory Rate 18 12/05/19 07:19 Blood Pressure 124/75 12/05/19 07:19 O2 Sat by Pulse Oximetry (%) 97 12/05/19 07:19 Pertinent Admission Physical Exam Findings: Physical General Appearance: No Apparent Distress HEENTM: EOMI, Normocephalic, KAY Respiratory: No Respiratory Distress, No Accessory Muscle Use Neck:Supple, Cardiology: Abdominal: +Bowel Sounds Musculoskeletal: AMBULATES WITH CANE 2/2 KNEE PAIN Neurological: Oriented X4 - Treatment Discharge Condition: Outpatient referral accepted (Patient will return to program he attended prior to admission. Medically stable for discharge.) - Medication Discharge Medications: Ambulatory Orders Buprenorphine/Naloxone [Suboxone 8Mg/2Mg Sl Film -] 2 each SL DAILY 06/19/18 Amoxicillin - [Amoxicillin 500mg Capsule -] 500 mg PO TID MDD 7D 09/25/19 Hydroxyzine HCl 25 mg PO QID PRN 09/25/19 Sertraline HCl [Zoloft -] 150 mg PO DAILY 09/25/19 Thiamine Mononitrate [Vitamin B-1] 100 mg PO DAILY 09/25/19 Albuterol Sulfate Inhaler - [Ventolin HFA Inhaler -] 2 inh PO Q4H PRN #1 inhaler 12/04/19 Aspirin [ASA -] 81 mg PO DAILY #14 tab.chew 12/04/19 Fluticasone Propion/Salmeterol [Wixela 500-50 Inhub] 1 each IH BID #1 each 12/04/19 Folic Acid - 1 mg PO DAILY #14 tablet 12/04/19 Pantoprazole Sodium [Protonix -] 40 mg PO DAILY #14 tab 12/04/19 Polyethylene Glycol 3350 [Miralax 119 gm Btl -] 17 gm PO DAILY #1 bottle 12/04/19 Quetiapine Fumarate [Seroquel -] 100 mg PO HS #30 tablet 12/04/19 Sertraline HCl [Zoloft -] 150 mg PO DAILY #90 tablet 12/04/19 Tamsulosin HCl [Flomax -] 0.4 mg PO DAILY #14 cap.sr 12/04/19 - Medication-Assisted Treatment (MAT) Medication-Assisted Treatment (MAT): No Medication Prescribed: Buprenorphine (Patient will return to the program he attended prior to admission.) - Discharge Instructions Diet, activity, other medical instructions: Diet: as tolerated Activity: as tolerated Other medical instructions: Please follow up with aftercare referral. - Diagnosis (1) Alcohol dependence, uncomplicated Current Visit: Yes Status: Chronic (2) Opioid dependence on agonist therapy Current Visit: Yes Status: Chronic - Follow-up Referral Minutes to complete discharge: 15 - AMA Did Patient Leave Against Medical Advice: No
[2019-12-05 09:15] VITALS: BP 108/65; PULSE 75; TEMP 97.1
[2019-12-05] MEDS: hydrOXYzine PAMOATE 50 MG CAPSULE (FP) PO PRN (09:25)
[2019-12-05] MEDS: TAMSULOSIN HCL 0.4 MG CAP PO SCH (09:25)
[2019-12-05] MEDS: SERTRALINE HCL 50 MG TABLET (FP) PO SCH (09:25)
[2019-12-05] MEDS: ASPIRIN 81 MG CHEWABLE TABLETS PO SCH (09:25)
[2019-12-05] MEDS: PANTOPRAZOLE 40 MG TABLET PO SCH (09:25)
[2019-12-05] MEDS: LISINOPRIL 20 MG TABLET (FP) PO SCH (09:25)
[2019-12-05] MEDS: PRENATAL VITAMINS W/ FOLIC ACID TABLET (FP) PO SCH (09:25)
[2019-12-05] MEDS: TRIAMCINOLONE ACET 0.1% OINT 15 GM TUBE TP SCH (09:26)
[2019-12-05] MEDS: LIDOCAINE 5% TOPICAL PATCH TP SCH (09:26)
[2019-12-05] MEDS: BUDESONIDE/FORMETEROL FUMARATE 160/4.5 mcg INHALER IH SCH (09:26)
[2019-12-05] MEDS: METHYL SALICYLATE/MENTHOL OINT 30 GM TUBE TP SCH (09:26)
[2019-12-05] MEDS: ALBUTEROL SO4 HFA INHALER IH PRN (09:27)
[2019-12-05] MEDS: NICOTINE 14 MG/24 HOURS TOPICAL PATCH TD SCH (09:29)
[2019-12-05] MEDS: NICOTINE POLACRILEX 2 MG GUM BC PRN (09:32)
[2019-12-05] MEDS ORDERED: PT OWN MED DRAWER 7, Y5N ONE (09:34)
[2019-12-05] MEDS ORDERED: BUPRENORPHINE/NALOXONE 8 MG/2 MG FILM PACKET SL ONE (09:37)
[2019-12-05] MEDS: BUPRENORPHINE/NALOXONE 8 MG/2 MG FILM PACKET SL SCH (09:45)
== END 2019-12-05 09:50 | disposition home or self-care (01) | DRG 772 ==
LOC: YASAS 19:23 → Y3W 21:58
PROVIDERS: ADMIT Allergy & Immunology; ATTEND Allergy & Immunology
PROC: HZ42ZZZ Group Counseling for Substance Abuse Treatment, Cognitive-Behavioral (ICD-10-PCS; principal; 2019-11-07)
DX: F10.20 Alcohol dependence, uncomplicated (principal); F11.20 Opioid dependence, uncomplicated; F12.20 Cannabis dependence, uncomplicated; F17.210 Nicotine dependence, cigarettes, uncomplicated; F19.282 Other psychoactive substance dependence with psychoactive substance-induced sleep disorder; G62.9 Polyneuropathy, unspecified; G47.00 Insomnia, unspecified; H91.92 Unspecified hearing loss, left ear; I10 Essential (primary) hypertension; J45.909 Unspecified asthma, uncomplicated; K21.9 Gastro-esophageal reflux disease without esophagitis; K74.60 Unspecified cirrhosis of liver; L53.9 Erythematous condition, unspecified; M79.89 Other specified soft tissue disorders; M54.5 Low back pain; M25.561 Pain in right knee; M25.562 Pain in left knee; N40.1 Benign prostatic hyperplasia with lower urinary tract symptoms; R39.11 Hesitancy of micturition; Z63.4 Disappearance and death of family member; Z86.19 Personal history of other infectious and parasitic diseases; Z86.69 Personal history of other diseases of the nervous system and sense organs; R26.89 Other abnormalities of gait and mobility; Z99.89 Dependence on other enabling machines and devices; Z98.890 Other specified postprocedural states
CPT/HCPCS: 36415; 80053; 81003; 82962; 85027; 85660; 86593; 86780; 93005; 93010; U0003